=== PATIENT | female | born 1955 | race Caucasian/White ===

== ENCOUNTER → 2016-03-31 | Outpatient (CLI) | payer MEDICAID ==
[~2016-03-31] MED LIST: BISA5TAB81 PO; BUPR1FIL3 SL; CETI10TA17 PO; CLON2TAB3 PO; CLON2TAB45 PO; FLC100T1 PO; FURO20TA PO; LEVO75TA6 PO; LVT.112T PO; LVT.1T PO; METO10TA3 PO; MGCT300B PO; OMEP-10 PO; OMEP40CA36 PO; ONDA8TAB13 PO; PEG4000S9 PO; POLY119P PO; POTA10CA43 PO; PRM25T PO; SULF-222 PO
--- OUTSIDE RECORDS SUMMARY | 2016-03-31 13:29 | XMS REPORT ---
Author Author VINICIO HERNANDEZ [facility] eClinicalWorks Address Unknown Phone Unavailable Care Team Providers Care Technologist Infectious Disease Name Role Phone VINICIO HERNANDEZ CP Unavailable Allergies No Known Allergies Problems Problem Type Condition Code Onset Dates Condition Status Problem Numbness of perineum R20.0 Active Problem Aortoiliac stenosis I70.0 Active Problem Spinal stenosis at L4-L5 level M48.06 Active Problem Acquired hypothyroidism E03.9 Active Problem Primary osteoarthritis of right hip M16.11 Active Problem Anxiety F41.9 Active Problem Renal cysts, acquired, bilateral N28.1 Active Problem Neurogenic bladder N31.9 Active Problem Cervicalgia M54.2 Active Problem Fatty liver K76.0 Active Problem Nausea R11.0 Active Problem Hyperlipidemia E78.5 Active Problem Prediabetes R73.09 Active Problem Diverticulosis of large intestine without hemorrhage K57.30 Active Problem Chronic gastric ulcer K25.7 Active Problem Vitamin D deficiency E55.9 Active Problem Esophagitis K20.9 Active Problem Chronic obstructive pulmonary disease, unspecified COPD type J44.9 Active Problem Chest pain, unspecified R07.9 Active Medications No Known Medications Results No Known Results Summary Purpose eClinicalWorks Submission
--- NOTE | 2016-03-31 18:28 | Diagnostic Imaging Report ---
EXAMINATION: Digital mammogram bilateral screening. INDICATION: Screening. COMPARISON: This study was compared to the prior exam of 12/01/2011. At this time, there are no current complaints. The current study was also evaluated with a Computer Aided Detection (CAD) system. FINDINGS: The fibroglandular tissue in both breasts is heterogeneously dense. This does limit the sensitivity of this exam. Overall, there does not appear to have been any significant change when compared to the prior study. No primary or secondary sign of malignancy is noted. IMPRESSION: 1. There is no evidence of malignancy. 2. The patient should have her annual bilateral screening mammogram on schedule in March 2017. ACR BI-RADS Category 1: Negative. Result letter will be mailed to the patient. Note: At least 10% of breast cancer is not imaged by mammography. Dictated by: Dictated on workstation # [id number]
== END ==
LOC: RAD 10:41
PROVIDERS: ATTEND Family Medicine
DX: Z12.31 Encounter for screening mammogram for malignant neoplasm of breast (principal)
CPT/HCPCS: 77067

== ENCOUNTER → 2016-04-22 | Outpatient (CLI) | payer MEDICAID ==
--- NOTE | 2016-04-22 13:42 | Diagnostic Imaging Report ---
PROCEDURE: MRI pelvis without contrast. TECHNIQUE: Multiplanar, multisequence MRI of the pelvis was performed without contrast. INDICATION: Stage III kidney disease. Renal cysts. History of ovarian tumor removed in 2008. FINDINGS: The urinary bladder is minimally distended without focal lesion. There is no significant wall thickening. Changes of hysterectomy are seen. The patient based on history has had at least one ovary removed. No ovarian tissue is identified on this exam. There is no soft tissue mass identified in the pelvis. No significant free fluid or fluid collection is identified. The bone marrow signal in the pelvis is normal without suspicious mass seen. IMPRESSION: Minimal distention of the urinary bladder; unremarkable exam otherwise. Dictated by: Dictated on workstation # [id number]
--- NOTE | 2016-04-22 13:42 | Diagnostic Imaging Report ---
PROCEDURE: MR imaging abdomen without contrast. TECHNIQUE: Multiplanar, multisequence MR imaging of the abdomen was performed without contrast. INDICATION: Stage III chronic renal disease. Renal cysts. FINDINGS: There are multiple renal lesions with lobulated smooth margins that have T2 hyperintense bright signal in both kidneys. The largest is in the medial aspect of lower pole of the right kidney and measures 2.5 cm. This is larger compared to 2014 exam when the same lesion measured 2.1 cm. There are internal septations seen. This study does not evaluate for solid component based on the lack of intravenous contrast and given the enlargement confirmation with ultrasound of the relatively simple nature of this lesion is recommended. The size of the lesion in the upper pole of the left kidney is 1.4 cm which is not significantly changed from the CT scan in 2014. The gallbladder demonstrates no stones or evidence of cholecystitis. The liver has fairly homogeneous appearance of the parenchyma in its visualized portions and the spleen and the pancreas appear grossly unremarkable. The adrenal glands appear unremarkable. A gastric diverticulum from the posterior aspect of the fundus of the stomach appears to abut the left adrenal gland. The abdominal aorta is normal in caliber. No para-aortic significantly enlarged lymph nodes are seen. IMPRESSION: There is interval enlargement of 2.5 cm lesion in the medial aspect of the lower pole of the right kidney with suggestion of internal septation. There is no definitive solid component; however, the evaluation is limited without intravenous contrast and a right renal ultrasound to confirm lack of a solid component is recommended. Dictated by: Dictated on workstation # [id number]
== END ==
LOC: RAD 10:09
PROVIDERS: ATTEND Nurse Practitioner
DX: N28.9 Disorder of kidney and ureter, unspecified (principal); I13.0 Hypertensive heart and chronic kidney disease with heart failure and stage 1 through stage 4 chronic kidney disease, or unspecified chronic kidney disease; N18.3 Chronic kidney disease, stage 3 (moderate); R80.9 Proteinuria, unspecified; E55.9 Vitamin D deficiency, unspecified; E78.5 Hyperlipidemia, unspecified; K76.0 Fatty (change of) liver, not elsewhere classified; R73.01 Impaired fasting glucose; E87.1 Hypo-osmolality and hyponatremia; E87.2 Acidosis
CPT/HCPCS: 72195; 74181

== ENCOUNTER → 2016-09-08 | Outpatient (CLI) | payer MEDICAID ==
--- NOTE | 2016-09-08 16:36 | Diagnostic Imaging Report ---
PROCEDURE: Lung cancer screening CT chest without contrast. TECHNIQUE: Multiple contiguous axial images were obtained through the chest without the use of intravenous contrast. This is performed with a low-dose protocol. INDICATION: Currently asymptomatic patient with 40 pack years history of smoking. Comparison: None available. FINDINGS: There is no significant pulmonary consolidation or mass. No suspicious nodule is seen. Scattered areas of scarring are noted. There is a 3 mm nonspecific nodule in the left lower lobe, axial image 43 of questionable significance. Mild scarring in the inferior lingula seen. The mediastinum demonstrates no mass or significantly enlarged lymph nodes. The hilar vessels are not opacified with no obvious hilar mass. The axilla demonstrate no lymph node enlargement. The heart size is normal. No pericardial or pleural effusion. The osseous structures demonstrate mild degenerative changes. IMPRESSION: 3 mm nodule in the left lower lobe of questionable clinical significance. No suspicious nodule or mass. Mild scarring in the left lung base. Lung Rads Category 2. Benign findings. Recommendations: Annual screening low-dose CT scan. Dictated by: Dictated on workstation # [id number]
== END ==
LOC: RAD 14:16
PROVIDERS: ATTEND Family Medicine
DX: R91.1 Solitary pulmonary nodule (principal); F17.210 Nicotine dependence, cigarettes, uncomplicated

== ENCOUNTER 2016-10-14 05:36 | Outpatient (CLI) | payer MEDICAID ==
[~2016-10-14] VITALS: Ht 167.6 cm; Wt 56.7 kg
[2016-10-14] MEDS ORDERED: NALO25TA PO (12:19)
[2016-10-14] MEDS ORDERED: RT-ALBUINH IH (12:19)
[2016-10-14] MEDS ORDERED: CLON1TAB3 PO (12:19)
[2016-10-14] MEDS ORDERED: RANI150T90 PO (12:19)
[2016-10-14] MEDS ORDERED: ONDN4T PO (12:19)
[2016-10-14] MEDS ORDERED: MULT-298 PO (12:24)
[2016-10-14] MEDS ORDERED: FENO160T12 PO (12:24)
[2016-10-14] MEDS ORDERED: SUCR1TAB PO (12:24)
== END 2016-10-14 12:27 ==
LOC: PREOP 05:36
PROVIDERS: ATTEND Surgery
DX: Z01.818 Encounter for other preprocedural examination (principal); R11.0 Nausea; R63.4 Abnormal weight loss; K92.0 Hematemesis; K59.00 Constipation, unspecified

== ENCOUNTER 2016-10-19 08:34 | Day surgery (SDC) | payer MEDICAID ==
[~2016-10-19] VITALS: Ht 167.6 cm; Wt 56.7 kg
[~2016-10-19 08:34] MED LIST changes: +CLON1TAB3 PO; +FENO160T12 PO; +MULT-298 PO; +NALO25TA PO; +ONDN4T PO; +RANI150T90 PO; +RT-ALBUINH IH; +SUCR1TAB PO
[2016-10-19] MEDS ORDERED: NS IV 1000 ML 1,000 ML IV STA (08:50)
[2016-10-19] MEDS ORDERED: LACTATED RINGERS 1,000 ML IV PRN (08:59)
[2016-10-19] MEDS ORDERED: RT-ALBUTEROL SULF 2.5 MG/3 ML PRE-MIX VIAL INH ONE (09:00)
[2016-10-19] MEDS ORDERED: FAMOTIDINE 20MG/2ML IV (PEPCID) IV ONE (09:00)
[2016-10-19] MEDS ORDERED: HURRICAINE EXT TUBE (BENZOCAINE) XX PRN (09:00)
[2016-10-19 09:11] VITALS: BP 108/68
--- NOTE | 2016-10-19 09:28 | Conscious Sedation/ASA ---
Conscious Sedation Pre-Proced Time Reviewed: :27 ASA Class: 3 Airway Mallampati Classification: ([place] appropriate class) I. II. III, IV Lungs Heart ASA score ASA 1: a normal healthy patient ASA 2: a patient with a mild systemic disease (mid diabetes, controlled hypertension, obesity ASA 3: a patient with a severe systemic disease that limits activity (angina , COPD, prior Myocardial infarction) ASA 4: a patient with an incapacitating disease that is a constant threat to life (CHF, renal failure) ASA 5: a moribund patient not expected to survive 24 hrs. (ruptured aneurysm) ASA 6: a declared brain patient whose organs are being harvested. For emergent operations, add the letter E after the classification Grade 2 Sedation Plan: Discussed options with patient/fam Note The patient is an appropriate candidate to undergo the planned procedure, sedation, and anesthesia. The patient immediately re-assessed prior to indication. CHANDANA LONGORIA MD Oct 19, 2016 9:28 am
--- NOTE | 2016-10-19 09:28 | History & Physicial ---
History of Present Illness History of Present Illness Reason for visit/HPI This lady presents for screening colonoscopy and EGD. She has a history of weight loss, nausea, constipation, bright red blood in stool, and GERD. She also reports erosions in her stomach for which she takes reglan, carafate, and zantac. She had polyps on a previous colonoscopy. No family history of colon cancer or polyps. Date of Admission Date Seen by Provider: Oct 19, 2016 Time Seen by Provider: 09:33 I consulted on this patient on 10/19/16 09:23 Attending Physician John Driver MD Admitting Physician Nancy Saenz MD Consult Allergies and Home Medications Allergies Coded Allergies: butorphanol (Unverified Allergy, Unknown, 10/01/13) ketorolac (Unverified Allergy, Unknown, 10/01/13) Erythromycin Base (Unverified Adverse Reaction, Intermediate, 03/03/13) Home Medications Albuterol Sulfate 1 Puff Puff, 2 PUFF IH Q4H PRN for WHEEZING, (Reported) 1 PUFF = 90 MCG Buprenorphine Hcl/Naloxone Hcl 1 Each Film, 1 EACH SL DAILY, (Reported) Clonazepam 1 Mg Tablet, 1 MG PO BID, (Reported) Fenofibrate 160 Mg Tablet, 160 MG PO DAILY, (Reported) Levothyroxine Sodium 75 Mcg Tablet, 75 MCG PO DAILY, (Reported) Metoclopramide Hcl 10 Mg Tablet, 10 MG PO QID PRN for NAUSEA, (Reported) Multivitamin/Iron/Folic Acid 1 Each Tablet, 1 EACH PO DAILY, (Reported) Naloxegol Oxalate 25 Mg Tablet, 25 MG PO DAILY, (Reported) Ondansetron HCl 4 Mg Tab, 4 MG PO TID, (Reported) Ranitidine HCl 150 Mg Tablet, 150 MG PO BID, (Reported) Sucralfate 1 Gm Tablet, 1 GM PO DAILY, (Reported) Past Nwntgdj-Cvanpb-Ufxelt Hx Patient Social History Alcohol Use: Past History Recreational Drug Use: No Smoking Status: Current Everyday Smoker Type Used: Cigarettes Recent Foreign Travel: No Contact w/other who traveled: No Recent Hopitalizations: No Immunizations Up To Date Date of Influenza Vaccine: Dec 12, 2012 Seasonal Allergies Seasonal Allergies: Yes Surgeries Hysterectomy, Oophorectomy Cardiovascular Palpitations Reproductive System Hx Reproductive Disorders: No Gastrointestinal Gastroesophageal Reflux, Chronic Constipation, Polyps Musculoskeletal Degenerate Disk Disease, Arthritis Endocrine Endocrine Disorders: Hypothyroidsim Psychosocial Behavioral Health Disorders: Anxiety Family Medical History Family Hx: FH: rheumatoid arthritis 19 MOTHER Pancreatic cancer 19 FATHER Constitutional: no symptoms reported, weight loss EENTM: nose congestion Respiratory: cough Cardiovascular: no symptoms reported Gastrointestinal: constipation, heartburn, loss of appetite, nausea, other ( occasional blood streaks in stool) Genitourinary: no symptoms reported Musculoskeletal: no symptoms reported Skin: no symptoms reported Psychiatric/Neurological: No Symptoms Reported All Other Systems Reviewed Negative Unless Noted: Yes Physical Exam Vital Signs Vital Sign - Last 12Hours 10/19/16 09:11 Temp 98.8 Pulse 88 Resp 18 B/P (MAP) 108/68 Pulse Ox 94 O2 Delivery Room Air Capillary Refill : General Appearance: No Apparent Distress, WD/WN Eyes: Bilateral Eye Normal Inspection, Bilateral Eye PERRL, Bilateral Eye EOMI HEENT: PERRL/EOMI, TMs Normal, Normal ENT Inspection, Pharynx Normal Neck: Full Range of Motion, Normal Inspection, Non Tender, Supple, Carotid Bruit Cardiovascular: Regular Rate, Rhythm, No Edema, No Gallop, No JVD, No Murmur, Normal Peripheral Pulses Gastrointestinal: Normal Bowel Sounds, Non Tender, Soft Rectal: Deferred Back: Normal Inspection Extremity: Normal Inspection Neurologic/Psychiatric: Alert, Oriented x3, Normal Mood/Affect Skin: Normal Color, Warm/Dry Lymphatic: No Adenopathy Assessment/Plan Assessment and Plan This lady is here for a screening colonoscopy and EGD. Problems: SALOMÓN CRABTREE MEDICAL STUDENT Oct 19, 2016 09:28
[2016-10-19] MEDS ORDERED: NS IV 1000 ML 1,000 ML IV SCH (09:45)
[2016-10-19] MEDS ORDERED: MIDAZOLAM 2 MG/2 ML (VERSED) VIAL ONE ×2 (09:51→09:59)
[2016-10-19] MEDS ORDERED: proPOfol 200 MG/20 ML (DIPRIVAN) VIAL IV ONE ×2 (09:51→10:00)
--- NOTE | 2016-10-19 10:31 | Endo Procedure Record ---
Endo Procedure Report Date of Procedure Oct 19, 2016 Surgeon (s) CHANDANA LONGORIA MD Post Procedure/Op Diagnosis EGD: Grade 1 esophagitis and distal gastritis Colonoscopy: Internal hemorrhoids and a few diverticula Procedure Performed EGD with antral biopsy Colonoscopy to cecum Description of Procedure Anesthesia Type: Conscious Sedation Specimen(s) collected/removed antral mucosa for H. pylori Description of the Procedure indication for the procedures: This lady came in for an upper endoscopy to investigate weight loss along with nausea and for concomitant colonoscopy to evaluate rectal bleeding and a change in her bowel habits. Informed consent was obtained after reviewing the procedures in detail. Description of procedures EGD/antral biopsy: She was placed in left lateral decubitus position and her vital signs were monitored. Conscious sedation was achieved using propofol infusion by our [employer] the flexible gastroscope was then introduced down the esophagus, past the stomach, into the proximal duodenum. Findings Esophagus: Grade 1 esophagitis Stomach: Mild distal gastritis. Biopsy for H. pylori was obtained. Duodenum normal She tolerated the procedure well and was turned around in preparation for colonoscopy. Impression: Weight loss and nausea. Mild distal gastritis. H. pylori status pending. Colonoscopy: Examination of the perianal area revealed external hemorrhoids and skin tags. Digital examination was unremarkable. The colonoscope was then introduced into the rectum and advanced to the cecum. The quality of bowel preparation was rather sub-optimal. However, I was able to suction the liquid fecal material and complete the examination. The scope was then withdrawn slowly and the mucosa examined in a systematic fashion Findings: 1. Internal hemorrhoids, source of her bleeding 2. Sigmoid diverticulae She tolerated the procedures well and was taken back to the nursing area in a stable condition. Impression: Rectal bleeding due to internal hemorrhoids. Sigmoid diverticulae Copies To: VINICIO HERNANDEZ MD,CHANDANA Christopher MD Oct 19, 2016 10:31 am
--- NOTE | 2016-10-19 10:34 | Discharge Inst-Simple/Standard ---
Discharge Inst-Standard Discharge Medications New, Converted or Re-Newed RX: Other Patient Instructions/Follow Up Plan of Care/Instructions/FU: F/U with her primary Activity as Tolerated: Yes Discharge Diet: No Restrictions CHANDANA LONGORIA MD Oct 19, 2016 10:34 am
[2016-10-19 10:45] VITALS: BP 103/51
[2016-10-19 11:15] VITALS: BP 106/66
[2016-10-19 11:32] VITALS: BP 106/66
== END 2016-10-19 11:25 | disposition home or self-care (01) ==
LOC: ENDO 08:34
PROVIDERS: ATTEND Surgery
DX: K20.9 Esophagitis, unspecified (principal); K29.70 Gastritis, unspecified, without bleeding; K64.8 Other hemorrhoids; K57.30 Diverticulosis of large intestine without perforation or abscess without bleeding; J44.9 Chronic obstructive pulmonary disease, unspecified; F17.210 Nicotine dependence, cigarettes, uncomplicated; G40.909 Epilepsy, unspecified, not intractable, without status epilepticus; E03.9 Hypothyroidism, unspecified; Z79.899 Other long term (current) drug therapy
CPT/HCPCS: 94640

== ENCOUNTER 2016-12-09 11:44 | Emergency (ER) | payer MEDICAID ==
[~2016-12-09] VITALS: Ht 167.6 cm; Wt 56.7 kg
--- OUTSIDE RECORDS SUMMARY | 2016-12-09 12:06 | XMS REPORT | Continuity of Care Document ---
Author Author [facility] [address] Organization [facility] [address] Address Unknown Phone Unavailable Allergies Medications Problems Procedures Results Encounters ACCT No. Visit Date/Time Discharge Status Pt. Type Provider Facility Loc./Unit Complaint [id number] 05/18/2013 07:17:00 2013 23:59:59 CLS Outpatient
--- NOTE | 2016-12-09 15:00 | Diagnostic Imaging Report ---
EXAMINATION: Upright and supine views of the abdomen. INDICATION: Constipation and bleeding. FINDINGS: There is no pneumoperitoneum. There is a moderate amount of fecal material seen in the colon and rectum. No bowel obstruction. Pelvic calcifications are likely related to phleboliths. IMPRESSION: Moderate amounts of fecal material are seen in the colon. No pneumoperitoneum or evidence of bowel obstruction. Dictated by: Dictated on workstation # [id number]
--- NOTE | 2016-12-09 16:14 | ED Abdominal Pain ---
General Chief Complaint: Abdominal/GI Problems Stated Complaint: CONSTIPATION Nursing Triage Note: Pt c/o constipation x3 weeks and states she has tried "everything" with no results. Pt reports having dark red blood in her underwear this morning upon waking and c/o abd cramping and rectal bleeding at this time. Sepsis Screen: No Definite Risk Source of Information: Patient Exam Limitations: No Limitations History of Present Illness Time Seen By Provider: 14:22 Initial Comments This is a ipy-[id number] woman presents to the emergency room with complaints of constipation for about 3 weeks. She had a colonoscopy performed about 3 weeks ago as well. There were internal hemorrhoids and diverticuli noted but no other significant abnormalities. She had some blood in her stools and on the toilet paper recently. The blood was fairly dark. She is on Suboxone which she believes is the cause of her constipation. She was previously treated with Linzess which she states caused diarrhea. She stopped taking it and then became constipated. Patient also reports a recent laparoscopic he which showed no seen if Abnormalities per her report. Patient has tried prunes, increased water intake, milk of magnesia, magnesium citrate 2, multiple suppositories, fleets enemas, soapsuds enemas, all with no significant improvement. It has been about 3 weeks since she has had a good bowel movement. She has tried Movantic in the past without success. She also tried a couple doses of MiraLAX which was successful. She reports poor rectal sensation due to chronic back problems which may be a contributing factor. Allergies and Home Medications Allergies Coded Allergies: butorphanol (Unverified Allergy, Unknown, 10/01/13) ketorolac (Unverified Allergy, Unknown, 10/01/13) Erythromycin Base (Unverified Adverse Reaction, Intermediate, 03/03/13) Home Medications Albuterol Sulfate 1 Puff Puff, 2 PUFF IH Q4H PRN for WHEEZING, (Reported) 1 PUFF = 90 MCG Buprenorphine Hcl/Naloxone Hcl 1 Each Film, 1 EACH SL DAILY, (Reported) Clonazepam 1 Mg Tablet, 1 MG PO BID, (Reported) Fenofibrate 160 Mg Tablet, 160 MG PO DAILY, (Reported) Levothyroxine Sodium 75 Mcg Tablet, 75 MCG PO DAILY, (Reported) Metoclopramide Hcl 10 Mg Tablet, 10 MG PO QID PRN for NAUSEA, (Reported) Multivitamin/Iron/Folic Acid 1 Each Tablet, 1 EACH PO DAILY, (Reported) Naloxegol Oxalate 25 Mg Tablet, 25 MG PO DAILY, (Reported) Ondansetron HCl 4 Mg Tab, 4 MG PO TID, (Reported) Ranitidine HCl 150 Mg Tablet, 150 MG PO BID, (Reported) Sucralfate 1 Gm Tablet, 1 GM PO DAILY, (Reported) Review of Systems Constitutional: weight loss EENTM: No Symptoms Reported Respiratory: No Symptoms Reported Cardiovascular: No Symptoms Reported Gastrointestinal: See HPI Genitourinary: No Symptoms Reported Musculoskeletal: no symptoms reported Skin: no symptoms reported Psychiatric/Neurological: No Symptoms Reported Endocrine: No Symptoms Reported Hematologic/Lymphatic: No Symptoms Reported Past Mcsaqij-Qwysrb-Ikhdry Hx Patient Social History Alcohol Use: Denies Use Recreational Drug Use: No Smoking Status: Current Someday Smoker Type Used: Cigarettes Recent Foreign Travel: No Contact w/Someone Who Travel: No Recent Infectious Disease Expo: No Recent Hopitalizations: No Immunizations Up To Date Date of Influenza Vaccine: Dec 12, 2012 Seasonal Allergies Seasonal Allergies: Yes Surgeries History of Surgeries: Yes (BILAT OOPHERECTOMY FOR TUMORS, BREAST BXS, TOE SURGERY) Surgeries: Abdominal (Colonoscopy, laparoscopy), Hysterectomy, Oophorectomy Respiratory History of Respiratory Disorde: Yes Respiratory Disorders: COPD Cardiovascular History of Cardiac Disorders: Yes Cardiac Disorders: Palpitations Neurological History of Neurological Disord: Yes (MEDICATION RELATED SEIZURE) Reproductive System Hx Reproductive Disorders: No Genitourinary History of Genitourinary Disor: Yes (urine retention) Gastrointestinal History of Gastrointestinal Di: Yes ("no feeling in rectum") Gastrointestinal Disorders: Gastroesophageal Reflux, Chronic Constipation, Hemorrhoids, Polyps Musculoskeletal History of Musculoskeletal Dis: No Musculoskeletal Disorders: Degenerate Disk Disease, Arthritis, Chronic Back Pain Endocrine History of Endocrine Disorders: Yes Endocrine Disorders: Hypothyroidsim Cancer History of Cancer: No Psychosocial History of Psychiatric Problem: Yes Behavioral Health Disorders: Anxiety Integumentary History of Skin or Integumenta: No Blood Transfusions History of Blood Disorders: Yes (anemia) Family Medical History Family Medial History: FH: rheumatoid arthritis 19 MOTHER Pancreatic cancer 19 FATHER Physical Exam Vital Signs VS - Last 72 Hours, by Label 12/09/16 12/09/16 12:31 16:22 Temp 98.2 98.2 Pulse 65 65 Resp 18 18 B/P (MAP) 105/73 Pulse Ox 98 98 O2 Delivery Room Air Capillary Refill : Less Than 3 Seconds General Appearance: WD/WN, no apparent distress HEENT: normal ENT inspection Respiratory: lungs clear, normal breath sounds, no respiratory distress Cardiovascular: regular rate, rhythm, no edema, no murmur Gastrointestinal: normal bowel sounds, soft, distended (Mildly), tenderness ( Generalized, mild) Rectal: normal exam, normal rectal tone, No hemorrhoids, No tenderness Extremities: normal inspection, no pedal edema Neurologic/Psychiatric: bundle cutter II-XII nml as tested, no motor/sensory deficits, alert, normal mood/affect, oriented x 3 Skin: normal color, warm/dry Progress/Results/Core Measures Results/Orders My Orders Orders - MARY CALERO MD Abdomen, Flat & Upright/Decub (12/09/16 14:21) Methylnaltrexone Injection (Relistor Inj (12/09/16 16:15) Vital Signs/I&O Vital Sign - Last 12Hours 12/09/16 12/09/16 12:31 16:22 Temp 98.2 98.2 Pulse 65 65 Resp 18 18 B/P (MAP) 105/73 Pulse Ox 98 98 O2 Delivery Room Air Blood Pressure Mean: 84 Progress Note : Progress Note Patient appeared to have formed stool in the colon on x-ray suggestive of constipation. History also suggests constipation. I advised her to consume a clear liquid diet with frequent doses of MiraLAX until bowel movements are produced. We also gave her a dose of Relistor in the emergency room in an effort to try stimulating her bowels. She was advised to have her primary care provider check her thyroid studies if her constipation does not improve soon. She was advised to follow-up with Dr. Driver or her primary care provider as soon as possible. Rectal bleeding was felt to be related to her multiple enemas and presence of hemorrhoids noted on colonoscopy. Diagnostic Imaging Diagonstic Imaging: Xray Plain Films/CT/US/NM/MRI: abdomen Comments Abdominal x-rays viewed by me and report reviewed. See report below: NAME: WHITLEY TYLER [facility] REC#: [id number] PT STATUS: REG ER : 1955 PHYSICIAN: MARY CALERO MD ADMIT DATE: 12/09/16/ER Signed Date of Exam: 12/09/16 ABDOMEN, FLAT & UPRIGHT/DECUB EXAMINATION: Upright and supine views of the abdomen. INDICATION: Constipation and bleeding. FINDINGS: There is no pneumoperitoneum. There is a moderate amount of fecal material seen in the colon and rectum. No bowel obstruction. Pelvic calcifications are likely related to phleboliths. IMPRESSION: Moderate amounts of fecal material are seen in the colon. No pneumoperitoneum or evidence of bowel obstruction. Dictated by: Dictated on workstation # [id number] Dict: 12/09/16 1451 Trans: 12/09/16 1614 Interpreted by: MITZY ARROYO MD Electronically signed by: MITZY ARROYO MD 12/09/16 1614 Departure Impression Impression: Primary Impression: Constipation Qualified Codes: K59.00 - Constipation, unspecified Additional Impression: Abdominal pain, generalized Disposition: 01 HOME, SELF-CARE Condition: Improved Departure-Patient Inst. Decision time for Depature: 16:00 Referrals: VINICIO HERNANDEZ MD (PCP/Family) Primary Care Physician Patient Instructions: Acute Abdomen (Belly Pain), Adult (DC), Constipation, Adult (DC) Add. Discharge Instructions: Drink plenty of clear liquids. Consume a primarily clear liquid diet (low caffeine) until a good bowel movement is produced. Use MiraLAX (polyethylene glycol) one capful dissolved in 8-12 ounces of clear liquids every 4 hours until a good bowel movement is produced. You may take Tylenol (acetaminophen) up to 1000 mg every 6 hours as needed for pain. Ibuprofen up to 600 mg every 6 hours may be used for pain not controlled by Tylenol. For nausea, you may use Zofran (ondansetron) up to one dose every 4 hours. You may also use the Reglan (metoclopramide) as much as every 6 hours. This should help with nausea and should encourage bowel motility. Follow-up with your primary care provider or Dr. Driver as soon as possible for further evaluation. If you do not produce a bowel movement within 24 hours of starting the MiraLAX regimen, also consider having your primary care provider check your thyroid function and electrolytes as electrolyte abnormalities or thyroid dysfunction may worsen constipation. All discharge instructions reviewed with patient and/or family. Voiced understanding. Copy Copies To 1: VINICIO HERNANDEZ MD, JOSHUA T MD Dec 09, 2016 16:14
[2016-12-09] MEDS ORDERED: METHYLNALTREXONE 12 MG/0.6 ML (RELISTOR) VIAL SQ ONE (16:15)
[2016-12-09 16:22] VITALS: BP 105/73
== END 2016-12-09 16:22 | disposition home or self-care (01) ==
LOC: EDUNIT# 11:44 → ER 11:45
DX: K59.00 Constipation, unspecified (principal); J44.9 Chronic obstructive pulmonary disease, unspecified; M19.90 Unspecified osteoarthritis, unspecified site; K21.9 Gastro-esophageal reflux disease without esophagitis; E03.9 Hypothyroidism, unspecified; F17.210 Nicotine dependence, cigarettes, uncomplicated; Z90.710 Acquired absence of both cervix and uterus; Z86.010 Personal history of colon polyps; Z80.0 Family history of malignant neoplasm of digestive organs
CPT/HCPCS: 74020; 99284

== ENCOUNTER → 2017-06-24 | Outpatient (CLI) | payer MEDICAID ==
[~2017-06-24] MED LIST changes: +IOHEXOL 350 MG/ML 100 ML (OMNIPAQUE 350) VIAL IV ONE; +NS 250 ML (IVPB) BAG IV ONE
[2017-06-24 12:13] LABS: CREATININE SERUM 1.1 MG/DL (0.60-1.30)
--- NOTE | 2017-06-24 13:29 | Diagnostic Imaging Report ---
PROCEDURE: CT abdomen with and without contrast. TECHNIQUE: Multiple contiguous axial CT images of the abdomen were obtained prior to and after intravenous administration of iodinated contrast. INDICATION: Renal cyst. COMPARISON: Comparison is made with prior MRI of the abdomen performed 04/22/2016. FINDINGS: The lung bases are clear. No discrete liver mass is identified. The gallbladder is unremarkable. The pancreas and spleen are unremarkable. No adrenal mass is detected. There are several small cortical low densities involving the left kidney, too small to accurately characterize. The low-density mass in the medial aspect of the lower pole of the right kidney has increased in size when compared with the MRI from one year earlier. This now measures approximately 3.1 cm AP compared with 2.5 cm on prior exam. Hounsfield units do increase approximately 10-15 units between the precontrast and arterial phase sequence suggestive of minimal enhancement. A cystic neoplasm cannot be excluded. Aorta is nonaneurysmal. No central retroperitoneal or mesenteric lymphadenopathy is seen. The small and large bowel loops are normal in caliber. There is no ascites. IMPRESSION: 1. Mild increase in size of the cystic mass in the lower pole of the right kidney when compared with MRI abdomen study from 04/22/2016. In addition, this lesion does show some mild contrast enhancement, and the possibility of a cystic renal neoplasm cannot be excluded. No abdominal lymphadenopathy is identified. Dictated by: Dictated on workstation # [id number]
== END ==
LOC: RAD 11:36
PROVIDERS: ATTEND Family Medicine
DX: N28.1 Cyst of kidney, acquired (principal); N18.3 Chronic kidney disease, stage 3 (moderate)
CPT/HCPCS: 36415; 74170; 82565; 84520

== ENCOUNTER → 2017-11-09 | Outpatient (CLI) | payer MEDICAID ==
[~2017-11-09] MED LIST changes: +CLON1TAB13 PO; -CLON1TAB3 PO; -IOHEXOL 350 MG/ML 100 ML (OMNIPAQUE 350) VIAL IV ONE; -NS 250 ML (IVPB) BAG IV ONE
--- NOTE | 2017-11-09 10:57 | Diagnostic Imaging Report ---
PROCEDURE: MRI right joint lower extremity without contrast. TECHNIQUE: Multiplanar, multisequence MR imaging of the right knee was performed without contrast. COMPARISON: None available. INDICATION: Knee pain. FINDINGS: MENISCI Medial meniscus: Normal. Lateral meniscus: Truncation of the free edge of the body suggests mild degenerative free edge tearing. LIGAMENTS ACL: Intact. PCL: Intact. MCL: Intact. LCL: The lateral collateral ligamentous complex is intact. EXTENSOR MECHANISM The extensor mechanism is intact. CARTILAGE Medial compartment: Medial compartment articular cartilage is well preserved without focal high-grade chondromalacia. Lateral compartment: Focal high-grade partial-thickness fissuring in the posterior weightbearing aspect of the lateral femoral condyle. No underlying subchondral bone marrow edema. Patellofemoral compartment: The patellofemoral articular cartilage is well preserved without high-grade chondromalacia. BONE No fracture, stress fracture or osteonecrosis. SOFT TISSUE No knee effusion or Nuñez's cyst. IMPRESSION: 1. Minimal degenerative free edge fraying of the body of the lateral meniscus. 2. Focal high-grade partial-thickness chondral fissuring in the lateral femoral condyle. 3. Cruciate and collateral ligaments are normal. Dictated by: Dictated on workstation # [id number]
--- NOTE | 2017-11-09 12:36 | Diagnostic Imaging Report ---
PROCEDURE: MRI left joint lower extremity without contrast. TECHNIQUE: Multiplanar, multisequence non contrast-enhanced MRI of the left lower extremity was accomplished. INDICATION: Knee pain. COMPARISON: There are no prior studies available for comparison. FINDINGS: There is no abnormal signal arising from either meniscus on the sagittal proton-dense series to suggest a significant articular surface tear. There is perhaps minimal fraying of the inferior articular surface of the posterior horns of both the medial and lateral meniscus. The anterior and posterior cruciate ligaments, the quadriceps and the infrapatellar tendons, and the collateral ligaments are intact. The medial collateral ligament, the fibular collateral ligament, the biceps femoris tendon, the iliotibial band, and the medial and lateral retinaculum show no evidence for an acute abnormality. There is only mild degenerative disease involving the knee joint. There is no abnormal signal arising from the osseous structures to indicate bone edema or fracture. There is no sign of a joint effusion. There is no evidence for a Nuñez's cyst either. IMPRESSION: 1. There is minimal irregularity of the inferior articular surface of the posterior horns of both the medial and lateral meniscus. The menisci are otherwise unremarkable. 2. The major ligaments and tendons are intact. 3. There is no sign of an acute bony abnormality. 4. There is only mild degenerative disease of the knee joint. Dictated by: Dictated on workstation # [id number]
== END ==
LOC: RAD 09:37
PROVIDERS: ATTEND Family Medicine
DX: M23.352 Other meniscus derangements, posterior horn of lateral meniscus, left knee (principal); M23.322 Other meniscus derangements, posterior horn of medial meniscus, left knee; M17.12 Unilateral primary osteoarthritis, left knee; M23.300 Other meniscus derangements, unspecified lateral meniscus, right knee; M89.351 Hypertrophy of bone, right femur; M23.92 Unspecified internal derangement of left knee
CPT/HCPCS: 73721

== ENCOUNTER 2017-11-11 16:43 | Emergency (ER) | payer MEDICAID ==
[~2017-11-11] VITALS: Ht 167.6 cm; Wt 54.9 kg
--- NOTE | 2017-11-11 17:18 | ED General ---
General Chief Complaint: General Problems/Pain Stated Complaint: OUT OF MEDICATION Source of Information: Patient Exam Limitations: No Limitations History of Present Illness Date Seen by Provider: Nov 11, 2017 Time Seen by Provider: 17:16 Initial Comments To ER accompanied by her mother with reports of being out of her Klonopin. She states that she just ran out today. She states that she was scheduled to fill them today at [facility] and went to pick them up and was told that she could fill them today but would lose her primary care provider or she could go without them until 11/17/17 and fill them and keep her primary care provider. She denies any symptoms. She states that she has run out of her clonazepam a long time ago and when she did that she "blacked out". Timing/Duration: 1-2 Days Severity: Moderate Associated Systoms: Cough Allergies and Home Medications Allergies Coded Allergies: butorphanol (Unverified Allergy, Unknown, 10/01/13) ketorolac (Unverified Allergy, Unknown, 10/01/13) erythromycin base (Unverified Adverse Reaction, Intermediate, 03/03/13) Home Medications Albuterol Sulfate 1 Puff Puff, 2 PUFF IH Q4H PRN for WHEEZING, (Reported) 1 PUFF = 90 MCG Buprenorphine Hcl/Naloxone Hcl 1 Each Film, 1 EACH SL DAILY, (Reported) Clonazepam 1 Mg Tablet, 1 MG PO BID, (Reported) Fenofibrate 160 Mg Tablet, 160 MG PO DAILY, (Reported) Levothyroxine Sodium 75 Mcg Tablet, 75 MCG PO DAILY, (Reported) Metoclopramide Hcl 10 Mg Tablet, 10 MG PO QID PRN for NAUSEA, (Reported) Multivitamin/Iron/Folic Acid 1 Each Tablet, 1 EACH PO DAILY, (Reported) Naloxegol Oxalate 25 Mg Tablet, 25 MG PO DAILY, (Reported) Ondansetron HCl 4 Mg Tab, 4 MG PO TID, (Reported) Ranitidine HCl 150 Mg Tablet, 150 MG PO BID, (Reported) Sucralfate 1 Gm Tablet, 1 GM PO DAILY, (Reported) Patient Home Medication List Home Medication List Reviewed: Yes Review of Systems Review of Systems Constitutional: see HPI EENTM: see HPI Respiratory: no symptoms reported Cardiovascular: no symptoms reported Genitourinary: no symptoms reported Musculoskeletal: no symptoms reported Skin: no symptoms reported Psychiatric/Neurological: No Symptoms Reported Hematologic/Lymphatic: No Symptoms Reported Past Ftvmfel-Mfkeca-Ondeth Hx Patient Social History Alcohol Use: Denies Use Recreational Drug Use: No Smoking Status: Current Everyday Smoker Type Used: Cigarettes Recent Foreign Travel: No Contact w/Someone Who Travel: No Recent Hopitalizations: No Immunizations Up To Date Date of Influenza Vaccine: Dec 12, 2012 Seasonal Allergies Seasonal Allergies: Yes Past Medical History Surgeries: Yes (BILAT OOPHERECTOMY FOR TUMORS, BREAST BXS, TOE SURGERY) Abdominal, Hysterectomy, Oophorectomy Respiratory: Yes COPD Cardiac: Yes Palpitations Neurological: Yes (MEDICATION RELATED SEIZURE) Reproductive Disorders: No Genitourinary: Yes (urine retention) Gastrointestinal: Yes ("no feeling in rectum") Gastroesophageal Reflux, Chronic Constipation, Hemorrhoids, Polyps Musculoskeletal: No Degenerate Disk Disease, Arthritis, Chronic Back Pain Endocrine: Yes Hypothyroidsim Cancer: No Psychosocial: Yes Anxiety Integumentary: No Blood Disorders: Yes (anemia) Family Medical History FH: rheumatoid arthritis 19 MOTHER Pancreatic cancer 19 FATHER Physical Exam Vital Signs Vital Signs - First Documented 11/11/17 17:05 Temp 97.2 Pulse 95 Resp 18 B/P (MAP) 139/79 (99) Pulse Ox 99 O2 Delivery Room Air Capillary Refill : Height, Weight, BMI Height: 5'6.00" Weight: 125lbs. 0.0oz. [id number]; 20.2 BMI Method:Stated General Appearance: No Apparent Distress, WD/WN, Anxious Eyes: Bilateral Eye Normal Inspection, Bilateral Eye PERRL, Bilateral Eye EOMI Neck: Full Range of Motion, Normal Inspection Respiratory: No Accessory Muscle Use, No Respiratory Distress Cardiovascular: Regular Rate, Rhythm, Normal Peripheral Pulses Gastrointestinal: Non Tender, Soft Extremity: Normal Capillary Refill, Normal Inspection Neurologic/Psychiatric: Alert, Oriented x3 Skin: Normal Color, Warm/Dry Progress/Results/Core Measures Suspected Sepsis SIRS Temperature: Pulse: Respiratory Rate: Blood Pressure / Mean: Results/Orders Vital Signs/I&O 11/11/17 17:05 Temp 97.2 Pulse 95 Resp 18 B/P (MAP) 139/79 (99) Pulse Ox 99 O2 Delivery Room Air Capillary Refill : Departure Impression Primary Impression: OUT OF MEDICATIONS Disposition: 01 HOME, SELF-CARE Condition: Stable Departure-Patient Inst. Decision time for Depature: 17:25 Referrals: VINICIO HERNANDEZ MD (PCP/Family) Primary Care Physician Patient Instructions: Medication Safety, Adult Add. Discharge Instructions: 1. We called [facility] in [place]. I think you should go to the pharmacy and fill your prescription for clonazepam. Call Dr. Schulte tomorrow to make an appointment to be seen to sort out these issues. MARCO ROCA APRN Nov 11, 2017 17:18
[2017-11-11] MEDS ORDERED: CLON1TAB13 PO (17:27)
[2017-11-11 17:38] VITALS: BP 139/79
--- OUTSIDE RECORDS SUMMARY | 2017-11-11 18:12 | XMS REPORT | Continuity of Care Document ---
Author Author [facility] Organization [facility] Address Unknown Phone Unavailable Allergies Active Description Code Type Severity Reaction Onset Reported/Identified Relationship to Patient Clinical Status Yes erythromycin Drug Allergy N/ A N/A 08/13/2009 Yes Stadol Drug Allergy N/A N/A 08/13/2009 Yes erythromycin base [id number] Drug Allergy Moderate N/A 03/03/2013 Yes Toradol Drug Allergy N/A N/A 05/03/2013 Yes butorphanol [id number] Drug Allergy Unknown N/A 10/01/2013 Yes ketorolac [id number] Drug Allergy Unknown N/A 10/01/2013 Medications There is no data. 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, CONTINUOUS 08/13/2009 JUDIE VANG APRN 338.29 OTHER CHRONIC PAIN 08/13/2009 VINICIO HERNANDEZ MD 304.01 OPIOID TYPE DEPENDENCE, CONTINUOUS 08/13/2009 VINICIO HERNANDEZ MD 338.29 OTHER CHRONIC PAIN 08/13/2009 VINICIO HERNANDEZ MD 304.01 OPIOID TYPE DEPENDENCE, CONTINUOUS 08/13/2009 VINICIO HERNANDEZ MD 338.29 OTHER CHRONIC PAIN 08/13/2009 JUDIE VNAG APRN 304.01 OPIOID TYPE DEPENDENCE, CONTINUOUS 08/13/2009 JUDIE VANG APRN 338.29 OTHER CHRONIC PAIN 08/13/2009 VINICIO HERNANDEZ MD 304.01 OPIOID TYPE DEPENDENCE, CONTINUOUS 08/13/2009 VINICIO HERNANDEZ MD 338.29 OTHER CHRONIC PAIN 08/13/2009 VINICIO HERNANDEZ MD 304.01 OPIOID TYPE DEPENDENCE, CONTINUOUS 08/13/2009 VINICIO HERNANDEZ MD 338.29 OTHER CHRONIC PAIN 08/13/2009 TONY UBTTERFIELD MD 304.01 OPIOID TYPE DEPENDENCE, CONTINUOUS 08/13/2009 TONY BUTTERFIELD MD 338.29 OTHER CHRONIC PAIN 08/13/2009 VINICIO HERNANDEZ MD N 304.01 OPIOID TYPE DEPENDENCE, CONTINUOUS 08/13/2009 VINICIO HERNANDEZ MD N 338.29 OTHER CHRONIC PAIN 08/13/2009 VANG TAWERJUDIE R 304.01 OPIOID TYPE DEPENDENCE, CONTINUOUS 08/13/2009 VANG TAWER, JUDIE R 338.29 OTHER CHRONIC PAIN 08/13/2009 MARTINES DO, JAN K 304.01 OPIOID TYPE DEPENDENCE, CONTINUOUS 08/13/2009 MARTINES DO, JAN K 338.29 OTHER CHRONIC PAIN 08/13/2009 TONY BUTTERFIELD MD 304.01 OPIOID TYPE DEPENDENCE, CONTINUOUS 08/13/2009 TONY BUTTERFIELD MD 338.29 OTHER CHRONIC PAIN 08/13/2009 MARTINES DO JAN K 304.01 OPIOID TYPE DEPENDENCE, CONTINUOUS 08/13/2009 MARTINES DO, JAN K 338.29 OTHER CHRONIC PAIN 08/13/2009 VINICIO HERNANDEZ MD N 304.01 OPIOID TYPE DEPENDENCE, CONTINUOUS 08/13/2009 VINICIO HERNANDEZ MD N 338.29 OTHER CHRONIC PAIN 08/13/2009 VINICIO HERNANDEZ MD N 304.01 OPIOID TYPE DEPENDENCE, CONTINUOUS 08/13/2009 VINICIO HERNANDEZ MD N 338.29 OTHER CHRONIC PAIN 08/13/2009 VINICIO HERNANDEZ MD N 304.01 OPIOID TYPE DEPENDENCE, CONTINUOUS 08/13/2009 VINICIO HERNANDEZ MD N 338.29 OTHER CHRONIC PAIN 08/13/2009 VINICIO HERNANDEZ MD N 304.01 OPIOID TYPE DEPENDENCE, CONTINUOUS 08/13/2009 VINICIO HERNANDEZ MD N 338.29 OTHER CHRONIC PAIN 08/13/2009 VINICIO HERNANDEZ MD N 304.01 OPIOID TYPE DEPENDENCE, CONTINUOUS 08/13/2009 VINICIO HERNANDEZ MD N 338.29 OTHER CHRONIC PAIN 08/13/2009 JESUS PECK APRN E 304.01 OPIOID TYPE DEPENDENCE, CONTINUOUS 08/13/2009 JESUS PECK APRN E 338.29 OTHER CHRONIC PAIN 08/13/2009 MARTINES DO, JAN K 304.01 OPIOID TYPE DEPENDENCE, CONTINUOUS 08/13/2009 MARTINES DO, JAN K 338.29 OTHER CHRONIC PAIN 08/13/2009 MARTINES DO, JAN K 304.01 OPIOID TYPE DEPENDENCE, CONTINUOUS 08/13/2009 JAN MARTINES DO 338.29 OTHER CHRONIC PAIN 08/13/2009 VINICIO HERNANDEZ MD N 304.01 OPIOID TYPE DEPENDENCE, CONTINUOUS 08/13/2009 VINICIO HERNANDEZ MD N 338.29 OTHER CHRONIC PAIN 08/13/2009 VINICIO HERNANDEZ MD N 304.01 OPIOID TYPE DEPENDENCE, CONTINUOUS 08/13/2009 VINICIO HERNANDEZ MD N 338.29 OTHER CHRONIC PAIN 08/13/2009 VINICIO HERNANDEZ MD N 304.01 OPIOID TYPE DEPENDENCE, CONTINUOUS 08/13/2009 VINICIO HERNANDEZ MD N 338.29 OTHER CHRONIC PAIN 08/13/2009 VINICIO HERNANDEZ MD N 304.01 OPIOID TYPE DEPENDENCE, CONTINUOUS 08/13/2009 VINICIO HERNANDEZ MD N 338.29 OTHER CHRONIC PAIN 04/17/2010 JUDIE VANG APRN 522.5 PERIAPICAL ABSCESS WITHOUT SINUS 04/17/2010 VINICIO HERNANDEZ MD 522.5 PERIAPICAL ABSCESS WITHOUT SINUS 04/17/2010 VINICIO HERNANDEZ MD 522.5 PERIAPICAL ABSCESS WITHOUT SINUS 04/17/2010 JUDIE VANG APRN 522.5 PERIAPICAL ABSCESS WITHOUT SINUS 04/17/2010 VINICIO HERNANDEZ MD 522.5 PERIAPICAL ABSCESS WITHOUT SINUS 04/17/2010 VINICIO HERNANDEZ MD 522.5 PERIAPICAL ABSCESS WITHOUT SINUS 04/17/2010 TONY BUTTERFIELD MD 522.5 PERIAPICAL ABSCESS WITHOUT SINUS 04/17/2010 VINICIO HERNANDEZ MD 522.5 PERIAPICAL ABSCESS WITHOUT SINUS 04/17/2010 JUDIE VANG APRN 522.5 PERIAPICAL ABSCESS WITHOUT SINUS 04/17/2010 JAN MARTINES DO 522.5 PERIAPICAL ABSCESS WITHOUT SINUS 04/17/2010 TONY BUTTERFIELD MD 522.5 PERIAPICAL ABSCESS WITHOUT SINUS 04/17/2010 JAN MARTINES DO 522.5 PERIAPICAL ABSCESS WITHOUT SINUS 04/17/2010 VINICIO HERNANDEZ MD 522.5 PERIAPICAL ABSCESS WITHOUT SINUS 04/17/2010 VINICIO HERNANDEZ MD 522.5 PERIAPICAL ABSCESS WITHOUT SINUS 04/17/2010 VINICIO HERNANDEZ MD 522.5 PERIAPICAL ABSCESS WITHOUT SINUS 04/17/2010 VINICIO HERNANDEZ MD N 522.5 PERIAPICAL ABSCESS WITHOUT SINUS 04/17/2010 VINICIO HERNANEDZ MD 522.5 PERIAPICAL ABSCESS WITHOUT SINUS 04/17/2010 LIV ROSENTHAL JESUS E 522.5 PERIAPICAL ABSCESS WITHOUT SINUS 04/17/2010 MARTINES DO, JAN K 522.5 PERIAPICAL ABSCESS WITHOUT SINUS 04/17/2010 MARTINES DO, JAN K 522.5 PERIAPICAL ABSCESS WITHOUT SINUS 04/17/2010 VINICIO HERNANDEZ MD 522.5 PERIAPICAL ABSCESS WITHOUT SINUS 04/17/2010 VINICIO HERNANDEZ MD 522.5 PERIAPICAL ABSCESS WITHOUT SINUS 04/17/2010 VINICIO HERNANDEZ MD 522.5 PERIAPICAL ABSCESS WITHOUT SINUS 04/17/2010 VINICIO HERNANDEZ MD 522.5 PERIAPICAL ABSCESS WITHOUT SINUS 05/01/2010 JUDIE VANG APRN R 465.9 UPPER RESPIRATORY INFECTION 05/01/2010 JUDIE VANG APRN R 599.0 URINARY TRACT INFECTION 05/01/2010 VINICIO HERNANDEZ MD N 465.9 UPPER RESPIRATORY INFECTION 05/01/2010 VINICIO HERNANDEZ MD N 599.0 URINARY TRACT INFECTION 05/01/2010 VINICIO HERNANDEZ MD N 465.9 UPPER RESPIRATORY INFECTION 05/01/2010 VINICIO HERNANDEZ MD N 599.0 URINARY TRACT INFECTION 05/01/2010 JUDIE VANG APRN R 465.9 UPPER RESPIRATORY INFECTION 05/01/2010 JUDIE VANG APRN R 599.0 URINARY TRACT INFECTION 05/01/2010 VINICIO HERNANDEZ MD N 465.9 UPPER RESPIRATORY INFECTION 05/01/2010 VINICIO HERNANDEZ MD N 599.0 URINARY TRACT INFECTION 05/01/2010 VINICIO HERNANDEZ MD N 465.9 UPPER RESPIRATORY INFECTION 05/01/2010 VINICIO HERNANDEZ MD N 599.0 URINARY TRACT INFECTION 05/01/2010 TONY BUTTERFIELD MD 465.9 UPPER RESPIRATORY INFECTION 05/01/2010 TONY BUTTERFIELD MD 599.0 URINARY TRACT INFECTION 05/01/2010 VINICIO HERNANDEZ MD N 465.9 UPPER RESPIRATORY INFECTION 05/01/2010 VINICIO HERNANDEZ MD N 599.0 URINARY TRACT INFECTION 05/01/2010 JUDIE VANG APRN R 465.9 UPPER RESPIRATORY INFECTION 05/01/2010 VANG JUDIE ROSENTHAL 599.0 URINARY TRACT INFECTION 05/01/2010 MARTINES DO, JAN K 465.9 UPPER RESPIRATORY INFECTION 05/01/2010 MARTINES DO, JAN K 599.0 URINARY TRACT INFECTION 05/01/2010 TONY BUTTERFIELD MD 465.9 UPPER RESPIRATORY INFECTION 05/01/2010 TONY BUTTERFIELD MD 599.0 URINARY TRACT INFECTION 05/01/2010 MARTINES DO, JAN K 465.9 UPPER RESPIRATORY INFECTION 05/01/2010 MARTINES DO, JAN K 599.0 URINARY TRACT INFECTION 05/01/2010 VINICIO HERNANDEZ MD 465.9 UPPER RESPIRATORY INFECTION 05/01/2010 VINICIO HERNANDEZ MD 599.0 URINARY TRACT INFECTION 05/01/2010 VINICIO HERNANDEZ MD 465.9 UPPER RESPIRATORY INFECTION 05/01/2010 VINICIO HERNANDEZ MD 599.0 URINARY TRACT INFECTION 05/01/2010 VINICIO HERNANDEZ MD N 465.9 UPPER RESPIRATORY INFECTION 05/01/2010 VINICIO HERNANDEZ MD 599.0 URINARY TRACT INFECTION 05/01/2010 VINICIO HERNANDEZ MD 465.9 UPPER RESPIRATORY INFECTION 05/01/2010 VINICIO HERNANDEZ MD N 599.0 URINARY TRACT INFECTION 05/01/2010 VINICIO HERNANDEZ MD N 465.9 UPPER RESPIRATORY INFECTION 05/01/2010 VINICIO HERNANDEZ MD N 599.0 URINARY TRACT INFECTION 05/01/2010 JEREMIELJESUS HOWE APRN E 465.9 UPPER RESPIRATORY INFECTION 05/01/2010 JESUS PECK APRN E 599.0 URINARY TRACT INFECTION 05/01/2010 MARTINES DO, JAN K 465.9 UPPER RESPIRATORY INFECTION 05/01/2010 MARTINES DO, JAN K 599.0 URINARY TRACT INFECTION 05/01/2010 MARTINES DO, JAN K 465.9 UPPER RESPIRATORY INFECTION 05/01/2010 MARTINES DO, JAN K 599.0 URINARY TRACT INFECTION 05/01/2010 VINICIO HERNANDEZ MD N 465.9 UPPER RESPIRATORY INFECTION 05/01/2010 VINICIO HERNANDEZ MD N 599.0 URINARY TRACT INFECTION 05/01/2010 MARY MD, VINICIO N 465.9 UPPER RESPIRATORY INFECTION 05/01/2010 VINICIO HERNANDEZ MD N 599.0 URINARY TRACT INFECTION 05/01/2010 VINICIO HERNANDEZ MD N 465.9 UPPER RESPIRATORY INFECTION 05/01/2010 MARY RONDON, VINICIO N 599.0 URINARY TRACT INFECTION 05/01/2010 VINICIO HERNANDEZ MD N 465.9 UPPER RESPIRATORY INFECTION 05/01/2010 VINICIO HERNANDEZ MD N 599.0 URINARY TRACT INFECTION 10/29/2010 JUDIE VANG APRN 924.11 CONTUSION OF KNEE 10/29/2010 VINICIO HERNANDEZ MD N 924.11 CONTUSION OF KNEE 10/29/2010 VINICIO HERNANDEZ MD N 924.11 CONTUSION OF KNEE 10/29/2010 JUDIE VANG APRN 924.11 CONTUSION OF KNEE 10/29/2010 VINICIO HERNANDEZ MD N 924.11 CONTUSION OF KNEE 10/29/2010 VINICIO HERNANDEZ MD N 924.11 CONTUSION OF KNEE 10/29/2010 TONY BUTTERFIELD MD 924.11 CONTUSION OF KNEE 10/29/2010 VINICIO HERNANDEZ MD N 924.11 CONTUSION OF KNEE 10/29/2010 JUDIE VANG APRN 924.11 CONTUSION OF KNEE 10/29/2010 JAN MARTINES DO 924.11 CONTUSION OF KNEE 10/29/2010 TONY BUTTERFIELD MD 924.11 CONTUSION OF KNEE 10/29/2010 JAN MARTINES DO 924.11 CONTUSION OF KNEE 10/29/2010 VINICIO HERNANDEZ MD N 924.11 CONTUSION OF KNEE 10/29/2010 VINICIO HERNANDEZ MD N 924.11 CONTUSION OF KNEE 10/29/2010 VINICIO HERNANEDZ MD N 924.11 CONTUSION OF KNEE 10/29/2010 VINICIO HERNANDEZ MD N 924.11 CONTUSION OF KNEE 10/29/2010 VINICIO HERNANDEZ MD N 924.11 CONTUSION OF KNEE 10/29/2010 JESUS PECK APRN 924.11 CONTUSION OF KNEE 10/29/2010 JAN MARTINES DO 924.11 CONTUSION OF KNEE 10/29/2010 BOBBI RODRIGUEZ, JAN K 924.11 CONTUSION OF KNEE 10/29/2010 VINICIO HERNANDEZ MD N 924.11 CONTUSION OF KNEE 10/29/2010 VINICIO HERNANDEZ MD N 924.11 CONTUSION OF KNEE 10/29/2010 VINICIO HERNANDEZ MD N 924.11 CONTUSION OF KNEE 10/29/2010 VINICIO HERNANDEZ MD N 924.11 CONTUSION OF KNEE 01/02/2013 JUDIE VANG APRN R 244.9 HYPOTHYROIDISM 01/02/2013 JUDIE VANG APRN R 401.1 HYPERTENSION, BENIGN ESSENTIAL 01/02/2013 VINICIO HERNANDEZ MD N 244.9 HYPOTHYROIDISM 01/02/2013 VINICIO HERNANDEZ MD N 401.1 HYPERTENSION, BENIGN ESSENTIAL 01/02/2013 VINICIO HERNANDEZ MD N 244.9 HYPOTHYROIDISM 01/02/2013 VINICIO HERNANDEZ MD N 401.1 HYPERTENSION, BENIGN ESSENTIAL 01/02/2013 JUDIE VANG APRN R 244.9 HYPOTHYROIDISM 01/02/2013 JUDIE VANG APRN R 401.1 HYPERTENSION, BENIGN ESSENTIAL 01/02/2013 VINICIO HERNANDEZ MD N 244.9 HYPOTHYROIDISM 01/02/2013 VINICIO HERNANDEZ MD N 401.1 HYPERTENSION, BENIGN ESSENTIAL 01/02/2013 VINICIO HERNANDEZ MD N 244.9 HYPOTHYROIDISM 01/02/2013 VINICIO HERNANDEZ MD N 401.1 HYPERTENSION, BENIGN ESSENTIAL 01/02/2013 TONY BUTTERFIELD MD 244.9 HYPOTHYROIDISM 01/02/2013 TONY BUTTERFIELD MD 401.1 HYPERTENSION, BENIGN ESSENTIAL 01/02/2013 VINICIO HERNANDEZ MD N 244.9 HYPOTHYROIDISM 01/02/2013 VINICIO HERNANDEZ MD N 401.1 HYPERTENSION, BENIGN ESSENTIAL 01/02/2013 JUDIE VANG APRN R 244.9 HYPOTHYROIDISM 01/02/2013 JUDIE VANG APRN R 401.1 HYPERTENSION, BENIGN ESSENTIAL 01/02/2013 MARTINES DO, JAN K 244.9 HYPOTHYROIDISM 01/02/2013 BOBBI RODRIGUEZ JAN K 401.1 HYPERTENSION, BENIGN ESSENTIAL 01/02/2013 TONY BUTTERFIELD MD 244.9 HYPOTHYROIDISM 01/02/2013 TONY BUTTERFIELD MD 401.1 HYPERTENSION, BENIGN ESSENTIAL 01/02/2013 MARTINES DO, JAN K 244.9 HYPOTHYROIDISM 01/02/2013 MARTINES DO, JAN K 401.1 HYPERTENSION, BENIGN ESSENTIAL 01/02/2013 VINICIO HENRANDEZ MD N 244.9 HYPOTHYROIDISM 01/02/2013 VINICIO HERNANDEZ MD N 401.1 HYPERTENSION, BENIGN ESSENTIAL 01/02/2013 VINICIO HERNANDEZ MD N 244.9 HYPOTHYROIDISM 01/02/2013 VINICIO HERNANDEZ MD N 401.1 HYPERTENSION, BENIGN ESSENTIAL 01/02/2013 VINICIO HERNANDEZ MD N 244.9 HYPOTHYROIDISM 01/02/2013 VINICIO HERNANDEZ MD N 401.1 HYPERTENSION, BENIGN ESSENTIAL 01/02/2013 VINICIO HERNANDEZ MD N 244.9 HYPOTHYROIDISM 01/02/2013 VINICIO HERNANDEZ MD N 401.1 HYPERTENSION, BENIGN ESSENTIAL 01/02/2013 VINICIO HERNANDEZ MD N 244.9 HYPOTHYROIDISM 01/02/2013 VINICIO HERNANDEZ MD N 401.1 HYPERTENSION, BENIGN ESSENTIAL 01/02/2013 JEREMIELSHYAM ROSENTHAL JESUS E 244.9 HYPOTHYROIDISM 01/02/2013 HELNANCY ROSENTHAL JESUS E 401.1 HYPERTENSION, BENIGN ESSENTIAL 01/02/2013 MARTINES DO, JAN K 244.9 HYPOTHYROIDISM 01/02/2013 MARTINES DO, JAN K 401.1 HYPERTENSION, BENIGN ESSENTIAL 01/02/2013 MARTINES DO, JAN K 244.9 HYPOTHYROIDISM 01/02/2013 MARTINES DO, JAN K 401.1 HYPERTENSION, BENIGN ESSENTIAL 01/02/2013 VINICIO HERNANDEZ MD N 244.9 HYPOTHYROIDISM 01/02/2013 VINICIO HERNANDEZ MD N 401.1 HYPERTENSION, BENIGN ESSENTIAL 01/02/2013 VINICIO HERNANDEZ MD N 244.9 HYPOTHYROIDISM 01/02/2013 VINICIO HERNANDEZ MD N 401.1 HYPERTENSION, BENIGN ESSENTIAL 01/02/2013 VINICIO HERNANDEZ MD N 244.9 HYPOTHYROIDISM 01/02/2013 VINICIO HERNANDEZ MD N 401.1 HYPERTENSION, BENIGN ESSENTIAL 01/02/2013 VINICIO HERNANDEZ MD N 244.9 HYPOTHYROIDISM 01/02/2013 VINICIO HERNANDEZ MD N 401.1 HYPERTENSION, BENIGN ESSENTIAL 05/03/2013 VINICIO HERNANDEZ MD N 211.3 BENIGN NEOPLASM OF COLON 05/03/2013 VINICIO HERNANDEZ MD N 473.9 UNSPECIFIED SINUSITIS (CHRONIC) 05/03/2013 VINICIO HERNANDEZ MD N 530.10 ESOPHAGITIS UNSPECIFIED 05/03/2013 VINICIO HERNANDEZ MD N 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 05/03/2013 VINICIO HERNANDEZ MD N 787.91 DIARRHEA 05/03/2013 VINICIO HERNANDEZ MD N 788.20 RETENTION OF URINE UNSPECIFIED 05/03/2013 VINICIO HERNANDEZ MD N 211.3 BENIGN NEOPLASM OF COLON 05/03/2013 VINICIO HERNANDEZ MD N 473.9 UNSPECIFIED SINUSITIS (CHRONIC) 05/03/2013 VINICIO HERNANDEZ MD N 530.10 ESOPHAGITIS UNSPECIFIED 05/03/2013 VINICIO HERNANDEZ MD N 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 05/03/2013 VINICIO HERNANDEZ MD N 787.91 DIARRHEA 05/03/2013 VINICIO HERNANDEZ MD N 788.20 RETENTION OF URINE UNSPECIFIED 05/03/2013 JUDIE VANG APRN 211.3 BENIGN NEOPLASM OF COLON 05/03/2013 JUDIE VANG APRN 473.9 UNSPECIFIED SINUSITIS (CHRONIC) 05/03/2013 JUDIE VANG APRN R 530.10 ESOPHAGITIS UNSPECIFIED 05/03/2013 JUDIE VANG APRN R 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 05/03/2013 JUDIE VANG APRN 787.91 DIARRHEA 05/03/2013 JUDIE VANG APRN 788.20 RETENTION OF URINE UNSPECIFIED 05/03/2013 VINICIO HERNANDEZ MD N 211.3 BENIGN NEOPLASM OF COLON 05/03/2013 VINICIO HERNANDEZ MD N 473.9 UNSPECIFIED SINUSITIS (CHRONIC) 05/03/2013 VINICIO HERNANDEZ MD N 530.10 ESOPHAGITIS UNSPECIFIED 05/03/2013 VINICIO HERNANDEZ MD N 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 05/03/2013 VINICIO HERNANDEZ MD N 787.91 DIARRHEA 05/03/2013 VINICIO HERNANDEZ MD N 788.20 RETENTION OF URINE UNSPECIFIED 05/03/2013 VINICIO HERNANDEZ MD N 211.3 BENIGN NEOPLASM OF COLON 05/03/2013 VINICIO HERNANDEZ MD N 473.9 UNSPECIFIED SINUSITIS (CHRONIC) 05/03/2013 VINICIO HERNANDEZ MD N 530.10 ESOPHAGITIS UNSPECIFIED 05/03/2013 VINICIO HERNANDEZ MD N 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 05/03/2013 VINICIO HERNANDEZ MD N 787.91 DIARRHEA 05/03/2013 VINICIO HERNANDEZ MD 788.20 RETENTION OF URINE UNSPECIFIED 05/03/2013 TONY BUTTERFIELD MD 211.3 BENIGN NEOPLASM OF COLON 05/03/2013 TONY BUTTERFIELD MD 473.9 UNSPECIFIED SINUSITIS (CHRONIC) 05/03/2013 TONY BUTTERFIELD MD 530.10 ESOPHAGITIS UNSPECIFIED 05/03/2013 TONY BUTTERFIELD MD 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 05/03/2013 TONY BUTTERFIELD MD 787.91 DIARRHEA 05/03/2013 TONY BUTTERFIELD MD 788.20 RETENTION OF URINE UNSPECIFIED 05/03/2013 VINICIO HERNANDEZ MD 211.3 BENIGN NEOPLASM OF COLON 05/03/2013 VINICIO HERNANDEZ MD N 473.9 UNSPECIFIED SINUSITIS (CHRONIC) 05/03/2013 VINICIO HERNANDEZ MD N 530.10 ESOPHAGITIS UNSPECIFIED 05/03/2013 VINICIO HERNANDEZ MD N 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 05/03/2013 VINICIO HERNANDEZ MD N 787.91 DIARRHEA 05/03/2013 VINICIO HERNANDEZ MD 788.20 RETENTION OF URINE UNSPECIFIED 05/03/2013 JUDIE VANG APRN 211.3 BENIGN NEOPLASM OF COLON 05/03/2013 JUDIE VANG APRN 473.9 UNSPECIFIED SINUSITIS (CHRONIC) 05/03/2013 JUDIE VANG APRN R 530.10 ESOPHAGITIS UNSPECIFIED 05/03/2013 JUDIE VANG APRN 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 05/03/2013 JUDIE VANG APRN 787.91 DIARRHEA 05/03/2013 JUDIE VANG APRN 788.20 RETENTION OF URINE UNSPECIFIED 05/03/2013 JAN MARTINES DO 211.3 BENIGN NEOPLASM OF COLON 05/03/2013 BOBBI RODRIGUEZ JAN K 473.9 UNSPECIFIED SINUSITIS (CHRONIC) 05/03/2013 BOBBI RODRIGUEZ JAN K 530.10 ESOPHAGITIS UNSPECIFIED 05/03/2013 BOBBI RODRIGUEZ JAN K 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 05/03/2013 BOBBI RODRIGUEZ JAN K 787.91 DIARRHEA 05/03/2013 MARTINES DO JAN K 788.20 RETENTION OF URINE UNSPECIFIED 05/03/2013 TONY BUTTERFIELD MD 211.3 BENIGN NEOPLASM OF COLON 05/03/2013 TONY BUTTERFIELD MD 473.9 UNSPECIFIED SINUSITIS (CHRONIC) 05/03/2013 TONY BUTTERFIELD MD 530.10 ESOPHAGITIS UNSPECIFIED 05/03/2013 TONY BUTTERFIELD MD 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 05/03/2013 TONY BUTTERFIELD MD 787.91 DIARRHEA 05/03/2013 TONY BUTTERFIELD MD 788.20 RETENTION OF URINE UNSPECIFIED 05/03/2013 ELIZABETH MARTINES DOA K 211.3 BENIGN NEOPLASM OF COLON 05/03/2013 BOBBI RODRIGUEZ JAN K 473.9 UNSPECIFIED SINUSITIS (CHRONIC) 05/03/2013 BOBBI RODRIGUEZ JAN K 530.10 ESOPHAGITIS UNSPECIFIED 05/03/2013 BOBBI RODRIGUEZ JAN K 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 05/03/2013 BOBBI RODRIGUEZ JAN K 787.91 DIARRHEA 05/03/2013 BOBBI RODRIGUEZ JAN K 788.20 RETENTION OF URINE UNSPECIFIED 05/03/2013 VINICIO HERNANDEZ MD 211.3 BENIGN NEOPLASM OF COLON 05/03/2013 VINICIO HERNANDEZ MD 473.9 UNSPECIFIED SINUSITIS (CHRONIC) 05/03/2013 VINICIO HERNANDEZ MD 530.10 ESOPHAGITIS UNSPECIFIED 05/03/2013 VINICIO HERNANDEZ MD 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 05/03/2013 VINICIO HERNANDEZ MD 787.91 DIARRHEA 05/03/2013 VINICIO HERNANDEZ MD 788.20 RETENTION OF URINE UNSPECIFIED 05/03/2013 VINICIO HERNANDEZ MD 211.3 BENIGN NEOPLASM OF COLON 05/03/2013 VINICIO HERNANDEZ MD 473.9 UNSPECIFIED SINUSITIS (CHRONIC) 05/03/2013 VINICIO HERNANDEZ MD N 530.10 ESOPHAGITIS UNSPECIFIED 05/03/2013 VINICIO HRENANDEZ MD N 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 05/03/2013 VINICIO HERNANDEZ MD N 787.91 DIARRHEA 05/03/2013 VINICIO HERNANDEZ MD N 788.20 RETENTION OF URINE UNSPECIFIED 05/03/2013 VINICIO HERNANDEZ MD N 211.3 BENIGN NEOPLASM OF COLON 05/03/2013 VINICIO HERNANDEZ MD N 473.9 UNSPECIFIED SINUSITIS (CHRONIC) 05/03/2013 VINICIO HERNANDEZ MD N 530.10 ESOPHAGITIS UNSPECIFIED 05/03/2013 VINICIO HERNANDEZ MD N 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 05/03/2013 VINICIO HERNANDEZ MD N 787.91 DIARRHEA 05/03/2013 VINICIO HERNANDEZ MD N 788.20 RETENTION OF URINE UNSPECIFIED 05/03/2013 VINICIO HERNANDEZ MD N 211.3 BENIGN NEOPLASM OF COLON 05/03/2013 VINICIO HERNANDEZ MD N 473.9 UNSPECIFIED SINUSITIS (CHRONIC) 05/03/2013 VINICIO HERNANDEZ MD N 530.10 ESOPHAGITIS UNSPECIFIED 05/03/2013 VINICIO HERNANDEZ MD N 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 05/03/2013 VINICIO HERNANDEZ MD N 787.91 DIARRHEA 05/03/2013 VINICIO HERNANDEZ MD N 788.20 RETENTION OF URINE UNSPECIFIED 05/03/2013 VINICIO HERNANDEZ MD N 211.3 BENIGN NEOPLASM OF COLON 05/03/2013 VINICIO HERNANDEZ MD N 473.9 UNSPECIFIED SINUSITIS (CHRONIC) 05/03/2013 VINICIO HERNANDEZ MD N 530.10 ESOPHAGITIS UNSPECIFIED 05/03/2013 VINICIO HERNANDEZ MD N 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 05/03/2013 VINICIO HERNANDEZ MD N 787.91 DIARRHEA 05/03/2013 VINICIO HERNANDEZ MD N 788.20 RETENTION OF URINE UNSPECIFIED 05/03/2013 JESUS PECK APRN E 211.3 BENIGN NEOPLASM OF COLON 05/03/2013 JESUS PECK APRN E 473.9 UNSPECIFIED SINUSITIS (CHRONIC) 05/03/2013 JEREMIEELIZABETH HOWE APRNSIE E 530.10 ESOPHAGITIS UNSPECIFIED 05/03/2013 JEREMIEMOSES HOWE APRNE E 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 05/03/2013 JESUS PECK APRN E 787.91 DIARRHEA 05/03/2013 JEREMIEMOSES HOWE APRNE E 788.20 RETENTION OF URINE UNSPECIFIED 05/03/2013 MARTINES DO, JAN K 211.3 BENIGN NEOPLASM OF COLON 05/03/2013 MARTINES DO, JAN K 473.9 UNSPECIFIED SINUSITIS (CHRONIC) 05/03/2013 MARTINES DO, JAN K 530.10 ESOPHAGITIS UNSPECIFIED 05/03/2013 MARTINES DO, JAN K 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 05/03/2013 MARTINES DO, JAN K 787.91 DIARRHEA 05/03/2013 MARTINES DO, JAN K 788.20 RETENTION OF URINE UNSPECIFIED 05/03/2013 MARTINES DO, JAN K 211.3 BENIGN NEOPLASM OF COLON 05/03/2013 MARTINES DO, JAN K 473.9 UNSPECIFIED SINUSITIS (CHRONIC) 05/03/2013 MARTINES DO, JAN K 530.10 ESOPHAGITIS UNSPECIFIED 05/03/2013 MARTINES DO, JAN K 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 05/03/2013 MARTINES DO, JAN K 787.91 DIARRHEA 05/03/2013 MARTINES DO, JAN K 788.20 RETENTION OF URINE UNSPECIFIED 05/03/2013 VINICIO HERNANDEZ MD 211.3 BENIGN NEOPLASM OF COLON 05/03/2013 VINICIO HERNANDEZ MD 473.9 UNSPECIFIED SINUSITIS (CHRONIC) 05/03/2013 VINICIO HERNANDEZ MD 530.10 ESOPHAGITIS UNSPECIFIED 05/03/2013 VINICIO HERNANDEZ MD 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 05/03/2013 VINICIO HERNANDEZ MD 787.91 DIARRHEA 05/03/2013 VINICIO HERNANDEZ MD 788.20 RETENTION OF URINE UNSPECIFIED 05/03/2013 VNIICIO HERNANDEZ MD 211.3 BENIGN NEOPLASM OF COLON 05/03/2013 MARY MD, VINICIO N 473.9 UNSPECIFIED SINUSITIS (CHRONIC) 05/03/2013 VINICIO HERNANDEZ MD N 530.10 ESOPHAGITIS UNSPECIFIED 05/03/2013 VINICIO HERNANDEZ MD N 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 05/03/2013 VINICIO HERNANDEZ MD N 787.91 DIARRHEA 05/03/2013 VINICIO HERNANDEZ MD N 788.20 RETENTION OF URINE UNSPECIFIED 05/03/2013 VINICIO HERNANDEZ MD N 211.3 BENIGN NEOPLASM OF COLON 05/03/2013 VINICIO HERNANDEZ MD N 473.9 UNSPECIFIED SINUSITIS (CHRONIC) 05/03/2013 VINICIO HERNANDEZ MD N 530.10 ESOPHAGITIS UNSPECIFIED 05/03/2013 VINICIO HERNANDEZ MD N 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 05/03/2013 VINICIO HERNANDEZ MD N 787.91 DIARRHEA 05/03/2013 VINICIO HERNANDEZ MD N 788.20 RETENTION OF URINE UNSPECIFIED 05/03/2013 VINICIO HERNANDEZ MD N 211.3 BENIGN NEOPLASM OF COLON 05/03/2013 VINICIO HERNANDEZ MD N 473.9 UNSPECIFIED SINUSITIS (CHRONIC) 05/03/2013 VINICIO HERNANDEZ MD N 530.10 ESOPHAGITIS UNSPECIFIED 05/03/2013 VINICIO HERNANDEZ MD N 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 05/03/2013 VINICIO HERNANDEZ MD N 787.91 DIARRHEA 05/03/2013 VINICIO HERNANDEZ MD N 788.20 RETENTION OF URINE UNSPECIFIED 05/22/2013 CHANDANA LONGORIA MD Ot 455.3 EXT HEMORRHOID W/O COMPL 05/22/2013 CHANDANA LONGORIA MD Ot 530.11 REFLUX ESOPHAGITIS 05/22/2013 CHANDANA LONGORIA MD Ot 531.90 STOMACH ULCER NOS 05/22/2013 CHANDANA LONGORIA MD Ot V12.72 PERSONAL HISTORY OF COLONIC POLYPS 05/26/2013 VINICIO HERNANDEZ MD N 703.0 INGROWING NAIL 05/26/2013 VINICIO HERNANDEZ MD N 723.1 PAIN NECK 05/26/2013 VINICIO HERNANDEZ MD N 786.50 UNSPECIFIED CHEST PAIN 05/26/2013 TONY BUTTERFIELD MD 703.0 INGROWING NAIL 05/26/2013 TONY BUTTERFIELD MD 723.1 PAIN NECK 05/26/2013 TONY BUTTERFIELD MD 786.50 UNSPECIFIED CHEST PAIN 05/26/2013 VINICIO HERNANDEZ MD N 703.0 INGROWING NAIL 05/26/2013 VINICIO HERNANDEZ MD N 723.1 PAIN NECK 05/26/2013 VINICIO HERNANDEZ MD 786.50 UNSPECIFIED CHEST PAIN 05/26/2013 JUDIE VANG APRN R 703.0 INGROWING NAIL 05/26/2013 JUDIE VANG APRN R 723.1 PAIN NECK 05/26/2013 JUDIE VANG APRN R 786.50 UNSPECIFIED CHEST PAIN 05/26/2013 MARTINES DO, JAN K 703.0 INGROWING NAIL 05/26/2013 MARTINES DO, JAN K 723.1 PAIN NECK 05/26/2013 MARTINES DO, JAN K 786.50 UNSPECIFIED CHEST PAIN 05/26/2013 TONY BUTTERFIELD MD 703.0 INGROWING NAIL 05/26/2013 TONY BUTTERFIELD MD 723.1 PAIN NECK 05/26/2013 TONY BUTTERFIELD MD 786.50 UNSPECIFIED CHEST PAIN 05/26/2013 MARTINES DO, JAN K 703.0 INGROWING NAIL 05/26/2013 MARTINES DO, JAN K 723.1 PAIN NECK 05/26/2013 MARTINES DO, JAN K 786.50 UNSPECIFIED CHEST PAIN 05/26/2013 VINICIO HERNANDEZ MD N 703.0 INGROWING NAIL 05/26/2013 VINICIO HERNANDEZ MD N 723.1 PAIN NECK 05/26/2013 VINICIO HERNANDEZ MD 786.50 UNSPECIFIED CHEST PAIN 05/26/2013 VINICIO HERNANDEZ MD N 703.0 INGROWING NAIL 05/26/2013 VINICIO HERNANDEZ MD N 723.1 PAIN NECK 05/26/2013 VINICIO HERNANDEZ MD N 786.50 UNSPECIFIED CHEST PAIN 05/26/2013 VINICIO HERNANDEZ MD N 703.0 INGROWING NAIL 05/26/2013 VINICIO HERNANDEZ MD 723.1 PAIN NECK 05/26/2013 VINICIO HERNANDEZ MD N 786.50 UNSPECIFIED CHEST PAIN 05/26/2013 VINICIO HERNANDEZ MD N 703.0 INGROWING NAIL 05/26/2013 VINICIO HERNANDEZ MD N 723.1 PAIN NECK 05/26/2013 VINICIO HERNANDEZ MD N 786.50 UNSPECIFIED CHEST PAIN 05/26/2013 VINICIO HERNANDEZ MD N 703.0 INGROWING NAIL 05/26/2013 VINICIO HERNANDEZ MD N 723.1 PAIN NECK 05/26/2013 VINICIO HERNANDEZ MD N 786.50 UNSPECIFIED CHEST PAIN 05/26/2013 HELLSHYAM ROSENTHAL JESUS E 703.0 INGROWING NAIL 05/26/2013 JEREMIESHYAM ROSENTHAL JESUS E 723.1 PAIN NECK 05/26/2013 ELIZABETH PECK APRNSIE E 786.50 UNSPECIFIED CHEST PAIN 05/26/2013 MARTINES DO, JAN K 703.0 INGROWING NAIL 05/26/2013 BOBBI RODRIGUEZ JAN K 723.1 PAIN NECK 05/26/2013 MARTINES DO, JAN K 786.50 UNSPECIFIED CHEST PAIN 05/26/2013 MARTINES DO, JAN K 703.0 INGROWING NAIL 05/26/2013 MARTINES DO, JAN K 723.1 PAIN NECK 05/26/2013 MARTINES DO, JAN K 786.50 UNSPECIFIED CHEST PAIN 05/26/2013 VINICIO HERNANDEZ MD N 703.0 INGROWING NAIL 05/26/2013 VINICIO HERNANDEZ MD N 723.1 PAIN NECK 05/26/2013 VINICIO HERNANDEZ MD N 786.50 UNSPECIFIED CHEST PAIN 05/26/2013 VINICIO HERNANDEZ MD N 703.0 INGROWING NAIL 05/26/2013 VINICIO HERNANDEZ MD N 723.1 PAIN NECK 05/26/2013 VINICIO HERNANDEZ MD N 786.50 UNSPECIFIED CHEST PAIN 05/26/2013 VINICIO HERNANDEZ MD N 703.0 INGROWING NAIL 05/26/2013 VINICIO HERNANDEZ MD N 723.1 PAIN NECK 05/26/2013 VINICIO HERNANDEZ MD N 786.50 UNSPECIFIED CHEST PAIN 05/26/2013 VINICIO HERNANDEZ MD N 703.0 INGROWING NAIL 05/26/2013 VINICIO HERNANDEZ MD N 723.1 PAIN NECK 05/26/2013 VINICIO HERNANDEZ MD N 786.50 UNSPECIFIED CHEST PAIN 06/08/2013 TONY BUTTERFIELD MD 133.0 SCABIES 06/08/2013 TONY BUTTERFIELD MD 459.81 VENOUS (PERIPHERAL) INSUFFICIENCY UNSPECIFIED 06/08/2013 VINICIO HERNANDEZ MD 133.0 SCABIES 06/08/2013 VINICIO HERNANDEZ MD 459.81 VENOUS (PERIPHERAL) INSUFFICIENCY UNSPECIFIED 06/08/2013 JUDIE VANG APRN 133.0 SCABIES 06/08/2013 JUDIE VANG APRN 459.81 VENOUS (PERIPHERAL) INSUFFICIENCY UNSPECIFIED 06/08/2013 JAN MARTINES DO K 133.0 SCABIES 06/08/2013 JAN MARTINES DO K 459.81 VENOUS (PERIPHERAL) INSUFFICIENCY UNSPECIFIED 06/08/2013 TONY BUTTERFIELD MD 133.0 SCABIES 06/08/2013 TONY BUTTERFIELD MD 459.81 VENOUS (PERIPHERAL) INSUFFICIENCY UNSPECIFIED 06/08/2013 JAN MARTINES DO K 133.0 SCABIES 06/08/2013 JAN MARTINES DO K 459.81 VENOUS (PERIPHERAL) INSUFFICIENCY UNSPECIFIED 06/08/2013 VINICIO HERNANDEZ MD N 133.0 SCABIES 06/08/2013 VINICIO HERNANDEZ MD 459.81 VENOUS (PERIPHERAL) INSUFFICIENCY UNSPECIFIED 06/08/2013 VINICIO HERNANDEZ MD 133.0 SCABIES 06/08/2013 VINICIO HERNANDEZ MD 459.81 VENOUS (PERIPHERAL) INSUFFICIENCY UNSPECIFIED 06/08/2013 VINICIO HERNANDEZ MD 133.0 SCABIES 06/08/2013 VINICIO HERNANDEZ MD 459.81 VENOUS (PERIPHERAL) INSUFFICIENCY UNSPECIFIED 06/08/2013 VINICIO HERNANDEZ MD 133.0 SCABIES 06/08/2013 VINICIO HERNANDEZ MD 459.81 VENOUS (PERIPHERAL) INSUFFICIENCY UNSPECIFIED 06/08/2013 VINICIO HERNANDEZ MD 133.0 SCABIES 06/08/2013 VINICIO HERNANDEZ MD 459.81 VENOUS (PERIPHERAL) INSUFFICIENCY UNSPECIFIED 06/08/2013 JESUS PECK APRN E 133.0 SCABIES 06/08/2013 JESUS PECK APRN E 459.81 VENOUS (PERIPHERAL) INSUFFICIENCY UNSPECIFIED 06/08/2013 MARTINES DO, JAN K 133.0 SCABIES 06/08/2013 MARTINES DO, JAN K 459.81 VENOUS (PERIPHERAL) INSUFFICIENCY UNSPECIFIED 06/08/2013 MARTINES DO, JAN K 133.0 SCABIES 06/08/2013 MARTINES DO, JAN K 459.81 VENOUS (PERIPHERAL) INSUFFICIENCY UNSPECIFIED 06/08/2013 VINICIO HERNANDEZ MD 133.0 SCABIES 06/08/2013 VINICIO HERNANDEZ MD 459.81 VENOUS (PERIPHERAL) INSUFFICIENCY UNSPECIFIED 06/08/2013 VINICIO HERNANDEZ MD N 133.0 SCABIES 06/08/2013 VINICIO HERNANDEZ MD 459.81 VENOUS (PERIPHERAL) INSUFFICIENCY UNSPECIFIED 06/08/2013 VINICIO HERNANDEZ MD 133.0 SCABIES 06/08/2013 VINICIO HERNANDEZ MD 459.81 VENOUS (PERIPHERAL) INSUFFICIENCY UNSPECIFIED 06/08/2013 VINICIO HERNANDEZ MD 133.0 SCABIES 06/08/2013 VINICIO HERNANDEZ MD 459.81 VENOUS (PERIPHERAL) INSUFFICIENCY UNSPECIFIED 06/23/2013 VINICIO HERNANDEZ MD V06.1 TDAP DX 06/23/2013 JUDIE VANG APRN V06.1 TDAP DX 06/23/2013 BOBBI RODRIGUEZ JAN Valerio V06.1 TDAP DX 06/23/2013 TONY BUTTERFIELD MD V06.1 TDAP DX 06/23/2013 ELIZABETH MARTINES DOA K V06.1 TDAP DX 06/23/2013 VINICIO HERNANDEZ MD V06.1 TDAP DX 06/23/2013 VINICIO HERNANDEZ MD V06.1 TDAP DX 06/23/2013 VINICIO HERNANDEZ MD V06.1 TDAP DX 06/23/2013 VINICIO HERNANEDZ MD V06.1 TDAP DX 06/23/2013 VINICIO HERNANDEZ MD V06.1 TDAP DX 06/23/2013 LIV ROSENTHALJESUS Jonathan V06.1 TDAP DX 06/23/2013 MARTINES DO JAN K V06.1 TDAP DX 06/23/2013 MARTINES DO, JAN K V06.1 TDAP DX 06/23/2013 VINICIO HERNANDEZ MD V06.1 TDAP DX 06/23/2013 VINICIO HERNANDEZ MD V06.1 TDAP DX 06/23/2013 VINICIO HERNANDEZ MD V06.1 TDAP DX 06/23/2013 VINICIO HERNANDEZ MD V06.1 TDAP DX 07/14/2013 MARTINES DO JAN K 401.9 HYPERTENSION, UNSPECIFIED ESSENTIAL 07/14/2013 MARTINES DO, JAN K 427.9 ARRHYTHMIA, CARDIAC (SINUS) 07/14/2013 MARTINES DO, JAN K 786.09 DYSPNEA 07/14/2013 TONY BUTTERFIELD MD 401.9 HYPERTENSION, UNSPECIFIED ESSENTIAL 07/14/2013 TONY BUTTERFIELD MD 427.9 ARRHYTHMIA, CARDIAC (SINUS) 07/14/2013 TONY BUTTERFIELD MD 786.09 DYSPNEA 07/14/2013 BOBBI RODRIGUEZ JAN K 401.9 HYPERTENSION, UNSPECIFIED ESSENTIAL 07/14/2013 MARTINES , JAN K 427.9 ARRHYTHMIA, CARDIAC (SINUS) 07/14/2013 MARTINES , JAN K 786.09 DYSPNEA 07/14/2013 VINICIO HERNANDEZ MD 401.9 HYPERTENSION, UNSPECIFIED ESSENTIAL 07/14/2013 VINICIO EHRNANDEZ MD 427.9 ARRHYTHMIA, CARDIAC (SINUS) 07/14/2013 VINICIO HERNANDEZ MD 786.09 DYSPNEA 07/14/2013 VINICIO HERNANDEZ MD 401.9 HYPERTENSION, UNSPECIFIED ESSENTIAL 07/14/2013 VINICIO HERNANDEZ MD 427.9 ARRHYTHMIA, CARDIAC (SINUS) 07/14/2013 VINICIO HERNANDEZ MD 786.09 DYSPNEA 07/14/2013 VINICIO HERNANDEZ MD 401.9 HYPERTENSION, UNSPECIFIED ESSENTIAL 07/14/2013 VINICIO HERNANDEZ MD 427.9 ARRHYTHMIA, CARDIAC (SINUS) 07/14/2013 VINICIO HERNANDEZ MD 786.09 DYSPNEA 07/14/2013 VINICIO HERNANDEZ MD 401.9 HYPERTENSION, UNSPECIFIED ESSENTIAL 07/14/2013 VINICIO HERNANDEZ MD N 427.9 ARRHYTHMIA, CARDIAC (SINUS) 07/14/2013 VINICIO HERNANDEZ MD N 786.09 DYSPNEA 07/14/2013 VINICIO HERNANDEZ MD N 401.9 HYPERTENSION, UNSPECIFIED ESSENTIAL 07/14/2013 VINICIO HERNANDEZ MD N 427.9 ARRHYTHMIA, CARDIAC (SINUS) 07/14/2013 VINICIO HERNANDEZ MD N 786.09 DYSPNEA 07/14/2013 HELLSHYAM TAWER, JESUS E 401.9 HYPERTENSION, UNSPECIFIED ESSENTIAL 07/14/2013 HELLWIG TAWER, JESUS E 427.9 ARRHYTHMIA, CARDIAC (SINUS) 07/14/2013 HELLWIG TAWER, JESUS E 786.09 DYSPNEA 07/14/2013 MARTINES DO, JAN K 401.9 HYPERTENSION, UNSPECIFIED ESSENTIAL 07/14/2013 MARTINES DO, JAN K 427.9 ARRHYTHMIA, CARDIAC (SINUS) 07/14/2013 MARTINES DO, JAN K 786.09 DYSPNEA 07/14/2013 MARTINES DO, JAN K 401.9 HYPERTENSION, UNSPECIFIED ESSENTIAL 07/14/2013 MARTINES DO, JAN K 427.9 ARRHYTHMIA, CARDIAC (SINUS) 07/14/2013 MARTINES DO, JAN K 786.09 DYSPNEA 07/14/2013 VINICIO HERNANDEZ MD 401.9 HYPERTENSION, UNSPECIFIED ESSENTIAL 07/14/2013 VINICIO HERNANDEZ MD N 427.9 ARRHYTHMIA, CARDIAC (SINUS) 07/14/2013 VINICIO HERNANDEZ MD N 786.09 DYSPNEA 07/14/2013 VINICIO HERNANDEZ MD 401.9 HYPERTENSION, UNSPECIFIED ESSENTIAL 07/14/2013 VINICIO HERNANDEZ MD 427.9 ARRHYTHMIA, CARDIAC (SINUS) 07/14/2013 VINICIO HERNANDEZ MD N 786.09 DYSPNEA 07/14/2013 VINICIO HERNANDEZ MD 401.9 HYPERTENSION, UNSPECIFIED ESSENTIAL 07/14/2013 VINICIO HERNANDEZ MD N 427.9 ARRHYTHMIA, CARDIAC (SINUS) 07/14/2013 VINICIO HERNANDEZ MD N 786.09 DYSPNEA 07/14/2013 VINICIO HERNANDEZ MD N 401.9 HYPERTENSION, UNSPECIFIED ESSENTIAL 07/14/2013 VINICIO HERNANDEZ MD N 427.9 ARRHYTHMIA, CARDIAC (SINUS) 07/14/2013 VINICIO HERNANDEZ MD N 786.09 DYSPNEA 07/21/2013 TONY BUTTERFIELD MD 477.9 ALLERGIC RHINITIS CAUSE UNSPECIFIED 07/21/2013 TONY BUTTERFIELD MD 698.4 DERMATITIS FACTITIA (ARTEFACTA) 07/21/2013 MARTINES DO, JAN K 477.9 ALLERGIC RHINITIS CAUSE UNSPECIFIED 07/21/2013 MARTINES DO, JAN K 698.4 DERMATITIS FACTITIA (ARTEFACTA) 07/21/2013 VINICIO HERNANDEZ MD 477.9 ALLERGIC RHINITIS CAUSE UNSPECIFIED 07/21/2013 VINICIO HERNANDEZ MD 698.4 DERMATITIS FACTITIA (ARTEFACTA) 07/21/2013 VINICIO HERNANDEZ MD 477.9 ALLERGIC RHINITIS CAUSE UNSPECIFIED 07/21/2013 VINICIO HERNANDEZ MD 698.4 DERMATITIS FACTITIA (ARTEFACTA) 07/21/2013 VINICIO HERNANDEZ MD 477.9 ALLERGIC RHINITIS CAUSE UNSPECIFIED 07/21/2013 VINICIO HERNANDEZ MD 698.4 DERMATITIS FACTITIA (ARTEFACTA) 07/21/2013 VINICIO HERNANDEZ MD 477.9 ALLERGIC RHINITIS CAUSE UNSPECIFIED 07/21/2013 VINICIO HERNANDEZ MD 698.4 DERMATITIS FACTITIA (ARTEFACTA) 07/21/2013 VINICIO HERNANDEZ MD 477.9 ALLERGIC RHINITIS CAUSE UNSPECIFIED 07/21/2013 VINICIO HERNANDEZ MD 698.4 DERMATITIS FACTITIA (ARTEFACTA) 07/21/2013 JESUS PECK APRN 477.9 ALLERGIC RHINITIS CAUSE UNSPECIFIED 07/21/2013 JESUS PECK APRN E 698.4 DERMATITIS FACTITIA (ARTEFACTA) 07/21/2013 MARTINES DO, JAN K 477.9 ALLERGIC RHINITIS CAUSE UNSPECIFIED 07/21/2013 MARTINES DO, JAN K 698.4 DERMATITIS FACTITIA (ARTEFACTA) 07/21/2013 MARTINES DO, JAN K 477.9 ALLERGIC RHINITIS CAUSE UNSPECIFIED 07/21/2013 MARTINES DO, JAN K 698.4 DERMATITIS FACTITIA (ARTEFACTA) 07/21/2013 VINICIO HERNANDEZ MD 477.9 ALLERGIC RHINITIS CAUSE UNSPECIFIED 07/21/2013 VINICIO HERNANDEZ MD N 698.4 DERMATITIS FACTITIA (ARTEFACTA) 07/21/2013 VINICIO HERNANDEZ MD N 477.9 ALLERGIC RHINITIS CAUSE UNSPECIFIED 07/21/2013 VINICIO HERNANDEZ MD N 698.4 DERMATITIS FACTITIA (ARTEFACTA) 07/21/2013 VINICIO HERNANDEZ MD N 477.9 ALLERGIC RHINITIS CAUSE UNSPECIFIED 07/21/2013 VINICIO HERNANDEZ MD N 698.4 DERMATITIS FACTITIA (ARTEFACTA) 07/21/2013 VINICIO HERNANDEZ MD N 477.9 ALLERGIC RHINITIS CAUSE UNSPECIFIED 07/21/2013 VINICIO HERNANDEZ MD N 698.4 DERMATITIS FACTITIA (ARTEFACTA) 07/28/2013 BOBBI DO JAN K 110.1 ONYCHOMYCOSIS 07/28/2013 ELIZABETH MARTINES DOA K 703.8 ONYCHOCRYPTOSIS 07/28/2013 VINICIO HERNANDEZ MD N 110.1 ONYCHOMYCOSIS 07/28/2013 VINICIO HERNANDEZ MD N 703.8 ONYCHOCRYPTOSIS 07/28/2013 VINICIO HERNANDEZ MD N 110.1 ONYCHOMYCOSIS 07/28/2013 VINICIO HERNANDEZ MD N 703.8 ONYCHOCRYPTOSIS 07/28/2013 VINICIO HERNANDEZ MD N 110.1 ONYCHOMYCOSIS 07/28/2013 VINICIO HERNANDEZ MD N 703.8 ONYCHOCRYPTOSIS 07/28/2013 VINICIO HERNANDEZ MD N 110.1 ONYCHOMYCOSIS 07/28/2013 VINICIO HERNANDEZ MD N 703.8 ONYCHOCRYPTOSIS 07/28/2013 VINICIO HERNANDEZ MD N 110.1 ONYCHOMYCOSIS 07/28/2013 VINICIO HERNANDEZ MD N 703.8 ONYCHOCRYPTOSIS 07/28/2013 JESUS PECK APRN E 110.1 ONYCHOMYCOSIS 07/28/2013 JESUS PECK APRN E 703.8 ONYCHOCRYPTOSIS 07/28/2013 MARTINES DO, JAN K 110.1 ONYCHOMYCOSIS 07/28/2013 MARTINES DO JAN K 703.8 ONYCHOCRYPTOSIS 07/28/2013 MARTINES DO, JAN K 110.1 ONYCHOMYCOSIS 07/28/2013 MARTINES DO, JAN K 703.8 ONYCHOCRYPTOSIS 07/28/2013 VINICIO HERNANDEZ MD N 110.1 ONYCHOMYCOSIS 07/28/2013 VINICIO HERNANDEZ MD N 703.8 ONYCHOCRYPTOSIS 07/28/2013 VINICIO HERNANDEZ MD N 110.1 ONYCHOMYCOSIS 07/28/2013 VINICIO HERNANDEZ MD N 703.8 ONYCHOCRYPTOSIS 07/28/2013 VINICIO HERNANDEZ MD N 110.1 ONYCHOMYCOSIS 07/28/2013 VINICIO HERNANDEZ MD N 703.8 ONYCHOCRYPTOSIS 07/28/2013 VINICIO HERNANDEZ MD N 110.1 ONYCHOMYCOSIS 07/28/2013 VINICIO HERNANDEZ MD N 703.8 ONYCHOCRYPTOSIS 08/16/2013 VINICIO HERNANDEZ MD N 782.0 DISTURBANCE OF SKIN SENSATION 08/16/2013 VINICIO HERNANDEZ MD N 786.2 COUGH 08/16/2013 VINICIO HERNANDEZ MD N 788.1 DYSURIA 08/16/2013 VINICIO HERNANDEZ MD N 782.0 DISTURBANCE OF SKIN SENSATION 08/16/2013 VINICIO HERNANDEZ MD N 786.2 COUGH 08/16/2013 VINICIO HERNANDEZ MD N 788.1 DYSURIA 08/16/2013 VINICIO HERNANDEZ MD N 782.0 DISTURBANCE OF SKIN SENSATION 08/16/2013 VINICIO HERNANDEZ MD N 786.2 COUGH 08/16/2013 VINICIO HERNANDEZ MD N 788.1 DYSURIA 08/16/2013 VINICIO HERNANDEZ MD N 782.0 DISTURBANCE OF SKIN SENSATION 08/16/2013 VINICIO HERNANDEZ MD N 786.2 COUGH 08/16/2013 VINICIO HERNANDEZ MD N 788.1 DYSURIA 08/16/2013 VINICIO HERNANDEZ MD N 782.0 DISTURBANCE OF SKIN SENSATION 08/16/2013 VINICIO HERNANDEZ MD N 786.2 COUGH 08/16/2013 VINICIO HERNANDEZ MD N 788.1 DYSURIA 08/16/2013 ELIZABETH PECK APRNSIE E 782.0 DISTURBANCE OF SKIN SENSATION 08/16/2013 JEREMIELSHYAM MOSES ROSENTHALE E 786.2 COUGH 08/16/2013 JEREMIELSHYAM TAWERELIZABETH FrancesSIE E 788.1 DYSURIA 08/16/2013 MARTINES DO, JAN K 782.0 DISTURBANCE OF SKIN SENSATION 08/16/2013 MARTINES DO, JAN K 786.2 COUGH 08/16/2013 MARTINES DO, JAN K 788.1 DYSURIA 08/16/2013 MARTINES DO, JAN K 782.0 DISTURBANCE OF SKIN SENSATION 08/16/2013 MARTINES DO, JAN K 786.2 COUGH 08/16/2013 MARTINES DO, JAN K 788.1 DYSURIA 08/16/2013 VINICIO HERNANDEZ MD N 782.0 DISTURBANCE OF SKIN SENSATION 08/16/2013 VINICIO HERNANDEZ MD N 786.2 COUGH 08/16/2013 VINICIO HERNANDEZ MD N 788.1 DYSURIA 08/16/2013 VINICIO HERNANDEZ MD N 782.0 DISTURBANCE OF SKIN SENSATION 08/16/2013 VINICIO HERNANDEZ MD N 786.2 COUGH 08/16/2013 VINICIO HERNANDEZ MD N 788.1 DYSURIA 08/16/2013 VINICIO HERNANDEZ MD N 782.0 DISTURBANCE OF SKIN SENSATION 08/16/2013 VINICIO HERNANDEZ MD N 786.2 COUGH 08/16/2013 VINICIO HERNANDEZ MD N 788.1 DYSURIA 08/16/2013 VINICIO HERNANDEZ MD N 782.0 DISTURBANCE OF SKIN SENSATION 08/16/2013 VINICIO HERNANDEZ MD N 786.2 COUGH 08/16/2013 VINICIO HERNANDEZ MD N 788.1 DYSURIA 09/08/2013 VINICIO HERNANDEZ MD N 726.19 OTHER SPECIFIED DISORDERS OF BURSAE AND TENDONS IN SHOULDER REGION 09/08/2013 VINICIO HERNANDEZ MD N 787.3 FLATULENCE ERUCTATION AND GAS PAIN 09/08/2013 VINICIO HERNANDEZ MD N 726.19 OTHER SPECIFIED DISORDERS OF BURSAE AND TENDONS IN SHOULDER REGION 09/08/2013 VINICIO HERNANDEZ MD N 787.3 FLATULENCE ERUCTATION AND GAS PAIN 09/08/2013 VINICIO HERNANDEZ MD N 726.19 OTHER SPECIFIED DISORDERS OF BURSAE AND TENDONS IN SHOULDER REGION 09/08/2013 VINICIO HERNANDEZ MD 787.3 FLATULENCE ERUCTATION AND GAS PAIN 09/08/2013 JESUS PECK APRN E 726.19 OTHER SPECIFIED DISORDERS OF BURSAE AND TENDONS IN SHOULDER REGION 09/08/2013 JESUS PECK APRN E 787.3 FLATULENCE ERUCTATION AND GAS PAIN 09/08/2013 BOBBI RODRIGUEZ JAN K 726.19 OTHER SPECIFIED DISORDERS OF BURSAE AND TENDONS IN SHOULDER REGION 09/08/2013 MARTINES DO JAN K 787.3 FLATULENCE ERUCTATION AND GAS PAIN 09/08/2013 MARTINES DO JAN K 726.19 OTHER SPECIFIED DISORDERS OF BURSAE AND TENDONS IN SHOULDER REGION 09/08/2013 BOBBI RODRIGUEZ JAN K 787.3 FLATULENCE ERUCTATION AND GAS PAIN 09/08/2013 VINICIO HERNANDEZ MD N 726.19 OTHER SPECIFIED DISORDERS OF BURSAE AND TENDONS IN SHOULDER REGION 09/08/2013 VINICIO HERNANDEZ MD 787.3 FLATULENCE ERUCTATION AND GAS PAIN 09/08/2013 VINICIO HERNANDEZ MD N 726.19 OTHER SPECIFIED DISORDERS OF BURSAE AND TENDONS IN SHOULDER REGION 09/08/2013 VINICIO HERNANDEZ MD N 787.3 FLATULENCE ERUCTATION AND GAS PAIN 09/08/2013 VINICIO HERNANDEZ MD N 726.19 OTHER SPECIFIED DISORDERS OF BURSAE AND TENDONS IN SHOULDER REGION 09/08/2013 VINICIO HERNANDEZ MD 787.3 FLATULENCE ERUCTATION AND GAS PAIN 09/08/2013 VINICIO HERNANDEZ MD N 726.19 OTHER SPECIFIED DISORDERS OF BURSAE AND TENDONS IN SHOULDER REGION 09/08/2013 VINICIO HERNANDEZ MD N 787.3 FLATULENCE ERUCTATION AND GAS PAIN 09/18/2013 VINICIO HERNANDEZ MD N 793.6 NONSPECIFIC (ABNORMAL) FINDINGS ON RADIOLOGICAL AND OTHER EXAMINATION OF ABDOMINAL AREA INCLUDING RETROPERITONEUM 09/18/2013 VINICIO HERNANDEZ MD N 793.6 NONSPECIFIC (ABNORMAL) FINDINGS ON RADIOLOGICAL AND OTHER EXAMINATION OF ABDOMINAL AREA INCLUDING RETROPERITONEUM 09/18/2013 VINICIO HERNANDEZ MD N 793.6 NONSPECIFIC (ABNORMAL) FINDINGS ON RADIOLOGICAL AND OTHER EXAMINATION OF ABDOMINAL AREA INCLUDING RETROPERITONEUM 09/18/2013 JESUS PECK APRN 793.6 NONSPECIFIC (ABNORMAL) FINDINGS ON RADIOLOGICAL AND OTHER EXAMINATION OF ABDOMINAL AREA INCLUDING RETROPERITONEUM 09/18/2013 JAN MARTINES DO K 793.6 NONSPECIFIC (ABNORMAL) FINDINGS ON RADIOLOGICAL AND OTHER EXAMINATION OF ABDOMINAL AREA INCLUDING RETROPERITONEUM 09/18/2013 JAN MARTINES DO K 793.6 NONSPECIFIC (ABNORMAL) FINDINGS ON RADIOLOGICAL AND OTHER EXAMINATION OF ABDOMINAL AREA INCLUDING RETROPERITONEUM 09/18/2013 VINICIO HERNANDEZ MD 793.6 NONSPECIFIC (ABNORMAL) FINDINGS ON RADIOLOGICAL AND OTHER EXAMINATION OF ABDOMINAL AREA INCLUDING RETROPERITONEUM 09/18/2013 VINICIO HERNANDEZ MD 793.6 NONSPECIFIC (ABNORMAL) FINDINGS ON RADIOLOGICAL AND OTHER EXAMINATION OF ABDOMINAL AREA INCLUDING RETROPERITONEUM 09/18/2013 VINICIO HERNANDEZ MD N 793.6 NONSPECIFIC (ABNORMAL) FINDINGS ON RADIOLOGICAL AND OTHER EXAMINATION OF ABDOMINAL AREA INCLUDING RETROPERITONEUM 09/18/2013 VINICIO HERNANDEZ MD 793.6 NONSPECIFIC (ABNORMAL) FINDINGS ON RADIOLOGICAL AND OTHER EXAMINATION OF ABDOMINAL AREA INCLUDING RETROPERITONEUM 09/19/2013 MARCO ROCA TAWER Ot 564.00 UNSPEC CONSTIPATION 09/19/2013 MARCO ROCA TAWER Ot 599.0 URIN TRACT INFECTION NOS 09/19/2013 MARCO ROCA TAWER Ot 787.3 FLATUL/ERUCTAT/GAS PAIN 10/01/2013 HIRAL PEREZ Ot 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.1 CANDIDAL VULVOVAGINITIS 10/01/2013 HIRAL PEREZ Ot 560.1 PARALYTIC ILEUS 10/01/2013 HIRAL PEREZ Ot 564.09 OTHER CONSTIPATION 10/01/2013 HIRAL PEREZ Ot E935.2 ADV EFF OPIATES 10/03/2013 VINICIO HERNANDEZ MD N 564.00 CONSTIPATION 10/03/2013 VINICIO HERNANDEZ MD 564.00 CONSTIPATION 10/03/2013 JESUS PECK APRN 564.00 CONSTIPATION 10/03/2013 JAN MARTINES DO K 564.00 CONSTIPATION 10/03/2013 JAN MARTINES DO K 564.00 CONSTIPATION 10/03/2013 VINICIO HERNANDEZ MD 564.00 CONSTIPATION 10/03/2013 VINICIO HERNANDEZ MD N 564.00 CONSTIPATION 10/03/2013 VINICIO HERNANDEZ MD N 564.00 CONSTIPATION 10/03/2013 VINICIO HERNANDEZ MD N 564.00 CONSTIPATION 10/03/2013 MARY CALERO MD Ot 564.00 UNSPEC CONSTIPATION 10/03/2013 MARY CALERO MD Ot 789.07 ABDOMINAL PAIN, GENERALIZED 10/25/2013 JESUS PECK APRN 440.8 ATHEROSCLEROSIS OF OTHER SPECIFIED ARTERIES 10/25/2013 JAN MARTINES DO K 440.8 ATHEROSCLEROSIS OF OTHER SPECIFIED ARTERIES 10/25/2013 JAN MARTINES DO K 440.8 ATHEROSCLEROSIS OF OTHER SPECIFIED ARTERIES 10/25/2013 VINICIO HERNANDEZ MD N 440.8 ATHEROSCLEROSIS OF OTHER SPECIFIED ARTERIES 10/25/2013 VINICIO HERNANDEZ MD N 440.8 ATHEROSCLEROSIS OF OTHER SPECIFIED ARTERIES 10/25/2013 VINICIO HERNANDEZ MD N 440.8 ATHEROSCLEROSIS OF OTHER SPECIFIED ARTERIES 10/25/2013 VINICIO HERNANDEZ MD N 440.8 ATHEROSCLEROSIS OF OTHER SPECIFIED ARTERIES 10/31/2013 JAN MARTINES DO K 466.0 BRONCHITIS, ACUTE 10/31/2013 JAN MARTINES DO K 719.47 PAIN IN JOINT INVOLVING ANKLE AND FOOT 10/31/2013 JAN MARTINES DO K 466.0 ACUTE BRONCHITIS 10/31/2013 JAN MARTINES DO K 719.47 PAIN IN JOINT INVOLVING ANKLE AND FOOT 10/31/2013 VINICIO HERNANDEZ MD N 466.0 ACUTE BRONCHITIS 10/31/2013 VINICIO HERNANDEZ MD N 719.47 PAIN IN JOINT INVOLVING ANKLE AND FOOT 10/31/2013 VINICIO HERNANDEZ MD N 466.0 ACUTE BRONCHITIS 10/31/2013 VINICIO HERNANDEZ MD N 719.47 PAIN IN JOINT INVOLVING ANKLE AND FOOT 10/31/2013 VINICIO HERNANDEZ MD N 466.0 ACUTE BRONCHITIS 10/31/2013 VINICIO HERNANDEZ MD N 719.47 PAIN IN JOINT INVOLVING ANKLE AND FOOT 10/31/2013 VINICIO HERNANDEZ MD N 466.0 ACUTE BRONCHITIS 10/31/2013 VINICIO HERNANDEZ MD N 719.47 PAIN IN JOINT INVOLVING ANKLE AND FOOT 12/06/2013 VINICIO HERNANDEZ MD N 272.4 HYPERLIPIDEMIA 12/06/2013 VINICIO HERNANDEZ MD N 780.79 FATIGUE 12/06/2013 VINICIO HERNANDEZ MD N V03.82 PPV23 (PNEUMOVAX) DX 12/06/2013 VINICIO HERNANDEZ MD N 272.4 HYPERLIPIDEMIA 12/06/2013 VINICIO HERNANDEZ MD N 780.79 FATIGUE 12/06/2013 VINICIO HERNANDEZ MD N V03.82 PPV23 (PNEUMOVAX) DX 12/06/2013 VINICIO HERNANDEZ MD N 272.4 HYPERLIPIDEMIA 12/06/2013 VINICIO HERNANDEZ MD N 780.79 FATIGUE 12/06/2013 VINICIO HERNANDEZ MD N V03.82 PPV23 (PNEUMOVAX) DX 12/06/2013 VINICIO HERNANDEZ MD N 272.4 HYPERLIPIDEMIA 12/06/2013 VINICIO HERNANDEZ MD N 780.79 FATIGUE 12/06/2013 VINICIO HERNANDEZ MD N V03.82 PPV23 (PNEUMOVAX) DX 04/06/2014 VINICIO HERNANDEZ MD N V15.82 NICOTINE ABUSE 04/06/2014 VINICIO HERNANDEZ MD N V15.82 NICOTINE ABUSE 04/27/2014 VINICIO HERNANDEZ MD N 719.42 PAIN- ELBOW 04/27/2014 VINICIO HERNANDEZ MD N 719.45 PAIN- HIP 04/27/2014 VINICIO HERNANDEZ MD N 719.42 PAIN- ELBOW 04/27/2014 VINICIO HERNANDEZ MD N 719.45 PAIN- HIP 03/31/2016 Ot V72.84 EXAM PRE- OPERATIVE NOS 03/31/2016 SAMI FAUST Ot 397.0 TRICUSPID VALVE DISEASE 03/31/2016 SAMI FAUST Ot 401.9 HYPERTENSION NOS 03/31/2016 SAMI FAUST Ot 424.0 MITRAL VALVE DISORDER 03/31/2016 SAMI FAUST Ot 427.9 CARDIAC DYSRHYTHMIA NOS 03/31/2016 SAMI FAUST Ot 786.09 RESPIRATORY ABNORM NEC 03/31/2016 SAMI FAUST Ot 786.50 CHEST PAIN NOS 03/31/2016 SAMI FAUST Ot 401.9 HYPERTENSION NOS 03/31/2016 SAMI FASUT Ot 427.9 CARDIAC DYSRHYTHMIA NOS 03/31/2016 SAMI FAUST Ot 786.09 RESPIRATORY ABNORM NEC 03/31/2016 SAMI FAUST Ot 786.50 CHEST PAIN NOS 03/31/2016 SAMI FAUST Ot V64.3 NO PROC FOR REASONS NEC 03/31/2016 SAMI FAUST Ot 401.9 HYPERTENSION NOS 03/31/2016 SAMI FAUST Ot 427.9 CARDIAC DYSRHYTHMIA NOS 03/31/2016 SAMI FAUST Ot 786.09 RESPIRATORY ABNORM NEC 03/31/2016 SAMI FAUST Ot 786.50 CHEST PAIN NOS 03/31/2016 MARY RONDON, VINICIO Frances Ot 726.19 ROTATOR CUFF DIS NEC 03/31/2016 VINICIO HERNANDEZ MD N Ot 787.3 FLATUL/ERUCTAT/GAS PAIN 03/31/2016 VINICIO HERNANDEZ MD Ot 788.1 DYSURIA 03/31/2016 VINICIO HERNANDEZ MD N Ot 789.00 ABDOMINAL PAIN, UNSPECIFIED SITE 03/31/2016 VINICIO HERNANDEZ MD Ot Z12.31 ENCNTR SCREEN MAMMOGRAM FOR MALIGNANT NE 04/01/2016 VINICIO HERNANDEZ MD Ot Z12.31 ENCNTR SCREEN MAMMOGRAM FOR MALIGNANT NE 04/02/2016 Ot V72.84 EXAM PRE- OPERATIVE NOS 04/02/2016 SAMI FAUST Ot 397.0 TRICUSPID VALVE DISEASE 04/02/2016 SAMI FAUST Ot 401.9 HYPERTENSION NOS 04/02/2016 SAMI FAUST Ot 424.0 MITRAL VALVE DISORDER 04/02/2016 SAMI FAUST Ot 427.9 CARDIAC DYSRHYTHMIA NOS 04/02/2016 SAMI FAUST Ot 786.09 RESPIRATORY ABNORM NEC 04/02/2016 SAMI FAUST Ot 786.50 CHEST PAIN NOS 04/02/2016 SAMI FAUST Ot 401.9 HYPERTENSION NOS 04/02/2016 SHANNON DELEON SAMI K Ot 427.9 CARDIAC DYSRHYTHMIA NOS 04/02/2016 SHANNON DELEON SAMI K Ot 786.09 RESPIRATORY ABNORM NEC 04/02/2016 SHANNON DELEON SAMI K Ot 786.50 CHEST PAIN NOS 04/02/2016 SHANNON DELEON SAMI K Ot V64.3 NO PROC FOR REASONS NEC 04/02/2016 SHANNON EDLEON SAMI K Ot 401.9 HYPERTENSION NOS 04/02/2016 SHANNON DELEON SAIM K Ot 427.9 CARDIAC DYSRHYTHMIA NOS 04/02/2016 SHANNON DELEON SAMI K Ot 786.09 RESPIRATORY ABNORM NEC 04/02/2016 SHANNON DELEON SAMI K Ot 786.50 CHEST PAIN NOS 04/02/2016 VINICIO HERNANDEZ MD Ot 726.19 ROTATOR CUFF DIS NEC 04/02/2016 VINICIO HERNANDEZ MD Ot 787.3 FLATUL/ERUCTAT/GAS PAIN 04/02/2016 VINICIO HENRANDEZ MD Ot 788.1 DYSURIA 04/02/2016 VINICIO HERNANDEZ MD Ot 789.00 ABDOMINAL PAIN, UNSPECIFIED SITE 04/02/2016 VINICIO HERNANDEZ MD Ot Z12.31 ENCNTR SCREEN MAMMOGRAM FOR MALIGNANT NE 04/06/2016 VINICIO HERNANDEZ MD Ot Z12.31 ENCNTR SCREEN MAMMOGRAM FOR MALIGNANT NE 04/13/2016 VINICIO HERNANDEZ MD Ot Z12.31 ENCNTR SCREEN MAMMOGRAM FOR MALIGNANT NE 04/23/2016 SHERICE HURLEY NP-C Ot E55.9 VITAMIN D DEFICIENCY, UNSPECIFIED 04/23/2016 SHERICE HURLEY NP-C Ot E78.5 HYPERLIPIDEMIA, UNSPECIFIED 04/23/2016 SHERICE HURLEY NP-C Ot E87.1 HYPO-OSMOLALITY AND HYPONATREMIA 04/23/2016 SHERICE HURLEY NP-C Ot E87.2 ACIDOSIS 04/23/2016 SHERICE HURLEY NP-C Ot 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 AND ST 04/23/2016 SHERICE HURLEY NP-C Ot K76.0 FATTY (CHANGE OF) LIVER, NOT ELSEWHERE C 04/23/2016 NEW, SHERICE Heller NP-C Ot N18.3 CHRONIC KIDNEY DISEASE, STAGE 3 (MODERAT 04/23/2016 NEW, SHERICE Heller NP-C Ot N28.9 DISORDER OF KIDNEY AND URETER, UNSPECIFI 04/23/2016 NEW, SHERICE Heller NP-C Ot R73.01 IMPAIRED FASTING GLUCOSE 04/23/2016 NEW, SHERICE Heller NP-C Ot R80.9 PROTEINURIA, UNSPECIFIED 04/23/2016 NEW, SHERICE Heller FLORIST HELPER-C Ot E55.9 VITAMIN D DEFICIENCY, UNSPECIFIED 04/23/2016 NEW, SHERICE Heller FLORIST HELPER-C Ot E78.5 HYPERLIPIDEMIA, UNSPECIFIED 04/23/2016 NEW, SHERICE Heller FLORIST HELPER-C Ot E87.1 HYPO-OSMOLALITY AND HYPONATREMIA 04/23/2016 NEW, SHERICE Heller FLORIST HELPER-C Ot E87.2 ACIDOSIS 04/23/2016 NEW, SHERICE Heller NP-C Ot 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 AND ST 04/23/2016 NEW, SHERICE Heller NP-C Ot K76.0 FATTY (CHANGE OF) LIVER, NOT ELSEWHERE C 04/23/2016 NEW, SHERICE Heller NP-C Ot N18.3 CHRONIC KIDNEY DISEASE, STAGE 3 (MODERAT 04/23/2016 NEW, SHERICE Heller NP-C Ot N28.9 DISORDER OF KIDNEY AND URETER, UNSPECIFI 04/23/2016 NEW, SHEIRCE Heller NP-C Ot R73.01 IMPAIRED FASTING GLUCOSE 04/23/2016 NEW, SHERICE Heller NP-C Ot R80.9 PROTEINURIA, UNSPECIFIED 05/08/2016 NEW, SHERICE Heller FLORIST HELPER-C Ot E55.9 VITAMIN D DEFICIENCY, UNSPECIFIED 05/08/2016 NEW, SHERICE Heller FLORIST HELPER-C Ot E78.5 HYPERLIPIDEMIA, UNSPECIFIED 05/08/2016 NEW, SHERICE Heller FLORIST HELPER-C Ot E87.1 HYPO-OSMOLALITY AND HYPONATREMIA 05/08/2016 NEW, SHERICE Heller FLORIST HELPER-C Ot E87.2 ACIDOSIS 05/08/2016 NEW, SHERICE Heller FLORIST HELPER-C Ot 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 AND ST 05/08/2016 NEW, SHERICE PattonKaite PABLO-C Ot K76.0 FATTY (CHANGE OF) LIVER, NOT ELSEWHERE C 05/08/2016 XAVI SHERICE PattonKatie FLORIST HELPER-C Ot N18.3 CHRONIC KIDNEY DISEASE, STAGE 3 (MODERAT 05/08/2016 XAVISHERICE FLORIST HELPER-C Ot N28.9 DISORDER OF KIDNEY AND URETER, UNSPECIFI 05/08/2016 XAVI SHERICE PattonKatie PABLO-C Ot R73.01 IMPAIRED FASTING GLUCOSE 05/08/2016 XAVI SHERICE PattonKatie FLORIST HELPER-C Ot R80.9 PROTEINURIA, UNSPECIFIED 09/08/2016 Ot V72.84 EXAM PRE- OPERATIVE NOS 09/08/2016 SAMI FAUST Ot 397.0 TRICUSPID VALVE DISEASE 09/08/2016 SAMI FAUST Ot 401.9 HYPERTENSION NOS 09/08/2016 SAMI FAUST K Ot 424.0 MITRAL VALVE DISORDER 09/08/2016 SAMI FAUST Ot 427.9 CARDIAC DYSRHYTHMIA NOS 09/08/2016 OLGA FAUSTTH K Ot 786.09 RESPIRATORY ABNORM NEC 09/08/2016 OLGA FAUSTTH K Ot 786.50 CHEST PAIN NOS 09/08/2016 SAMI FAUST K Ot 401.9 HYPERTENSION NOS 09/08/2016 OLGA FAUSTTH K Ot 427.9 CARDIAC DYSRHYTHMIA NOS 09/08/2016 SAMI FAUST K Ot 786.09 RESPIRATORY ABNORM NEC 09/08/2016 OLGA FAUSTTH K Ot 786.50 CHEST PAIN NOS 09/08/2016 SAMI FAUST K Ot V64.3 NO PROC FOR REASONS NEC 09/08/2016 OLGA FAUSTTH K Ot 401.9 HYPERTENSION NOS 09/08/2016 SAMI FAUST K Ot 427.9 CARDIAC DYSRHYTHMIA NOS 09/08/2016 SAMI FAUST K Ot 786.09 RESPIRATORY ABNORM NEC 09/08/2016 OLGA FAUSTTH K Ot 786.50 CHEST PAIN NOS 09/08/2016 MARY RONDON, VINICIO Frances Ot 726.19 ROTATOR CUFF DIS NEC 09/08/2016 MARY RONDON, VINICIO Frances Ot 787.3 FLATUL/ERUCTAT/GAS PAIN 09/08/2016 MARY RONDON, VINICIO Frances Ot 788.1 DYSURIA 09/08/2016 MARY RONDON, VINICIO Frances Ot 789.00 ABDOMINAL PAIN, UNSPECIFIED SITE 09/08/2016 MARY RONDON, VINICIO Frances Ot Z12.31 ENCNTR SCREEN MAMMOGRAM FOR MALIGNANT NE 09/08/2016 SHERICE HURLEY AbdiKatie FLORIST HELPER-C Ot E55.9 VITAMIN D DEFICIENCY, UNSPECIFIED 09/08/2016 SHERICE HURLEY AbdiKatie FLORIST HELPER-C Ot E78.5 HYPERLIPIDEMIA, UNSPECIFIED 09/08/2016 SHERICE HURLEY AbdiKatie FLORIST HELPER-C Ot E87.1 HYPO-OSMOLALITY AND HYPONATREMIA 09/08/2016 SHERICE HURLEY AbdiKatie FLORIST HELPER-C Ot E87.2 ACIDOSIS 09/08/2016 SHERICE HURLEY AbdiKatie FLORIST HELPER-C Ot 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 AND ST 09/08/2016 SHERICE HURLEY AbdiKatie FLORIST HELPER-C Ot K76.0 FATTY (CHANGE OF) LIVER, NOT ELSEWHERE C 09/08/2016 SHERICE HURLEY AbdiKatie FLORIST HELPER-C Ot N18.3 CHRONIC KIDNEY DISEASE, STAGE 3 (MODERAT 09/08/2016 SHERICE HURLEY AbdiKatie FLORIST HELPER-C Ot N28.9 DISORDER OF KIDNEY AND URETER, UNSPECIFI 09/08/2016 SHERICE HURLEY AbdiKatie FLORIST HELPER-C Ot R73.01 IMPAIRED FASTING GLUCOSE 09/08/2016 SHERICE HURLEY AbdiKatie FLORIST HELPER-C Ot R80.9 PROTEINURIA, UNSPECIFIED 09/22/2016 MARY RONDON, VINICIO Frances Ot F17.210 NICOTINE DEPENDENCE, CIGARETTES, UNCOMPL 09/22/2016 MARY RONDON, VINICIO Frances Ot R91.1 SOLITARY PULMONARY NODULE 10/14/2016 SWATI RONDON, CHANDANA Christopher Ot K59.00 CONSTIPATION, UNSPECIFIED 10/14/2016 SWATI RONDON, CHANDANA Christopher Ot K92.0 HEMATEMESIS 10/14/2016 SWATI RONDON, CHANDANA Christopher Ot R11.0 NAUSEA 10/14/2016 SWATI RONDON, CHANDANA Christopher Ot R63.4 ABNORMAL WEIGHT LOSS 10/14/2016 SWATI RONDON, CHANDANA Christopher Ot Z01.818 ENCOUNTER FOR OTHER PREPROCEDURAL EXAMIN 10/19/2016 CHANDANA LONGORIA MD Ot E03.9 HYPOTHYROIDISM, UNSPECIFIED 10/19/2016 CHANDANA LONGORIA MD Ot F17.210 NICOTINE DEPENDENCE, CIGARETTES, UNCOMPL 10/19/2016 CHANDANA LONGORIA MD Ot G40.909 EPILEPSY, UNSP, NOT INTRACTABLE, WITHOUT 10/19/2016 CHANDANA LONGORIA MD Ot J44.9 CHRONIC OBSTRUCTIVE PULMONARY DISEASE, U 10/19/2016 CHANDANA LONGORIA MD Ot K20.9 ESOPHAGITIS, UNSPECIFIED 10/19/2016 CHANDANA LONGORIA MD Ot K29.70 GASTRITIS, UNSPECIFIED, WITHOUT BLEEDING 10/19/2016 CHANDANA LONGORIA MD Ot K57.30 DVRTCLOS OF LG INT W/O PERFORATION OR AB 10/19/2016 CHANDANA LONGORIA MD Ot K64.8 OTHER HEMORRHOIDS 10/19/2016 CHANDANA LONGORIA MD Ot Z79.899 OTHER USP (CURRENT) DRUG THERAPY 10/20/2016 CHANDANA LONGORIA MD Ot K59.00 CONSTIPATION, UNSPECIFIED 10/20/2016 CHANDANA LONGORIA MD Ot K92.0 HEMATEMESIS 10/20/2016 CHANDANA LONGORIA MD Ot R11.0 NAUSEA 10/20/2016 CHANDANA LONGORIA MD Ot R63.4 ABNORMAL WEIGHT LOSS 10/20/2016 CHANDANA LONGORIA MD Ot Z01.818 ENCOUNTER FOR OTHER PREPROCEDURAL EXAMIN 10/20/2016 CHANDANA LONGORIA MD Ot E03.9 HYPOTHYROIDISM, UNSPECIFIED 10/20/2016 CHANDANA LONGORIA MD Ot F17.210 NICOTINE DEPENDENCE, CIGARETTES, UNCOMPL 10/20/2016 CHANDANA LONGORIA MD Ot G40.909 EPILEPSY, UNSP, NOT INTRACTABLE, WITHOUT 10/20/2016 CHANDANA LONGORIA MD Ot J44.9 CHRONIC OBSTRUCTIVE PULMONARY DISEASE, U 10/20/2016 CHANDANA LONGORIA MD Ot K20.9 ESOPHAGITIS, UNSPECIFIED 10/20/2016 CHANDANA LONGORIA MD Ot K29.70 GASTRITIS, UNSPECIFIED, WITHOUT BLEEDING 10/20/2016 CHANDANA LONGORIA MD Ot K57.30 DVRTCLOS OF LG INT W/O PERFORATION OR AB 10/20/2016 CHANDANA LONGORIA MD Ot K64.8 OTHER HEMORRHOIDS 10/20/2016 CHANDANA LONGORIA MD Ot Z79.899 OTHER USP (CURRENT) DRUG THERAPY 10/26/2016 CHANDANA LONGORIA MD Ot E03.9 HYPOTHYROIDISM, UNSPECIFIED 10/26/2016 CHANDANA LONGORIA MD Ot F17.210 NICOTINE DEPENDENCE, CIGARETTES, UNCOMPL 10/26/2016 CHANDANA LONGORIA MD Ot G40.909 EPILEPSY, UNSP, NOT INTRACTABLE, WITHOUT 10/26/2016 CHANDANA LONGORIA MD Ot J44.9 CHRONIC OBSTRUCTIVE PULMONARY DISEASE, U 10/26/2016 CHANDANA LONGORIA MD Ot K20.9 ESOPHAGITIS, UNSPECIFIED 10/26/2016 CHANDANA LONGORIA MD Ot K29.70 GASTRITIS, UNSPECIFIED, WITHOUT BLEEDING 10/26/2016 CHANDANA LONGORIA MD Ot K57.30 DVRTCLOS OF LG INT W/O PERFORATION OR AB 10/26/2016 CHANDANA LONGORIA MD Ot K64.8 OTHER HEMORRHOIDS 10/26/2016 CHANDANA LONGORIA MD Ot Z79.899 OTHER USP (CURRENT) DRUG THERAPY 10/31/2016 CHANDANA LONGORIA MD Ot E03.9 HYPOTHYROIDISM, UNSPECIFIED 10/31/2016 CHANDANA LONGORIA MD Ot F17.210 NICOTINE DEPENDENCE, CIGARETTES, UNCOMPL 10/31/2016 CHANDANA LONGORIA MD Ot G40.909 EPILEPSY, UNSP, NOT INTRACTABLE, WITHOUT 10/31/2016 CHANDANA LONGORIA MD Ot J44.9 CHRONIC OBSTRUCTIVE PULMONARY DISEASE, U 10/31/2016 CHANDANA LONGORIA MD Ot K20.9 ESOPHAGITIS, UNSPECIFIED 10/31/2016 CHANDANA LONGORIA MD Ot K29.70 GASTRITIS, UNSPECIFIED, WITHOUT BLEEDING 10/31/2016 CHANDANA LONGORIA MD Ot K57.30 DVRTCLOS OF LG INT W/O PERFORATION OR AB 10/31/2016 CHANDANA LONGORIA MD Ot K64.8 OTHER HEMORRHOIDS 10/31/2016 CHANDANA LONGORIA MD Ot Z79.899 OTHER USP (CURRENT) DRUG THERAPY 12/09/2016 Ot V72.84 EXAM PRE- OPERATIVE NOS 12/09/2016 [facility] PANCHO, SAMI K Ot 397.0 TRICUSPID VALVE DISEASE 12/09/2016 SHANNON PANCHO, SAMI K Ot 401.9 HYPERTENSION NOS 12/09/2016 SHANNON PANCHO, SAMI K Ot 424.0 MITRAL VALVE DISORDER 12/09/2016 SHANNON PANCHO, SAMI K Ot 427.9 CARDIAC DYSRHYTHMIA NOS 12/09/2016 SHANNON PANCHO, SAMI K Ot 786.09 RESPIRATORY ABNORM NEC 12/09/2016 SHANNON PANCHO, SAMI K Ot 786.50 CHEST PAIN NOS 12/09/2016 SHANNON PANCHO, SAMI K Ot 401.9 HYPERTENSION NOS 12/09/2016 SHANNON PANCHO, SAMI K Ot 427.9 CARDIAC DYSRHYTHMIA NOS 12/09/2016 SHANNON PANCHO, SAMI K Ot 786.09 RESPIRATORY ABNORM NEC 12/09/2016 SHANNON PANCHO, SAMI K Ot 786.50 CHEST PAIN NOS 12/09/2016 SHANNON PANCHO, SAMI Valerio Ot V64.3 NO PROC FOR REASONS NEC 12/09/2016 SHANNON PANCHOOLGATH K Ot 401.9 HYPERTENSION NOS 12/09/2016 SHANNON PANCHO, SAMI Valerio Ot 427.9 CARDIAC DYSRHYTHMIA NOS 12/09/2016 SHANNON PANCHO, SAMI K Ot 786.09 RESPIRATORY ABNORM NEC 12/09/2016 SHANNON PANCHO, SAMI K Ot 786.50 CHEST PAIN NOS 12/09/2016 MARY RONDON, VINICIO N Ot 726.19 ROTATOR CUFF DIS NEC 12/09/2016 MARY RONDON, VINICIO N Ot 787.3 FLATUL/ERUCTAT/GAS PAIN 12/09/2016 VINICIO HERNANDEZ MD N Ot 788.1 DYSURIA 12/09/2016 VINICIO HERNANDEZ MD Ot 789.00 ABDOMINAL PAIN, UNSPECIFIED SITE 12/09/2016 VINICIO HERNANDEZ MD Ot Z12.31 ENCNTR SCREEN MAMMOGRAM FOR MALIGNANT NE 12/09/2016 SHERICE HURLEY NP-C Ot E55.9 VITAMIN D DEFICIENCY, UNSPECIFIED 12/09/2016 SHERICE HURLEY NP-C Ot E78.5 HYPERLIPIDEMIA, UNSPECIFIED 12/09/2016 XAVI SHERICE Heller NP-C Ot E87.1 HYPO-OSMOLALITY AND HYPONATREMIA 12/09/2016 XAVI SHERICE Heller FLORIST HELPER-C Ot E87.2 ACIDOSIS 12/09/2016 XAVI SHERICE Heller NP-C Ot 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 AND ST 12/09/2016 XAVI SHERICE Heller NP-C Ot K76.0 FATTY (CHANGE OF) LIVER, NOT ELSEWHERE C 12/09/2016 XAVI SHERICE Heller NP-C Ot N18.3 CHRONIC KIDNEY DISEASE, STAGE 3 (MODERAT 12/09/2016 XAVI SHERICE Heller FLORIST HELPER-C Ot N28.9 DISORDER OF KIDNEY AND URETER, UNSPECIFI 12/09/2016 XAVI SHERICE Heller NP-C Ot R73.01 IMPAIRED FASTING GLUCOSE 12/09/2016 XAVI SHERICE Heller FLORIST HELPER-C Ot R80.9 PROTEINURIA, UNSPECIFIED 12/09/2016 MARY RONDON, VINICIO Frances Ot F17.210 NICOTINE DEPENDENCE, CIGARETTES, UNCOMPL 12/09/2016 MARY RONDON, VINICIO Frances Ot R91.1 SOLITARY PULMONARY NODULE 12/09/2016 MARY CALERO MD Ot E03.9 HYPOTHYROIDISM, UNSPECIFIED 12/09/2016 MARY CALERO MD Ot F17.210 NICOTINE DEPENDENCE, CIGARETTES, UNCOMPL 12/09/2016 MARY CALERO MD Ot J44.9 CHRONIC OBSTRUCTIVE PULMONARY DISEASE, U 12/09/2016 MARY CALERO MD Ot K21.9 GASTRO-ESOPHAGEAL REFLUX DISEASE WITHOUT 12/09/2016 ABDIAS RONDON, MARY Quintanilla Ot K59.00 CONSTIPATION, UNSPECIFIED 12/09/2016 MARY CALERO MD Ot M19.90 UNSPECIFIED OSTEOARTHRITIS, UNSPECIFIED 12/09/2016 MARY CALERO MD Ot Z80.0 FAMILY HISTORY OF MALIGNANT NEOPLASM OF 12/09/2016 MARY CALERO MD Ot Z86.010 PERSONAL HISTORY OF COLONIC POLYPS 12/09/2016 MARY CALERO MD Ot Z90.710 ACQUIRED ABSENCE OF BOTH CERVIX AND UTER 06/15/2017 Ot V72.84 EXAM PRE- OPERATIVE NOS 06/15/2017 SHANNON DELEON, SAMI K Ot 397.0 TRICUSPID VALVE DISEASE 06/15/2017 SHANNON DELEON, SAMI Valerio Ot 401.9 HYPERTENSION NOS 06/15/2017 ANNNathanielCALLUM DELEON, SAMI K Ot 424.0 MITRAL VALVE DISORDER 06/15/2017 SHANNON DELEON, SAMI K Ot 427.9 CARDIAC DYSRHYTHMIA NOS 06/15/2017 ANNJASPAL DELEON, SAMI K Ot 786.09 RESPIRATORY ABNORM NEC 06/15/2017 ANNJASPAL DELEON, SAMI K Ot 786.50 CHEST PAIN NOS 06/15/2017 ANNJASPAL DELEON, SAMI K Ot 401.9 HYPERTENSION NOS 06/15/2017 ANNJASPAL DELEON, SAMI Valerio Ot 427.9 CARDIAC DYSRHYTHMIA NOS 06/15/2017 SHANNON DELEON, SAMI K Ot 786.09 RESPIRATORY ABNORM NEC 06/15/2017 SHANNON DELEON SAMI K Ot 786.50 CHEST PAIN NOS 06/15/2017 SHANNON DELEON, SAMI Valerio Ot V64.3 NO PROC FOR REASONS NEC 06/15/2017 ANNJASPAL DELEON, SAMI Valerio Ot 401.9 HYPERTENSION NOS 06/15/2017 ANNJASPAL DELEON, SAMI Valerio Ot 427.9 CARDIAC DYSRHYTHMIA NOS 06/15/2017 SHANNON DELEON, SAMI K Ot 786.09 RESPIRATORY ABNORM NEC 06/15/2017 SHANNON DELEON, SAMI K Ot 786.50 CHEST PAIN NOS 06/15/2017 VINICIO HERNANDEZ MD N Ot 726.19 ROTATOR CUFF DIS NEC 06/15/2017 VINICIO HERNANDEZ MD N Ot 787.3 FLATUL/ERUCTAT/GAS PAIN 06/15/2017 VINICIO HERNANDEZ MD Ot 788.1 DYSURIA 06/15/2017 VINICIO HERNANDEZ MD Ot 789.00 ABDOMINAL PAIN, UNSPECIFIED SITE 06/15/2017 VINICIO HERNANDEZ MD Ot Z12.31 ENCNTR SCREEN MAMMOGRAM FOR MALIGNANT NE 06/15/2017 SHERICE HURLEY NP-Parul Ot E55.9 VITAMIN D DEFICIENCY, UNSPECIFIED 06/15/2017 NEW, SHERICE G. FLORIST HELPER-C Ot E78.5 HYPERLIPIDEMIA, UNSPECIFIED 06/15/2017 XAVI SHERICE Heller FLORIST HELPER-C Ot E87.1 HYPO-OSMOLALITY AND HYPONATREMIA 06/15/2017 XAVI SHERICE Heller FLORIST HELPER-C Ot E87.2 ACIDOSIS 06/15/2017 XAVI SHERICE Heller FLORIST HELPER-C Ot 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 AND ST 06/15/2017 XAVI SHERICE Heller FLORIST HELPER-C Ot K76.0 FATTY (CHANGE OF) LIVER, NOT ELSEWHERE C 06/15/2017 XAVI SHERICE Heller FLORIST HELPER-C Ot N18.3 CHRONIC KIDNEY DISEASE, STAGE 3 (MODERAT 06/15/2017 XAVI SHERICE Heller FLORIST HELPER-C Ot N28.9 DISORDER OF KIDNEY AND URETER, UNSPECIFI 06/15/2017 XAVI SHERICE Heller FLORIST HELPER-C Ot R73.01 IMPAIRED FASTING GLUCOSE 06/15/2017 XAVI SHERICE Heller FLORIST HELPER-C Ot R80.9 PROTEINURIA, UNSPECIFIED 06/15/2017 MARY RONDON, VINICIO Frances Ot F17.210 NICOTINE DEPENDENCE, CIGARETTES, UNCOMPL 06/15/2017 MARY RONDON, VINICIO Frances Ot R91.1 SOLITARY PULMONARY NODULE 06/25/2017 VINICIO HERNANDEZ MD Ot N18.3 CHRONIC KIDNEY DISEASE, STAGE 3 (MODERAT 06/25/2017 VINICIO HERNANDEZ MD Ot N28.1 CYST OF KIDNEY, ACQUIRED 07/08/2017 VINICIO HERNANDEZ MD Ot N18.3 CHRONIC KIDNEY DISEASE, STAGE 3 (MODERAT 07/08/2017 VINICIO HERNANDEZ MD Ot N28.1 CYST OF KIDNEY, ACQUIRED Procedures Code Description [place] [address] ROUTINE VENIPUNCTURE 05/03/2013 23977 UA W/ CULTURE IF INDICATED 05/03/2013 62512 TSH 05/03/2013 41875 HEP C PCR QUANT W/JACKI 05/03/2013 GENERAL S CHANDANA LONGORIA 05/03/2013 UROLOGY MILA ANSARI 05/03/2013 61581 CBC 05/03/2013 2371617 GFR CALC (RESULT ONLY) 05/03/2013 12207 CMP 05/03/2013 30098 TSH 05/03/2013 49973 HEPATITIS PROFILE 05/04/2013 [id number] HCV INDEX (RESULT ONLY) 05/04/2013 62212 CLOSTRIDIUM (C-DIFF) 05/05/2013 62398 CLOSTRIDIUM (C-DIFF) 05/05/2013 77855 CULTURE STOOL 05/05/2013 [id number] STOOL FOR BACTERIAL PATHOGENS 05/06/2013 5443652 STOOL FOR BACTERIAL PATHOGENS 05/06/2013 25260 CULTURE STOOL 05/15/2013 42437 MRI SPINE (CERVICAL) W/O CONTRAST 05/26/2013 CARDIOLOG VAL RAM 05/26/2013 PODIATRY SHABANA BARAJAS 05/26/2013 81069 EKG, TRACING (IN-HOUSE) 06/23/2013 83268 ROUTINE VENIPUNCTURE 07/11/2013 Orthopedi Sen [place] 07/11/2013 31314 LIPID PANEL 07/11/2013 31563 MAGNESIUM 07/11/2013 35706 TSH 07/11/2013 85380 NUCLEAR STRESS TESTING 07/14/2013 02125 ECHO 2D 07/14/2013 14095 DEBRIDE NAIL 1-5 07/28/2013 14186 XRAY CHEST 2 VIEW 08/16/2013 53625 XRAY CERVICAL SPINE, 2 OR 3 VIEWS 08/16/2013 31085 CULTURE URINE 08/16/2013 NEUROLOGY WINSTON WHITNEY 08/16/2013 ORTHOPEDI LUNA LANCE 08/16/2013 36757 UA W/ CULTURE IF INDICATED 08/16/2013 13217 ROUTINE VENIPUNCTURE 09/08/[address] ABDOMEN W/ CONTRAST 09/08/[address] ABDOMEN W/ CONTRAST 09/08/[address] ABDOMEN W/ AND W/O CONTRAST 09/08/2013 57705 UA W/ CULTURE IF INDICATED 09/08/2013 35558 JOINT INJECTION- LARGE JOINT (SPECIFY MEDCIN DESCRIPTION) 09/08/2013 92794 US ABDOMINAL ULTRASOUND, COMPLETE 09/08/2013 38428 TSH 09/08/2013 GENERAL S SAW MANN 10/13/2013 81098 UA LONG DIP 10/13/2013 63557 UA W/ CULTURE IF INDICATED 10/13/2013 14756 ROUTINE VENIPUNCTURE 12/06/2013 28708 CMP 12/06/2013 96314 LIPID PANEL 12/06/2013 14875 VITAMIN D 25-HYDROXY (D2,D3 , TOTAL) 12/06/2013 15341 VIT B 12 12/06/2013 39433 FOLATE 12/06/2013 54679 T4 FREE 12/06/2013 11458 TSH 12/06/2013 99458 T3 TOTAL 12/06/2013 21096 PULMONARY FUNCTION TEST (IN- HOUSE) 12/06/2013 Results Test Result Range Serum or plasma urea nitrogen measurement (mass/volume) - 06/24/17 11:49 Serum or plasma urea nitrogen measurement (mass/volume) 18 mg/dL 7-18 Serum or plasma creatinine measurement (mass/volume) - 06/24/17 11:49 Serum or plasma creatinine measurement (mass/volume) 1.10 mg/dL 0.60-1.30 Encounters ACCT No. Visit Date/Time Discharge Status Pt. Type Provider Facility Loc./Unit Complaint [id number] 10/15/2017 10:31:00 10/15/2017 23:59:59 CLS Preadmit VINICIO HERNANDEZ MD [facility] RAD INJURY OF RIGHT KNEE, SEQUELA,LOCKING OF RIGHT KNEE [id number] 06/24/2017 11:36:00 06/24/2017 23:59:59 CLS Outpatient VINICIO HERNANDEZ MD [facility] RAD RENAL CYSTS ACQUIRED BILATERAL [id number] 04/29/2017 09:50:00 04/29/2017 23:59:59 CLS Preadmit VINICIO HERNANDEZ MD [facility] RAD Z12.31 SCREENING [id number] 12/09/2016 11:45:00 12/09/2016 16:22:00 DIS Emergency MARY CALERO MD [facility] ER CONSTIPATION [id number] 10/19/2016 08:34:00 10/19/2016 11:25:00 DIS Outpatient CHANDANA LONGORIA MD [facility] ENDO WT LOSS/NAUSEA/ CHANGE IN BOWEL HABITS [id number] 10/14/2016 05:36:00 10/14/2016 12:27:00 DIS Outpatient CHANDANA LONGORIA MD [facility] PREOP COLONOSCOPY/EGD [id number] 09/08/2016 14:16:00 09/08/2016 23:59:59 CLS Outpatient VINICIO HERNANDEZ MD [facility] RAD SCREENING [id number] 04/22/2016 10:09:00 04/22/2016 23:59:59 CLS Outpatient SHERICE HURLEY [facility] RAD CKD STAGE 3 [id number] 03/31/2016 10:41:00 03/31/2016 23:59:59 CLS Outpatient VINICIO HERNANDEZ MD [facility] RAD SCREENING [id number] 10/03/2013 17:29:00 10/03/2013 21:15:00 DIS Emergency MARY CALERO MD [facility] ER CONSTIPATION [id number] 10/01/2013 11:03:00 10/01/2013 12:50:00 DIS Emergency HIRAL PEREZ [facility] ER BLOATED ABD [id number] 09/19/2013 16:43:00 09/19/2013 18:48:00 DIS Emergency MARCO ROCA APRN [facility] ER ABD PAIN [id number] 09/14/2013 07:42:00 09/14/2013 23:59:59 CLS Outpatient VINICIO HERNANDEZ MD [facility] RAD ABD BLOATING [id number] 09/13/2013 07:33:00 09/13/2013 23:59:59 CLS Outpatient SETH-SAMI IZAGUIRRE [facility] CARD CP,NM [id number] 08/17/2013 13:40:00 08/17/2013 23:59:59 CLS Outpatient SAMI FAUST [facility] CARD CP,HTN, DYSPNEA [id number] 08/08/2013 12:29:00 08/08/2013 23:59:59 CLS Outpatient SETH-SAMI IZAGUIRRE [facility] CARD CP, ARRHYTHMIA, DYSPNEA,HTN [id number] 05/22/2013 08:28:00 05/22/2013 11:45:00 DIS [facility]; [facility];ABD PAIN [id number] 03/03/2013 10:47:00 03/03/2013 11:45:00 DIS Emergency [id number] 11/23/2012 09:27:00 11/23/2012 23:59:59 CLS Outpatient [id number] 09/24/2017 10:02:00 Document Registration [id number] 03/31/2016 10:41:00 Document Registration [id number] 03/31/2016 10:40:00 Document Registration [id number] 05/18/2013 07:17:00 Document Registration [id number] 05/18/2013 07:17:00 05/18/2013 23:59:59 CLS Outpatient [id number] 04/27/2014 08:29:00 04/27/2014 23:59:59 CLS Outpatient VINICIO HERNANDEZ MD [id number] 04/27/2014 08:29:00 04/27/2014 23:59:59 CLS Outpatient VINICIO HERNANDEZ MD [id number] 12/06/2013 10:15:00 12/06/2013 23:59:59 CLS Outpatient VINICIO HERNANDEZ MD [id number] 12/06/2013 10:15:00 12/06/2013 23:59:59 CLS Outpatient VINICIO HERNANDEZ MD [id number] 11/02/2013 11:41:00 11/02/2013 23:59:59 CLS Outpatient JAN MARTINES DO [id number] 10/31/2013 13:50:00 10/31/2013 23:59:59 CLS Outpatient JAN MARTINES DO [id number] 10/13/2013 12:16:00 10/13/2013 23:59:59 CLS Outpatient JESUS PECK APRN [id number] 10/06/2013 10:42:00 10/06/2013 23:59:59 CLS Outpatient VINICIO HERNANDEZ MD [id number] 09/08/2013 14:06:00 09/08/2013 23:59:59 CLS Outpatient VINICIO HERNANDEZ MD [id number] 09/08/2013 14:06:00 09/08/2013 23:59:59 CLS Outpatient VINICIO HERNANDEZ MD [id number] 08/16/2013 10:51:00 08/16/2013 23:59:59 CLS Outpatient VINICIO HERNANDEZ MD [id number] 08/16/2013 10:51:00 08/16/2013 23:59:59 CLS Outpatient VINICIO HERNANDEZ MD [id number] 07/28/2013 09:59:00 07/28/2013 23:59:59 CLS Outpatient JAN MARTINES DO [id number] 07/21/2013 09:22:00 07/21/2013 23:59:59 CLS Outpatient TONY BUTTERFIELD MD [id number] 07/14/2013 08:56:00 07/14/2013 23:59:59 CLS Outpatient JAN MARTINES DO [id number] 07/11/2013 08:47:00 07/11/2013 23:59:59 CLS Outpatient JUDIE VANG APRN [id number] 06/23/2013 09:02:00 06/23/2013 23:59:59 CLS Outpatient VINICIO HERNANDEZ MD [id number] 06/08/2013 11:52:00 06/08/2013 23:59:59 CLS Outpatient TONY BUTTERFIELD MD [id number] 05/26/2013 11:02:00 05/26/2013 23:59:59 CLS Outpatient VINICIO HERNANDEZ MD [id number] 05/05/2013 11:05:00 05/05/2013 23:59:59 CLS Outpatient JUDIE VANG APRN [id number] 05/04/2013 10:16:00 05/04/2013 23:59:59 CLS Outpatient VINICIO HERNANDEZ MD [id number] 05/03/2013 10:34:00 05/03/2013 23:59:59 CLS Outpatient VINICIO HERNANDEZ MD [id number] 05/03/2013 10:34:00 05/03/2013 23:59:59 CLS Outpatient VINICIO HERNANDEZ MD [id number] 01/02/2013 11:14:00 01/02/2013 23:59:59 CLS Outpatient JUDIE VANG APRN
== END 2017-11-11 17:38 | disposition home or self-care (01) ==
LOC: ER 16:43 → EDUNIT# 16:43 → ER 17:38
DX: G40.909 Epilepsy, unspecified, not intractable, without status epilepticus (principal); J44.9 Chronic obstructive pulmonary disease, unspecified; F41.9 Anxiety disorder, unspecified; E03.9 Hypothyroidism, unspecified; K21.9 Gastro-esophageal reflux disease without esophagitis; F17.210 Nicotine dependence, cigarettes, uncomplicated; Z87.19 Personal history of other diseases of the digestive system; Z80.0 Family history of malignant neoplasm of digestive organs; Z86.010 Personal history of colon polyps; Z90.710 Acquired absence of both cervix and uterus; Z88.8 Allergy status to other drugs, medicaments and biological substances; Z88.4 Allergy status to anesthetic agent; Z88.0 Allergy status to penicillin; Z79.51 Long term (current) use of inhaled steroids
CPT/HCPCS: 99281

== ENCOUNTER 2018-03-01 05:57 | Outpatient (CLI) | payer MEDICAID ==
[~2018-03-01] VITALS: Ht 167.6 cm; Wt 62.1 kg
[2018-03-01] MEDS ORDERED: PANT40TA3 PO (15:34)
[2018-03-01] MEDS ORDERED: METO10TA3 PO (15:34)
[2018-03-01] MEDS ORDERED: LEVO75TA6 PO (15:34)
[2018-03-01] MEDS ORDERED: BUPR1FIL3 SL (15:34)
[2018-03-01] MEDS ORDERED: ATOR10TA66 PO (15:34)
[2018-03-01] MEDS ORDERED: CYPR4TAB41 PO (15:34)
== END 2018-03-01 15:35 | disposition home or self-care (01) ==
LOC: PREOP 05:57
PROVIDERS: ATTEND Surgery
DX: Z01.818 Encounter for other preprocedural examination (principal)

== ENCOUNTER 2018-03-08 12:43 | Day surgery (SDC) | payer MEDICAID ==
[~2018-03-08] VITALS: Ht 167.6 cm; Wt 62.1 kg
[~2018-03-08 12:43] MED LIST changes: +ATOR10TA66 PO; +CYPR4TAB41 PO; +PANT40TA3 PO
[2018-03-08] MEDS ORDERED: LACTATED RINGERS 1,000 ML IV ONE (12:56)
[2018-03-08] MEDS ORDERED: LACTATED RINGERS 1,000 ML IV STA (13:17)
[2018-03-08 13:26] VITALS: BP 123/81
[2018-03-08] MEDS ORDERED: HURRICAINE EXT TUBE (BENZOCAINE) XX PRN (13:30)
--- NOTE | 2018-03-08 13:58 | Progress Note-Pre Operative ---
Pre-Operative Progress Note H&P Reviewed The H&P was reviewed, patient examined and no changes noted. Date Seen by Provider: Mar 08, 2018 Time Seen by Provider: 13:57 Date H&P Reviewed: Mar 08, 2018 Time H&P Reviewed: 13:57 Pre-Operative Diagnosis: epigastric abdominal pain, blosting, gerd, hx colon polyps, hematochezia VITOR VIDES DO Mar 08, 2018 13:57
[2018-03-08] MEDS ORDERED: PROPOFOL INJECTION 50 ML IV ONE (14:18)
[2018-03-08] MEDS ORDERED: MIDAZOLAM 2 MG/2 ML (VERSED) VIAL ONE (14:18)
[2018-03-08] MEDS ORDERED: HURRICAINE EXT TUBE (BENZOCAINE) ONE (14:40)
--- NOTE | 2018-03-08 15:24 | Progress Note-Post Operative ---
Post-Operative Progess Note Surgeon (s)/Gandy Dancer (s) Surgeon VITOR VIDES DO Gandy Dancer: na Pre-Operative Diagnosis epigastric abdominal pain, blosting, gerd, hx colon polyps, hematochezia Post-Operative Diagnosis slight gastritis, small hiatal hernia, incomplet colonoscopy due to poor prep Procedure & Operative Findings Date of Procedure 03/08/18 Procedure Performed/Findings egd c biopsy, flex sig incomplete colonoscopy Anesthesia Type per chain builder Estimated Blood Loss Estimated blood loss (mL): none Specimens/Packing Specimens Removed antrum VITOR VIDES DO Mar 08, 2018 15:24
--- NOTE | 2018-03-08 15:27 | Discharge Inst-Simple/Standard ---
Discharge Inst-Standard Patient Instructions/Follow Up Plan of Care/Instructions/FU: 1 week Gerri Activity as Tolerated: Yes Discharge Diet: Regular Diet VITOR VIDES DO Mar 08, 2018 15:27
[2018-03-08 15:35] VITALS: BP 137/83
[2018-03-08 16:00] VITALS: BP 130/80
[2018-03-08 16:05] VITALS: BP 130/80
--- NOTE | 2018-03-08 21:38 | OPERATIVE REPORT ---
DATE OF SERVICE: 03/08/2018 PREOPERATIVE DIAGNOSES: Epigastric abdominal pain, bloating, gastroesophageal reflux disease, history of colon polyps and hematochezia. POSTOPERATIVE DIAGNOSIS: Slight gastritis, small hiatal hernia, incomplete colonoscopy due to poor prep. PROCEDURE: EGD with biopsy, flexible sigmoidoscopy incomplete colonoscopy. SURGEON: Vitor Talley DO ANESTHESIA: Per CIRCUITS ENGINEER. ESTIMATED BLOOD LOSS: None. COMPLICATIONS: None. INDICATIONS: The patient is a 62-year-old female who is having epigastric abdominal pain and bloating and GERD with history of colon polyps and hematochezia. She understands risks and benefits of procedure and wished to proceed with procedure. Consent was signed on the chart. DESCRIPTION OF PROCEDURE: The patient was taken to the endoscopy suite, placed in left lateral recumbent position. Timeout was performed. Scope was inserted in the mouth, down the esophagus, stomach and into the duodenum without difficulty. There were no polyps, mass or ulcerations within the duodenum. Scope was slowly retracted back into the stomach where there were some slight erythematous changes consistent with some slight gastritis. No polyps, masses or ulcerations. Scope was retroflexed noting a small hiatal hernia. Scope was then slowly retracted back into the distal esophagus, which had normal appearance. Scope was slowly retracted back to completely remove, noting no other pathology. Digital rectal exam was performed just noting some hemorrhoidal disease. No palpable polyps, masses or ulcerations. Scope was inserted into the rectum and started to be advanced into the sigmoid colon. In the sigmoid colon lots of irrigation and suction was performed, but a large stool burden still present. At this time, it was decided to abort the colonoscopy and will need further prep. Scope was then slowly retracted back. There were no polyps, mass or ulcerations in the sigmoid that was visualized and in the rectum. Scope was then inserted and retracted multiple times, noting some hemorrhoidal disease. Scope was retracted and completely removed. The patient tolerated procedure well without any complications, taken to recovery room in stable condition. RECOMMENDATIONS: The patient will need 2-day prep in order for colonoscopy. We will plan on doing that, scheduling that for her, we will discuss in one week. Continue on Protonix and Carafate and no other medicine changes. Job ID: [id number] DocumentID: [id number] Dictated Date: 03/08/2018 15:30:13 Commissioner Of Conciliation Date: 03/08/2018 21:37:52 Dictated By: VITOR TALLEY DO
== END 2018-03-08 16:05 | disposition home or self-care (01) ==
LOC: ENDO 12:43
PROVIDERS: ATTEND Surgery
DX: K92.1 Melena (principal); K29.70 Gastritis, unspecified, without bleeding; K21.9 Gastro-esophageal reflux disease without esophagitis; K44.9 Diaphragmatic hernia without obstruction or gangrene; Z86.010 Personal history of colon polyps; I10 Essential (primary) hypertension; J44.9 Chronic obstructive pulmonary disease, unspecified; F17.210 Nicotine dependence, cigarettes, uncomplicated; E78.5 Hyperlipidemia, unspecified; Z86.73 Personal history of transient ischemic attack (TIA), and cerebral infarction without residual deficits; Z79.899 Other long term (current) drug therapy

== ENCOUNTER → 2018-03-15 | Outpatient (CLI) | payer MEDICAID ==
--- NOTE | 2018-03-15 12:00 | Diagnostic Imaging Report ---
PROCEDURE: US Gallbladder. TECHNIQUE: Multiple real-time grayscale images were obtained over the right upper quadrant in various projections. INDICATION: Reflux esophagitis. COMPARISON: Study compared with a CT abdomen 06/24/2017. FINDINGS: Liver appears unremarkable. The gallbladder is normal. The biliary ducts are nondilated. Bowel gas overlying the left lobe of the liver limits its visualization. There is no ascites. A heterogeneous exophytic mass off the lower pole of the right kidney measures 5.7 x 4.3 cm increased in size from prior CT where it measured about 3.1 cm transverse x 2.7 cm long. Its echotextures suggests a solid mass, renal cell carcinoma suspected given its sonographic appearance, prior enhancement characteristics, and increasing size. IMPRESSION: 1. Enlarging exophytic mass lower pole right kidney appears solid, vascularized and suspect for carcinoma. 2. No hepatobiliary abnormality or ascites. Dictated by: Dictated on workstation # [id number]
== END ==
LOC: RAD 10:05
PROVIDERS: ATTEND Surgery
DX: K21.9 Gastro-esophageal reflux disease without esophagitis (principal); N28.89 Other specified disorders of kidney and ureter; R10.13 Epigastric pain
CPT/HCPCS: 76705

== ENCOUNTER 2018-03-18 06:24 | Outpatient (CLI) | payer MEDICAID ==
[~2018-03-18] VITALS: Ht 167.6 cm; Wt 62.1 kg
== END 2018-03-18 14:50 | disposition home or self-care (01) ==
LOC: PREOP 06:24
PROVIDERS: ATTEND Surgery
DX: Z01.818 Encounter for other preprocedural examination (principal)

== ENCOUNTER 2018-03-22 13:54 | Day surgery (SDC) | payer MEDICAID ==
[~2018-03-22] VITALS: Ht 167.6 cm; Wt 62.1 kg
--- OUTSIDE RECORDS SUMMARY | 2018-03-22 14:00 | XMS REPORT | Continuity of Care Document ---
Author Author [facility] Organization [facility] Address Unknown Phone Unavailable Allergies Active Description Code Type Severity Reaction Onset Reported/Identified Relationship to Patient Clinical Status Yes erythromycin Drug Allergy N/ A N/A 08/13/2009 Yes Stadol Drug Allergy N/A N/A 08/13/2009 Yes erythromycin base [id number] Drug Allergy Moderate N/A 03/03/2013 Yes Toradol Drug Allergy N/A N/A 05/03/2013 Yes butorphanol [id number] Drug Allergy Unknown N/A 10/01/2013 Yes ketorolac [id number] Drug Allergy Unknown N/A 10/01/2013 Medications There [...] MD 338.29 OTHER CHRONIC PAIN 08/13/2009 JUDIE VANG APRN 304.01 OPIOID TYPE DEPENDENCE, CONTINUOUS 08/13/2009 JUDIE VANG APRN 338.29 OTHER CHRONIC PAIN 08/13/2009 VINICIO HERNANDEZ MD 304.01 OPIOID TYPE DEPENDENCE, CONTINUOUS 08/13/2009 VINICIO HERNANDEZ MD 338.29 OTHER CHRONIC PAIN 08/13/2009 VINICIO HERNANDEZ MD 304.01 OPIOID TYPE DEPENDENCE, CONTINUOUS 08/13/2009 VINICIO HERNANDEZ MD 338.29 OTHER CHRONIC PAIN 08/13/2009 TONY BUTTERFIELD MD 304.01 OPIOID TYPE DEPENDENCE, CONTINUOUS 08/13/2009 TONY BUTTERFIELD MD 338.29 OTHER CHRONIC PAIN 08/13/2009 VINICIO HERNANDEZ MD N 304.01 OPIOID TYPE DEPENDENCE, CONTINUOUS 08/13/2009 VINICIO HERNANDEZ MD N 338.29 OTHER CHRONIC PAIN 08/13/2009 VANG DEWATERER OPERATORJUDIE R 304.01 OPIOID TYPE DEPENDENCE, CONTINUOUS 08/13/2009 VANG DEWATERER OPERATOR, JUDIE R 338.29 OTHER CHRONIC PAIN 08/13/2009 [...] MD N 465.9 UPPER RESPIRATORY INFECTION 05/01/2010 AMRY RONDON, VINICIO N 599.0 URINARY TRACT INFECTION 05/01/2010 VINICIO HERNADNEZ MD N 465.9 UPPER RESPIRATORY INFECTION 05/01/2010 [...] MD N 786.50 UNSPECIFIED CHEST PAIN 05/26/2013 HELLSYHAM ROSENTHAL JESUS E 703.0 INGROWING NAIL 05/26/2013 [...] HERNANDEZ MD N 786.09 DYSPNEA 07/14/2013 HELLSHYAM DEWATERER OPERATOR, JESUS E 401.9 HYPERTENSION, UNSPECIFIED ESSENTIAL 07/14/2013 HELLWIG DEWATERER OPERATOR, JESUS E 427.9 ARRHYTHMIA, CARDIAC (SINUS) 07/14/2013 HELLWIG DEWATERER OPERATOR, JESUS E 786.09 DYSPNEA 07/14/2013 MARTINES DO, [...] MOSES ROSENTHALE E 786.2 COUGH 08/16/2013 JEREMIELSHYAM DEWATERER OPERATORELIZABETH FrancesSIE E 788.1 DYSURIA 08/16/2013 MARTINES DO, [...] ABDOMINAL AREA INCLUDING RETROPERITONEUM 09/19/2013 MARCO ROCA DEWATERER OPERATOR Ot 564.00 UNSPEC CONSTIPATION 09/19/2013 MARCO ROCA DEWATERER OPERATOR Ot 599.0 URIN TRACT INFECTION NOS 09/19/2013 MARCO ROCA DEWATERER OPERATOR Ot 787.3 FLATUL/ERUCTAT/GAS PAIN 10/01/2013 HIRAL PEREZ [...] VINICIO HERNANDEZ MD Ot 788.1 DYSURIA 03/31/2016 VINICOI HERNANDEZ MD N Ot 789.00 ABDOMINAL PAIN, [...] NO PROC FOR REASONS NEC 04/02/2016 SHANNON DELEON SAMI K Ot 401.9 HYPERTENSION NOS 04/02/2016 SHANNON DELEON SAMI K Ot 427.9 CARDIAC DYSRHYTHMIA NOS 04/02/2016 SHANNON DELEON SAMI K Ot 786.09 RESPIRATORY ABNORM NEC 04/02/2016 SHANNON DELEON SAMI K Ot 786.50 CHEST PAIN NOS 04/02/2016 VINICIO HERNANDEZ MD Ot 726.19 ROTATOR CUFF DIS NEC 04/02/2016 VINICIO HERNANDEZ MD Ot 787.3 FLATUL/ERUCTAT/GAS PAIN 04/02/2016 VINICIO HERNANDEZ MD Ot 788.1 DYSURIA 04/02/2016 VINICIO HERNANDEZ [...] R80.9 PROTEINURIA, UNSPECIFIED 04/23/2016 NEW, SHERICE Heller DIRECTOR OF INTERCOLLEGIATE ATHLETICS-C Ot E55.9 VITAMIN D DEFICIENCY, UNSPECIFIED 04/23/2016 NEW, SHERICE Heller DIRECTOR OF INTERCOLLEGIATE ATHLETICS-C Ot E78.5 HYPERLIPIDEMIA, UNSPECIFIED 04/23/2016 NEW, SHERICE Heller DIRECTOR OF INTERCOLLEGIATE ATHLETICS-C Ot E87.1 HYPO-OSMOLALITY AND HYPONATREMIA 04/23/2016 NEW, SHERICE Heller DIRECTOR OF INTERCOLLEGIATE ATHLETICS-C Ot E87.2 ACIDOSIS 04/23/2016 NEW, SHERICE Heller [...] R80.9 PROTEINURIA, UNSPECIFIED 05/08/2016 NEW, SHERICE Heller DIRECTOR OF INTERCOLLEGIATE ATHLETICS-C Ot E55.9 VITAMIN D DEFICIENCY, UNSPECIFIED 05/08/2016 NEW, SHERICE Heller DIRECTOR OF INTERCOLLEGIATE ATHLETICS-C Ot E78.5 HYPERLIPIDEMIA, UNSPECIFIED 05/08/2016 NEW, SHERICE Heller DIRECTOR OF INTERCOLLEGIATE ATHLETICS-C Ot E87.1 HYPO-OSMOLALITY AND HYPONATREMIA 05/08/2016 NEW, SHERICE Heller DIRECTOR OF INTERCOLLEGIATE ATHLETICS-C Ot E87.2 ACIDOSIS 05/08/2016 NEW, SHERICE Heller DIRECTOR OF INTERCOLLEGIATE ATHLETICS-C Ot 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 AND ST 05/08/2016 NEW, SHERICE PattonKatie PABLO-C Ot K76.0 FATTY (CHANGE OF) LIVER, NOT ELSEWHERE C 05/08/2016 XAVI SHERICE PattonKatie DIRECTOR OF INTERCOLLEGIATE ATHLETICS-C Ot N18.3 CHRONIC KIDNEY DISEASE, STAGE 3 (MODERAT 05/08/2016 XAVISHERICE DIRECTOR OF INTERCOLLEGIATE ATHLETICS-C Ot N28.9 DISORDER OF KIDNEY AND URETER, UNSPECIFI 05/08/2016 XAVI SHERICE PattonKatie PABLO-C Ot R73.01 IMPAIRED FASTING GLUCOSE 05/08/2016 XAVI SHERICE PattonKatie DIRECTOR OF INTERCOLLEGIATE ATHLETICS-C Ot R80.9 PROTEINURIA, UNSPECIFIED 09/08/2016 Ot V72.84 [...] FOR MALIGNANT NE 09/08/2016 SHERICE HURLEY AbdiKatie DIRECTOR OF INTERCOLLEGIATE ATHLETICS-C Ot E55.9 VITAMIN D DEFICIENCY, UNSPECIFIED 09/08/2016 SHERICE HURLEY AbdiKatie DIRECTOR OF INTERCOLLEGIATE ATHLETICS-C Ot E78.5 HYPERLIPIDEMIA, UNSPECIFIED 09/08/2016 SHERICE HURLEY AbdiKatie DIRECTOR OF INTERCOLLEGIATE ATHLETICS-C Ot E87.1 HYPO-OSMOLALITY AND HYPONATREMIA 09/08/2016 SHERICE HURLEY AbdiKatie DIRECTOR OF INTERCOLLEGIATE ATHLETICS-C Ot E87.2 ACIDOSIS 09/08/2016 SHERICE HURLEY AbdiKatie DIRECTOR OF INTERCOLLEGIATE ATHLETICS-C Ot 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 AND ST 09/08/2016 SHERICE HURLEY AbdiKatie DIRECTOR OF INTERCOLLEGIATE ATHLETICS-C Ot K76.0 FATTY (CHANGE OF) LIVER, NOT ELSEWHERE C 09/08/2016 SHERICE HURLEY AbdiKatie DIRECTOR OF INTERCOLLEGIATE ATHLETICS-C Ot N18.3 CHRONIC KIDNEY DISEASE, STAGE 3 (MODERAT 09/08/2016 SHERICE HURLEY AbdiKatie DIRECTOR OF INTERCOLLEGIATE ATHLETICS-C Ot N28.9 DISORDER OF KIDNEY AND URETER, UNSPECIFI 09/08/2016 SHERICE HURLEY AbdiKatie DIRECTOR OF INTERCOLLEGIATE ATHLETICS-C Ot R73.01 IMPAIRED FASTING GLUCOSE 09/08/2016 SHERICE HURLEY AbdiKatie DIRECTOR OF INTERCOLLEGIATE ATHLETICS-C Ot R80.9 PROTEINURIA, UNSPECIFIED 09/22/2016 MARY RONDON, [...] 10/19/2016 CHANDANA LONGORIA MD Ot Z79.899 OTHER [facility] (CURRENT) DRUG THERAPY 10/20/2016 CHANDANA LONGORIA MD [...] 10/20/2016 CHANDANA LONGORIA MD Ot Z79.899 OTHER [facility] (CURRENT) DRUG THERAPY 10/26/2016 CHANDANA LONGORIA MD [...] 10/26/2016 CHANDANA LONGORIA MD Ot Z79.899 OTHER [facility] (CURRENT) DRUG THERAPY 10/31/2016 CHANDANA LONGORIA MD [...] 10/31/2016 CHANDANA LONGORIA MD Ot Z79.899 OTHER [facility] (CURRENT) DRUG THERAPY 12/09/2016 Ot V72.84 EXAM PRE- OPERATIVE NOS 12/09/2016 [facility] PANCHO, SAMI K Ot 397.0 TRICUSPID VALVE [...] HYPO-OSMOLALITY AND HYPONATREMIA 12/09/2016 XAVI SHERICE Heller DIRECTOR OF INTERCOLLEGIATE ATHLETICS-C Ot E87.2 ACIDOSIS 12/09/2016 XAVI SHERICE Heller NP-C Ot 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 AND ST 12/09/2016 XAVI SHERICE Heller NP-C Ot K76.0 FATTY (CHANGE OF) LIVER, NOT ELSEWHERE C 12/09/2016 XAVI SHERICE Heller NP-C Ot N18.3 CHRONIC KIDNEY DISEASE, STAGE 3 (MODERAT 12/09/2016 XAVI SHERICE Heller DIRECTOR OF INTERCOLLEGIATE ATHLETICS-C Ot N28.9 DISORDER OF KIDNEY AND URETER, UNSPECIFI 12/09/2016 XAVI SHERICE Heller NP-C Ot R73.01 IMPAIRED FASTING GLUCOSE 12/09/2016 XAVI SHERICE Heller DIRECTOR OF INTERCOLLEGIATE ATHLETICS-C Ot R80.9 PROTEINURIA, UNSPECIFIED 12/09/2016 MARY RONDON, VINICIO Frances Ot F17.210 NICOTINE DEPENDENCE, CIGARETTES, UNCOMPL 12/09/2016 MARY RONDON, VINICIO Frances Ot R91.1 SOLITARY PULMONARY NODULE 12/09/2016 MARY ACLERO MD Ot E03.9 HYPOTHYROIDISM, UNSPECIFIED 12/09/2016 MARY [...] D DEFICIENCY, UNSPECIFIED 06/15/2017 NEW, SHERICE G. DIRECTOR OF INTERCOLLEGIATE ATHLETICS-C Ot E78.5 HYPERLIPIDEMIA, UNSPECIFIED 06/15/2017 XAVI SHERICE Heller DIRECTOR OF INTERCOLLEGIATE ATHLETICS-C Ot E87.1 HYPO-OSMOLALITY AND HYPONATREMIA 06/15/2017 XAVI SHERICE Heller DIRECTOR OF INTERCOLLEGIATE ATHLETICS-C Ot E87.2 ACIDOSIS 06/15/2017 XAVI SHERICE Heller DIRECTOR OF INTERCOLLEGIATE ATHLETICS-C Ot 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 AND ST 06/15/2017 XAVI SHERICE Heller DIRECTOR OF INTERCOLLEGIATE ATHLETICS-C Ot K76.0 FATTY (CHANGE OF) LIVER, NOT ELSEWHERE C 06/15/2017 XAVI SHERICE Heller DIRECTOR OF INTERCOLLEGIATE ATHLETICS-C Ot N18.3 CHRONIC KIDNEY DISEASE, STAGE 3 (MODERAT 06/15/2017 XAVI SHERICE Heller DIRECTOR OF INTERCOLLEGIATE ATHLETICS-C Ot N28.9 DISORDER OF KIDNEY AND URETER, UNSPECIFI 06/15/2017 XAVI SHERICE Heller DIRECTOR OF INTERCOLLEGIATE ATHLETICS-C Ot R73.01 IMPAIRED FASTING GLUCOSE 06/15/2017 XAVI SHERICE Heller DIRECTOR OF INTERCOLLEGIATE ATHLETICS-C Ot R80.9 PROTEINURIA, UNSPECIFIED 06/15/2017 VINICIO HERNANDEZ MD Ot F17.210 NICOTINE DEPENDENCE, CIGARETTES, UNCOMPL 06/15/2017 VINICIO HERNANDEZ MD Ot R91.1 SOLITARY PULMONARY NODULE 06/25/2017 VINICIO HERNANDEZ MD Ot N18.3 CHRONIC KIDNEY DISEASE, STAGE 3 (MODERAT 06/25/2017 IVNICIO HERNANDEZ MD Ot N28.1 CYST OF KIDNEY, ACQUIRED 07/08/2017 VINICIO HERNANDEZ MD Ot N18.3 CHRONIC KIDNEY DISEASE, STAGE 3 (MODERAT 07/08/2017 VINICIO HERNANDEZ MD Ot N28.1 CYST OF KIDNEY, ACQUIRED 11/10/2017 VINICIO HERNANDEZ MD Ot M17.12 UNILATERAL PRIMARY OSTEOARTHRITIS, LEFT 11/10/2017 VINICIO HERNANDEZ MD Ot M23.300 OTH MENISCUS DERANGEMENTS, UNSP LATERAL 11/10/2017 VINICIO HERNANDEZ MD Ot M23.322 OTH MENISCUS DERANG, POST HORN OF MEDIAL 11/10/2017 VINICIO HERNANDEZ MD Ot M23.352 OTH MENISCUS DERANG, POSTERIOR HORN OF L 11/10/2017 VINICIO HERNANDEZ MD Ot M23.92 UNSPECIFIED INTERNAL DERANGEMENT OF LEFT 11/10/2017 VINICIO HERNANDEZ MD Ot M89.351 HYPERTROPHY OF BONE, RIGHT FEMUR 11/11/2017 MARCO ROCA APRN Ot E03.9 HYPOTHYROIDISM, UNSPECIFIED 11/11/2017 MARCO ROCA APRN Ot F17.210 NICOTINE DEPENDENCE, CIGARETTES, UNCOMPL 11/11/2017 MARCO ROCA APRN Ot F41.9 ANXIETY DISORDER, UNSPECIFIED 11/11/2017 MARCO ROCA APRN Ot G40.909 EPILEPSY, UNSP, NOT INTRACTABLE, WITHOUT 11/11/2017 MARCO ROCA APRN Ot J44.9 CHRONIC OBSTRUCTIVE PULMONARY DISEASE, U 11/11/2017 MARCO ROCA APRN Ot K21.9 GASTRO-ESOPHAGEAL REFLUX DISEASE WITHOUT 11/11/2017 MARCO ROCA APRN Ot Z79.51 [facility] (CURRENT) USE OF INHALED STERO 11/11/2017 MARCO ROCA APRN Ot Z80.0 FAMILY HISTORY OF MALIGNANT NEOPLASM OF 11/11/2017 MARCO ROCA APRN Ot Z86.010 PERSONAL HISTORY OF COLONIC POLYPS 11/11/2017 MARCO ROCA APRN Ot Z87.19 PERSONAL HISTORY OF OTHER DISEASES OF 11/11/2017 MARCO ROCA APRN Ot Z88.0 ALLERGY STATUS TO PENICILLIN 11/11/2017 MARCO ROCA APRN Ot Z88.4 ALLERGY STATUS TO ANESTHETIC AGENT STATU 11/11/2017 MARCO ROCA APRN Ot Z88.8 ALLERGY STATUS TO OTH DRUG/MEDS/BIOL SUB 11/11/2017 MARCO ROCA APRN Ot Z90.710 ACQUIRED ABSENCE OF BOTH CERVIX AND UTER 11/15/2017 MARCO ROCA APRN Ot E03.9 HYPOTHYROIDISM, UNSPECIFIED 11/15/2017 MARCO ROCA APRN Ot F17.210 NICOTINE DEPENDENCE, CIGARETTES, UNCOMPL 11/15/2017 MARCO ROCA APRN Ot F41.9 ANXIETY DISORDER, UNSPECIFIED 11/15/2017 MARCO ROCA APRN Ot G40.909 EPILEPSY, UNSP, NOT INTRACTABLE, WITHOUT 11/15/2017 MARCO ROCA APRN Ot J44.9 CHRONIC OBSTRUCTIVE PULMONARY DISEASE, U 11/15/2017 MARCO ROCA APRN Ot K21.9 GASTRO-ESOPHAGEAL REFLUX DISEASE WITHOUT 11/15/2017 MARCO ROCA APRN Ot Z79.51 DISPENSING LEAD (CURRENT) USE OF INHALED STERO 11/15/2017 MARCO ROCA APRN Ot Z80.0 FAMILY HISTORY OF MALIGNANT NEOPLASM OF 11/15/2017 MARCO ROCA APRN Ot Z86.010 PERSONAL HISTORY OF COLONIC POLYPS 11/15/2017 MARCO ROCA APRN Ot Z87.19 PERSONAL HISTORY OF OTHER DISEASES OF TH 11/15/2017 MARCO ROCA APRN Ot Z88.0 ALLERGY STATUS TO PENICILLIN 11/15/2017 MARCO ROCA APRN Ot Z88.4 ALLERGY STATUS TO ANESTHETIC AGENT STATU 11/15/2017 MARCO ROCA APRN Ot Z88.8 ALLERGY STATUS TO OTH DRUG/MEDS/BIOL SUB 11/15/2017 MARCO ROCA APRN Ot Z90.710 ACQUIRED ABSENCE OF BOTH CERVIX AND UTER 11/30/2017 MARY RONDON, VINICIO Frances Ot M17.12 UNILATERAL PRIMARY OSTEOARTHRITIS, LEFT 11/30/2017 MARY RONDON, VINICIO Frances Ot M23.300 OTH MENISCUS DERANGEMENTS, UNSP LATERAL 11/30/2017 MARY RONDON, VINICIO Frances Ot M23.322 OTH MENISCUS DERANG, POST HORN OF MEDIAL 11/30/2017 VINICIO HERNANDEZ MD Ot M23.352 OTH MENISCUS DERANG, POSTERIOR HORN OF L 11/30/2017 MARY RONDON, VINICIO Frances Ot M23.92 UNSPECIFIED INTERNAL DERANGEMENT OF LEFT 11/30/2017 MARY RONDON, VINICIO Frances Ot M89.351 HYPERTROPHY OF BONE, RIGHT FEMUR 03/01/2018 VITOR VIDES DO Ot Z01.818 ENCOUNTER FOR OTHER PREPROCEDURAL EXAMIN 03/09/2018 VITOR VIDES DO Ot E78.5 HYPERLIPIDEMIA, UNSPECIFIED 03/09/2018 VITOR VIDES DO Ot F17.210 NICOTINE DEPENDENCE, CIGARETTES, UNCOMPL 03/09/2018 VITOR VIDES DO Ot I10 ESSENTIAL (PRIMARY) HYPERTENSION 03/09/2018 VITOR VIDES DO Ot J44.9 CHRONIC OBSTRUCTIVE PULMONARY DISEASE, U 03/09/2018 VITOR VIDES DO Ot K21.9 GASTRO-ESOPHAGEAL REFLUX DISEASE WITHOUT 03/09/2018 VITOR VIDES DO Ot K29.70 GASTRITIS, UNSPECIFIED, WITHOUT BLEEDING 03/09/2018 VITOR VIDES DO Ot K44.9 DIAPHRAGMATIC HERNIA WITHOUT OBSTRUCTION 03/09/2018 VITOR VIDES DO Ot K92.1 MELENA 03/09/2018 VIDESVITOR MCCLELLAN DO Ot Z79.899 OTHER DISPENSING LEAD (CURRENT) DRUG THERAPY 03/09/2018 VITOR VIDES DO Ot Z86.010 PERSONAL HISTORY OF COLONIC POLYPS 03/09/2018 VITOR VIDES DO Ot Z86.73 PRSNL HX OF TIA (TIA), AND CEREB INFRC W 03/15/2018 VITOR VIDES DO Ot K21.9 GASTRO-ESOPHAGEAL REFLUX DISEASE WITHOUT 03/15/2018 VITOR VIDES DO Ot N28.89 OTHER SPECIFIED DISORDERS OF KIDNEY AND 03/15/2018 VITOR VIDES DO Ot R10.13 EPIGASTRIC PAIN 03/16/2018 VITOR VIDES DO Ot E78.5 HYPERLIPIDEMIA, UNSPECIFIED 03/16/2018 VITOR VIDES DO Ot F17.210 NICOTINE DEPENDENCE, CIGARETTES, UNCOMPL 03/16/2018 VITOR VIDES DO Ot I10 ESSENTIAL (PRIMARY) HYPERTENSION 03/16/2018 VITOR VIDES DO Ot J44.9 CHRONIC OBSTRUCTIVE PULMONARY DISEASE, U 03/16/2018 VITOR VIDES DO Ot K21.9 GASTRO-ESOPHAGEAL REFLUX DISEASE WITHOUT 03/16/2018 VITOR VIDES DO Ot K29.70 GASTRITIS, UNSPECIFIED, WITHOUT BLEEDING 03/16/2018 VITOR VIDES DO Ot K44.9 DIAPHRAGMATIC HERNIA WITHOUT OBSTRUCTION 03/16/2018 VITOR VIDES DO Ot K92.1 MELENA 03/16/2018 VITOR VIDES DO Ot Z79.899 OTHER [facility] (CURRENT) DRUG THERAPY 03/16/2018 VITOR VIDES DO Ot Z86.010 PERSONAL HISTORY OF COLONIC POLYPS 03/16/2018 VITOR VIDES DO Ot Z86.73 PRSNL HX OF TIA (TIA), AND CEREB INFRC W 03/18/2018 VITOR VIDES DO Ot Z01.818 ENCOUNTER FOR OTHER PREPROCEDURAL EXAMIN 03/21/2018 VITOR VIDES DO Ot K21.9 GASTRO-ESOPHAGEAL REFLUX DISEASE WITHOUT 03/21/2018 VITOR VIDES DO Ot N28.89 OTHER SPECIFIED DISORDERS OF KIDNEY AND 03/21/2018 VITOR VIDES DO Ot R10.13 EPIGASTRIC PAIN Procedures Code Description [place] [address] ROUTINE VENIPUNCTURE 05/03/2013 47239 UA W/ CULTURE IF INDICATED 05/03/2013 34122 TSH 05/03/2013 45284 HEP C PCR QUANT W/JACKI 05/03/2013 GENERAL S CHANDANA LONGORIA 05/03/2013 UROLOGY MILA ANSARI 05/03/2013 93985 CBC 05/03/2013 [id number] GFR CALC (RESULT ONLY) 05/03/2013 86324 CMP 05/03/2013 51987 TSH 05/03/2013 52996 HEPATITIS PROFILE 05/04/2013 [id number] HCV INDEX (RESULT ONLY) 05/04/2013 50425 CLOSTRIDIUM (C-DIFF) 05/05/2013 74523 CLOSTRIDIUM (C-DIFF) 05/05/2013 59510 CULTURE STOOL 05/05/2013 7585845 STOOL FOR BACTERIAL PATHOGENS 05/06/2013 [id number] STOOL FOR BACTERIAL PATHOGENS 05/06/2013 24428 CULTURE STOOL 05/15/2013 00142 MRI SPINE (CERVICAL) W/O CONTRAST 05/26/2013 CARDIOLOG VAL RAM 05/26/2013 PODIATRY SHABANA BARAJAS 05/26/2013 96679 EKG, TRACING (IN-HOUSE) 06/23/2013 62987 ROUTINE VENIPUNCTURE 07/11/2013 Orthopedi Sen [place] 07/11/2013 03169 LIPID PANEL 07/11/2013 40536 MAGNESIUM 07/11/2013 40002 TSH 07/11/2013 19912 NUCLEAR STRESS TESTING 07/14/2013 15745 ECHO 2D 07/14/2013 44462 DEBRIDE NAIL 1-5 07/28/2013 68509 XRAY CHEST 2 VIEW 08/16/2013 68214 XRAY CERVICAL SPINE, 2 OR 3 VIEWS 08/16/2013 69038 CULTURE URINE 08/16/2013 NEUROLOGY WINSTON WHITNEY 08/16/2013 ORTHOPEDI LUNA LANCE 08/16/2013 39474 UA W/ CULTURE IF INDICATED 08/16/2013 70617 ROUTINE VENIPUNCTURE 09/08/[address] ABDOMEN W/ CONTRAST 09/08/[address] ABDOMEN W/ CONTRAST 09/08/[address] ABDOMEN W/ AND W/O CONTRAST 09/08/2013 73717 UA W/ CULTURE IF INDICATED 09/08/2013 53886 JOINT INJECTION- LARGE JOINT (SPECIFY MEDCIN DESCRIPTION) 09/08/2013 67452 US ABDOMINAL ULTRASOUND, COMPLETE 09/08/2013 08200 TSH 09/08/2013 GENERAL Terry SAW MANN 10/13/2013 09513 UA LONG DIP 10/13/2013 85180 UA W/ CULTURE IF INDICATED 10/13/2013 02412 ROUTINE VENIPUNCTURE 12/06/2013 79565 CMP 12/06/2013 29363 LIPID PANEL 12/06/2013 49998 VITAMIN D 25-HYDROXY (D2,D3 , TOTAL) 12/06/2013 59751 VIT B 12 12/06/2013 21047 FOLATE 12/06/2013 50662 T4 FREE 12/06/2013 30593 TSH 12/06/2013 71546 T3 TOTAL 12/06/2013 43899 PULMONARY FUNCTION TEST (IN- HOUSE) 12/06/2013 Results Test Result Range Serum or plasma urea nitrogen measurement (mass/volume) - 06/24/17 11:49 Serum or plasma urea nitrogen measurement (mass/volume) 18 mg/dL 7-18 Serum or plasma creatinine measurement (mass/volume) - 06/24/17 11:49 Serum or plasma creatinine measurement (mass/volume) 1.10 mg/dL 0.60-1.30 Encounters ACCT No. Visit Date/Time Discharge Status Pt. Type Provider Facility Loc./Unit Complaint [id number] 03/18/2018 06:24:00 03/18/2018 14:50:00 DIS Outpatient VITOR VIDES DO [facility] PREOP COLONOSCOPY [id number] 03/15/2018 10:05:00 03/15/2018 23:59:59 CLS Outpatient VITOR VIDES DO [facility] RAD REFLUX ESOPHAGITIS, EPIGASTRIC ABDOMINAL PAIN [id number] 03/08/2018 12:43:00 03/08/2018 16:05:00 DIS Outpatient VITOR VIDES DO [facility] ENDO RECTAL BLEEDING/REFLUX [id number] 03/01/2018 05:57:00 03/01/2018 15:35:00 DIS Outpatient VITOR VIDES DO [facility] PREOP COLONOSCOPY/EGD [id number] 02/24/2018 09:08:00 02/24/2018 23:59:59 CLS Preadmit VITOR VIDES DO [facility] RAD REFLUX ESOPHAGITIS, EPIGASTRIC PAIN [id number] 01/25/2018 07:45:00 01/25/2018 23:59:59 CLS Preadmit VINICIO HERNANDEZ MD [facility] RAD SCREENING [id number] 11/11/2017 16:43:00 11/11/2017 17:38:00 DIS Emergency MARCO ROCA APRN [facility] ER OUT OF MEDICATION [id number] 11/09/2017 09:37:00 11/09/2017 23:59:59 CLS Outpatient VINICIO HERNANDEZ MD [facility] RAD INJURY OF RIGHT KNEE, SEQUELA,LOCKING OF RIGHT KNEE [id number] 06/24/2017 11:36:00 06/24/2017 23:59:59 CLS Outpatient VINICIO HERNANDEZ MD [facility] RAD RENAL CYSTS ACQUIRED BILATERAL [id number] 04/29/2017 09:50:00 04/29/2017 23:59:59 CLS Preadmit VINICIO HERNANDEZ MD [facility] RAD Z12.31 SCREENING [id number] 12/09/2016 11:45:00 12/09/2016 16:22:00 DIS Emergency MARY CALERO MD [facility] ER CONSTIPATION [id number] 10/19/2016 08:34:00 10/19/2016 11:25:00 DIS Outpatient CHANDANA LONGORIA MD [facility] ENDO WT LOSS/NAUSEA/ CHANGE IN BOWEL HABITS [id number] 10/14/2016 05:36:00 10/14/2016 12:27:00 DIS Outpatient CHANDANA LONGORIA MD [facility] PREOP COLONOSCOPY/EGD [id number] 09/08/2016 14:16:00 09/08/2016 23:59:59 CLS Outpatient VINICIO HERNANDEZ MD [facility] RAD SCREENING [id number] 04/22/2016 10:09:00 04/22/2016 23:59:59 CLS Outpatient SHERICE HURLEY [facility] RAD CKD STAGE 3 [id number] 03/31/2016 10:41:00 03/31/2016 23:59:59 CLS Outpatient VINICIO HERNANDEZ MD [facility] RAD SCREENING [id number] 10/03/2013 17:29:00 10/03/2013 21:15:00 DIS Emergency MARY CALERO MD [facility] ER CONSTIPATION [id number] 10/01/2013 11:03:00 10/01/2013 12:50:00 DIS Emergency HIRAL PEREZ [facility] ER BLOATED ABD [id number] 09/19/2013 16:43:00 09/19/2013 18:48:00 DIS Emergency MARCO ROCA APRN [facility] ER ABD PAIN [id number] 09/14/2013 07:42:00 09/14/2013 23:59:59 CLS Outpatient VINICIO HERNANDEZ MD Via [facility] RAD ABD BLOATING [id number] 09/13/2013 07:33:00 09/13/2013 23:59:59 CLS Outpatient SAMI FAUST Via [facility] CARD CP,NM [id number] 08/17/2013 13:40:00 08/17/2013 23:59:59 CLS Outpatient SAMI FAUST Via [facility] CARD CP,HTN, DYSPNEA [id number] 08/08/2013 12:29:00 08/08/2013 23:59:59 CLS Outpatient SAMI FAUST Via [facility] CARD CP, ARRHYTHMIA, DYSPNEA,HTN [id number] 05/22/2013 08:28:00 05/22/2013 11:45:00 DIS [facility]DIARRHEA; GERD;ABD PAIN [id number] 03/03/2013 10:47:00 03/03/2013 11:45:00 DIS Emergency [id number] 11/23/2012 09:27:00 11/23/2012 23:59:59 CLS Outpatient [id number] 03/22/2018 13:54:00 ACT Outpatient VITOR VIDES DO [facility] ENDO RECTAL BLEEDING [id number] 09/24/2017 10:02:00 Document Registration [id number] 03/31/2016 10:41:00 Document Registration [id number] 03/31/2016 10:40:00 Document Registration [id number] 05/18/2013 07:17:00 Document Registration [id number] 05/18/2013 07:17:00 05/18/2013 23:59:59 CLS Outpatient [id number] 04/27/2014 08:29:00 04/27/2014 23:59:59 CLS Outpatient VINICIO HERNANDEZ MD [id number] 04/27/2014 08:29:00 04/27/2014 23:59:59 CLS Outpatient VINICIO HERNANDEZ MD [id number] 12/06/2013 10:15:00 12/06/2013 23:59:59 CLS Outpatient VINICIO HERNANDEZ MD [id number] 12/06/2013 10:15:00 12/06/2013 23:59:59 CLS Outpatient VINICIO HERNANDEZ MD [id number] 11/02/2013 11:41:00 11/02/2013 23:59:59 CLS Outpatient JAN MARTINES DO [id number] 10/31/2013 13:50:00 10/31/2013 23:59:59 CLS Outpatient JAN MARTINES DO [id number] 10/13/2013 12:16:00 10/13/2013 23:59:59 CLS Outpatient JESUS PECK APRN [id number] 10/06/2013 10:42:00 10/06/2013 23:59:59 CLS Outpatient VINICIO HERNANDEZ MD [id number] 09/08/2013 14:06:00 09/08/2013 23:59:59 CLS Outpatient VINICIO HERNANDEZ MD [id number] 09/08/2013 14:06:00 09/08/2013 23:59:59 CLS Outpatient VINICIO HERNANDEZ MD [id number] 08/16/2013 10:51:00 08/16/2013 23:59:59 CLS Outpatient VINICIO HERNANDEZ MD [id number] 08/16/2013 10:51:00 08/16/2013 23:59:59 CLS Outpatient VINICIO HERNANDEZ MD [id number] 07/28/2013 09:59:00 07/28/2013 23:59:59 CLS Outpatient JAN MARTINES DO [id number] 07/21/2013 09:22:00 07/21/2013 23:59:59 CLS Outpatient TONY BUTTERFIELD MD [id number] 07/14/2013 08:56:00 07/14/2013 23:59:59 CLS Outpatient JAN MARTINES DO [id number] 07/11/2013 08:47:00 07/11/2013 23:59:59 CLS Outpatient JUDIE VANG APRN [id number] 06/23/2013 09:02:00 06/23/2013 23:59:59 CLS Outpatient VINICIO HERNANDEZ MD [id number] 06/08/2013 11:52:00 06/08/2013 23:59:59 CLS Outpatient TONY BUTTERFIELD MD [id number] 05/26/2013 11:02:00 05/26/2013 23:59:59 CLS Outpatient VINICIO HERNANDEZ MD [id number] 05/05/2013 11:05:00 05/05/2013 23:59:59 CLS Outpatient JUDIE VANG APRN [id number] 05/04/2013 10:16:00 05/04/2013 23:59:59 CLS Outpatient VINICIO HERNANDEZ MD [id number] 05/03/2013 10:34:00 05/03/2013 23:59:59 CLS Outpatient VINICIO HERNANDEZ MD [id number] 05/03/2013 10:34:00 05/03/2013 23:59:59 CLS Outpatient VINICIO HERNANDEZ MD [id number] 01/02/2013 11:14:00 01/02/2013 23:59:59 CLS Outpatient JUDIE VANG APRN
[2018-03-22] MEDS ORDERED: LACTATED RINGERS 1,000 ML IV ONE (14:05)
[2018-03-22] MEDS ORDERED: MIDAZOLAM 2 MG/2 ML (VERSED) VIAL ONE (14:09)
[2018-03-22] MEDS ORDERED: PROPOFOL INJECTION 50 ML IV ONE (14:10)
--- NOTE | 2018-03-22 14:18 | Progress Note-Pre Operative ---
Pre-Operative Progress Note H&P Reviewed The H&P was reviewed, patient examined and no changes noted. Date Seen by Provider: Mar 22, 2018 Time Seen by Provider: 14:18 Date H&P Reviewed: Mar 22, 2018 Time H&P Reviewed: 14:18 Pre-Operative Diagnosis: chronic constipation, epigastric abdominal pain VITOR VIDES DO Mar 22, 2018 14:18
[2018-03-22] MEDS ORDERED: LACTATED RINGERS 1,000 ML IV STA (14:34)
[2018-03-22 14:38] VITALS: BP 134/75
--- NOTE | 2018-03-22 15:37 | Progress Note-Post Operative ---
Post-Operative Progess Note Surgeon (s)/Sales And Service Officer (s) Surgeon VITOR VIDES DO Sales And Service Officer: na Pre-Operative Diagnosis chronic constipation, epigastric abdominal pain Post-Operative Diagnosis normal colon Procedure & Operative Findings Date of Procedure 03/22/18 Procedure Performed/Findings colonoscopy Anesthesia Type per puff iron operator Estimated Blood Loss Estimated blood loss (mL): none Specimens/Packing Specimens Removed na VITOR VIDES DO Mar 22, 2018 15:37
[2018-03-22 15:40] VITALS: BP 123/59
--- NOTE | 2018-03-22 15:40 | Discharge Inst-Simple/Standard ---
Discharge Inst-Standard Patient Instructions/Follow Up Plan of Care/Instructions/FU: Repeat colonoscopy in 10 years unless family history of colon cancer or personal history of colon polyps which would be 5 years. any issues before then be seen at that time. Activity as Tolerated: Yes Discharge Diet: Regular Diet (high fiber) VITOR VIDES DO Mar 22, 2018 15:40
[2018-03-22 16:10] VITALS: BP 130/60
[2018-03-22 16:20] VITALS: BP 130/60
--- NOTE | 2018-03-22 23:37 | OPERATIVE REPORT ---
DATE OF SERVICE: 03/22/2018 PREOPERATIVE DIAGNOSIS: Chronic constipation, epigastric abdominal pain. POSTOPERATIVE DIAGNOSIS: Normal colon. PROCEDURE: Colonoscopy. ANESTHESIA: Per GUIDANCE DIRECTOR. SURGEON: Vitor Talley DO. ESTIMATED BLOOD LOSS: None. COMPLICATIONS: None. INDICATIONS: The patient is a 62-year-old female with chronic constipation, epigastric abdominal pain. She had incomplete colonoscopy previously. She understands risks and benefits of procedure and wished to proceed with the procedure. Consent was signed in the chart. DESCRIPTION OF PROCEDURE: The patient was taken to the endoscopy suite, placed in left lateral recumbent position. Timeout was performed. Digital rectal exam was performed. No palpable polyps, masses or ulcerations. Scope was inserted in the rectum, advanced all the way to cecum. The patient will be repositioned multiple times in order to get to the cecum. Prep was adequate with irrigation and suction. Scope was then slowly retracted back. There were no polyps, masses or ulcerations in the cecum, ascending, transverse, descending and sigmoid colon. The colon was very floppy and redundant throughout. Scope was continued slowly retracted back into the rectum where it was also retroflexed noting no other pathology. Scope was returned to its normal position, slowly withdrawn until completely removed. The patient tolerated the procedure well without any complications. She was taken to the recovery room in stable condition. RECOMMENDATIONS: The patient will recommend high fiber diet. If she continues to have problems, we would recommend follow up at that time. Otherwise, she will need repeat colonoscopy in 10 years unless she has a family history of colon cancer or she has personal history of colon polyps, she should have repeat colonoscopy in 5 years. If any issues before that, then will be seen at that time. Job ID: [id number] DocumentID: [id number] Dictated Date: 03/22/2018 15:42:56 Edge Bander Hand Date: 03/22/2018 23:36:27 Dictated By: VITOR TALLEY DO
== END 2018-03-22 16:21 | disposition home or self-care (01) ==
LOC: ENDO 13:54
PROVIDERS: ATTEND Surgery
DX: K59.09 Other constipation (principal); K62.5 Hemorrhage of anus and rectum; R10.13 Epigastric pain; I10 Essential (primary) hypertension; J44.9 Chronic obstructive pulmonary disease, unspecified; F17.210 Nicotine dependence, cigarettes, uncomplicated; E78.5 Hyperlipidemia, unspecified; N28.89 Other specified disorders of kidney and ureter; K44.9 Diaphragmatic hernia without obstruction or gangrene; Z86.73 Personal history of transient ischemic attack (TIA), and cerebral infarction without residual deficits; Z79.899 Other long term (current) drug therapy

== ENCOUNTER 2018-06-04 11:08 | Emergency (ER) | payer MEDICAID ==
[~2018-06-04] VITALS: Ht 170.2 cm; Wt 55.8 kg
--- NOTE | 2018-06-04 11:26 | ED General ---
General Chief Complaint: General Problems/Pain Stated Complaint: RAN OUT OF ANXIETY RX History of Present Illness Date Seen by Provider: Jun 04, 2018 Time Seen by Provider: 11:22 Initial Comments 22-year-old female reports running out of her clonazepam. She last refilled on 05/03/18 and received 52 tablets. She states that she has been taking them less frequently to make them last longer. She reports taking the clonazepam approx every other day. She last took it yesterday. She denies any tremors, seizure activity or other withdrawal symptoms. She has been seen in the past year for running out of her medications and they were not refilled at those visits. She attempted to contact her PCP yesterday, a were unable to get her records from the psychiatrist in [place] and no medications were called in for her. She has been on Suboxone and clonazepam for many years. Her last Suboxone prescription was on 05/23/18 for 30 tablets. She reports mild anxiety today. She has been treated for years by Dr. Schulte in [place], [place] for anxiety. She reports the RN there fired her as a patient because she broke the drug contract by calling for a refill 2 days early. She reports the Suboxone Rx took at Prior Approval, so she called early to allow time. Timing/Duration: Intermittent Severity: Mild Associated Systoms: Denies Symptoms Allergies and Home Medications Allergies Coded Allergies: butorphanol (Unverified Allergy, Unknown, 10/01/13) ketorolac (Unverified Allergy, Unknown, 10/01/13) erythromycin base (Unverified Adverse Reaction, Intermediate, 03/03/13) Home Medications Albuterol Sulfate 1 Puff Puff, 2 PUFF IH Q4H PRN for WHEEZING, (Reported) 1 PUFF = 90 MCG Atorvastatin Calcium 10 Mg Tablet, 10 MG PO HS, (Reported) Buprenorphine HCl/Naloxone HCl 1 Each Film, 0.5 EACH SL TID, (Reported) Clonazepam 1 Mg Tablet, 1 MG PO BID, (Reported) Cyproheptadine HCl 4 Mg Tablet, 4 MG PO TID, (Reported) Fenofibrate 160 Mg Tablet, 160 MG PO DAILY, (Reported) Hydroxyzine Pamoate 50 Mg Capsule, 50 MG PO Q6H Prescribed by: JOSE GUADALUPE JUAN on 06/04/18 1153 Hydroxyzine Pamoate 50 Mg Capsule, 50 MG PO Q6H PRN for ANXIETY Prescribed by: JOSE GUADALUPE JUAN on 06/04/18 1202 Levothyroxine Sodium 75 Mcg Tablet, 75 MCG PO DAILY, (Reported) Metoclopramide HCl 10 Mg Tablet, 10 MG PO TIDAC, (Reported) Multivitamin/Iron/Folic Acid 1 Each Tablet, 1 EACH PO DAILY, (Reported) Ondansetron HCl 4 Mg Tab, 4 MG PO TID PRN for NAUSEA/VOMITING, (Reported) Pantoprazole Sodium 40 Mg Tablet.dr, 40 MG PO DAILY, (Reported) Sucralfate 1 Gm Tablet, 1 GM PO QID, (Reported) Patient Home Medication List Home Medication List Reviewed: Yes Review of Systems Review of Systems Constitutional: no symptoms reported, see HPI Psychiatric/Neurological: See HPI, Anxiety; Denies Headache, Denies Seizure, Denies Tingling, Denies Tremors, Denies Weakness Past Ntsteof-Cffhfq-Lnjqos Hx Past Med/Social Hx: Reviewed and Corrections made Patient Social History Alcohol Use: Denies Use Recreational Drug Use: No Type Used: Cigarettes Recent Foreign Travel: No Contact w/Someone Who Travel: No Recent Hopitalizations: No Immunizations Up To Date Date of Influenza Vaccine: Dec 12, 2017 Seasonal Allergies Seasonal Allergies: Yes Past Medical History Surgeries: Yes (BILAT OOPHERECTOMY FOR TUMORS, BREAST BXS, TOE SURGERY) Abdominal, Hysterectomy, Oophorectomy Respiratory: Yes COPD Cardiac: Yes Palpitations Neurological: Yes (MEDICATION RELATED SEIZURE) Reproductive Disorders: No Genitourinary: Yes (urine retention) Gastrointestinal: Yes ("no feeling in rectum") Gastroesophageal Reflux, Chronic Constipation, Hemorrhoids, Polyps Musculoskeletal: No Degenerate Disk Disease, Arthritis, Chronic Back Pain Endocrine: Yes Hypothyroidsim HEENT: No Cancer: No Psychosocial: Yes Anxiety Integumentary: No Blood Disorders: Yes (anemia) Family Medical History FH: rheumatoid arthritis 19 MOTHER Pancreatic cancer 19 FATHER Physical Exam Vital Signs Vital Signs - First Documented 06/04/18 11:15 Temp 97.8 Pulse 71 Resp 20 B/P (MAP) 123/77 (92) Pulse Ox 99 O2 Delivery Room Air Capillary Refill : Height, Weight, BMI Height: 5'6.00" Weight: 137lbs. 0.0oz. 62.607148um; 22.1 BMI Method:Stated General Appearance: No Apparent Distress, WD/WN Eyes: Bilateral Eye Normal Inspection, Bilateral Eye PERRL, Bilateral Eye EOMI HEENT: PERRL/EOMI, TMs Normal, Normal ENT Inspection, Pharynx Normal Neck: Full Range of Motion, Normal Inspection, Non Tender, Supple Respiratory: Chest Non Tender, Lungs Clear, Normal Breath Sounds Cardiovascular: Regular Rate, Rhythm, No Edema, Normal Peripheral Pulses Gastrointestinal: Normal Bowel Sounds, Non Tender, Soft Back: Normal Inspection, No CVA Tenderness, No Vertebral Tenderness Extremity: Normal Capillary Refill, Normal Inspection, Normal Range of Motion, No Pedal Edema Neurologic/Psychiatric: Alert, Oriented x3, No Motor/Sensory Deficits, Normal Mood/Affect Skin: Normal Color, Warm/Dry Progress/Results/Core Measures Suspected Sepsis SIRS Temperature: Pulse: Respiratory Rate: Blood Pressure / Mean: Results/Orders Lab Results Laboratory Tests Test 06/04/18 11:20 Range/Units Urine Opiates Screen POSITIVE H NEGATIVE Urine Oxycodone Screen NEGATIVE NEGATIVE Urine Methadone Screen NEGATIVE NEGATIVE Urine Propoxyphene Screen NEGATIVE NEGATIVE Urine Barbiturates Screen NEGATIVE NEGATIVE Ur Tricyclic Antidepressants Screen NEGATIVE NEGATIVE Urine Phencyclidine Screen NEGATIVE NEGATIVE Urine Amphetamines Screen NEGATIVE NEGATIVE Urine Methamphetamines Screen NEGATIVE NEGATIVE Urine Benzodiazepines Screen NEGATIVE NEGATIVE Urine Cocaine Screen NEGATIVE NEGATIVE Urine Cannabinoids Screen NEGATIVE NEGATIVE My Orders Orders - JOSE GUADALUPE JUAN Drug Screen Stat (Urine) (06/04/18 11:12) Vital Signs/I&O 06/04/18 11:15 Temp 97.8 Pulse 71 Resp 20 B/P (MAP) 123/77 (92) Pulse Ox 99 O2 Delivery Room Air Capillary Refill : Progress Note : Time: 11:22 Progress Note Patient seen and evaluated. Discussed the fact that her urine drug screen is negative for benzodiazepines, if she has been taking these chronically and even taking them every other day her screen should be positive. Discussed with patient the importance of establishing with a primary care provider who can manage her anxiety. Stressed that we will not be refilling her benzodiazepine, we will use Vistaril for anxiety. She is to follow-up with a primary care provider. Discharge instructions and return precautions reviewed. All questions answered. Departure Impression Primary Impression: OUT OF MEDICATIONS Additional Impression: Anxiety Disposition: 01 HOME, SELF-CARE Condition: Improved Departure-Patient Inst. Decision time for Depature: 11:45 Referrals: VINICIO HERNANDEZ MD (PCP/Family) Primary Care Physician Patient Instructions: Anxiety, Adult (DC), Polysubstance Abuse (DC) Add. Discharge Instructions: Establish care at [facility] in [place] for your routine medications. See your primary care provider or Dr. Schulte in [place], 3-5 days prior to running out of your medications. Use the Vistaril for anxiety, until you can see your Primary Care Provider or Psychologist. Your urine was negative for Klonopin, and you report taking your last one yesterday, so we will not refill this medication or any other benzodiazepines. Return to Emergency Dept for acute, urgent health care needs, not for chronic health care problems. Those can be treated more effectively and efficiently by your primary care provider. All discharge instructions reviewed with patient and/or family. Voiced understanding. Scripts Hydroxyzine Pamoate (Vistaril) 50 Mg Capsule 50 MG PO Q6H PRN for ANXIETY, #12 CAP 0 Refills Prov: JOSE GUADALUPE JUAN 06/04/18 Copy Copies To 1: VINICIO HERNANDEZ MD, AMY ARNP Jun 04, 2018 11:26
[2018-06-04 11:43] LABS: AMPHETAMINE SCREEN, URINE NEGATIVE (NEGATIVE); BARBITURATE SCREEN URINE NEGATIVE (NEGATIVE); BENZODIAZEPINES SCREEN URINE NEGATIVE (NEGATIVE); CANNABINOID SCREEN, URINE NEGATIVE (NEGATIVE); COCAINE SCREEN URINE NEGATIVE (NEGATIVE); METHAMPHETAMINE SCREEN URINE S NEGATIVE (NEGATIVE); OPIATE SCREEN URINE POSITIVE (NEGATIVE)
[2018-06-04 11:44] LABS: METHADONE STAT NEGATIVE (NEGATIVE); OXYCODONE STAT NEGATIVE (NEGATIVE); PROPOXYPHENE STAT NEGATIVE (NEGATIVE); TRICYCLIC ANTIDEPRESSANTS SCRE NEGATIVE (NEGATIVE)
[2018-06-04] MEDS ORDERED: HYDR50CA PO ×2 (11:53→12:02)
[2018-06-04 12:02] VITALS: BP 123/77
== END 2018-06-04 12:02 | disposition home or self-care (01) ==
LOC: EDUNIT# 11:08 → ER 11:09
DX: F41.9 Anxiety disorder, unspecified (principal); J44.9 Chronic obstructive pulmonary disease, unspecified; K21.9 Gastro-esophageal reflux disease without esophagitis; E03.9 Hypothyroidism, unspecified; D64.9 Anemia, unspecified; Z86.010 Personal history of colon polyps; Z87.19 Personal history of other diseases of the digestive system; Z88.4 Allergy status to anesthetic agent; Z80.0 Family history of malignant neoplasm of digestive organs; Z91.041 Radiographic dye allergy status; Z88.8 Allergy status to other drugs, medicaments and biological substances; Z90.710 Acquired absence of both cervix and uterus; Z98.890 Other specified postprocedural states
CPT/HCPCS: 80306; 99281

== ENCOUNTER 2018-06-14 11:47 | Emergency (ER) | payer MEDICAID ==
[~2018-06-14] VITALS: Ht 167.6 cm; Wt 52.2 kg
[~2018-06-14 11:47] MED LIST changes: +HYDR50CA PO
[2018-06-14] MEDS ORDERED: ONDANSETRON 4 MG (ZOFRAN) ORAL DISSOLVE TAB PO STA (12:17)
--- NOTE | 2018-06-14 12:25 | NUR ---
PT STATES SHE NEEDS TO STRAIGT CATH HERSELF FOR A URINE SAMPLE. SLIME PLANT OPERATOR HELPER IN WITH PT DURING CATH.
[2018-06-14 12:35] LABS: BILIRUBIN,URINE NEGATIVE (NEGATIVE); COLOR,URINE YELLOW; GLUCOSE, URINE (UA) NEGATIVE (NEGATIVE); KETONES,URINE NEGATIVE (NEGATIVE); LEUKOCYTE ESTERASE ,URINE 2+ (NEGATIVE); NITRITE,URINE POSITIVE (NEGATIVE); PH,URINE 6 (5-9); PROTEIN,URINE 1+ (NEGATIVE); UROBILINOGEN,URINE NORMAL (NORMAL)
--- NOTE | 2018-06-14 12:36 | NUR ---
C-COLLAR REMOVED BY
--- NOTE | 2018-06-14 12:39 | NUR ---
DR IN ROOM WITH PT AT THIS TIME.
[2018-06-14 12:46] LABS: BACTERIA,URINE LARGE /HPF; SQUAMOUS EPITHELIAL CELL,UR 0-2 /HPF
[2018-06-14 12:47] LABS: CLARITY,URINE CLEAR
[2018-06-14 12:51] LABS: AMPHETAMINE SCREEN, URINE NEGATIVE (NEGATIVE); BARBITURATE SCREEN URINE NEGATIVE (NEGATIVE); BENZODIAZEPINES SCREEN URINE NEGATIVE (NEGATIVE); CANNABINOID SCREEN, URINE NEGATIVE (NEGATIVE); COCAINE SCREEN URINE NEGATIVE (NEGATIVE); METHADONE STAT NEGATIVE (NEGATIVE); METHAMPHETAMINE SCREEN URINE S NEGATIVE (NEGATIVE); OPIATE SCREEN URINE POSITIVE (NEGATIVE); OXYCODONE STAT NEGATIVE (NEGATIVE); PROPOXYPHENE STAT NEGATIVE (NEGATIVE); TRICYCLIC ANTIDEPRESSANTS SCRE NEGATIVE (NEGATIVE)
--- NOTE | 2018-06-14 13:18 | ED Psychosocial ---
General Chief Complaint: Detox Stated Complaint: WITHDRAWAL;SHAKING Nursing Triage Note: AMBULATED TO ROOM 05 WITH COMPLAINTS OF BEING TAKEN OFF HER KLONOPIN 10 DAYS AGO AFTER BEING DROPPED FROM HER DR. STATES SHE IS SHAKEY AND WAS SEEN HERE BEFORE WITH IT A COUPLE OF DAYS AGO AND BENADRYL IS NO LONGER HELPING. History of Present Illness Date Seen by Provider: June 14, 2018 Time Seen by Provider: 12:00 Initial Comments 62 year old female presents for withdrawal symptoms from being of Klonopin for 2 -3 weeks. She was evaluated her on June 04 for similar symptoms and started on Vistaril, explained the Klonopin would not be refilled and she needs this managed by her PCP. Her mother reports she has tried to make an appt with Dr. Saenz, but they refuse to see her until her records arrive from provider in [place], [place]. Mild nausea, difficulty concentrating, lack of appetite, and fatigue. She denies tremors, seizures, chest pain, shortness of air or other acute changes. She was taking Zofran which helped with the nausea that she is intact. She reports minimal improvement with the Vistaril but it did take the edge off of her symptoms. Timing/Duration: intermittent Severity: mild Associated Symptoms: anxiety, impaired concentration Allergies and Home Medications Allergies Coded Allergies: butorphanol (Unverified Allergy, Unknown, 10/01/13) ketorolac (Unverified Allergy, Unknown, 10/01/13) erythromycin base (Unverified Adverse Reaction, Intermediate, 03/03/13) Home Medications Albuterol Sulfate 1 Puff Puff, 2 PUFF IH Q4H PRN for WHEEZING, (Reported) 1 PUFF = 90 MCG Atorvastatin Calcium 10 Mg Tablet, 10 MG PO HS, (Reported) Buprenorphine HCl/Naloxone HCl 1 Each Film, 0.5 EACH SL TID, (Reported) Cyproheptadine HCl 4 Mg Tablet, 4 MG PO TID, (Reported) Fenofibrate 160 Mg Tablet, 160 MG PO DAILY, (Reported) Hydroxyzine Pamoate 50 Mg Capsule, 50 MG PO Q6H PRN for ANXIETY Prescribed by: JOSE GUADALUPE JUAN on 06/04/18 1202 Hydroxyzine Pamoate 25 Mg Capsule, 75 MG PO PRN PRN for ANXIETY Prescribed by: JOSE GUADALUPE JUAN on 06/14/18 1332 Levothyroxine Sodium 75 Mcg Tablet, 75 MCG PO DAILY, (Reported) Metoclopramide HCl 10 Mg Tablet, 10 MG PO TIDAC, (Reported) Multivitamin/Iron/Folic Acid 1 Each Tablet, 1 EACH PO DAILY, (Reported) Ondansetron 8 Mg Tab.rapdis, 8 MG PO Q8H PRN for NAUSEA/VOMITING-1ST LINE Prescribed by: JOSE GUADALUPE JUAN on 06/14/18 1332 Ondansetron HCl 4 Mg Tab, 4 MG PO TID PRN for NAUSEA/VOMITING, (Reported) Pantoprazole Sodium 40 Mg Tablet.dr, 40 MG PO DAILY, (Reported) Sucralfate 1 Gm Tablet, 1 GM PO QID, (Reported) Sulfamethoxazole/Trimethoprim 1 Each Tablet, 1 EACH PO BID Prescribed by: JOSE GUADALUPE JUAN on 06/14/18 1332 Patient Home Medication List Home Medication List Reviewed: Yes Review of Systems Constitutional: no symptoms reported, see HPI Psychiatric/Neurological: See HPI, Anxiety, Other (benzodiazepine withdrawal) All Other Systems Reviewed Negative Unless Noted: Yes Past Vajpiho-Vplwys-Znbnoh Hx Past Med/Social Hx: Reviewed Nursing Past Med/Soc Hx Patient Social History Alcohol Use: Denies Use Recreational Drug Use: No Smoking Status: Current Everyday Smoker Type Used: Cigarettes Recent Foreign Travel: No Contact w/Someone Who Travel: No Recent Infectious Disease Expo: No Recent Hopitalizations: No Immunizations Up To Date PED Vaccines UTD: Yes Date of Influenza Vaccine: Dec 12, 2017 Seasonal Allergies Seasonal Allergies: Yes Past Medical History Surgeries: Yes (BILAT OOPHERECTOMY FOR TUMORS, BREAST BXS, TOE SURGERY) Abdominal, Hysterectomy, Oophorectomy Respiratory: Yes COPD Cardiac: Yes Palpitations Neurological: Yes (MEDICATION RELATED SEIZURE) Reproductive Disorders: No Genitourinary: Yes (urine retention) Gastrointestinal: Yes ("no feeling in rectum") Gastroesophageal Reflux, Chronic Constipation, Hemorrhoids, Polyps Musculoskeletal: No Degenerate Disk Disease, Arthritis, Chronic Back Pain Endocrine: Yes Hypothyroidsim HEENT: No Cancer: No Psychosocial: Yes Anxiety Integumentary: No Blood Disorders: Yes (anemia) Family Medical History FH: rheumatoid arthritis 19 MOTHER Pancreatic cancer 19 FATHER Physical Exam Vital Signs - First Documented 06/14/18 11:57 Temp 98.0 Pulse 96 Resp 16 B/P (MAP) 134/80 (98) Pulse Ox 96 O2 Delivery Room Air Capillary Refill : Less Than 3 Seconds Height, Weight, BMI Height: 5'6.00" Weight: 115lbs. 0.0oz. 52.668654ig; 22.1 BMI Method:Stated General Appearance: WD/WN, no apparent distress HEENT: PERRL/EOMI, normal ENT inspection, TMs normal, pharynx normal Neck: non-tender, full range of motion, supple, normal inspection Respiratory: chest non-tender, lungs clear, normal breath sounds, no respiratory distress Cardiovascular: normal peripheral pulses, regular rate, rhythm Gastrointestinal: normal bowel sounds, non tender, soft Neurologic/Psychiatric: no motor/sensory deficits, alert, oriented x 3 Appearance/Memory: appropriate appearance, appropriate insight, neat Behavior/Eye Contact: cooperative, good eye contact, normal speech Thoughts/Hallucinations: normal thought pattern, no apparent hallucination Skin: normal color, warm/dry Progress/Results/Core Measures Results/Orders Lab Results Laboratory Tests Test 06/14/18 11:25 Range/Units Urine Color YELLOW Urine Clarity CLEAR Urine pH 6 5-9 Urine Specific [place] 1.010 L 1.016-1.022 Urine Protein 1+ H NEGATIVE Urine Glucose (UA) NEGATIVE NEGATIVE Urine Ketones NEGATIVE NEGATIVE Urine Nitrite POSITIVE H NEGATIVE Urine Bilirubin NEGATIVE NEGATIVE Urine Urobilinogen NORMAL NORMAL MG/DL Urine Leukocyte Esterase 2+ H NEGATIVE Urine RBC (Auto) 2+ H NEGATIVE Urine RBC NONE /HPF Urine WBC 5-10 H /HPF Urine Squamous Epithelial Cells 0-2 /HPF Urine Crystals NONE /LPF Urine Bacteria LARGE H /HPF Urine Casts NONE /LPF Urine Mucus NEGATIVE /LPF Urine Culture Indicated YES Urine Opiates Screen POSITIVE H NEGATIVE Urine Oxycodone Screen NEGATIVE NEGATIVE Urine Methadone Screen NEGATIVE NEGATIVE Urine Propoxyphene Screen NEGATIVE NEGATIVE Urine Barbiturates Screen NEGATIVE NEGATIVE Ur Tricyclic Antidepressants Screen NEGATIVE NEGATIVE Urine Phencyclidine Screen NEGATIVE NEGATIVE Urine Amphetamines Screen NEGATIVE NEGATIVE Urine Methamphetamines Screen NEGATIVE NEGATIVE Urine Benzodiazepines Screen NEGATIVE NEGATIVE Urine Cocaine Screen NEGATIVE NEGATIVE Urine Cannabinoids Screen NEGATIVE NEGATIVE My Orders Orders - JOSE GUADALUPE JUAN Drug Screen Stat (Urine) (06/14/18 12:10) Ua Culture If Indicated (06/14/18 12:10) Ondansetron Oral Dissolve Tab (Zofran (06/14/18 12:17) Urine Culture (06/14/18 11:25) Hydroxyzine Cap/Tab (Vistaril) (06/14/18 13:45) Medications Given in ED Current Medications Medications Dose Ordered Sig/Tk Route Start Time Stop Time Status Last Admin Dose Admin Hydroxyzine Pamoate 75 mg ONCE ONCE PO 06/14/18 13:45 06/14/18 13:46 DC 06/14/18 13:44 75 MG Vital Signs/I&O 06/14/18 06/14/18 11:57 13:44 Temp 98.0 Pulse 96 109 Resp 16 20 B/P (MAP) 134/80 (98) 128/76 (93) Pulse Ox 96 100 O2 Delivery Room Air Blood Pressure Mean: 98 Progress Progress Note : Time: 12:00 Progress Note Patient seen and evaluated, discussed the need for a UA and urine drug screen. She was cooperative with that. 1315 spoke to [facility], they state that the patient has been offered multiple appointments with Dr. Saenz, however she refuses to make appt unless they will refill her Klonopin. Appt made with Dr. Saenz for June 16 at 9 :30 am. 1330 discussed management with the patient and her mother, they agreed to use Vistaril and Zofran until her appointment with Dr. Saenz. Treatment for UTI provided. Discharge instructions and return precautions reviewed with her. Departure Impression Primary Impression: UTI (urinary tract infection) Qualified Codes: N30.01 - Acute cystitis with hematuria Additional Impression: Benzodiazepine withdrawal Qualified Codes: F13.230 - Sedative, hypnotic or anxiolytic dependence with withdrawal, uncomplicated Disposition: 01 HOME, SELF-CARE Condition: Improved Departure-Patient Inst. Decision time for Depature: 13:15 Referrals: VINICIO SAENZ MD (PCP/Family) Primary Care Physician Patient Instructions: Prescription Drug Abuse (DC), Drug Abuse and Drug Addiction (DC), Urinary Tract Infection, Adult (DC) Add. Discharge Instructions: You have been scheduled with Dr. Saenz for this June 16 at 9:30 am [facility]. Increase her water intake. Drink 1 cup of cranberry juice or eat 1 cup of fresh blueberries daily. Empty Your bladder every 2 hours while awake. Take your antibiotic as prescribed. Use of Vistaril for acute withdrawal symptoms. Return to emergency department for new, urgent health care needs. We will not be refilling your Klonopin. All discharge instructions reviewed with patient and/or family. Voiced understanding. Scripts Sulfamethoxazole/Trimethoprim (Sulfamethoxazole-Tmp Ds Tablet) 1 Each Tablet 1 EACH PO BID, #14 TAB 0 Refills Prov: JOSE GUADALUPE JUAN 06/14/18 Ondansetron (Ondansetron Odt) 8 Mg Tab.rapdis 8 MG PO Q8H PRN for NAUSEA/VOMITING-1ST LINE, #12 TAB 0 Refills Prov: JOSE GUADALUPE JUAN 06/14/18 Hydroxyzine Pamoate (Vistaril) 25 Mg Capsule 75 MG PO PRN PRN for ANXIETY, #30 CAP 0 Refills Prov: JOSE GUADALUPE JUAN 06/14/18 Copy Copies To 1: VINICIO SAENZ MD, AMY ARNP June 14, 2018 13:18
[2018-06-14] MEDS ORDERED: SULF-222 PO (13:32)
[2018-06-14] MEDS ORDERED: ONDA8TAB13 PO (13:32)
[2018-06-14] MEDS ORDERED: HYDR25CA PO (13:32)
[2018-06-14 13:44] VITALS: BP 128/76
[2018-06-14] MEDS ORDERED: hydrOXYzine (VISTARIL) 25 MG capsule/tablet PO ONE (13:45)
== END 2018-06-14 13:44 | disposition home or self-care (01) ==
LOC: EDUNIT# 11:47 → ER 11:49
DX: N39.0 Urinary tract infection, site not specified (principal); F13.230 Sedative, hypnotic or anxiolytic dependence with withdrawal, uncomplicated; F41.9 Anxiety disorder, unspecified; J44.9 Chronic obstructive pulmonary disease, unspecified; E03.9 Hypothyroidism, unspecified; D64.9 Anemia, unspecified; K21.9 Gastro-esophageal reflux disease without esophagitis; F17.210 Nicotine dependence, cigarettes, uncomplicated; Z88.4 Allergy status to anesthetic agent; Z88.8 Allergy status to other drugs, medicaments and biological substances; Z80.0 Family history of malignant neoplasm of digestive organs; Z87.19 Personal history of other diseases of the digestive system; Z86.010 Personal history of colon polyps; Z91.041 Radiographic dye allergy status; Z90.710 Acquired absence of both cervix and uterus
CPT/HCPCS: 51701; 80306; 81000; 87077; 87088; 87186

== ENCOUNTER 2019-07-13 14:55 | Outpatient (RCR) | payer MEDICAID ==
[~2019-07-13 14:55] MED LIST changes: +HYDR25CA PO
== END 2019-10-11 | disposition home or self-care (01) ==
LOC: RAD 14:55
PROVIDERS: ATTEND Internal Medicine Interventional Cardiology
DX: J44.9 Chronic obstructive pulmonary disease, unspecified (principal); E78.01 Familial hypercholesterolemia; I10 Essential (primary) hypertension; M79.89 Other specified soft tissue disorders; I73.9 Peripheral vascular disease, unspecified; R55 Syncope and collapse; Z72.0 Tobacco use
CPT/HCPCS: 93270

== ENCOUNTER → 2019-07-26 | Outpatient (CLI) | payer MEDICAID ==
[~2019-07-26] MED LIST changes: +RT-ALBUTEROL SULF 2.5 MG/3 ML PRE-MIX VIAL INH ONE
== END ==
LOC: RT 12:37
PROVIDERS: ATTEND Nurse Practitioner Family
DX: J44.9 Chronic obstructive pulmonary disease, unspecified (principal); G47.10 Hypersomnia, unspecified; G47.50 Parasomnia, unspecified; Z72.0 Tobacco use
CPT/HCPCS: 94060; 94726; 94729

== ENCOUNTER → 2019-07-27 | Outpatient (CLI) | payer MEDICAID ==
[~2019-07-27] VITALS: Ht 167 cm; Wt 70.0 kg
[~2019-07-27] MED LIST changes: +CATHETER FLUSH 10 ML SYR IV PRN; +REGADENOSON 0.4 MG/5 ML SYR (LEXISCAN) IV ONE; -RT-ALBUTEROL SULF 2.5 MG/3 ML PRE-MIX VIAL INH ONE
[2019-07-27 08:48] VITALS: BP 101/57
[2019-07-27 08:53] VITALS: BP 107/68
--- NOTE | 2019-08-03 15:06 | Cardiology Stress Test Report ---
Stress Test Report Type of NM Stress Test: Test Type: LEXISCAN 0.4MG/5ML Date of Procedure/Referring: Date of Procedure: Jul 27, 2019 PCP Candi Leary MD Admitting Physician Nancy Saenz MD Indications: Chest pain, shortness of breath, syncope Baseline Heart Rate: 77 Baseline Blood Pressure: Blood Pressure Systolic: 107 Blood Pressure Diastolic: 68 Baseline EKG: Baseline EKG: sinus rhythm Summary & Conclusion: Summary: The patient was brought to the stress lab after informed consent was taken. Stress test was performed according to the Lexiscan protocol. 0.4 mg of IV Lexiscan was given. Low-grade exercise was performed. Baseline EKG showed sinus rhythm at 77 BPM, blood pressure 94/58 mmHg. Maximum heart rate of 82 bpm and blood pressure of 110/67 mmHg. Patient did not have any chest pain, arrhythmias or ST segment changes during the stress test. 10.60 mCi of Myoview were given for rest imaging and 29.8 mCi of Myoview given for stress imaging. Transient ischemic dilatation score 1.12, EF 78 percent. Normal wall motion. Normal myocardial perfusion imaging during rest and stress. Conclusion: Pharmacological stress test was negative for ischemia. Normal LV function with no wall motion abnormalities. Normal myocardial perfusion imaging during rest and stress. Candi LEARY MD Aug 03, 2019 15:06
== END ==
LOC: CARD 07-13 10:24
PROVIDERS: ATTEND Internal Medicine Interventional Cardiology
DX: E78.01 Familial hypercholesterolemia (principal); J44.9 Chronic obstructive pulmonary disease, unspecified; I10 Essential (primary) hypertension; I73.9 Peripheral vascular disease, unspecified; M79.89 Other specified soft tissue disorders; R55 Syncope and collapse; Z72.0 Tobacco use; R07.2 Precordial pain
CPT/HCPCS: 78452; 93017; A9502

== ENCOUNTER → 2019-09-28 | Outpatient (CLI) | payer MEDICAID ==
[~2019-09-28] MED LIST changes: -CATHETER FLUSH 10 ML SYR IV PRN; -REGADENOSON 0.4 MG/5 ML SYR (LEXISCAN) IV ONE
== END ==
LOC: CARD 11:40
PROVIDERS: ATTEND Internal Medicine Interventional Cardiology
DX: R55 Syncope and collapse (principal); R06.02 Shortness of breath; R07.2 Precordial pain
CPT/HCPCS: 93306

== ENCOUNTER 2019-09-29 05:36 | Outpatient (RCR) | payer MEDICAID | END 2019-09-29 09:41 | disposition home or self-care (01) | LOC: PREOP 05:36 | PROVIDERS: ATTEND Surgery | DX: Z01.818 Encounter for other preprocedural examination (principal); D64.9 Anemia, unspecified; K21.9 Gastro-esophageal reflux disease without esophagitis; K92.1 Melena; Z20.828 Contact with and (suspected) exposure to other viral communicable diseases | CPT/HCPCS: 87635 ==

== ENCOUNTER 2019-10-03 07:10 | Day surgery (SDC) | payer MEDICAID ==
[~2019-10-03] VITALS: Ht 167.7 cm; Wt 67.0 kg
[2019-10-03] MEDS ORDERED: LACTATED RINGERS 1,000 ML IV ONE (07:24)
[2019-10-03] MEDS ORDERED: MIDAZOLAM 2 MG/2 ML (VERSED) VIAL ONE (07:30)
[2019-10-03] MEDS ORDERED: PROPOFOL INJECTION 50 ML IV ONE (07:30)
[2019-10-03] MEDS ORDERED: LACTATED RINGERS 1,000 ML IV STA (07:34)
[2019-10-03] MEDS ORDERED: HURRICAINE EXT TUBE (BENZOCAINE) XX PRN (07:45)
[2019-10-03 08:06] VITALS: BP 120/72
[2019-10-03] MEDS ORDERED: proPOfol 200 MG/20 ML (DIPRIVAN) VIAL IV ONE (08:24)
[2019-10-03 08:40] VITALS: BP 100/50
[2019-10-03 08:45] VITALS: BP 101/57
[2019-10-03 08:50] VITALS: BP 113/58
[2019-10-03 09:10] VITALS: BP 129/68
--- NOTE | 2019-10-03 09:10 | Progress Note-Post Operative ---
Post-Operative Progess Note Surgeon (s)/Water Fabricator Operator (s) Surgeon VITOR VIDES DO Water Fabricator Operator: na Pre-Operative Diagnosis anemia, gerd, blood in stool Post-Operative Diagnosis gastritis, diverticulosis Procedure & Operative Findings Date of Procedure 10/03/19 Procedure Performed/Findings egd c biopsies, colonoscopy Anesthesia Type per clay burner Estimated Blood Loss Estimated blood loss (mL): none Specimens/Packing Specimens Removed antrum, body, ge VITOR VIDES DO Oct 03, 2019 09:10
[2019-10-03 09:20] VITALS: BP 129/68
--- NOTE | 2019-10-03 13:15 | Anesthesia-General Post-Op ---
MAC Patient Condition Mental Status/LOC: Same as Preop Cardiovascular: Satisfactory Nausea/Vomiting: Absent Respiratory: Satisfactory Pain: Controlled Complications: Absent Post Op Complications Complications None Follow Up Care/Instructions Patient Instructions None needed. Anesthesiology Discharge Order Discharge Order Patient is doing well, no complaints, stable vital signs, no apparent adverse anesthesia problems. No complications reported per nursing. MARTA JOHNSON CRNA Oct 03, 2019 13:15
--- NOTE | 2019-10-03 15:38 | OPERATIVE REPORT ---
DATE OF SERVICE: 10/03/2019 PREOPERATIVE DIAGNOSES: Anemia, GERD and blood in stool. POSTOPERATIVE DIAGNOSES: Gastritis, diverticulosis. PROCEDURES PERFORMED: EGD with biopsies, colonoscopy. SURGEON: Vitor Talley DO. ANESTHESIA: Per [employer]. ESTIMATED BLOOD LOSS: None. COMPLICATIONS: None. INDICATIONS FOR PROCEDURE: The patient is a 64-year-old female with anemia, GERD and blood in stool. She understands risks and benefits of procedure and wished to proceed with procedure. Consent was signed in the chart. DESCRIPTION OF PROCEDURE: The patient was taken to the endoscopy suite and placed in the left lateral recumbent position. Timeout was performed. Scope was inserted in mouth, down the esophagus, stomach and into the duodenum without difficulty. There were no polyps, masses or ulcerations. The scope was then slowly retracted back. There were no polyps, masses or ulcerations in his stomach. Some slight erythematous changes throughout the abdomen. Biopsy of the antrum and body were obtained. Scope was retroflexed noting no other pathology. Scope was returned to its normal position, slowly withdrawn to distal esophagus. Biopsy of the GE junction was obtained. There were no polyps, masses or ulcerations. Scope was then slowly retracted back until completely removed. Digital rectal exam was performed. No palpable polyps, masses or ulcerations. Some slight internal hemorrhoids. Scope was inserted in the rectum and advanced all the way to cecum with minimal difficulty. Prep was adequate with irrigation and suction. Scope was then slowly retracted back. There were no polyps, masses or ulcerations within the cecum, ascending, transverse, descending and sigmoid colon. There was some diverticulosis throughout the colon. Scope was then retroflexed once in the rectum, noting no other pathology. Scope was returned to its normal position, slowly withdrawn until completely removed. RECOMMENDATIONS: The patient will continue on current medications. We will wait for biopsy results. We will consider capsule endoscopy for further evaluation. Job ID: [id number] DocumentID: [id number] Dictated Date: 10/03/2019 09:13:09 Service Learning Coordinator Date: 10/03/2019 15:37:14 Dictated By: VITOR TALLEY DO
== END 2019-10-03 09:20 | disposition home or self-care (01) ==
LOC: ENDO 07:10
PROVIDERS: ATTEND Surgery
DX: K29.70 Gastritis, unspecified, without bleeding (principal); K57.90 Diverticulosis of intestine, part unspecified, without perforation or abscess without bleeding; K21.9 Gastro-esophageal reflux disease without esophagitis; D64.9 Anemia, unspecified; M06.9 Rheumatoid arthritis, unspecified; I11.0 Hypertensive heart disease with heart failure; J44.9 Chronic obstructive pulmonary disease, unspecified; M19.91 Primary osteoarthritis, unspecified site; E78.5 Hyperlipidemia, unspecified; F17.210 Nicotine dependence, cigarettes, uncomplicated; G40.909 Epilepsy, unspecified, not intractable, without status epilepticus; G62.9 Polyneuropathy, unspecified; Z79.890 Hormone replacement therapy; Z79.899 Other long term (current) drug therapy; Z88.1 Allergy status to other antibiotic agents; Z88.8 Allergy status to other drugs, medicaments and biological substances
CPT/HCPCS: 88305

== ENCOUNTER 2020-06-15 10:31 | Emergency (ER) | payer MEDICAID ==
[~2020-06-15] VITALS: Ht 170 cm; Wt 61.0 kg
[~2020-06-15 10:31] MED LIST changes: +MTC10T PO; -PANT40TA3 PO; +PANT40TA52 PO
--- NOTE | 2020-06-15 11:06 | ED General ---
General Chief Complaint: Cardiac/General Problems Stated Complaint: BI LAT LEG SWELLING, HOT TO TOUCH Source of Information: Patient Exam Limitations: No Limitations History of Present Illness Date Seen by Provider: June 15, 2020 Time Seen by Provider: 10:35 Initial Comments Here with report of bilateral leg swelling and erythema. Both legs are tender. She has been taking Lasix and this is helped some. Swelling was worse yesterday than today. She was seen by her provider at [facility] yesterday and was told that there is some concerns for blood clots in her legs. They recommended follow-up for possible ultrasound or D-dimer or both depending on clinical impression. Patient is on Eliquis and reports taking that as directed. No recent illness otherwise. Does admit to toenail on both feet that have been injured recently. Redness has worsened as of recent. Denies fever or chills. Does have emphysema and continues to smoke but is down to a pack a day. Timing/Duration: 1 Week, Changing Over Time Severity: Moderate Associated Systoms: No Chest Pain, No Cough, No Fever/Chills, No Nausea/Vomiting, No Shortness of Air, No Weakness Allergies and Home Medications Allergies Coded Allergies: butorphanol (Unverified Allergy, Unknown, 10/01/13) ketorolac (Unverified Allergy, Unknown, 10/01/13) erythromycin base (Unverified Adverse Reaction, Intermediate, 03/03/13) Patient Home Medication List Home Medication List Reviewed: Yes Review of Systems Review of Systems Constitutional: see HPI; No chills, No fever EENTM: No nose congestion, No throat pain Respiratory: No cough, No short of breath; wheezing Cardiovascular: No chest pain; edema Gastrointestinal: No abdominal pain, No nausea, No vomiting Genitourinary: no symptoms reported Musculoskeletal: No joint pain; muscle pain Skin: change in color, lesions Psychiatric/Neurological: No Symptoms Reported All Other Systems Reviewed Negative Unless Noted: Yes Past Ousdkkl-Frgutz-Pkddeh Hx Past Med/Social Hx: Reviewed Nursing Past Med/Soc Hx Patient Social History Alcohol Use: Denies Use Smoking Status: Current Everyday Smoker Type Used: Cigarettes 2nd Hand Smoke Exposure: No Recent Hopitalizations: No Immunizations Up To Date PED Vaccines UTD: Yes Date of Influenza Vaccine: Dec 12, 2017 Seasonal Allergies Seasonal Allergies: Yes Past Medical History Surgeries: Yes (BILAT OOPHERECTOMY FOR TUMORS, BREAST BXS, TOE SURGERY) Abdominal, Hysterectomy, Oophorectomy Respiratory: Yes COPD Cardiac: Yes Palpitations Neurological: Yes (MEDICATION RELATED SEIZURE) Reproductive Disorders: No Genitourinary: Yes (urine retention) Gastrointestinal: Yes ("no feeling in rectum") Gastroesophageal Reflux, Chronic Constipation, Hemorrhoids, Polyps Musculoskeletal: No Degenerate Disk Disease, Arthritis, Chronic Back Pain Endocrine: Yes Hypothyroidsim HEENT: No Cancer: No Psychosocial: Yes Anxiety Integumentary: No Blood Disorders: Yes (anemia) Family Medical History Reviewed Nursing Family Hx FH: rheumatoid arthritis 19 MOTHER Pancreatic cancer 19 FATHER Physical Exam-Suspected Sepsis Physical Exam Vital Signs Vital Signs - First Documented 06/15/20 10:33 Temp 36.2 Pulse 61 Resp 21 B/P (MAP) 133/60 (84) Pulse Ox 100 Capillary Refill : Greater Than 3 Seconds Height, Weight, BMI Height: 5'6.00" Weight: 115lbs. 0.0oz. [id number]; 23.82 BMI Method:Stated General Appearance: Anxious, Chronically ill HEENT: PERRL/EOMI, Pharynx Normal Neck: Non Tender, Supple Respiratory: No Accessory Muscle Use, No Respiratory Distress, Wheezing (Scattered) Cardiovascular: Regular Rate, Rhythm, No Murmur, Normal Peripheral Pulses Gastrointestinal: Non Tender, Soft Extremity: Normal Range of Motion, Non Tender, Slow Capillary Refill (Bilateral feet at 4 seconds), Other (Right fifth toenail with small healing wound and left second toenail with small healing wound. Bilateral feet and lower legs are erythematous with 2+ pitting edema) Neurologic/Psychiatric: Alert, Oriented x3 Skin: warm/dry Focused Exam Lactate Level 06/15/20 11:00: Lactic Acid Level 1.51 Lactic Acid Level Laboratory Tests Test 06/15/20 11:00 Lactic Acid Level 1.51 MMOL/L (0.50-2.00) Progress/Results/Core Measures Suspected Sepsis SIRS Temperature: Pulse: Respiratory Rate: Laboratory Tests 06/15/20 11:00: White Blood Count 7.6 Blood Pressure / Mean: 06/15/20 11:00: Lactic Acid Level 1.51 Laboratory Tests 06/15/20 11:00: Creatinine 1.38H, INR Comment 1.1, Platelet Count 326, Total Bilirubin 0.3 Results/Orders Lab Results Laboratory Tests Test 06/15/20 11:00 06/15/20 12:07 Range/Units White Blood Count 7.6 4.3-11.0 10^3/uL Red Blood Count 4.10 3.80-5.11 10^6/uL Hemoglobin 12.0 11.5-16.0 g/dL Hematocrit 37 35-52 % Mean Corpuscular Volume 90 80-99 fL Mean Corpuscular Hemoglobin 29 25-34 pg Mean Corpuscular Hemoglobin Concent 33 32-36 g/dL Red Cell Distribution Width 13.9 10.0-14.5 % Platelet Count 326 130-400 10^3/uL Mean Platelet Volume 9.0 9.0-12.2 fL Immature Granulocyte % (Auto) 0 % Neutrophils (%) (Auto) 46 42-75 % Lymphocytes (%) (Auto) 36 12-44 % Monocytes (%) (Auto) 10 0-12 % Eosinophils (%) (Auto) 7 0-10 % Basophils (%) (Auto) 1 0-10 % Neutrophils # (Auto) 3.5 1.8-7.8 10^3/uL Lymphocytes # (Auto) 2.8 1.0-4.0 10^3/uL Monocytes # (Auto) 0.8 0.0-1.0 10^3/uL Eosinophils # (Auto) 0.5 H 0.0-0.3 10^3/uL Basophils # (Auto) 0.1 0.0-0.1 10^3/uL Immature Granulocyte # (Auto) 0.0 0.0-0.1 10^3/uL Prothrombin Time 14.5 12.2-14.7 SEC INR Comment 1.1 0.8-1.4 Activated Partial Thromboplast Time 35 24-35 SEC D-Dimer < 0.27 0.00-0.49 UG/ML Sodium Level 137 135-145 MMOL/L Potassium Level 4.1 3.6-5.0 MMOL/L Chloride Level 93 L 98-107 MMOL/L Carbon Dioxide Level 29 21-32 MMOL/L Anion Gap 15 H 5-14 MMOL/L Blood Urea Nitrogen 25 H 7-18 MG/DL Creatinine 1.38 H 0.60-1.30 MG/DL Estimat Glomerular Filtration Rate 39 BUN/Creatinine Ratio 18 Glucose Level 117 H 70-105 MG/DL Lactic Acid Level 1.51 0.50-2.00 MMOL/L Calcium Level 9.3 8.5-10.1 MG/DL Corrected Calcium 9.0 8.5-10.1 MG/DL Total Bilirubin 0.3 0.1-1.0 MG/DL Aspartate Amino Transf (AST/SGOT) 26 5-34 U/L Alanine Aminotransferase (ALT/SGPT) 20 0-55 U/L Alkaline Phosphatase 109 40-136 U/L C-Reactive Protein High Sensitivity 0.35 0.00-0.50 MG/DL B-Type Natriuretic Peptide 121.4 H <100.0 PG/ML Total Protein 8.2 6.4-8.2 GM/DL Albumin 4.4 3.2-4.5 GM/DL Procalcitonin 0.23 H <0.10 NG/ML Urine Color YELLOW Urine Clarity CLEAR Urine pH 6.0 5-9 Urine Specific Edgar <=1.005 1.016-1.022 Urine Protein NEGATIVE NEGATIVE Urine Glucose (UA) NEGATIVE NEGATIVE Urine Ketones NEGATIVE NEGATIVE Urine Nitrite NEGATIVE NEGATIVE Urine Bilirubin NEGATIVE NEGATIVE Urine Urobilinogen 0.2 < = 1.0 MG/DL Urine Leukocyte Esterase TRACE H NEGATIVE Urine RBC (Auto) TRACE-I NEGATIVE Urine RBC NONE /HPF Urine WBC 2-5 /HPF Urine Squamous Epithelial Cells 0-2 /HPF Urine Crystals NONE /LPF Urine Bacteria FEW H /HPF Urine Casts NONE /LPF Urine Mucus NEGATIVE /LPF Urine Culture Indicated CULTURE PENDING My Orders Orders - LORAINE MOSES MD Cbc With Automated Diff (06/15/20 11:01) Comprehensive Metabolic Panel (06/15/20 11:01) Blood Culture (06/15/20 11:01) Sputum Culture (06/15/20 11:01) Urinalysis (06/15/20 11:01) Urine Culture (06/15/20 11:01) Protime With Inr (06/15/20 11:01) Partial Thromboplastin Time (06/15/20 11:01) Chest 1 View, Ap/Pa Only (06/15/20 11:01) Ed Iv/Invasive Line Start (06/15/20 11:01) Ed Iv/Invasive Line Start (06/15/20 11:01) Ekg Tracing (06/15/20 11:01) Vital Signs Adult Sepsis Patie Q15M (06/15/20 11:01) O2 (06/15/20 11:01) Remove Rings In Anticipation O (06/15/20 11:01) Lactic Acid Analyzer (06/15/20 11:01) BNP (06/15/20 11:01) Hs C Reactive Protein (06/15/20 11:01) Procalcitonin (Pct) (06/15/20 11:01) Fibrin Degradation Products (06/15/20 11:06) Vital Signs/I&O 06/15/20 10:33 Temp 36.2 Pulse 61 Resp 21 B/P (MAP) 133/60 (84) Pulse Ox 100 Capillary Refill : Greater Than 3 Seconds Progress Note : Progress Note Seen and evaluated. Sepsis protocol initiated due to concerns about bilateral lower leg cellulitis. We will also check BNP for elevation. D-dimer added although patient is on Eliquis. 1242: Patient evaluation does not show any significant abnormalities. I do believe she probably has neuropathy and likely pedal edema. She is on Lasix. I did discuss with her and the family regarding elevating legs frequently and also discussion on quitting smoking. She will follow up with her doctor for further evaluation including possible ultrasound studies if indicated. Discharged home with return precautions. Patient and family verbalized understanding of instructions and agreement with plan. ECG Initial ECG Impression Date: June 15, 2020 Initial ECG Impression Time: 11:10 Initial ECG Rate: 53 Initial ECG Rhythm: Normal Sinus Initial ECG Comparisson: No Previous ECG Available Comment Sinus rhythm with PAC and left atrial abnormality. Normal axis. No evidence of ST elevation PA. Does have some global minimal ST elevation with question of pericarditis but asymptomatic. No previous available for comparison. Interp reted by me. Diagnostic Imaging Diagonstic Imaging: Xray Plain Films/CT/US/NM/MRI: chest Comments [facility]. [place], [place] NAME: WHITLEY TYLER [facility] REC#: [id number] PT STATUS: REG ER : 1955 PHYSICIAN: LORAINE MOSES MD ADMIT DATE: 06/15/20/ER Signed Date of Exam:06/15/20 CHEST 1 VIEW, AP/PA ONLY EXAMINATION: Chest 1 view HISTORY: Sepsis. COMPARISON: 09/08/2016. FINDINGS: The lung volumes are normal. No focal consolidation is seen. No large pleural effusion or pneumothorax is seen. The cardiomediastinal silhouette is normal in size and contour. No acute osseous abnormality is seen. IMPRESSION: 1. No acute pleuroparenchymal process. Dictated by: Dictated on workstation # [id number] Dict: 06/15/20 1130 Trans: 06/15/20 1138 CV [id number] Interpreted by: MERE ROMERO DO Electronically signed by: MERE ROMERO DO 06/15/20 1138 Departure Impression Primary Impression: Pedal edema Additional Impression: Peripheral neuropathy Qualified Codes: G62.9 - Polyneuropathy, unspecified Disposition: HOME, SELF-CARE Condition: Stable Departure-Patient Inst. Decision time for Depature: 12:46 Referrals: [facility] (PCP/Family) Primary Care Physician Patient Instructions: Dependent Edema (DC), Peripheral Neuropathy (DC) Add. Discharge Instructions: All discharge instructions reviewed with patient and/or family. Voiced understanding. You need to elevate your feet at night and several times daily as needed to reduce swelling and pain. Follow-up with your doctor for recheck and further evaluation and to discuss the possibility of outpatient ultrasound vascular studies if needed. Continue home medications as previously prescribed. You should reduce or quit smoking. Return for worse pain, fever, vomiting, weakness, breathing problems or other concerns as needed. Copy Copies To 1: JAN MARTINES TIMOTHY D MD June 15, 2020 11:06
[2020-06-15 11:12] LABS: BASOPHILS # (AUTO) 0.1 10^3/uL (0.0-0.1); BASOPHILS % (AUTO) 1 % (0-10); EOSINOPHILS # (AUTO) 0.5 10^3/uL (0.0-0.3); EOSINOPHILS % (AUTO) 7 % (0-10); HEMATOCRIT 37 % (35-52); LYMPHOCYTES # (AUTO) 2.8 10^3/uL (1.0-4.0); LYMPHOCYTES % (AUTO) 36 % (12-44); MEAN CORPUSCULAR HEMOGLOBIN 29 pg (25-34); MEAN CORPUSCULAR HGB CONC 33 g/dL (32-36); MEAN CORPUSCULAR VOLUME 90 fL (80-99); MONOCYTES # (AUTO) 0.8 10^3/uL (0.0-1.0); MONOCYTES % (AUTO) 10 % (0-12); NEUTROPHILS # (AUTO) 3.5 10^3/uL (1.8-7.8); NEUTROPHILS % (AUTO) 46 % (42-75); PLATELET COUNT 326 10^3/uL (130-400); WHITE BLOOD COUNT 7.6 10^3/uL (4.3-11.0)
[2020-06-15] MEDS ORDERED: CLONAZEPAM (11:12)
[2020-06-15] MEDS ORDERED: APIX5TAB (11:12)
[2020-06-15] MEDS ORDERED: MTP25TSR (11:12)
[2020-06-15] MEDS ORDERED: FURO40TA4 (11:12)
[2020-06-15] MEDS ORDERED: OMEP20CA18 (11:12)
[2020-06-15 11:23] LABS: ALBUMIN 4.4 GM/DL (3.2-4.5); POTASSIUM 4.1 MMOL/L (3.6-5.0)
[2020-06-15 11:24] LABS: CALCIUM 9.3 MG/DL (8.5-10.1)
[2020-06-15 11:25] LABS: TOTAL PROTEIN 8.2 GM/DL (6.4-8.2)
[2020-06-15 11:27] LABS: BILIRUBIN,TOTAL 0.3 MG/DL (0.1-1.0)
[2020-06-15 11:29] LABS: CREATININE SERUM 1.38 MG/DL (0.60-1.30)
--- NOTE | 2020-06-15 11:38 | Diagnostic Imaging Report ---
EXAMINATION: Chest 1 view HISTORY: Sepsis. COMPARISON: 09/08/2016. FINDINGS: The lung volumes are normal. No focal consolidation is seen. No large pleural effusion or pneumothorax is seen. The cardiomediastinal silhouette is normal in size and contour. No acute osseous abnormality is seen. IMPRESSION: 1. No acute pleuroparenchymal process. Dictated by: Dictated on workstation # [id number]
[2020-06-15 11:50] LABS: INR 1.1 (0.8-1.4); PARTIAL THROMBOPLASTIN TIME 35 SEC (24-35); PROTHROMBIN TIME PATIENT 14.5 SEC (12.2-14.7)
[2020-06-15 12:15] LABS: FIBRIN DEGRADATION PRODUCTS < 0.27 UG/ML (0.00-0.49)
[2020-06-15 12:15] LABS: BILIRUBIN,URINE NEGATIVE (NEGATIVE); CLARITY,URINE CLEAR; COLOR,URINE YELLOW; GLUCOSE, URINE (UA) NEGATIVE (NEGATIVE); KETONES,URINE NEGATIVE (NEGATIVE); LEUKOCYTE ESTERASE ,URINE TRACE (NEGATIVE); NITRITE,URINE NEGATIVE (NEGATIVE); PROTEIN,URINE NEGATIVE (NEGATIVE)
[2020-06-15 12:22] LABS: BACTERIA,URINE FEW /HPF; SQUAMOUS EPITHELIAL CELL,UR 0-2 /HPF
[2020-06-15 12:53] VITALS: BP 128/61
== END 2020-06-15 12:53 | disposition home or self-care (01) ==
LOC: EDUNIT# 10:31 → ER 10:33
DX: R60.0 Localized edema (principal); G62.9 Polyneuropathy, unspecified; J44.9 Chronic obstructive pulmonary disease, unspecified; F17.210 Nicotine dependence, cigarettes, uncomplicated; Z88.1 Allergy status to other antibiotic agents; Z88.6 Allergy status to analgesic agent; Z88.8 Allergy status to other drugs, medicaments and biological substances
CPT/HCPCS: 36415; 71045; 80053; 81000; 83605; 83880; 84145; 85025; 85379; 85610; 85730; 86141; 87040; 87077; 87088; 87186; 93005

== ENCOUNTER 2020-10-26 15:17 | Emergency (ER) | payer MEDICAID ==
[~2020-10-26] VITALS: Ht 170 cm; Wt 55.0 kg
[~2020-10-26 15:17] MED LIST changes: +APIX5TAB; +CLONAZEPAM; +FURO40TA4; +MTP25TSR; +OMEP20CA18
[2020-10-26] MEDS ORDERED: OLANZapine 5 MG ODT (ZyPREXA ZYDIS) PO ONE (15:45)
[2020-10-26 15:47] VITALS: BP 125/66
[2020-10-26 16:22] LABS: BASOPHILS # (AUTO) 0.1 10^3/uL (0.0-0.1); BASOPHILS % (AUTO) 1 % (0-10); EOSINOPHILS # (AUTO) 0.1 10^3/uL (0.0-0.3); EOSINOPHILS % (AUTO) 1 % (0-10); HEMATOCRIT 34 % (35-52); HEMOGLOBIN 10.9 g/dL (11.5-16.0); LYMPHOCYTES # (AUTO) 2.4 10^3/uL (1.0-4.0); LYMPHOCYTES % (AUTO) 30 % (12-44); MEAN CORPUSCULAR HEMOGLOBIN 30 pg (25-34); MEAN CORPUSCULAR HGB CONC 32 g/dL (32-36); MEAN CORPUSCULAR VOLUME 91 fL (80-99); MEAN PLATELET VOLUME 9.4 fL (9.0-12.2); MONOCYTES # (AUTO) 0.8 10^3/uL (0.0-1.0); MONOCYTES % (AUTO) 10 % (0-12); NEUTROPHILS # (AUTO) 4.7 10^3/uL (1.8-7.8); NEUTROPHILS % (AUTO) 58 % (42-75); PLATELET COUNT 266 10^3/uL (130-400); WHITE BLOOD COUNT 8.1 10^3/uL (4.3-11.0)
[2020-10-26 16:29] LABS: BILIRUBIN,URINE NEGATIVE (NEGATIVE); CLARITY,URINE TURBID; COLOR,URINE YELLOW; GLUCOSE, URINE (UA) NEGATIVE (NEGATIVE); KETONES,URINE NEGATIVE (NEGATIVE); LEUKOCYTE ESTERASE ,URINE 3+ (NEGATIVE); NITRITE,URINE NEGATIVE (NEGATIVE); PROTEIN,URINE TRACE (NEGATIVE)
[2020-10-26 16:30] LABS: ALBUMIN 3.8 GM/DL (3.2-4.5); POTASSIUM 4.1 MMOL/L (3.6-5.0)
[2020-10-26 16:33] LABS: TOTAL PROTEIN 7.5 GM/DL (6.4-8.2)
[2020-10-26 16:35] LABS: BILIRUBIN,TOTAL 0.2 MG/DL (0.1-1.0)
[2020-10-26 16:36] LABS: CREATININE SERUM 1.82 MG/DL (0.60-1.30)
[2020-10-26 16:37] LABS: BACTERIA,URINE MODERATE /HPF; RBC,URINE 0-2 /HPF; SQUAMOUS EPITHELIAL CELL,UR 0-2 /HPF; WBC,URINE TNTC /HPF
[2020-10-26 16:43] LABS: AMPHETAMINE SCREEN, URINE NEGATIVE (NEGATIVE); BARBITURATE SCREEN URINE NEGATIVE (NEGATIVE); BENZODIAZEPINES SCREEN URINE NEGATIVE (NEGATIVE); CANNABINOID SCREEN, URINE NEGATIVE (NEGATIVE); COCAINE SCREEN URINE NEGATIVE (NEGATIVE); METHADONE STAT NEGATIVE (NEGATIVE); METHAMPHETAMINE SCREEN URINE S NEGATIVE (NEGATIVE); OPIATE SCREEN URINE NEGATIVE (NEGATIVE); OXYCODONE STAT NEGATIVE (NEGATIVE); PROPOXYPHENE STAT NEGATIVE (NEGATIVE); TRICYCLIC ANTIDEPRESSANTS SCRE NEGATIVE (NEGATIVE)
--- NOTE | 2020-10-26 16:44 | ED General ---
General Chief Complaint: General Problems/Pain Stated Complaint: FLEA BITES/FALL/HEADACHE/SHAKY Nursing Triage Note: ARRIVED VIA AMB TO ROOM 06 WITH THE COMPLAINTS OF FLEA BITES AND WANTING A ABX. ALSO STATES SHE IS ON A BLOOD THINNER FOR A CLOT IN HER RIGHT LEG AND HAS FELL RECENTLY AND HIT HER HEAD. Source of Information: Patient Exam Limitations: No Limitations History of Present Illness Date Seen by Provider: Oct 26, 2020 Time Seen by Provider: 15:20 Initial Comments To ER with reports of flea bites all over. Brought to ER by family who report that she is crazy. She denies any methamphetamine or drug use. She has sores all over that she has been scratching at and informs me that the fleas have bitten her and then crawled inside of her. Timing/Duration: 1-2 Days Severity: Moderate Associated Systoms: Denies Symptoms Allergies and Home Medications Allergies Coded Allergies: butorphanol (Unverified Allergy, Unknown, 10/01/13) ketorolac (Unverified Allergy, Unknown, 10/01/13) erythromycin base (Unverified Adverse Reaction, Intermediate, 03/03/13) Patient Home Medication List Home Medication List Reviewed: Yes Apixaban (Eliquis) 5 Mg Tablet, (Reported) Entered as Reported by: MARGE VILLARREAL on 06/15/201111 Cefuroxime Axetil (Cefuroxime) 250 Mg Tablet, 250 MG PO BID Prescribed by: MARCO ROCA on 10/26/20 1738 Furosemide (Furosemide) 40 Mg Tablet, (Reported) Entered as Reported by: MARGE VILLARREAL on 06/15/20 111 Metoprolol Succinate (Metoprolol Succinate) 25 Mg Tab.er.24h, (Reported) Entered as Reported by: MARGE VILLARREAL on 06/15/20 111 Omeprazole (Omeprazole) 20 Mg Capsule.dr, (Reported) Entered as Reported by: MARGE VILLARREAL on 06/15/20 111 [Clonazepam] , (Reported) Entered as Reported by: MARGE VILLARREAL on 06/15/201111 Review of Systems Review of Systems Constitutional: see HPI EENTM: see HPI Respiratory: no symptoms reported Cardiovascular: no symptoms reported Genitourinary: no symptoms reported Musculoskeletal: no symptoms reported Skin: see HPI Psychiatric/Neurological: No Symptoms Reported Hematologic/Lymphatic: No Symptoms Reported Past Fmtpceq-Gzqowz-Kyabmb Hx Patient Social History Smoking Status: Current Everyday Smoker Substance use?: No Alcohol Use?: No Immunizations Up To Date PED Vaccines UTD: Yes Seasonal Allergies Seasonal Allergies: Yes Past Medical History Surgeries: Yes (BILAT OOPHERECTOMY FOR TUMORS, BREAST BXS, TOE SURGERY) Abdominal, Hysterectomy, Oophorectomy Respiratory: Yes COPD Cardiac: Yes Palpitations Neurological: Yes (MEDICATION RELATED SEIZURE) Reproductive Disorders: No Genitourinary: Yes (urine retention) Gastrointestinal: Yes ("no feeling in rectum") Gastroesophageal Reflux, Chronic Constipation, Hemorrhoids, Polyps Musculoskeletal: No Degenerate Disk Disease, Arthritis, Chronic Back Pain Endocrine: Yes Hypothyroidsim HEENT: No Cancer: No Psychosocial: Yes Anxiety Integumentary: No Blood Disorders: Yes (anemia) Family Medical History FH: rheumatoid arthritis 19 MOTHER Pancreatic cancer 19 FATHER Physical Exam Vital Signs Vital Signs - First Documented 10/26/20 15:47 Temp 36.3 Pulse 75 Resp 16 B/P (MAP) 125/66 (85) Pulse Ox 98 O2 Delivery Room Air Capillary Refill : Less Than 3 Seconds Height, Weight, BMI Height: 5'6.00" Weight: 115lbs. 0.0oz. 52.896170nr; 19.00 BMI Method:Stated General Appearance: No Apparent Distress, WD/WN Eyes: Bilateral Eye Normal Inspection, Bilateral Eye PERRL Respiratory: No Accessory Muscle Use, No Respiratory Distress Gastrointestinal: Non Tender, Soft Extremity: Normal Capillary Refill, Normal Inspection Neurologic/Psychiatric: Alert, Oriented x3, Other (Hyperactive, fidgety, unable to sit still. Superficial sores and scabs across both arms torso and face consistent with a skin picking behavior.) Skin: Normal Color, Warm/Dry Progress/Results/Core Measures Suspected Sepsis SIRS Temperature: Pulse: 75 Respiratory Rate: 16 Laboratory Tests 10/26/20 16:15: White Blood Count 8.1 Blood Pressure 125 /66 Mean: 85 Laboratory Tests 10/26/20 16:15: Creatinine 1.82H, Platelet Count 266, Total Bilirubin 0.2 Results/Orders Lab Results Laboratory Tests Test 10/26/20 16:15 10/26/20 16:23 Range/Units White Blood Count 8.1 4.3-11.0 10^3/uL Red Blood Count 3.69 L 3.80-5.11 10^6/uL Hemoglobin 10.9 L 11.5-16.0 g/dL Hematocrit 34 L 35-52 % Mean Corpuscular Volume 91 80-99 fL Mean Corpuscular Hemoglobin 30 25-34 pg Mean Corpuscular Hemoglobin Concent 32 32-36 g/dL Red Cell Distribution Width 13.7 10.0-14.5 % Platelet Count 266 130-400 10^3/uL Mean Platelet Volume 9.4 9.0-12.2 fL Immature Granulocyte % (Auto) 0 % Neutrophils (%) (Auto) 58 42-75 % Lymphocytes (%) (Auto) 30 12-44 % Monocytes (%) (Auto) 10 0-12 % Eosinophils (%) (Auto) 1 0-10 % Basophils (%) (Auto) 1 0-10 % Neutrophils # (Auto) 4.7 1.8-7.8 10^3/uL Lymphocytes # (Auto) 2.4 1.0-4.0 10^3/uL Monocytes # (Auto) 0.8 0.0-1.0 10^3/uL Eosinophils # (Auto) 0.1 0.0-0.3 10^3/uL Basophils # (Auto) 0.1 0.0-0.1 10^3/uL Immature Granulocyte # (Auto) 0.0 0.0-0.1 10^3/uL Sodium Level 135 135-145 MMOL/L Potassium Level 4.1 3.6-5.0 MMOL/L Chloride Level 96 L 98-107 MMOL/L Carbon Dioxide Level 25 21-32 MMOL/L Anion Gap 14 5-14 MMOL/L Blood Urea Nitrogen 22 H 7-18 MG/DL Creatinine 1.82 H 0.60-1.30 MG/DL Estimat Glomerular Filtration Rate 28 BUN/Creatinine Ratio 12 Glucose Level 81 70-105 MG/DL Calcium Level 9.0 8.5-10.1 MG/DL Corrected Calcium 9.2 8.5-10.1 MG/DL Total Bilirubin 0.2 0.1-1.0 MG/DL Aspartate Amino Transf (AST/SGOT) 30 5-34 U/L Alanine Aminotransferase (ALT/SGPT) 18 0-55 U/L Alkaline Phosphatase 112 40-136 U/L Total Protein 7.5 6.4-8.2 GM/DL Albumin 3.8 3.2-4.5 GM/DL Salicylates Level 16.8 5.0-20.0 MG/DL Acetaminophen Level < 10 L 10-30 UG/ML Serum Alcohol < 10 <10 MG/DL Urine Color YELLOW Urine Clarity TURBID Urine pH 6.0 5-9 Urine Specific [place] 1.015 L 1.016-1.022 Urine Protein TRACE H NEGATIVE Urine Glucose (UA) NEGATIVE NEGATIVE Urine Ketones NEGATIVE NEGATIVE Urine Nitrite NEGATIVE NEGATIVE Urine Bilirubin NEGATIVE NEGATIVE Urine Urobilinogen 0.2 < = 1.0 MG/DL Urine Leukocyte Esterase 3+ H NEGATIVE Urine RBC (Auto) 2+ H NEGATIVE Urine RBC 0-2 /HPF Urine WBC TNTC H /HPF Urine Squamous Epithelial Cells 0-2 /HPF Urine Crystals NONE /LPF Urine Bacteria MODERATE H /HPF Urine Casts NONE /LPF Urine Mucus NEGATIVE /LPF Urine Culture Indicated YES Urine Opiates Screen NEGATIVE NEGATIVE Urine Oxycodone Screen NEGATIVE NEGATIVE Urine Methadone Screen NEGATIVE NEGATIVE Urine Propoxyphene Screen NEGATIVE NEGATIVE Urine Barbiturates Screen NEGATIVE NEGATIVE Ur Tricyclic Antidepressants Screen NEGATIVE NEGATIVE Urine Phencyclidine Screen NEGATIVE NEGATIVE Urine Amphetamines Screen NEGATIVE NEGATIVE Urine Methamphetamines Screen NEGATIVE NEGATIVE Urine Benzodiazepines Screen NEGATIVE NEGATIVE Urine Cocaine Screen NEGATIVE NEGATIVE Urine Cannabinoids Screen NEGATIVE NEGATIVE My Orders Orders - MARCO ROCA APRN Cbc With Automated Diff (10/26/20 15:42) Comprehensive Metabolic Panel (10/26/20 15:42) Ct Head Wo (10/26/20 15:42) Ua Culture If Indicated (10/26/20 15:42) Drug Screen Stat (Urine) (10/26/20 15:42) Olanzapine Orally Dissolve Tab (Zyprexa (10/26/20 15:45) Urine Culture (10/26/20 16:23) Ceftriaxone (Rocephin) (10/26/20 17:00) Lidocaine 1% Inj 20 Ml (Xylocaine 1% Inj (10/26/20 17:00) Covid 19 Inhouse Test (10/26/20 17:00) Alcohol (10/26/20 17:10) Salicylate (10/26/20 17:10) Acetaminophen (10/26/20 17:10) Medications Given in ED Current Medications Medications Dose Ordered Sig/Tk Route Start Time Stop Time Status Last Admin Dose Admin Ceftriaxone Sodium 1,000 mg ONCE ONCE IM 10/26/20 17:00 10/26/20 17:01 DC 10/26/20 17:24 1,000 MG Lidocaine HCl 2.1 ml ONCE ONCE INJ 10/26/20 17:00 10/26/20 17:01 DC 10/26/20 17:24 2.1 ML Olanzapine 10 mg ONCE ONCE PO 10/26/20 15:45 10/26/20 15:46 DC 10/26/20 15:55 10 MG Vital Signs/I&O 10/26/20 15:47 Temp 36.3 Pulse 75 Resp 16 B/P (MAP) 125/66 (85) Pulse Ox 98 O2 Delivery Room Air Capillary Refill : Less Than 3 Seconds Blood Pressure Mean: 85 Departure Communication (Admissions) Family Conversation I spoke with [facility] after-hours number. Tracking #[id number]. I will fax her information and wait for a call back for a psych screening on her. 1830-Pt signed out AMA, states she has a pet to go home to. Swill awaiting psych screen. Spoke with pts mother and updated her on this. NAME: WHITLEY TYLER [facility] REC#: [id number] PT STATUS: REG ER : 1955 PHYSICIAN: MARCO ROCA APRN ADMIT DATE: 10/26/20/ER Draft Date of Exam:10/26/20 CT HEAD WO PROCEDURE: CT head without contrast. TECHNIQUE: Multiple contiguous axial images were obtained through the brain without the use of intravenous contrast. Auto Exposure Controls were utilized during the CT exam to meet ALARA standards for radiation dose reduction. INDICATION: Fell, anticoagulated. FINDINGS: There is no mass, shift of the midline or hemorrhage to suggest an acute intracranial abnormality. The ventricles are not abnormally dilated and stable in size when compared to the prior exam of 02/10/2012. The bone windows show no evidence for a fracture or for a destructive lesion. The orbits are symmetrical and within normal limits. The sinuses, where visualized, are clear. IMPRESSION: 1. There is no evidence for an acute intracranial abnormality. 2. If clinical concern regarding an underlying abnormality persists, then MRI would be recommended for further study. Dictated on workstation # [id number] Dict: 10/26/20 1637 Trans: 10/26/20 1642 [facility] [id number] Interpreted by: JULITO TONEY MD Electronically signed by: Impression Primary Impression: History of schizophrenia Additional Impressions: Delusions of parasitosis Urinary tract infection Disposition: 01 HOME, SELF-CARE Condition: Stable Departure-Patient Inst. Decision time for Depature: 17:35 Referrals: [facility] (PCP/Family) Primary Care Physician Patient Instructions: Urinary Tract Infection, Adult ED Scripts Cefuroxime Axetil (Cefuroxime) 250 Mg Tablet 250 MG PO BID, #10 TAB Prov: MARCO ROCA APRN 10/26/20 MARCO ROCA APRN Oct 26, 2020 16:44
[2020-10-26] MEDS ORDERED: LIDOCAINE 1% INJ 20 ML 20 ML VIAL INJ ONE (17:00)
[2020-10-26] MEDS ORDERED: cefTRIAXone 1,000 MG VIAL IM ONE (17:00)
[2020-10-26 17:36] LABS: SALICYLATE 16.8 MG/DL (5.0-20.0)
[2020-10-26] MEDS ORDERED: CEFU250T80 PO (17:38)
[2020-10-26 17:39] LABS: ACETAMINOPHEN < 10 UG/ML (10-30)
== END 2020-10-26 18:28 | disposition left against medical advice (07) ==
LOC: EDUNIT# 15:17 → ER 15:23
DX: F22 Delusional disorders (principal); N39.0 Urinary tract infection, site not specified; J44.9 Chronic obstructive pulmonary disease, unspecified; K21.9 Gastro-esophageal reflux disease without esophagitis; K64.9 Unspecified hemorrhoids; F41.9 Anxiety disorder, unspecified; F17.200 Nicotine dependence, unspecified, uncomplicated; Z86.59 Personal history of other mental and behavioral disorders; Z79.899 Other long term (current) drug therapy
CPT/HCPCS: 70450; 80053; 80306; 81000; 85025; 87088; 87186; 99283; G0480 ×3; 36415; 80320; 80329

== ENCOUNTER 2021-01-20 11:02 | Inpatient (IN) | payer MEDICAID ==
[2021-01-20] VITALS (22 sets, daily range): BP systolic 116–178; BP diastolic 51–113
[~2021-01-20] VITALS: Ht 167.7 cm; Wt 49.6 kg
[~2021-01-20 11:02] MED LIST changes: +CEFU250T80 PO; -OMEP20CA18; +OMEP20CA18 PO
--- NOTE | 2021-01-20 13:05 | Diagnostic Imaging Report ---
EXAMINATION: CT head without contrast. TECHNIQUE: Multiple contiguous axial images were obtained through the brain without the use of intravenous contrast. All CT scans use one or more of the following dose optimizing techniques: automated exposure control, MA and/or KvP adjustment based on patient size and exam type or iterative reconstruction. HISTORY: Unresponsive. Acute renal failure. COMPARISON: 10/26/2020. FINDINGS: No large acute territorial ischemia, mass, or hemorrhage. No midline shift or mass effect. Scattered decreased attenuation is seen in the periventricular and subcortical white matter. The ventricles and cortical sulci are mildly prominent. The basilar cisterns are patent and unremarkable. The orbits are normal. Paranasal sinuses are normal. Mastoid air cells are clear. No soft tissue abnormality is seen. No osseus lesions or fractures are seen. IMPRESSION: 1. No large acute territorial ischemia, mass, or hemorrhage. If symptoms persist consider MRI brain to further evaluate. 2. Scattered chronic microvascular disease. 3. Mild parenchymal volume loss. Dictated by: Dictated on workstation # [id number]
[2021-01-20] MEDS ORDERED: NALOXONE 0.4 MG/ML 1 ML (NARCAN) VIAL ONE (13:23)
[2021-01-20 13:28] LABS: ABG BASE EXCESS -3.2 MMOL/L (-2.5-2.5); ABG OXYGEN SATURATION 96 % (94-100); ABG TCO2 23.6 MMOL/L (21.0-31.0)
[2021-01-20] MEDS ORDERED: NALOXONE 0.4 MG/ML 1 ML (NARCAN) VIAL IV ONE (13:30)
[2021-01-20 13:32] LABS: ABG PCO2 44 MMHG (35-45); ABG PO2 80 MMHG (79-93)
[2021-01-20 13:50] LABS: ABG PH 7.32 (7.37-7.43); INSPIRED O2 ROOM AIR; VENTILATOR NO
[2021-01-20 13:52] LABS: BASOPHILS % (AUTO) 1 % (0-10); EOSINOPHILS # (AUTO) 0.1 10^3/uL (0.0-0.3); EOSINOPHILS % (AUTO) 2 % (0-10); HEMATOCRIT 21 % (35-52); LYMPHOCYTES # (AUTO) 1.3 10^3/uL (1.0-4.0); LYMPHOCYTES % (AUTO) 37 % (12-44); MEAN CORPUSCULAR HEMOGLOBIN 30 pg (25-34); MEAN CORPUSCULAR HGB CONC 32 g/dL (32-36); MEAN CORPUSCULAR VOLUME 94 fL (80-99); MEAN PLATELET VOLUME 9.8 fL (9.0-12.2); MONOCYTES # (AUTO) 0.4 10^3/uL (0.0-1.0); MONOCYTES % (AUTO) 10 % (0-12); NEUTROPHILS # (AUTO) 1.9 10^3/uL (1.8-7.8); NEUTROPHILS % (AUTO) 51 % (42-75); PLATELET COUNT 143 10^3/uL (130-400); WHITE BLOOD COUNT 3.7 10^3/uL (4.3-11.0)
[2021-01-20 14:00] LABS: HEMOGLOBIN 6.9 g/dL (11.5-16.0)
[2021-01-20] MEDS ORDERED: FLUMAZENIL (ROMAZICON) 0.1 MG/ML 5 ML VIAL IV ONE (14:00)
[2021-01-20] MEDS: NS IV 1000 ML 1,000 ML IV SCH ×2 (14:03→19:17)
[2021-01-20 14:07] LABS: INR 1.3 (0.8-1.4); PROTHROMBIN TIME PATIENT 16.6 SEC (12.2-14.7)
[2021-01-20] MEDS: FLUMAZENIL (ROMAZICON) 0.1 MG/ML 10 ML VIAL IV ONE ×2 (14:08→14:12)
[2021-01-20] MEDS ORDERED: FLUMAZENIL (ROMAZICON) 0.1 MG/ML 10 ML VIAL IV ONE (14:30)
[2021-01-20 14:38] LABS: BASOPHILS # (AUTO) 0.1 10^3/uL (0.0-0.1); BASOPHILS % (AUTO) 1 % (0-10); EOSINOPHILS # (AUTO) 0.1 10^3/uL (0.0-0.3); EOSINOPHILS % (AUTO) 3 % (0-10); HEMATOCRIT 29 % (35-52); HEMOGLOBIN 9.6 g/dL (11.5-16.0); LYMPHOCYTES # (AUTO) 1.8 10^3/uL (1.0-4.0); LYMPHOCYTES % (AUTO) 35 % (12-44); MEAN CORPUSCULAR HEMOGLOBIN 30 pg (25-34); MEAN CORPUSCULAR HGB CONC 33 g/dL (32-36); MEAN CORPUSCULAR VOLUME 93 fL (80-99); MONOCYTES # (AUTO) 0.5 10^3/uL (0.0-1.0); MONOCYTES % (AUTO) 10 % (0-12); NEUTROPHILS # (AUTO) 2.7 10^3/uL (1.8-7.8); NEUTROPHILS % (AUTO) 51 % (42-75); PLATELET COUNT 211 10^3/uL (130-400); WHITE BLOOD COUNT 5.2 10^3/uL (4.3-11.0)
[2021-01-20 14:51] LABS: ALBUMIN 2.6 GM/DL (3.2-4.5); POTASSIUM 3.8 MMOL/L (3.6-5.0)
[2021-01-20 14:53] LABS: CALCIUM 6.2 MG/DL (8.5-10.1)
[2021-01-20 14:56] LABS: BILIRUBIN,TOTAL 0.1 MG/DL (0.1-1.0)
[2021-01-20 14:57] LABS: CREATININE SERUM 0.81 MG/DL (0.60-1.30)
--- NOTE | 2021-01-20 15:34 | History & Physical ---
HPI History of Present Illness: Pt transferred from [facility] due to somnolence, acute kidney injury. History obtained from patient's mother and [employer]ING CUTTER from [place] [facility]. Per Sarita's mother, she has been very angry and agitated for the last 3 days, and had essentially locked herself in her room, not eating, giving her food to her dog, screaming hateful things at her mother such as she should have never let her be born and she is the devil. She also notes that Sarita talks to herself and seems to respond to herself, worse in the last 3 days than prior. She says she has a history of being angry and depressed but this is worse than it has been. She is not on anti-psychotic medications but her mother does also say she doesn't necessarily know for sure what she does in her room. Mother reports Sarita was on suboxone from a "dirty doctor" and was cut off cold turkey, then weaned off opiates which she believes was completed about 3 months ago. Sarita's mother says that her own caregiver did give Sarita xanax recently when she was agitated and also shaking- she has had episodes of jerking that they aren't sure if are seizures or something else. Her mother says Sarita had an EEG and MRI in [place] and was diagnosed with a subdural hematoma earlier this year and they told her she would have headaches for some time. This morning, Sarita reportedly came out with a bloody nose and said she had one of her jerking episodes and hit her head on the dresser. Her mother tried to calm her down, and then she suddenly laid down and became almost unresponsive, so her mother called EMS. Per ER provider from [place], when she arrived there she was agitated and angry saying she did not want to be there and did not cooperate with neuro exam, but CT head was unremarkable. In the ER, she then became somnolent again. She did not improve with Narcan or flumazenil there, urine was positive for benzo and barbiturate. On arrival to [facility], she was not arousable, did not respond to sternal rub, had no tone in arms and legs, pupils were constricted and non-responsive to light, so she was moved to the ICU, repeat CT was obtained along with labs which showed still negative CT head, normal lactic acid, and ALEC already resolved. She again did not have any response to Narcan or flumazenil. 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 Patients Allergies have been reviewed. Allergies Coded Allergies: butorphanol (Unverified Allergy, Unknown, 10/01/13) ketorolac (Unverified Allergy, Unknown, 10/01/13) erythromycin base (Unverified Adverse Reaction, Intermediate, 03/03/13) [id number] Hx Patient Social History 2nd Hand Smoke Exposure: No Recent Hopitalizations: No Past Medical History PMHx: Unable to obtain due to patient condition Family Medical History Family History: FH: rheumatoid arthritis 19 MOTHER Pancreatic cancer 19 FATHER Review of Systems ([facility]) Constitutional: other (unable to obtain, patient's mother reported weight loss) Physical Exam-([facility]) Physical Exam Vital Signs VS - Last 72 Hours, by Label 01/20/21 01/20/21 01/20/21 01/20/21 13:00 13:00 13:15 13:22 Temp 36.3 Pulse 50 49 49 Resp 12 14 B/P (MAP) 163/73 (111) 142/70 (97) Pulse Ox 98 98 O2 Delivery Room Air Room Air 01/20/21 01/20/21 01/20/21 01/20/21 13:30 13:45 14:00 14:15 Pulse 49 46 45 Resp 11 15 10 B/P (MAP) 138/66 (92) 147/70 (98) 157/76 (97) 156/75 (106) Pulse Ox 100 99 100 O2 Delivery Room Air Room Air Room Air 01/20/21 01/20/21 01/20/21 01/20/21 14:30 14:45 15:00 15:00 Pulse 45 61 57 Resp 14 18 11 B/P (MAP) 159/76 (101) 130/98 (104) 178/94 (115) Pulse Ox 100 100 100 99 O2 Delivery Room Air Room Air Room Air Room Air 01/20/21 01/20/21 01/20/21 01/20/21 15:15 15:30 15:45 16:00 Pulse 52 53 57 50 Resp 13 18 25 27 B/P (MAP) 161/81 (104) 174/92 (104) Pulse Ox 98 98 100 99 O2 Delivery Room Air Room Air Room Air Room Air 01/20/21 01/20/21 01/20/21 01/20/21 16:15 16:21 16:30 16:45 Pulse 50 50 51 52 Resp 17 16 24 23 B/P (MAP) 133/66 (94) Pulse Ox 96 95 96 95 O2 Delivery Room Air Room Air Room Air Room Air 01/20/21 01/20/21 01/20/21 01/20/21 16:50 17:00 17:15 17:30 Pulse 54 50 49 Resp 19 25 26 B/P (MAP) 133/61 (87) 119/51 (77) 119/60 (74) Pulse Ox 97 97 97 O2 Delivery Room Air Room Air Room Air Room Air 01/20/21 01/20/21 01/20/21 17:45 18:00 18:15 Pulse 49 50 49 Resp 28 28 27 B/P (MAP) 126/56 (81) 125/59 (84) 127/61 (82) Pulse Ox 96 97 96 O2 Delivery Room Air Room Air Room Air Capillary Refill : General Appearance: other (non-arousable, pale) HEENT: other (pupils small and nonreactive to light) Respiratory: lungs clear, normal breath sounds Cardiovascular: no murmur, bradycardia Gastrointestinal: normal bowel sounds, soft Extremities: no pedal edema Neurologic/Psychiatric: other (non-arousable to even painful stimuli) Skin: cool, pallor Assessment/Plan Assessment/Plan Admission Status: Inpatient Order (span 2 midnights) Reason for Inpatient Admission: Altered mental status with acute kidney injury and UTI (1) Metabolic acidosis Status: Acute Assessment & Plan: Suspect secondary to poor intake and ALEC. IVF and monitor. (2) Hypothyroidism Status: Chronic Assessment & Plan: TSH 6 at outside hospital, not high enough to suspect myxedema coma, resume home levothyroxine when able Qualifiers: Qualified Codes: E03.9 - Hypothyroidism, unspecified (3) Neurogenic bladder Status: Chronic Assessment & Plan: Intermittent self cath at home historically (4) COPD (chronic obstructive pulmonary disease) Status: Chronic Assessment & Plan: No hypoxia, wheezing or hypercapnea to suggest current exacerbation. CXR at outside hospital unremarkable. (5) Hyperlipidemia Status: Chronic (6) CKD (chronic kidney disease) Status: Chronic Assessment & Plan: Acute kidney injury suspected at ER, however, her clinic chart lists diagnosis of CKD, last lab there was summer 2019 and cr was 1.22 at that time. Currently stable. (7) Hypertension Status: Chronic (8) History of subdural hematoma Status: Chronic Assessment & Plan: Admitted to [facility] in Sep with AMS and frequnet falling and dx with subdural hematoma, admitted for 3 days and per clinic chart notes left AMA. Eliquis stopped at that time. (9) Anxiety Status: Resolved Assessment & Plan: History of using benzodiazepines outside of primary physician prescriptions. Per clinic chart review, she was on escitalopram outpatient, and was started on aripiprazole additionally on 12/12 for her mood d isorders. (10) Acute kidney insufficiency Status: Resolved (11) Urinary tract infection Status: Acute Assessment & Plan: Ceftriaxone. Does not have elevated lactic acid or leukocytosis, fever or tachypnea/tachycardia to suggest sepsis on arrival. Qualifiers: (12) Altered mental status Status: Acute Assessment & Plan: CT head without acute findings x 2 today, history of subdural hematoma but that appears to be resolved. Unclear etiology, failed to improve with flumazenil and naloxone, urine drug screen positive for benzo and barbiturate, home med list does contain butalbital for headaches. Possible psychosis/catatonia. EICU consulted, appreciate recommendations, monitor respiratory status closely, may need intubation for airway protection, but is currently stable and initial ABG without hypoxia or hypercapnia. Qualifiers: Qualified Codes: R40.0 - Somnolence (13) Anemia Status: Acute Assessment & Plan: Check iron studies and peripheral smear, stool occult blood. Has history of esophagitis, chronic gastric ulcer and diverticulosis per clinic chart. PPI. (14) DVT prophylaxis Status: Acute Assessment & Plan: Was on Eliquis in past for uncertain reason, this was stopped in Sep due to subdural hematoma. D dimer on admit normal. SCDs. VINICIO SAENZ MD Jan 20, 2021 15:34
[2021-01-20] MEDS: cefTRIAXone 1 GM PRE-MIX 50 ML IV SCH (16:23)
[2021-01-20] MEDS: inSUlin ASPART (NovoLOG) 1 UNIT/0.01 ML (CHARGE PER UNIT) SC SCH (16:34)
[2021-01-20] MEDS ORDERED: DEXTROSE 50% 50 ML (IMS) SYR ONE (16:39)
[2021-01-20 16:44] LABS: ABG BASE EXCESS -3.5 MMOL/L (-2.5-2.5); ABG OXYGEN SATURATION 92 % (94-100); ABG PCO2 46 MMHG (35-45); ABG PO2 70 MMHG (79-93); ABG TCO2 23.5 MMOL/L (21.0-31.0)
[2021-01-20] MEDS ORDERED: DEXTROSE 50% 50 ML (IMS) SYR IV ONE (16:45)
[2021-01-20 16:50] LABS: ALLENS TEST POS; INSPIRED O2 0; PATIENT TEMP 36.7; VENTILATOR NO
--- NOTE | 2021-01-20 17:04 | Tele-ICU Consult ---
History of Present Illness History of Present Illness Date Seen by Provider: Jan 20, 2021 Time Seen by Provider: 17:03 Date of Admission Allergies and Home Medications Allergies Coded Allergies: butorphanol (Unverified Allergy, Unknown, 10/01/13) ketorolac (Unverified Allergy, Unknown, 10/01/13) erythromycin base (Unverified Adverse Reaction, Intermediate, 03/03/13) Home Medications Cefuroxime Axetil 250 Mg Tablet, 250 MG PO BID Prescribed by: MARCO ROCA on 10/26/20 3058 Past Medical/Social/Family Hx Current Status Primary Language: Tamazight Review of Systems Constitutional: see HPI Sepsis Event Evaluation Height, Weight, BMI Height: 5'6.00" Weight: 115lbs. 0.0oz. [id number]; 18.38 BMI Method:Stated Exam Exam Patient acknowledged, consented, and participated in this virtual visit which was conducted using real time audio/video Vital Signs Date Time Temp Pulse Resp B/P (MAP) Pulse Ox O2 Delivery O2 Flow Rate FiO2 01/20/21 16:00 50 27 99 Room Air 01/20/21 15:45 57 25 100 Room Air 01/20/21 15:30 53 18 174/92 (104) 98 Room Air 01/20/21 15:15 52 13 161/81 (104) 98 Room Air 01/20/21 15:00 57 11 178/94 (115) 99 Room Air 01/20/21 15:00 100 Room Air 01/20/21 14:45 61 18 130/98 (104) 100 Room Air 01/20/21 14:30 45 14 159/76 (101) 100 Room Air 01/20/21 14:15 156/75 (106) 01/20/21 14:00 45 10 157/76 (97) 100 Room Air 01/20/21 13:45 46 15 147/70 (98) 99 Room Air 01/20/21 13:30 49 11 138/66 (92) 100 Room Air 01/20/21 13:22 49 01/20/21 13:15 49 14 142/70 (97) 98 Room Air 01/20/21 13:00 163/73 (111) Height & Weight Height: 5'6.00" Weight: 115lbs. 0.0oz. [id number]; 18.38 BMI Method:Stated General Appearance: No Apparent Distress Results Lab Laboratory Tests 01/20/21 13:35 01/20/21 14:32 Assessment/Plan Assessment/Plan (Tele-ICU Physician , consultation) Available chart/ vitals / labs / Images reviewed H&P is from transfer notes ROS as per chart and RN report Now in ICU, hemodynamically stable Video assessment done using teleICU camera, rest of exam as per RN Discussed with RN. Consultants: Hospital course: (01/20) 65 y/o female admitted for AMS, unresponsive. A/P Mental status change - IMPROVING, more responsive ( but still very lethargic , as per RB , can answers some questions now - CTH 01/20 - no acute findings - minimal respond to flumazenil and narcan - as per rn report = urine tox + for benzo and barbiturates - protecting airways - follow abg - r/o infection - ceftriaxoine started for presumed UTI, cx done UTI, suspected - abx to cont ALEC - cr 1,76 - cont hydration NS 100 -herman in place - good UO Mildly elev trop in face of ALEC - monitor - no ischemic changes on EKG HTN - improving Sinus addie - BP stable Amnemia - stable h/o SDH with fall last year - off AC Lines : periph (Central Line Necessity Reviewed) Herman: 01/20 OG: Nutrition: npo today Analgesia: Anxiety/ delirium VTE Prophylaxis: scd Stress Ulcer Prophylaxis: na Plans in collaboration with bedside consultants and IM MDs. Discussed with RN to reach out if any questions or concerns A total of 32 minutes of critical care time was devoted to this patient today, required to treat and/or prevent further deterioration of critical care condition ( as above ) . ELIZABETH BOWSER MD Jan 20, 2021 17:04
[2021-01-20] MEDS ORDERED: BUTA-235 PO (20:49)
[2021-01-20] MEDS ORDERED: ARIP15TA20 PO (20:49)
[2021-01-20] MEDS ORDERED: DICY20TA PO (20:49)
[2021-01-20] MEDS ORDERED: METO-333 PO (20:49)
[2021-01-20] MEDS ORDERED: BACL10TA PO (20:49)
[2021-01-20] MEDS ORDERED: PRIM50TA33 PO (20:49)
[2021-01-20] MEDS ORDERED: LEVO88TA54 PO (20:49)
[2021-01-20] MEDS ORDERED: ONDA4TAB11 PO (20:49)
[2021-01-20] MEDS ORDERED: ESCI20TA39 PO (20:49)
[2021-01-20] MEDS ORDERED: GABA300C PO (20:49)
[2021-01-20] MEDS ORDERED: ATOR10TA66 PO (20:49)
[2021-01-20] MEDS ORDERED: POTA10TA PO (20:49)
[2021-01-20] MEDS ORDERED: ALBU2.5V4 INH (20:49)
[2021-01-20 21:38] LABS: ABSOLUTE RETIC # 43 10e9/uL (24-90); BASOPHILS # (AUTO) 0.1 10^3/uL (0.0-0.1); BASOPHILS % (AUTO) 1 % (0-10); EOSINOPHILS # (AUTO) 0.3 10^3/uL (0.0-0.3); EOSINOPHILS % (AUTO) 4 % (0-10); HEMATOCRIT 39 % (35-52); HEMOGLOBIN 12.6 g/dL (11.5-16.0); LYMPHOCYTES # (AUTO) 2.9 10^3/uL (1.0-4.0); LYMPHOCYTES % (AUTO) 42 % (12-44); MEAN CORPUSCULAR HEMOGLOBIN 30 pg (25-34); MEAN CORPUSCULAR HGB CONC 32 g/dL (32-36); MEAN CORPUSCULAR VOLUME 92 fL (80-99); MEAN PLATELET VOLUME 9.9 fL (9.0-12.2); MONOCYTES # (AUTO) 0.9 10^3/uL (0.0-1.0); MONOCYTES % (AUTO) 12 % (0-12); NEUTROPHILS # (AUTO) 2.9 10^3/uL (1.8-7.8); NEUTROPHILS % (AUTO) 41 % (42-75); PLATELET COUNT 216 10^3/uL (130-400); RETICULOCYTE % 1.02 % (0.50-2.40)
[2021-01-20 22:21] LABS: EOSINOPHILS % (MANUAL) 5 %; LYMPHOCYTES % (MANUAL) 42 %; MONOCYTES % (MANUAL) 8 %; NEUTROPHILS % (MANUAL) 45 %
[2021-01-20 22:23] LABS: POIKILOCYTOSIS SLIGHT
[2021-01-21] VITALS (16 sets, daily range): BP systolic 98–178; BP diastolic 48–123
[2021-01-21] MEDS: inSUlin ASPART (NovoLOG) 1 UNIT/0.01 ML (CHARGE PER UNIT) SC SCH ×5 (00:09→23:52)
[2021-01-21] MEDS: NS IV 1000 ML 1,000 ML IV SCH ×4 (02:00→22:37)
[2021-01-21 04:37] LABS: BASOPHILS # (AUTO) 0.1 10^3/uL (0.0-0.1); BASOPHILS % (AUTO) 1 % (0-10); EOSINOPHILS # (AUTO) 0.3 10^3/uL (0.0-0.3); EOSINOPHILS % (AUTO) 5 % (0-10); HEMATOCRIT 34 % (35-52); HEMOGLOBIN 11.4 g/dL (11.5-16.0); LYMPHOCYTES # (AUTO) 1.7 10^3/uL (1.0-4.0); LYMPHOCYTES % (AUTO) 27 % (12-44); MEAN CORPUSCULAR HEMOGLOBIN 30 pg (25-34); MEAN CORPUSCULAR HGB CONC 33 g/dL (32-36); MEAN CORPUSCULAR VOLUME 91 fL (80-99); MONOCYTES # (AUTO) 0.6 10^3/uL (0.0-1.0); MONOCYTES % (AUTO) 9 % (0-12); NEUTROPHILS # (AUTO) 3.8 10^3/uL (1.8-7.8); NEUTROPHILS % (AUTO) 58 % (42-75); PLATELET COUNT 231 10^3/uL (130-400); WHITE BLOOD COUNT 6.6 10^3/uL (4.3-11.0)
[2021-01-21 04:49] LABS: ALBUMIN 3.6 GM/DL (3.2-4.5)
[2021-01-21 04:50] LABS: POTASSIUM 4.5 MMOL/L (3.6-5.0)
[2021-01-21 04:51] LABS: CALCIUM 8.5 MG/DL (8.5-10.1)
[2021-01-21 04:52] LABS: TOTAL PROTEIN 6.7 GM/DL (6.4-8.2)
[2021-01-21 04:54] LABS: BILIRUBIN,TOTAL 0.3 MG/DL (0.1-1.0)
[2021-01-21 04:55] LABS: PHOSPHORUS 3.1 MG/DL (2.3-4.7)
[2021-01-21 04:56] LABS: CREATININE SERUM 0.78 MG/DL (0.60-1.30)
[2021-01-21 04:59] LABS: MAGNESIUM 1.7 MG/DL (1.6-2.4)
[2021-01-21] MEDS: MAGNESIUM 1 GM/100 ML IVPB 100 ML IV SCH (05:07)
[2021-01-21] MEDS: KCL 20 MEQ TAB (K-DUR) PO SCH (05:07)
[2021-01-21] MEDS: POTASSIUM CL 10MEQ/50ML IVPB 50 ML IV SCH (05:07)
--- NOTE | 2021-01-21 09:42 | Progress Note ---
Subjective Subjective/Events-last exam Patient alert this morning, but speaking continuously and moving continuously in bed. States she has Eder in her and I have Eder in me, but then immediately moves on to say I must be getting paid enough, how much do I make, I guess it's enough, you know the truth, you are looking at that (when I looked at monitor) because you don't want to have to come back and see me later, and on and on. She is able to state her name, but when asked date and location she is very tangential, she does note she is in a hospital and mentions nurses, but also when I told her she was in [employer], she said no it's [place], [id number]. Focused Exam Lactate Level 01/20/21 13:35: Lactic Acid Level 0.49L Objective Exam Last Set of Vital Signs Vital Signs Date Time Temp Pulse Resp B/P (MAP) Pulse Ox O2 Delivery O2 Flow Rate FiO2 01/21/21 08:00 99 Room Air 01/21/21 07:45 36.2 01/21/21 06:00 68 17 116/77 (90) Capillary Refill : I&O Intake and Output 01/21/21 00:00 Intake Total 0 ml Output Total 2200 ml Balance -2200 ml Intake Oral 0 ml Output Urine Total 2200 ml General: Alert Lungs: Clear to Auscultation, Normal Air Movement Heart: Regular Rate, No Murmurs Abdomen: Normal Bowel Sounds, Soft Neuro: Other (tangential, in constant movement, does not answer questions directly) Results/Procedures Lab Laboratory Tests 01/20/21 13:18: Blood Gas Puncture Site UNKNOWN, Blood Gas Patient Temperature 36.0, Arterial Blood pH 7.32*L, Arterial Blood Partial Pressure CO2 44, Arterial Blood Partial Pressure O2 80, Arterial Blood HCO3 22L, Arterial Blood Total CO2 23.6, Arterial Blood Oxygen Saturation 96, Arterial Blood Base Excess -3.2L, Max Test NA, Blood Gas Ventilator Setting NO, Blood Gas Inspired Oxygen ROOM AIR 01/20/21 13:32: Glucometer 71 01/20/21 13:35: White Blood Count 3.7L, Red Blood Count 2.28L, Hemoglobin 6.9*L, Hematocrit 21L, Mean Corpuscular Volume 94, Mean Corpuscular Hemoglobin 30, Mean Corpuscular Hemoglobin Concent 32, Red Cell Distribution Width 15.9H, Platelet Count 143, Mean Platelet Volume 9.8, Immature Granulocyte % (Auto) 0, Neutrophils (%) (Auto) 51, Lymphocytes (%) (Auto) 37, Monocytes (%) (Auto) 10, Eosinophils (%) (Auto) 2, Basophils (%) (Auto) 1, Neutrophils # (Auto) 1.9, Lymphocytes # (Auto) 1.3, Monocytes # (Auto) 0.4, Eosinophils # (Auto) 0.1, Basophils # (Auto) 0.0, Immature Granulocyte # (Auto) 0.0, Prothrombin Time 16.6H, INR Comment 1.3, D- Dimer 0.29, Lactic Acid Level 0.49L 01/20/21 14:32: White Blood Count 5.2, Red Blood Count 3.18L, Hemoglobin 9.6#L, Hematocrit 29L, Mean Corpuscular Volume 93, Mean Corpuscular Hemoglobin 30, Mean Corpuscular Hemoglobin Concent 33, Red Cell Distribution Width 15.8H, Platelet Count 211, Mean Platelet Volume 10.0, Immature Granulocyte % (Auto) 0, Neutrophils (%) (Auto) 51, Lymphocytes (%) (Auto) 35, Monocytes (%) (Auto) 10, Eosinophils (%) (Auto) 3, Basophils (%) (Auto) 1, Neutrophils # (Auto) 2.7, Lymphocytes # (Auto) 1.8, Monocytes # (Auto) 0.5, Eosinophils # (Auto) 0.1, Basophils # (Auto) 0.1, Immature Granulocyte # (Auto) 0.0, Sodium Level 142, Potassium Level 3.8, Chloride Level 119H, Carbon Dioxide Level 17L, Anion Gap 6, Blood Urea Nitrogen 18, Creatinine 0.81, Estimat Glomerular Filtration Rate 71, BUN/Creatinine Ratio 22, Glucose Level 69L, Calcium Level 6.2L, Corrected Calcium 7.3L, Total Bilirubin 0.1, Aspartate Amino Transf (AST/SGOT) 24, Alanine Aminotransferase (ALT/SGPT) 16, Alkaline Phosphatase 71, Total Protein 5.0L, Albumin 2.6L 01/20/21 16:34: Glucometer 69L 01/20/21 16:38: Blood Gas Puncture Site LFTBRACH, Blood Gas Patient Temperature 36.7, Arterial Blood pH 7.30*L, Arterial Blood Partial Pressure CO2 46H, Arterial Blood Partial Pressure O2 70L, Arterial Blood HCO3 22L, Arterial Blood Total CO2 23.5, Arterial Blood Oxygen Saturation 92L, Arterial Blood Base Excess -3.5L, Max Test POS, Blood Gas Ventilator Setting NO, Blood Gas Inspired Oxygen 0 01/20/21 17:07: Glucometer 191H 01/20/21 21:04: White Blood Count 7.0, Red Blood Count 4.21, Hemoglobin 12.6#, Hematocrit 39, Mean Corpuscular Volume 92, Mean Corpuscular Hemoglobin 30, Mean Corpuscular Hemoglobin Concent 32, Red Cell Distribution Width 15.7H, Platelet Count 216, Mean Platelet Volume 9.9, Immature Granulocyte % (Auto) 0, Neutrophils (%) (Auto) 41L, Lymphocytes (%) (Auto) 42, Monocytes (%) (Auto) 12, Eosinophils (%) (Auto) 4, Basophils (%) (Auto) 1, Neutrophils # (Auto) 2.9, Lymphocytes # (Auto) 2.9, Monocytes # (Auto) 0.9, Eosinophils # (Auto) 0.3, Basophils # (Auto) 0.1, Immature Granulocyte # (Auto) 0.0, Neutrophils % (Manual) 45, Lymphocytes % (Manual) 42, Monocytes % (Manual) 8, Eosinophils % (Manual) 5, Percent Immature Platelet Fraction 2.9, Poikilocytosis SLIGHT, Absolute Reticulocyte Count 43, Percent Reticulocyte Count 1.02 01/21/21 04:12: White Blood Count 6.6, Red Blood Count 3.76L, Hemoglobin 11.4L, Hematocrit 34L, Mean Corpuscular Volume 91, Mean Corpuscular Hemoglobin 30, Mean Corpuscular Hemoglobin Concent 33, Red Cell Distribution Width 15.9H, Platelet Count 231, Mean Platelet Volume 10.0, Immature Granulocyte % (Auto) 0, Neutrophils (%) (Auto) 58, Lymphocytes (%) (Auto) 27, Monocytes (%) (Auto) 9, Eosinophils (%) (Auto) 5, Basophils (%) (Auto) 1, Neutrophils # (Auto) 3.8, Lymphocytes # (Auto) 1.7, Monocytes # (Auto) 0.6, Eosinophils # (Auto) 0.3, Basophils # (Auto) 0.1, Immature Granulocyte # (Auto) 0.0, Sodium Level 144, Potassium Level 4.5, Chloride Level 115H, Carbon Dioxide Level 18L, Anion Gap 11, Blood Urea Nitrogen 15, Creatinine 0.78, Estimat Glomerular Filtration Rate 74, BUN/Creatinine Ratio 19, Glucose Level 93, Calcium Level 8.5, Corrected Calcium 8.8, Phosphorus Level 3.1, Magnesium Level 1.7, Total Bilirubin 0.3, Aspartate Amino Transf (AST/SGOT) 24, Alanine Aminotransferase (ALT/SGPT) 20, Alkaline Phosphatase 92, Total Protein 6.7, Albumin 3.6 Assessment/Plan Assessment/Plan (1) Metabolic acidosis Status: Acute Assessment & Plan: Suspect secondary to poor intake and ALEC. IVF and monitor. (2) Hypothyroidism Status: Chronic Assessment & Plan: TSH 6 at outside hospital, not high enough to suspect myxedema coma, resume home levothyroxine when able Qualifiers: Qualified Codes: E03.9 - Hypothyroidism, unspecified (3) Neurogenic bladder Status: Chronic Assessment & Plan: Intermittent self cath at home historically (4) COPD (chronic obstructive pulmonary disease) Status: Chronic Assessment & Plan: No hypoxia, wheezing or hypercapnea to suggest current exacerbation. CXR at outside hospital unremarkable. (5) Hyperlipidemia Status: Chronic (6) CKD (chronic kidney disease) Status: Chronic Assessment & Plan: Acute kidney injury suspected at ER, however, her clinic chart lists diagnosis of CKD, last lab there was summer 2019 and cr was 1.22 at that time. Currently stable. (7) Hypertension Status: Chronic (8) History of subdural hematoma Status: Chronic Assessment & Plan: Admitted to [facility] in Sep with AMS and frequnet falling and dx with subdural hematoma, admitted for 3 days and per clinic chart notes left AMA. Eliquis stopped at that time. (9) Anxiety Status: Resolved Assessment & Plan: History of using benzodiazepines outside of primary physician prescriptions. Per clinic chart review, she was on escitalopram outpatient, and was started on aripiprazole additionally on 12/12 for her mood disorders. (10) Acute kidney insufficiency Status: Resolved (11) Urinary tract infection Status: Acute Assessment & Plan: Ceftriaxone. Does not have elevated lactic acid or leukocytosis, fever or tachypnea/tachycardia to suggest sepsis on arrival. Qualifiers: (12) Altered mental status Status: Acute Assessment & Plan: 01/20- CT head without acute findings x 2 today, history of subdural hematoma but that appears to be resolved. Unclear etiology, failed to improve with flumazenil and naloxone, urine drug screen positive for benzo and barbiturate, home med list does contain butalbital for headaches. Possible psychosis/catatonia. EICU consulted, appreciate recommendations, monitor respiratory status closely, may need intubation for airway protection, but is currently stable and initial ABG without hypoxia or hypercapnia. 01/21- now awake and alert, but somewhat agitated, in constant movement, cons tantly speaking without meaningful answers, suspect medication versus psychosis, will try small dose of seroquel Qualifiers: Qualified Codes: R40.0 - Somnolence (13) Anemia Status: Acute Assessment & Plan: Check iron studies and peripheral smear, stool occult blood. Has history of esophagitis, chronic gastric ulcer and diverticulosis per clinic chart. PPI. (14) DVT prophylaxis Status: Acute Assessment & Plan: Was on Eliquis in past for uncertain reason, this was stopped in Sep due to subdural hematoma. D dimer on admit normal. SCDs. VINICIO HERNANDEZ MD Jan 21, 2021 09:42
--- NOTE | 2021-01-21 11:52 | Tele-ICU Progress Note ---
Subjective Date Seen by a Provider: Jan 21, 2021 Time Seen by a Provider: 11:52 Sepsis Event Evaluation Height, Weight, BMI Height: 5'6.00" Weight: 115lbs. 0.0oz. 52.737967lu; 18.38 BMI Method:Stated Focused Exam Lactate Level 01/20/21 13:35: Lactic Acid Level 0.49L Exam Exam Patient acknowledged, consented, and participated in this virtual visit which was conducted using real time audio/video Vital Signs Date Time Temp Pulse Resp B/P (MAP) Pulse Ox O2 Delivery O2 Flow Rate FiO2 01/21/21 11:00 178/123 (141) Room Air 01/21/21 10:00 154/75 (101) Room Air 01/21/21 09:00 139/74 (95) Room Air 01/21/21 08:00 150/71 (97) Room Air 01/21/21 08:00 99 Room Air 01/21/21 07:45 36.2 01/21/21 07:00 70 24 127/84 (98) 96 Room Air 01/21/21 07:00 73 01/21/21 06:00 68 17 116/77 (90) 97 Room Air 01/21/21 05:00 65 14 141/59 (86) 97 Room Air 01/21/21 04:00 61 17 113/74 (92) 95 Room Air 01/21/21 04:00 99 Room Air 01/21/21 03:00 66 114/85 (95) 95 Room Air 01/21/21 02:00 67 22 120/96 (108) 97 Room Air 01/21/21 01:00 50 01/21/21 01:00 51 12 115/56 (94) 95 Room Air 01/21/21 00:00 99 Room Air 01/21/21 00:00 52 10 98/48 (65) 92 Room Air 01/21/21 00:00 36.0 01/20/21 22:00 52 16 116/59 (78) 100 Room Air 01/20/21 21:00 68 25 130/113 (119) 100 Room Air 01/20/21 20:00 35.9 01/20/21 20:00 99 Room Air 01/20/21 20:00 46 13 127/60 (82) 100 Room Air 01/20/21 19:00 49 25 125/58 (80) 100 Room Air 01/20/21 19:00 49 01/20/21 18:15 49 27 127/61 (82) 96 Room Air 01/20/21 18:00 50 28 125/59 (84) 97 Room Air 01/20/21 17:45 49 28 126/56 (81) 96 Room Air 01/20/21 17:30 49 26 119/60 (74) 97 Room Air 01/20/21 17:15 50 25 119/51 (77) 97 Room Air 01/20/21 17:00 54 19 133/61 (87) 97 Room Air 01/20/21 16:50 Room Air 01/20/21 16:45 52 23 95 Room Air 01/20/21 16:30 51 24 96 Room Air 01/20/21 16:21 50 16 133/66 (94) 95 Room Air 01/20/21 16:15 50 17 96 Room Air 01/20/21 16:00 50 27 99 Room Air 01/20/21 15:45 57 25 100 Room Air 01/20/21 15:30 53 18 174/92 (104) 98 Room Air 01/20/21 15:15 52 13 161/81 (104) 98 Room Air 01/20/21 15:00 57 11 178/94 (115) 99 Room Air 01/20/21 15:00 100 Room Air 01/20/21 14:45 61 18 130/98 (104) 100 Room Air 01/20/21 14:30 45 14 159/76 (101) 100 Room Air 01/20/21 14:15 156/75 (106) 01/20/21 14:00 45 10 157/76 (97) 100 Room Air 01/20/21 13:45 46 15 147/70 (98) 99 Room Air 01/20/21 13:30 49 11 138/66 (92) 100 Room Air 01/20/21 13:22 49 01/20/21 13:15 49 14 142/70 (97) 98 Room Air 01/20/21 13:00 36.3 50 12 98 Room Air 01/20/21 13:00 163/73 (111) I & O 01/21/21 07:00 Intake Total 0 ml Output Total 2800 ml Balance -2800 ml Height & Weight Height: 5'6.00" Weight: 115lbs. 0.0oz. 52.406249py; 18.38 BMI Method:Stated General Appearance: No Apparent Distress Gastrointestinal: normal bowel sounds, soft Results Lab Laboratory Tests 01/20/21 13:35 01/20/21 14:32 01/20/21 21:04 01/21/21 04:12 Assessment/Plan Assessment/Plan (Tele-ICU Physician , Progress Note ) Available chart/ vitals / labs / Images reviewed Video assessment done using teleICU camera, rest of exam as per RN Discussed with RN , EXAM PER RN Events overnight : Afebrile FiO2 - I/O = + Drips: Pressors: , hemodynamically stable Consultants: Hospital course: (01/20) 65 y/o female admitted for AMS, unresponsive. A/P Mental status change - IMPROVING very reponsive , but belingerent - CTH 01/20 - no acute findings - minimal respond to flumazenil and narcan - as per rn report = urine tox + for benzo and barbiturates - + infection - ceftriaxoine started for presumed UTI, cx done- but not classic TME UTI, suspected - abx to cont ALEC - cr 1,76 - cont hydration NS 100 -herman in place - good UO - improving Mildly elev trop in face of ALEC - monitor - no ischemic changes on EKG HTN - improving Sinus addie - BP stable Amnemia - stable h/o SDH with fall last year - off AC Lines : periph (Central Line Necessity Reviewed) Herman: 01/20 OG: Nutrition: npo today Analgesia: Anxiety/ delirium VTE Prophylaxis: scd Stress Ulcer Prophylaxis: na Plans in collaboration with bedside consultants and IM MDs. Discussed with RN to reach out if any questions or concerns A total of 32 minutes of critical care time was devoted to this patient today, required to treat and/or prevent further deterioration of critical care condition ( as above ) . ELIZABETH BOWSER MD Jan 21, 2021 11:52
[2021-01-21] MEDS: cefTRIAXone 1 GM PRE-MIX 50 ML IV SCH (15:26)
[2021-01-21] MEDS ORDERED: QUEtiapine 25 MG (SEROquel) TAB IMMEDIATE RELEASE PO SCH (16:30)
[2021-01-21] MEDS: HALOPERIDOL 5 MG/ML (HALDOL) VIAL IM PRN ×2 (18:32→22:38)
[2021-01-22] VITALS (8 sets, daily range): BP systolic 155–184; BP diastolic 73–92
[2021-01-22] MEDS: HALOPERIDOL 5 MG/ML (HALDOL) VIAL IM PRN (03:09)
[2021-01-22] MEDS: KCL 20 MEQ TAB (K-DUR) PO SCH (05:31)
[2021-01-22] MEDS: POTASSIUM CL 10MEQ/50ML IVPB 50 ML IV SCH (05:31)
[2021-01-22] MEDS: MAGNESIUM 1 GM/100 ML IVPB 100 ML IV SCH (05:31)
[2021-01-22] MEDS: inSUlin ASPART (NovoLOG) 1 UNIT/0.01 ML (CHARGE PER UNIT) SC SCH ×3 (05:32→18:11)
[2021-01-22] MEDS: NS IV 1000 ML 1,000 ML IV SCH ×4 (05:39→20:08)
[2021-01-22] MEDS ORDERED: QUEtiapine 25 MG (SEROquel) TAB IMMEDIATE RELEASE PO NR (07:45)
--- NOTE | 2021-01-22 08:43 | Progress Note ---
Subjective Subjective/Events-last exam Patient continues to speak continuously without meaningful speech or answers, but is not angry or agitated. Focused Exam Lactate Level 01/20/21 13:35: Lactic Acid Level 0.49L Objective Exam Last Set of Vital Signs Vital Signs Date Time Temp Pulse Resp B/P (MAP) Pulse Ox O2 Delivery O2 Flow Rate FiO2 01/22/21 07:51 36.3 01/22/21 04:00 73 12 95 Room Air 01/21/21 18:00 Capillary Refill : I&O Intake and Output 01/22/21 00:00 Intake Total 850 ml Output Total 1775 ml Balance -925 ml Intake Oral 850 ml Output Urine Total 1775 ml General: Alert Lungs: Clear to Auscultation Heart: Regular Rate, No Murmurs Psych/Mental Status: Other (speaking/mumbling continuously, at times repeating my words back to me) Results/Procedures Lab Laboratory Tests 01/21/21 11:44: Glucometer 88 01/21/21 18:19: Glucometer 73 Microbiology 01/21/21 MRSA Screen - Final, Complete MRSA not isolated Assessment/Plan Assessment/Plan (1) Metabolic acidosis Status: Acute Assessment & Plan: Suspect secondary to poor intake and ALEC. IVF and monitor. (2) Hypothyroidism Status: Chronic Assessment & Plan: TSH 6 at outside hospital, not high enough to suspect myxedema coma, resume home levothyroxine when able Qualifiers: Qualified Codes: E03.9 - Hypothyroidism, unspecified (3) Neurogenic bladder Status: Chronic Assessment & Plan: Intermittent self cath at home historically (4) COPD (chronic obstructive pulmonary disease) Status: Chronic Assessment & Plan: No hypoxia, wheezing or hypercapnea to suggest current exacerbation. CXR at outside hospital unremarkable. (5) Hyperlipidemia Status: Chronic (6) CKD (chronic kidney disease) Status: Chronic Assessment & Plan: Acute kidney injury suspected at ER, however, her clinic chart lists diagnosis of CKD, last lab there was summer 2019 and cr was 1.22 at that time. Currently stable. (7) Hypertension Status: Chronic (8) History of subdural hematoma Status: Chronic Assessment & Plan: Admitted to [place] in Sep with AMS and frequnet falling and dx with subdural hematoma, admitted for 3 days and per clinic chart notes left AMA. Eliquis stopped at that time. (9) Anxiety Status: Resolved Assessment & Plan: History of using benzodiazepines outside of primary physician prescriptions. Per clinic chart review, she was on escitalopram outpatient, and was started on aripiprazole additionally on 12/12 for her mood disorders. (10) Acute kidney insufficiency Status: Resolved (11) Urinary tract infection Status: Acute Assessment & Plan: Ceftriaxone. Does not have elevated lactic acid or leukocytosis, fever or tachypnea/tachycardia to suggest sepsis on arrival. Qualifiers: (12) Altered mental status Status: Acute Assessment & Plan: 01/20- CT head without acute findings x 2 today, history of subdural hematoma but that appears to be resolved. Unclear etiology, failed to improve with flumazenil and naloxone, urine drug screen positive for benzo and barbiturate, home med list does contain butalbital for headaches. Possible psychosis/catatonia. EICU consulted, appreciate recommendations, monitor respiratory status closely, may need intubation for airway protection, but is currently stable and initial ABG without hypoxia or hypercapnia. 01/21- now awake and alert, but somewhat agitated, in constant movement, constantly speaking without meaningful answers, suspect medication versus psy chosis, will try small dose of seroquel 01/22- would not take seroquel yesterday, did receive Haldol a few times, con tinues to be in constant non-meaningful speech, will try seroquel again today, transfer to floor Qualifiers: Qualified Codes: R40.0 - Somnolence (13) Anemia Status: Acute Assessment & Plan: Check iron studies and peripheral smear, stool occult blood. Has history of esophagitis, chronic gastric ulcer and diverticulosis per clinic chart. PPI. Iron studies normal (14) DVT prophylaxis Status: Acute Assessment & Plan: Was on Eliquis in past for uncertain reason, this was stopped in Sep due to subdural hematoma. D dimer on admit normal. SCDs. VINICIO HERNANDEZ MD Jan 22, 2021 08:42
[2021-01-22 09:10] LABS: BASOPHILS # (AUTO) 0.1 10^3/uL (0.0-0.1); BASOPHILS % (AUTO) 1 % (0-10); EOSINOPHILS % (AUTO) 0 % (0-10); HEMATOCRIT 34 % (35-52); HEMOGLOBIN 11.3 g/dL (11.5-16.0); LYMPHOCYTES # (AUTO) 1.3 10^3/uL (1.0-4.0); LYMPHOCYTES % (AUTO) 21 % (12-44); MEAN CORPUSCULAR HEMOGLOBIN 30 pg (25-34); MEAN CORPUSCULAR HGB CONC 33 g/dL (32-36); MEAN CORPUSCULAR VOLUME 91 fL (80-99); MONOCYTES # (AUTO) 0.3 10^3/uL (0.0-1.0); MONOCYTES % (AUTO) 5 % (0-12); NEUTROPHILS # (AUTO) 4.5 10^3/uL (1.8-7.8); NEUTROPHILS % (AUTO) 74 % (42-75); PLATELET COUNT 206 10^3/uL (130-400); WHITE BLOOD COUNT 6.1 10^3/uL (4.3-11.0)
[2021-01-22 09:29] LABS: ALBUMIN 3.7 GM/DL (3.2-4.5); BILIRUBIN,TOTAL 0.3 MG/DL (0.1-1.0); CALCIUM 8.7 MG/DL (8.5-10.1); CREATININE SERUM 0.68 MG/DL (0.60-1.30); MAGNESIUM 1.6 MG/DL (1.6-2.4); PHOSPHORUS 3.3 MG/DL (2.3-4.7); POTASSIUM 3.8 MMOL/L (3.6-5.0); TOTAL PROTEIN 6.7 GM/DL (6.4-8.2)
[2021-01-22] MEDS ORDERED: MTP25TSR PO (10:49)
[2021-01-22] MEDS: cefTRIAXone 1 GM PRE-MIX 50 ML IV SCH (12:39)
[2021-01-22] MEDS: QUEtiapine 25 MG (SEROquel) TAB IMMEDIATE RELEASE PO SCH (20:09)
[2021-01-23] VITALS (7 sets, daily range): BP systolic 143–188; BP diastolic 50–90
[2021-01-23] MEDS: NS IV 1000 ML 1,000 ML IV SCH ×2 (01:24→12:39)
[2021-01-23 03:56] LABS: BASOPHILS # (AUTO) 0.1 10^3/uL (0.0-0.1); BASOPHILS % (AUTO) 1 % (0-10); EOSINOPHILS # (AUTO) 0.1 10^3/uL (0.0-0.3); EOSINOPHILS % (AUTO) 1 % (0-10); HEMATOCRIT 35 % (35-52); HEMOGLOBIN 11.5 g/dL (11.5-16.0); LYMPHOCYTES # (AUTO) 1.2 10^3/uL (1.0-4.0); LYMPHOCYTES % (AUTO) 16 % (12-44); MEAN CORPUSCULAR HEMOGLOBIN 30 pg (25-34); MEAN CORPUSCULAR HGB CONC 33 g/dL (32-36); MEAN CORPUSCULAR VOLUME 91 fL (80-99); MONOCYTES # (AUTO) 0.4 10^3/uL (0.0-1.0); MONOCYTES % (AUTO) 5 % (0-12); NEUTROPHILS # (AUTO) 5.9 10^3/uL (1.8-7.8); NEUTROPHILS % (AUTO) 77 % (42-75); PLATELET COUNT 209 10^3/uL (130-400); WHITE BLOOD COUNT 7.7 10^3/uL (4.3-11.0)
[2021-01-23 04:07] LABS: ALBUMIN 3.7 GM/DL (3.2-4.5); POTASSIUM 3.4 MMOL/L (3.6-5.0)
[2021-01-23 04:09] LABS: CALCIUM 8.5 MG/DL (8.5-10.1)
[2021-01-23 04:10] LABS: TOTAL PROTEIN 6.9 GM/DL (6.4-8.2)
[2021-01-23] MEDS: KCL 20 MEQ TAB (K-DUR) PO SCH (04:10)
[2021-01-23 04:12] LABS: BILIRUBIN,TOTAL 0.4 MG/DL (0.1-1.0)
[2021-01-23 04:13] LABS: PHOSPHORUS 2.9 MG/DL (2.3-4.7)
[2021-01-23 04:14] LABS: CREATININE SERUM 0.68 MG/DL (0.60-1.30)
[2021-01-23 04:16] LABS: MAGNESIUM 1.5 MG/DL (1.6-2.4)
[2021-01-23] MEDS: inSUlin ASPART (NovoLOG) 1 UNIT/0.01 ML (CHARGE PER UNIT) SC SCH ×4 (04:19→18:05)
[2021-01-23] MEDS: MAGNESIUM 1 GM/100 ML IVPB 100 ML IV SCH ×3 (04:28→08:15)
[2021-01-23] MEDS: POTASSIUM CL 10MEQ/50ML IVPB 50 ML IV SCH ×3 (04:28→05:44)
[2021-01-23] MEDS: QUEtiapine 25 MG (SEROquel) TAB IMMEDIATE RELEASE PO SCH ×2 (08:15→20:36)
[2021-01-23] MEDS ORDERED: NON-FORMULARY MEDICATION 1 EA EA (Escitalopram Oxalate 20 MG) PO SCH (09:00)
[2021-01-23] MEDS: LEVOTHYROXINE 88 MCG (LEVOTHORID) TAB PO SCH (09:00)
[2021-01-23] MEDS: GABAPENTIN 300 MG (NEURONTIN) CAP PO SCH ×3 (09:03→20:39)
[2021-01-23] MEDS: AtorvaSTATin TABLET 10 MG TABLET PO SCH (09:03)
[2021-01-23] MEDS: BACLOFEN 10 MG (LIORESAL) TAB PO SCH ×2 (09:03→20:39)
--- NOTE | 2021-01-23 10:20 | Progress Note ---
Subjective Subjective/Events-last exam Afebrile, has intermittently stopped constant speech. This morning when I saw her, she continues to have some writhing movements, and was awake but did not answer questions. Did not follow instructions, but when I try to raise her arms or legs, she resisted with normal strength bilaterally. Focused Exam Lactate Level 01/20/21 13:35: Lactic Acid Level 0.49L Objective Exam Last Set of Vital Signs Vital Signs Date Time Temp Pulse Resp B/P (MAP) Pulse Ox O2 Delivery O2 Flow Rate FiO2 01/23/21 08:03 Room Air 01/23/21 08:00 35.7 79 16 178/86 (116) 97 Capillary Refill : I&O Intake and Output 01/23/21 00:00 Intake Total 2125 ml Output Total 2070 ml Balance 55 ml Intake Oral 75 ml IV Total 2050 ml Output Urine Total 2070 ml General: Alert, No Acute Distress Lungs: Clear to Auscultation, Normal Air Movement Heart: Regular Rate, No Murmurs Abdomen: Normal Bowel Sounds, Soft Neuro: Other (staring, does not answer questions, but has normal muscle strength in all 4 extremities- resists movement) Results/Procedures Lab Laboratory Tests 01/22/21 12:21: Glucometer 98 01/22/21 17:55: Glucometer 81 01/22/21 20:14: Glucometer 85 01/22/21 23:34: Glucometer 82 01/23/21 03:45: White Blood Count 7.7, Red Blood Count 3.81, Hemoglobin 11.5, Hematocrit 35, Mean Corpuscular Volume 91, Mean Corpuscular Hemoglobin 30, Mean Corpuscular Hemoglobin Concent 33, Red Cell Distribution Width 15.9H, Platelet Count 209, Mean Platelet Volume 10.0, Immature Granulocyte % (Auto) 0, Neutrophils (%) (Auto) 77H, Lymphocytes (%) (Auto) 16, Monocytes (%) (Auto) 5, Eosinophils (%) (Auto) 1, Basophils (%) (Auto) 1, Neutrophils # (Auto) 5.9, Lymphocytes # (Auto) 1.2, Monocytes # (Auto) 0.4, Eosinophils # (Auto) 0.1, Basophils # (Auto) 0.1, Immature Granulocyte # (Auto) 0.0, Sodium Level 140, Potassium Level 3.4L, Chloride Level 107, Carbon Dioxide Level 15L, Anion Gap 18H, Blood Urea Nitrogen 9, Creatinine 0.68, Estimat Glomerular Filtration Rate 87, BUN/Creatinine Ratio 13, Glucose Level 94, Calcium Level 8.5, Corrected Calcium 8.7, Phosphorus Level 2.9, Magnesium Level 1.5L, Total Bilirubin 0.4, Aspartate Amino Transf (AST/SGOT) 24, Alanine Aminotransferase (ALT/SGPT) 19, Alkaline Phosphatase 106, Total Protein 6.9, Albumin 3.7 01/23/21 07:22: Glucometer 122H Microbiology 01/21/21 MRSA Screen - Final, Complete MRSA not isolated Assessment/Plan Assessment/Plan (1) Metabolic acidosis Status: Acute Assessment & Plan: Suspect secondary to poor intake and ALEC. IVF and monitor. (2) Hypothyroidism Status: Chronic Assessment & Plan: TSH 6 at outside hospital, not high enough to suspect myxedema coma, resume home levothyroxine when able Qualifiers: Qualified Codes: E03.9 - Hypothyroidism, unspecified (3) Neurogenic bladder Status: Chronic Assessment & Plan: Intermittent self cath at home historically (4) COPD (chronic obstructive pulmonary disease) Status: Chronic Assessment & Plan: No hypoxia, wheezing or hypercapnea to suggest current exacerbation. CXR at outside hospital unremarkable. (5) Hyperlipidemia Status: Chronic (6) CKD (chronic kidney disease) Status: Chronic Assessment & Plan: Acute kidney injury suspected at ER, however, her clinic chart lists diagnosis of CKD, last lab there was summer 2019 and cr was 1.22 at that time. Currently stable. (7) Hypertension Status: Chronic (8) History of subdural hematoma Status: Chronic Assessment & Plan: Admitted to [place] in Sep with AMS and frequnet falling and dx with subdural hematoma, admitted for 3 days and per clinic chart notes left AMA. Eliquis stopped at that time. (9) Anxiety Status: Resolved Assessment & Plan: History of using benzodiazepines outside of primary physician prescriptions. Per clinic chart review, she was on escitalopram outpatient, and was started on aripiprazole additionally on 12/12 for her mood disorders. (10) Acute kidney insufficiency Status: Resolved (11) Urinary tract infection Status: Acute Assessment & Plan: Ceftriaxone. Does not have elevated lactic acid or leukocytosis, fever or tachypnea/tachycardia to suggest sepsis on arrival. Qualifiers: (12) Altered mental status Status: Acute Assessment & Plan: 12/13- CT head without acute findings x 2 today, history of subdural hematoma but that appears to be resolved. Unclear etiology, failed to improve with flumazenil and naloxone, urine drug screen positive for benzo and barbiturate, home med list does contain butalbital for headaches. Possible psychosis/catatonia. EICU consulted, appreciate recommendations, monitor respiratory status closely, may need intubation for airway protection, but is currently stable and initial ABG without hypoxia or hypercapnia. 01/21- now awake and alert, but somewhat agitated, in constant movement, constantly speaking without meaningful answers, suspect medication versus psychosis, will try small dose of seroquel 01/22- would not take seroquel yesterday, did receive Haldol a few times, contin ues to be in constant non-meaningful speech, will try seroquel again today, transfer to floor 01/23- was able to take seroquel with encouragement yesterday, has had some times of more quiet rest since, but is not responding verbally this morning. Continue current medications and monitor. Qualifiers: Qualified Codes: R40.0 - Somnolence (13) Anemia Status: Acute Assessment & Plan: Check iron studies and peripheral smear, stool occult blood. Has history of esophagitis, chronic gastric ulcer and diverticulosis per clinic chart. PPI. Iron studies normal, peripheral smear normal. (14) DVT prophylaxis Status: Acute Assessment & Plan: Was on Eliquis in past for uncertain reason, this was stopped in Sep due to subdural hematoma. D dimer on admit normal. SCDs. VINICIO HERNANDEZ MD Jan 23, 2021 10:20
[2021-01-23] MEDS ORDERED: OMEPRAZOLE 20 MG (PriLOSEC) CAP NON-FORMULARY PO SCH (12:00)
[2021-01-23] MEDS: cefTRIAXone 1 GM PRE-MIX 50 ML IV SCH (12:40)
[2021-01-23] MEDS: PANTOPRAZOLE 20 MG TABLET (PROTONIX) PO SCH (12:42)
[2021-01-24] VITALS (7 sets, daily range): BP systolic 137–180; BP diastolic 68–91
[2021-01-24] MEDS: inSUlin ASPART (NovoLOG) 1 UNIT/0.01 ML (CHARGE PER UNIT) SC SCH ×4 (00:44→18:10)
[2021-01-24] MEDS: NS IV 1000 ML 1,000 ML IV SCH (02:14)
[2021-01-24] MEDS: LEVOTHYROXINE 88 MCG (LEVOTHORID) TAB PO SCH (06:14)
[2021-01-24 06:28] LABS: HEMATOCRIT 41 % (35-52); HEMOGLOBIN 13.8 g/dL (11.5-16.0); MEAN CORPUSCULAR HEMOGLOBIN 30 pg (25-34); MEAN CORPUSCULAR HGB CONC 34 g/dL (32-36); MEAN CORPUSCULAR VOLUME 88 fL (80-99); MEAN PLATELET VOLUME 11.2 fL (9.0-12.2); PLATELET COUNT 203 10^3/uL (130-400)
[2021-01-24 06:44] LABS: POTASSIUM 2.9 MMOL/L (3.6-5.0)
[2021-01-24 06:45] LABS: CALCIUM 8.9 MG/DL (8.5-10.1)
[2021-01-24 06:50] LABS: CREATININE SERUM 0.66 MG/DL (0.60-1.30)
[2021-01-24] MEDS: GABAPENTIN 300 MG (NEURONTIN) CAP PO SCH ×3 (08:36→21:03)
[2021-01-24] MEDS: QUEtiapine 25 MG (SEROquel) TAB IMMEDIATE RELEASE PO SCH ×2 (08:36→21:03)
[2021-01-24] MEDS: AtorvaSTATin TABLET 10 MG TABLET PO SCH (08:37)
[2021-01-24] MEDS: meTOproloL SUCCINATE 50 MG (TOPROL XL) TAB PO SCH (08:37)
[2021-01-24] MEDS: HALOPERIDOL 5 MG/ML (HALDOL) VIAL IM PRN (08:48)
[2021-01-24] MEDS: BACLOFEN 10 MG (LIORESAL) TAB PO SCH ×2 (09:09→21:03)
[2021-01-24] MEDS: PANTOPRAZOLE 20 MG TABLET (PROTONIX) PO SCH (12:22)
[2021-01-24] MEDS: cefTRIAXone 1 GM PRE-MIX 50 ML IV SCH (12:23)
--- NOTE | 2021-01-24 12:29 | Progress Note ---
Subjective Subjective/Events-last exam Pt was agitated and confused this morning, given IM haldol and now pt lying in bed with eyes closed and initially doesn't answer, but when I asked her if she could talk to me today, she replied "She can a little bit". Then she was able to answer questions pretty well, able to state name, location and month and year. However, she also says her legs are disintegrating and don't work, and that she hears her daughter's voice in her head saying "Krystal, Krystal", who she says is her granddaughter. She also is repeating the last word of each sentence. Objective Exam Last Set of Vital Signs Vital Signs Date Time Temp Pulse Resp B/P (MAP) Pulse Ox O2 Delivery O2 Flow Rate FiO2 01/24/21 08:00 36.4 74 16 159/77 (104) 98 Room Air Capillary Refill : I&O Intake and Output 01/24/21 00:00 Intake Total 2350 ml Output Total 5150 ml Balance -2800 ml Intake Oral 0 ml IV Total 2350 ml Output Urine Total 5150 ml General: Alert, Oriented X3, No Acute Distress Lungs: Clear to Auscultation, Normal Air Movement Heart: Regular Rate, No Murmurs Abdomen: Normal Bowel Sounds, Soft Extremities: No Edema Neuro: Other (does not raise legs when asked, and when legs are lifted and let go, they drop down to bed with minimal resistance) Psych/Mental Status: Other (see HPI) Results/Procedures Lab Laboratory Tests 01/23/21 12:30: Glucometer 97 01/23/21 17:38: Glucometer 87 01/23/21 23:29: Glucometer 93 01/24/21 05:55: White Blood Count 10.0, Red Blood Count 4.66, Hemoglobin 13.8, Hematocrit 41, Mean Corpuscular Volume 88, Mean Corpuscular Hemoglobin 30, Mean Corpuscular Hemoglobin Concent 34, Red Cell Distribution Width 15.5H, Platelet Count 203, Mean Platelet Volume 11.2, Sodium Level 139, Potassium Level 2.9L, Chloride Level 102, Carbon Dioxide Level 20L, Anion Gap 17H, Blood Urea Nitrogen 9, Creatinine 0.66, Estimat Glomerular Filtration Rate 90, BUN/Creatinine Ratio 14, Glucose Level 101, Calcium Level 8.9, Magnesium Level 2.0 01/24/21 06:18: Glucometer 109 Microbiology 01/21/21 MRSA Screen - Final, Complete MRSA not isolated Assessment/Plan Assessment/Plan (1) Metabolic acidosis Status: Acute Assessment & Plan: Suspect secondary to poor intake and ALEC. IVF and monitor. (2) Hypothyroidism Status: Chronic Assessment & Plan: TSH 6 at outside hospital, not high enough to suspect myxedema coma, resume home levothyroxine when able Qualifiers: Qualified Codes: E03.9 - Hypothyroidism, unspecified (3) Neurogenic bladder Status: Chronic Assessment & Plan: Intermittent self cath at home historically (4) COPD (chronic obstructive pulmonary disease) Status: Chronic Assessment & Plan: No hypoxia, wheezing or hypercapnea to suggest current exacerbation. CXR at outside hospital unremarkable. (5) Hyperlipidemia Status: Chronic (6) CKD (chronic kidney disease) Status: Chronic Assessment & Plan: Acute kidney injury suspected at ER, however, her clinic chart lists diagnosis of CKD, last lab there was summer 2019 and cr was 1.22 at that time. Currently stable. (7) Hypertension Status: Chronic Assessment & Plan: 01/24 Increase metoprolol to 50 mg daily (8) History of subdural hematoma Status: Chronic Assessment & Plan: Admitted to [place] in Sep with AMS and frequnet falling and dx with subdural hematoma, admitted for 3 days and per clinic chart notes left AMA. Eliquis stopped at that time. (9) Anxiety Status: Resolved Assessment & Plan: History of using benzodiazepines outside of primary physician prescriptions. Per clinic chart review, she was on escitalopram outpatient, and was started on aripiprazole additionally on 12/12 for her mood disorders. (10) Acute kidney insufficiency Status: Resolved (11) Urinary tract infection Status: Acute Assessment & Plan: Ceftriaxone. Does not have elevated lactic acid or leukocytosis, fever or tachypnea/tachycardia to suggest sepsis on arrival. Qualifiers: (12) Altered mental status Status: Acute Assessment & Plan: 01/20- CT head without acute findings x 2 today, history of subdural hematoma but that appears to be resolved. Unclear etiology, failed to improve with flumazenil and naloxone, urine drug screen positive for benzo and barbiturate, home med list does contain butalbital for headaches. Possible psychosis/catatonia. EICU consulted, appreciate recommendations, monitor respiratory status closely, may need intubation for airway protection, but is currently stable and initial ABG without hypoxia or hypercapnia. 01/21- now awake and alert, but somewhat agitated, in constant movement, constantly speaking without meaningful answers, suspect medication versus psychosis, will try small dose of seroquel 01/22- would not take seroquel yesterday, did receive Haldol a few times, nate nues to be in constant non-meaningful speech, will try seroquel again today, transfer to floor 01/23- was able to take seroquel with encouragement yesterday, has had some times of more quiet rest since, but is not responding verbally this morning. Continue current medications and monitor. 01/24 shortly after Haldol, actually is the most clear she has been, but still having hallucinations, will increase seroquel dose. Qualifiers: Qualified Codes: R40.0 - Somnolence (13) Anemia Status: Resolved Assessment & Plan: Check iron studies and peripheral smear, stool occult blood. Has history of esophagitis, chronic gastric ulcer and diverticulosis per clinic chart. PPI. Iron studies normal, peripheral smear normal. (14) DVT prophylaxis Status: Acute Assessment & Plan: Was on Eliquis in past for uncertain reason, this was stopped in Sep due to subdural hematoma. D dimer on admit normal. SCDs. VINICIO HERNANDEZ MD Jan 24, 2021 12:29
[2021-01-24] MEDS: POTASSIUM CL 10MEQ/50ML IVPB 50 ML IV SCH ×6 (12:57→18:37)
[2021-01-24] MEDS ORDERED: amLODIPine 5 MG (NORVASC) TAB PO NR (17:00)
[2021-01-25 00:03] VITALS: BP 163/77
[2021-01-25] MEDS: inSUlin ASPART (NovoLOG) 1 UNIT/0.01 ML (CHARGE PER UNIT) SC SCH ×4 (00:27→18:00)
[2021-01-25] MEDS: NS IV 1000 ML 1,000 ML IV SCH ×2 (00:27→06:13)
[2021-01-25] MEDS: LEVOTHYROXINE 88 MCG (LEVOTHORID) TAB PO SCH (06:07)
[2021-01-25 07:57] VITALS: BP 176/79
[2021-01-25] MEDS: GABAPENTIN 300 MG (NEURONTIN) CAP PO SCH ×3 (08:48→21:43)
[2021-01-25] MEDS: QUEtiapine 25 MG (SEROquel) TAB IMMEDIATE RELEASE PO SCH ×2 (08:48→21:46)
[2021-01-25] MEDS: AtorvaSTATin TABLET 10 MG TABLET PO SCH (08:49)
[2021-01-25] MEDS: amLODIPine 5 MG (NORVASC) TAB PO SCH (08:49)
[2021-01-25] MEDS: BACLOFEN 10 MG (LIORESAL) TAB PO SCH ×2 (08:49→21:43)
[2021-01-25] MEDS: meTOproloL SUCCINATE 50 MG (TOPROL XL) TAB PO SCH (08:49)
[2021-01-25] MEDS: HALOPERIDOL 5 MG/ML (HALDOL) VIAL IM PRN (11:01)
--- NOTE | 2021-01-25 11:32 | Progress Note ---
Subjective Subjective/Events-last exam Sleeping this morning, nurse just had to give her haldol and requested she not be disturbed if possible. She does better after anti-psychotics, but is tending to refuse to take oral medications. Objective Exam Last Set of Vital Signs Vital Signs Date Time Temp Pulse Resp B/P (MAP) Pulse Ox O2 Delivery O2 Flow Rate FiO2 01/25/21 08:00 Room Air 01/25/21 07:57 36.8 65 18 176/79 (111) 96 01/24/21 22:52 2.00 Capillary Refill : I&O Intake and Output 01/25/21 00:00 Intake Total 1540 ml Output Total 2950 ml Balance -1410 ml Intake Oral 440 ml IV Total 1100 ml Output Urine Total 2950 ml # Bowel Movements 1 General: Other (sleeping soundly) Results/Procedures Lab Laboratory Tests 01/24/21 12:45: Glucometer 100 01/24/21 17:16: Glucometer 78 01/25/21 00:07: Glucometer 81 01/25/21 05:30: Glucometer 87 Microbiology 01/21/21 MRSA Screen - Final, Complete MRSA not isolated Assessment/Plan Assessment/Plan (1) Metabolic acidosis Status: Acute Assessment & Plan: Suspect secondary to poor intake and ALEC. IVF and monitor. 01/25 refused labs this morning (2) Hypothyroidism Status: Chronic Assessment & Plan: TSH 6 at outside hospital, not high enough to suspect myxedema coma, resumed home levothyroxine Qualifiers: Qualified Codes: E03.9 - Hypothyroidism, unspecified (3) Neurogenic bladder Status: Chronic Assessment & Plan: Intermittent self cath at home historically (4) COPD (chronic obstructive pulmonary disease) Status: Chronic Assessment & Plan: No hypoxia, wheezing or hypercapnea to suggest current exacerbation. CXR at outside hospital unremarkable. (5) Hyperlipidemia Status: Chronic (6) CKD (chronic kidney disease) Status: Chronic Assessment & Plan: Acute kidney injury suspected at ER, however, her clinic chart lists diagnosis of CKD, last lab there was summer 2019 and cr was 1.22 at that time. Currently stable. (7) Hypertension Status: Chronic Assessment & Plan: 01/25 Increase metoprolol to 50 mg daily, added amlodipine, however she refuses to take medications frequently, may have to use IV if persistently elevated and refusing (8) History of subdural hematoma Status: Chronic Assessment & Plan: Admitted to [facility] in Sep with AMS and frequnet falling and dx with subdural hematoma, admitted for 3 days and per clinic chart notes left AMA. Eliquis stopped at that time. (9) Anxiety Status: Resolved Assessment & Plan: History of using benzodiazepines outside of primary physician prescriptions. Per clinic chart review, she was on escitalopram outpatient, and was started on aripiprazole additionally on 12/12 for her mood disorders. (10) Acute kidney insufficiency Status: Resolved (11) Urinary tract infection Status: Acute Assessment & Plan: Ceftriaxone. Does not have elevated lactic acid or leukocytosis, fever or tachypnea/tachycardia to suggest sepsis on arrival. Qualifiers: (12) Altered mental status Status: Acute Assessment & Plan: 01/20- CT head without acute findings x 2 today, history of subdural hematoma but that appears to be resolved. Unclear etiology, failed to improve with flumazenil and naloxone, urine drug screen positive for benzo and barbiturate, home med list does contain butalbital for headaches. Possible psychosis/catatonia. EICU consulted, appreciate recommendations, monitor respiratory status closely, may need intubation for airway protection, but is currently stable and initial ABG without hypoxia or hypercapnia. 01/21- now awake and alert, but somewhat agitated, in constant movement, constantly speaking without meaningful answers, suspect medication versus psychosis, will try small dose of seroquel 01/22- would not take seroquel yesterday, did receive Haldol a few times, continues to be in constant non-meaningful speech, will try seroquel again today, transfer to floor 01/23- was able to take seroquel with encouragement yesterday, has had some times of more quiet rest since, but is not responding verbally this morning. Continue current medications and monitor. 01/24 shortly after Haldol, actually is the most clear she has been, but still having hallucinations, will increase seroquel dose. 01/25- does better after anti-psychotic but often refuses oral, continue to encourage medication use, has some slight improvements Qualifiers: Qualified Codes: R40.0 - Somnolence (13) Anemia Status: Resolved Assessment & Plan: Check iron studies and peripheral smear, stool occult blood. Has history of esophagitis, chronic gastric ulcer and diverticulosis per clinic chart. PPI. Iron studies normal, peripheral smear normal. (14) DVT prophylaxis Status: Acute Assessment & Plan: Was on Eliquis in past for uncertain reason, this was stopped in Sep due to subdural hematoma. D dimer on admit normal. SCDs. VINICIO HERNANDEZ MD Jan 25, 2021 11:32
[2021-01-25] MEDS: PANTOPRAZOLE 20 MG TABLET (PROTONIX) PO SCH (11:38)
[2021-01-25 12:00] VITALS: BP 128/76
[2021-01-25 16:00] VITALS: BP 171/82
[2021-01-25 19:51] VITALS: BP 162/77
[2021-01-26] VITALS: BP 158/82
[2021-01-26] MEDS: inSUlin ASPART (NovoLOG) 1 UNIT/0.01 ML (CHARGE PER UNIT) SC SCH ×4 (00:07→18:19)
[2021-01-26 04:00] VITALS: BP 168/86
[2021-01-26] MEDS: LEVOTHYROXINE 88 MCG (LEVOTHORID) TAB PO SCH (06:23)
[2021-01-26 06:49] LABS: BASOPHILS # (AUTO) 0.1 10^3/uL (0.0-0.1); BASOPHILS % (AUTO) 1 % (0-10); EOSINOPHILS # (AUTO) 0.4 10^3/uL (0.0-0.3); EOSINOPHILS % (AUTO) 5 % (0-10); HEMATOCRIT 44 % (35-52); LYMPHOCYTES # (AUTO) 1.9 10^3/uL (1.0-4.0); LYMPHOCYTES % (AUTO) 26 % (12-44); MEAN CORPUSCULAR HEMOGLOBIN 30 pg (25-34); MEAN CORPUSCULAR HGB CONC 34 g/dL (32-36); MEAN CORPUSCULAR VOLUME 89 fL (80-99); MEAN PLATELET VOLUME 10.2 fL (9.0-12.2); MONOCYTES # (AUTO) 0.5 10^3/uL (0.0-1.0); MONOCYTES % (AUTO) 7 % (0-12); NEUTROPHILS # (AUTO) 4.4 10^3/uL (1.8-7.8); NEUTROPHILS % (AUTO) 60 % (42-75); PLATELET COUNT 221 10^3/uL (130-400); WHITE BLOOD COUNT 7.3 10^3/uL (4.3-11.0)
[2021-01-26 07:06] LABS: POTASSIUM 3.5 MMOL/L (3.6-5.0)
[2021-01-26 07:07] LABS: CALCIUM 9.2 MG/DL (8.5-10.1)
[2021-01-26 07:11] LABS: CREATININE SERUM 0.64 MG/DL (0.60-1.30)
[2021-01-26 08:00] VITALS: BP 176/94
[2021-01-26] MEDS: BACLOFEN 10 MG (LIORESAL) TAB PO SCH ×2 (08:22→21:00)
[2021-01-26] MEDS: meTOproloL SUCCINATE 50 MG (TOPROL XL) TAB PO SCH (08:22)
[2021-01-26] MEDS: GABAPENTIN 300 MG (NEURONTIN) CAP PO SCH ×3 (08:22→21:00)
[2021-01-26] MEDS: AtorvaSTATin TABLET 10 MG TABLET PO SCH (08:22)
[2021-01-26] MEDS: amLODIPine 5 MG (NORVASC) TAB PO SCH (08:22)
[2021-01-26] MEDS: QUEtiapine 25 MG (SEROquel) TAB IMMEDIATE RELEASE PO SCH (08:26)
--- NOTE | 2021-01-26 09:47 | Progress Note ---
Subjective Subjective/Events-last exam This morning Sarita knows who I am and is speaking in completely normal tones with no extra or abnormal content. She says she hasn't slept well and has some pain in her left abdomen which she gets when she gets stressed. She says she doesn't think she took any extra or nonprescribed medications before admission, but that she has had similar break down type events near [place] before because her mother kicked her son out on Feb 03 a previous year. She says her stress would be better if we would give her some Ativan, and she initially says she just wants it while here, but then says she needs it for a couple of days only outpatient. She also says that her mother is wrong about her just sleeping in her room, she says she is doing things and staying busy like switching out her spring clothes for winter clothes, etc while she is in her room. She thinks her mother is causing trouble for her with her provider, because she started seeing the same provider and then shortly after she feels her provider wanted to change and stop her medications. She denies hearing voices or seeing things today. She say seroquel gives her wavy vision so she won't take it. She says Abilify which was started outpatient doesn't help at all. She says she tried to see Psychiatry but they made her do weekly visits for 4 weeks and talk about substance use which she denies (says she kicked drinking alcohol years ago) before she could see the Psychiatrist over televisit, and then they didn't want to give her any medications. Objective Exam Last Set of Vital Signs Vital Signs Date Time Temp Pulse Resp B/P (MAP) Pulse Ox O2 Delivery O2 Flow Rate FiO2 01/26/21 04:00 36.9 69 18 168/86 (113) 97 Room Air 01/24/21 22:52 2.00 Capillary Refill : I&O Intake and Output 01/26/21 00:00 Intake Total 1240 ml Output Total 2325 ml Balance -1085 ml Intake Oral 1240 ml Output Urine Total 2325 ml General: Alert, Oriented X3, No Acute Distress Lungs: Clear to Auscultation, Normal Air Movement Heart: Regular Rate, No Murmurs Neuro: Normal Speech Psych/Mental Status: Mood NL Results/Procedures Lab Laboratory Tests 12/18/21 17:51: Glucometer 84 01/26/21 00:06: Glucometer 100 01/26/21 06:22: Glucometer 101 01/26/21 06:45: White Blood Count 7.3, Red Blood Count 4.96, Hemoglobin 15.0, Hematocrit 44, Mean Corpuscular Volume 89, Mean Corpuscular Hemoglobin 30, Mean Corpuscular Hemoglobin Concent 34, Red Cell Distribution Width 15.3H, Platelet Count 221, Mean Platelet Volume 10.2, Immature Granulocyte % (Auto) 0, Neutrophils (%) (Auto) 60, Lymphocytes (%) (Auto) 26, Monocytes (%) (Auto) 7, Eosinophils (%) (Auto) 5, Basophils (%) (Auto) 1, Neutrophils # (Auto) 4.4, Lymphocytes # (Auto) 1.9, Monocytes # (Auto) 0.5, Eosinophils # (Auto) 0.4H, Basophils # (Auto) 0.1, Immature Granulocyte # (Auto) 0.0, Sodium Level 139, Potassium Level 3.5L, Chloride Level 104, Carbon Dioxide Level 22, Anion Gap 13, Blood Urea Nitrogen 11, Creatinine 0.64, Estimat Glomerular Filtration Rate 93, BUN/Creatinine Ratio 17, Glucose Level 91, Calcium Level 9.2 Microbiology 01/21/21 MRSA Screen - Final, Complete MRSA not isolated Assessment/Plan Assessment/Plan (1) Metabolic acidosis Status: Resolved Assessment & Plan: Suspect secondary to poor intake and ALEC. IVF and monitor. 01/25 refused labs this morning 01/26 resolved (2) Hypothyroidism Status: Chronic Assessment & Plan: TSH 6 at outside hospital, not high enough to suspect myxedema coma, resumed home levothyroxine Qualifiers: Qualified Codes: E03.9 - Hypothyroidism, unspecified (3) Neurogenic bladder Status: Chronic Assessment & Plan: Intermittent self cath at home historically 01/26 d/c virgil (4) COPD (chronic obstructive pulmonary disease) Status: Chronic Assessment & Plan: No hypoxia, wheezing or hypercapnea to suggest current exacerbation. CXR at outside hospital unremarkable. (5) Hyperlipidemia Status: Chronic (6) CKD (chronic kidney disease) Status: Chronic Assessment & Plan: Acute kidney injury suspected at ER, however, her clinic chart lists diagnosis of CKD, last lab there was summer 2019 and cr was 1.22 at that time. Currently stable. (7) Hypertension Status: Chronic Assessment & Plan: 01/25 Increase metoprolol to 50 mg daily, added amlodipine, however she refuses to take medications frequently, may have to use IV if persistently elevated and refusing (8) History of subdural hematoma Status: Chronic Assessment & Plan: Admitted to [facility] in Sep with AMS and frequnet falling and dx with subdural hematoma, admitted for 3 days and per clinic chart notes left AMA. Eliquis stopped at that time. (9) Anxiety Status: Resolved Assessment & Plan: History of using benzodiazepines outside of primary physician prescriptions. Per clinic chart review, she was on escitalopram outpatient, and was started on aripiprazole additionally on 12/12 for her mood disorders. (10) Acute kidney insufficiency Status: Resolved (11) Urinary tract infection Status: Resolved Assessment & Plan: Completed course of ceftriaxone. Did not have elevated lactic acid or leukocytosis, fever or tachypnea/tachycardia to suggest sepsis on arrival. Qualifiers: (12) Altered mental status Status: Acute Assessment & Plan: 01/20- CT head without acute findings x 2 today, history of subdural hematoma but that appears to be resolved. Unclear etiology, failed to improve with flumazenil and naloxone, urine drug screen positive for benzo and barbiturate, home med list does contain butalbital for headaches. Possible psychosis/catatonia. EICU consulted, appreciate recommendations, monitor respiratory status closely, may need intubation for airway protection, but is currently stable and initial ABG without hypoxia or hypercapnia. 01/21- now awake and alert, but somewhat agitated, in constant movement, constantly speaking without meaningful answers, suspect medication versus psychosis, will try small dose of seroquel 01/22- would not take seroquel yesterday, did receive Haldol a few times, continues to be in constant non-meaningful speech, will try seroquel again today, transfer to floor 01/23- was able to take seroquel with encouragement yesterday, has had some times of more quiet rest since, but is not responding verbally this morning. Continue current medications and monitor. 01/24 shortly after Haldol, actually is the most clear she has been, but still having hallucinations, will increase seroquel dose. 01/25- does better after anti-psychotic but often refuses oral, continue to encourage medication use, has some slight improvements 01/26 appears quite clear on exam today, will d/c herman and encourage ambulation, she does not want to take Seroquel due to side effects, will resume home abilify. Qualifiers: Qualified Codes: R40.0 - Somnolence (13) Anemia Status: Resolved Assessment & Plan: Check iron studies and peripheral smear, stool occult blood. Has history of esophagitis, chronic gastric ulcer and diverticulosis per clinic chart. PPI. Iron studies normal, peripheral smear normal. (14) DVT prophylaxis Status: Acute Assessment & Plan: Was on Eliquis in past for uncertain reason, this was stopped in Sep due to subdural hematoma. D dimer on admit normal. SCDs. VINICIO HERNANDEZ MD Jan 26, 2021 09:47
[2021-01-26] MEDS ORDERED: KCL 20 MEQ TAB (K-DUR) PO ONE (11:30)
[2021-01-26 12:00] VITALS: BP 149/83
[2021-01-26] MEDS: PANTOPRAZOLE 20 MG TABLET (PROTONIX) PO SCH (12:24)
[2021-01-26 16:15] VITALS: BP 140/70
[2021-01-26 20:00] VITALS: BP 193/84
[2021-01-27] VITALS: BP 161/74
[2021-01-27 04:00] VITALS: BP 152/76
[2021-01-27] MEDS: LEVOTHYROXINE 88 MCG (LEVOTHORID) TAB PO SCH (06:51)
[2021-01-27 07:57] VITALS: BP 148/92
[2021-01-27] MEDS: AtorvaSTATin TABLET 10 MG TABLET PO SCH (09:06)
[2021-01-27] MEDS: meTOproloL SUCCINATE 50 MG (TOPROL XL) TAB PO SCH (09:06)
[2021-01-27] MEDS: GABAPENTIN 300 MG (NEURONTIN) CAP PO SCH (09:06)
[2021-01-27] MEDS: amLODIPine 5 MG (NORVASC) TAB PO SCH (09:06)
[2021-01-27] MEDS: BACLOFEN 10 MG (LIORESAL) TAB PO SCH (09:06)
[2021-01-27] MEDS ORDERED: AMLO-250 PO (10:08)
--- NOTE | 2021-01-27 10:10 | Discharge Summary ---
Discharge Summary Hospital Course Was the Problem List Reviewed?: Yes Problems/Dx: (1) Altered mental status Status: Acute Qualifiers: Qualified Codes: R40.0 - Somnolence (2) Urinary tract infection Status: Resolved Qualifiers: (3) Metabolic acidosis Status: Resolved (4) History of schizophrenia Status: Chronic (5) Acute kidney insufficiency Status: Resolved (6) Delusions of parasitosis Status: Acute (7) Peripheral neuropathy Status: Acute (8) GERD (gastroesophageal reflux disease) (9) Anxiety Status: Resolved Hospital Course Date of Admission: Jan 20, 2021 at 12:33 Admission Diagnosis : Family Physician/Provider: [facility] Date of Discharge: 01/27/21 Discharge Diagnosis: Altered mental status, history of schizophrenia UTI, acute kidney injury, dehydration Hospital Course: Hospital course: Pt had an uneventful but lengthy hospital course for eight days when she came in with altered mental status and acute kidney injury. IV fluid and supportive care was initiated and she was originally unresponsive. She is complaining of right arm pain from an injection but no outward signs of any injury. She was very psychotic but now we are restarted her on all home medications and she is ready to go home. Labs and Pending Lab Test: Laboratory Tests 01/26/21 12:30: Glucometer 146H 01/26/21 17:16: Glucometer 116H Microbiology 01/21/21 MRSA Screen - Final, Complete MRSA not isolated Home Meds Active Amlodipine Besylate 5 Mg Tablet 5 Mg PO DAILY Reported Metoprolol Succinate 25 Mg Tab.er.24h 25 Mg PO DAILY Baclofen 10 Mg Tablet 10 Mg PO BID Atorvastatin Calcium 10 Mg Tablet 10 Mg PO DAILY Levothyroxine Sodium 88 Mcg Tablet 88 Mcg PO DAILY Ondansetron Odt (Ondansetron) 4 Mg Tab.rapdis 1 Tab PO Q4H PRN Mysoline (Primidone) 50 Mg Tablet 50 Mg PO BID LAST FILLED 11-28-2020 #60/30 [employer] Afjkhi-Zphawocy-Wjav 50-325-40 (Butalb/Acetaminophen/Caffeine) 1 Each Tablet 1 Tab PO Q12H PRN Escitalopram Oxalate 20 Mg Tablet 20 Mg PO DAILY K-Tab ER (Potassium Chloride) 10 Meq Tablet.er 10 Meq PO DAILY Aripiprazole 15 Mg Tablet 15 Mg PO DAILY Albuterol Sulfate 2.5 Mg/3 Ml Vial.neb 2.5 Mg INH Q4H PRN Neurontin (Gabapentin) 300 Mg Capsule 300 Mg PO TID Omeprazole 20 Mg Capsule.dr 20 Mg PO 1200 Assessment/Pt Instructions PCP in 1 week Discharge Planning: <30 minutes discharge planning Discharge Physical Examination Vital Signs Vital Signs Date Time Temp Pulse Resp B/P (MAP) Pulse Ox O2 Delivery O2 Flow Rate FiO2 01/27/21 07:57 36.3 72 20 148/92 (110) 96 Room Air 01/24/21 22:52 2.00 General Appearance: No Apparent Distress, WD/WN, Chronically ill Allergies: Coded Allergies: butorphanol (Unverified Allergy, Unknown, 10/01/13) ketorolac (Unverified Allergy, Unknown, 10/01/13) erythromycin base (Unverified Adverse Reaction, Intermediate, 03/03/13) Discharge Summary Date of Admission Jan 20, 2021 at 12:33 Date of Discharge TOMASA CERVANTES DO Jan 27, 2021 10:09
[2021-01-27 11:32] VITALS: BP 147/77
[2021-01-27] MEDS: PANTOPRAZOLE 20 MG TABLET (PROTONIX) PO SCH (11:57)
--- NOTE | 2021-01-27 12:25 | Progress Note ---
KETAN TALBERT 01/27/21 1225: Progress Note On 01/20, patient transferred to [facility] from [facility] where she was seen with a chief complaint of somnolence and acute kidney injury. Patient was found to have increased anger and agitation for three days. Found to be talking to herself and with tremors. Patient found to have a history of anger and depression. Patient also has a history of opioid abuse and was placed on suboxone, believed to have finished three months ago. Patient was also found to have a history of a subdural hematoma. At the ER patient's mother stated that the patient reportedly hit her head from an episode of tremors earlier that day. Patient's CT head was unremarkable. Patient did have a urine analysis positive for benzodiazepines and barbiturates. Status did not improve with naloxone or flumazenil. When patient arrived at [facility] she was found to be unresponsive to sternal rub and transferred to the ICU. Patient had a repeat CT head that was again unremarkable. Patient had another dose of both flumazenil and naloxone, which did not improve her status. Patient's urinalysis showed a UTI, she was placed on ceftriaxone. Her labs showed a resolved acute kidney injury, which lead to the discovery that there is a history of chronic kidney disease. 01/21 Patient still had altered mental status. Attempted to start Seroquel, which patient refused. Patient did have a few doses of Haldol 01/22 Patient still had altered mental status, but did have small improvements. Vijaya franco was transferred from the ICU to Med/Surg floor. Seroquel was attempted again 01/23 Patient took Seroquel, showing small signs of improvement 01/24 Patient still having some hallucinations, increased dose of Seroquel 01/25 Patient's status remain similar to 01/24. 01/26 Patient found to have a cleared mental status. Her herman catheter was discontinued. Patient also asked to discontinue Seroquel due to a history of adverse reactions. Started back on home Abilify. 01/27 Patient's status continued to improve, asked to go home, and patient was cleared for discharge. SHANEKA CERVANTES DO 01/28/21 0546: Supervisory-Addendum Brief Verification & Attestation Participated in pt care: history, MDM, physical Personally performed: exam, history, MDM, supervision of care Care discussed with: Medical Student Procedures: n/a Results interpretation: Verified all documentation Verification and Attestation of Medical Student E/M Service A medical student performed and documented this service in my presence. I reviewed and verified all information documented by the medical student and made modifications to such information, when appropriate. I personally performed the physical exam and medical decision making. Shaneka Cervantes, Jan 28, 2021,05:46 KETAN TALBERT Jan 27, 2021 12:25 SHANEKA CERVANTES DO Jan 28, 2021 05:46
== END 2021-01-27 13:30 | disposition home or self-care (01) | DRG 683 ==
LOC: OBSVTOIN 12:33 → 4TH 12:33 → ICU 13:15 → 4TH 01-22 09:47
PROVIDERS: ADMIT Family Medicine; ATTEND Internal Medicine
DX: N17.9 Acute kidney failure, unspecified (principal); N39.0 Urinary tract infection, site not specified; E87.2 Acidosis; R40.0 Somnolence; E86.0 Dehydration; E03.9 Hypothyroidism, unspecified; N31.9 Neuromuscular dysfunction of bladder, unspecified; J44.9 Chronic obstructive pulmonary disease, unspecified; I12.9 Hypertensive chronic kidney disease with stage 1 through stage 4 chronic kidney disease, or unspecified chronic kidney disease; N18.9 Chronic kidney disease, unspecified; F41.9 Anxiety disorder, unspecified; D64.9 Anemia, unspecified; F20.9 Schizophrenia, unspecified; F22 Delusional disorders; Z88.6 Allergy status to analgesic agent; Z88.1 Allergy status to other antibiotic agents; Z88.5 Allergy status to narcotic agent
CPT/HCPCS: 36410; 36415; 36600; 70450; 76937; 80048; 80053; 82728; 82805; 82947; 83540; 83550; 83605; 83735; 84100; 85007; 85025; 85027; 85045; 85055; 85379; 85610; 87081

== ENCOUNTER → 2021-08-05 | Outpatient (CLI) | payer MEDICAID ==
[~2021-08-05] MED LIST changes: +ALBU2.5V4 INH; +AMLO-250 PO; +ARIP15TA20 PO; +BACL10TA PO; +BUTA-235 PO; +DICY20TA PO; +ESCI20TA39 PO; +GABA300C PO; +LEVO88TA54 PO; +METO-333 PO; +MTP25TSR PO; +ONDA4TAB11 PO; +POTA10TA PO; +PRIM50TA33 PO
== END | disposition home or self-care (01) ==
LOC: PREOP 08:41
PROVIDERS: ATTEND Specialist
DX: Z01.818 Encounter for other preprocedural examination (principal)

== ENCOUNTER 2021-08-15 10:13 | Day surgery (SDC) | payer MEDICAID ==
[2021-08-15] VITALS (7 sets, daily range): BP systolic 78–177; BP diastolic 45–93
[~2021-08-15] VITALS: Ht 167.7 cm; Wt 54.0 kg
[2021-08-15] MEDS ORDERED: POVIDONE (BETADINE) OPHTH SOLN 5% 30 ML OP ONE (10:30)
[2021-08-15] MEDS ORDERED: LIDOCAINE PF 1% 2 ML VIAL IR PRN (10:30)
[2021-08-15] MEDS ORDERED: TIMOLOL MALEATE 0.5% 5 ML (TIMOPTIC) BTL OU PRN (10:30)
[2021-08-15] MEDS ORDERED: MOXIFLOXACIN OPHTH SOLN 5 MG/ML 0.3 ML SYRINGE OP ONE (10:30)
[2021-08-15] MEDS: TETRACAINE 0.5% OPHTH SOLN 4 ML BTL (SINGLE DOSE ONLY) OU PRN ×4 (10:35→10:51)
[2021-08-15] MEDS: PHENYLEPHRINE 10% OPHTH (NEO-SYN) 5 ML BTL OU SCH ×3 (10:41→10:51)
[2021-08-15] MEDS: TROPICAMIDE 1% OPH SOLN (MYDRIACYL) 15 ML BTL OP SCH ×3 (10:41→10:51)
[2021-08-15] MEDS ORDERED: MIDAZOLAM 2 MG/2 ML (VERSED) VIAL ONE (10:52)
[2021-08-15] MEDS ORDERED: proPOfol 200 MG/20 ML (DIPRIVAN) VIAL IV ONE (10:52)
--- NOTE | 2021-08-15 11:41 | Ophthalmologist Pre-Op Note ---
Pre-Operative Progress Note H&P Reviewed The H&P was reviewed, patient examined and no changes noted. Date H&P Reviewed: Aug 15, 2021 Time H&P Reviewed: 11:14 Pre-Op Dx Cataract, Right Eye GALDINO KELLY MD Aug 15, 2021 11:40
--- NOTE | 2021-08-15 11:41 | Ophthalmology Operative Report ---
Cataract removal/placement IOL PREOPERATIVE DIAGNOSIS: Cataract Right Eye POSTOPERATIVE DIAGNOSIS: Cataract Right Eye PROCEDURE: Cataract removal and placement of posterior chamber implant, right eye SURGEON: Cristino Kelly ANESTHESIA: General COMPLICATIONS: None ESTIMATED BLOOD LOSS: Minimal DESCRIPTION OF PROCEDURE: After proper informed consent was obtained, the patient, a 66 female, was taken to the Operating Room and the right eye was anesthetized with tetracaine. The right eye was then prepped and draped in the usual manner. A wire lid speculum was placed. A paracentesis was made at the left hand position. Preservative free lidocaine was injected into the anterior chamber followed by viscoelastic. A clear corneal incision was made in the temporal position. A capsulorrhexis was preformed and the central nuclear and cortical material were removed. The posterior capsule was polished and Zacarias 16.0 AU00T0 IOL was placed into the capsular bag. The residual viscoelastic was aspirated and balanced saline solution was injected into the anterior chamber. Moxifloxacin was injected into the anterior chamber. The wound was checked and found to be water tight. The patient tolerated the procedure well without complications. CRISTINO KELLY MD Aug 15, 2021 11:41
[2021-08-15] MEDS ORDERED: acetaZOLAMIDE ER 500 MG CAP (DIAMOX SEQUELS) PO ONE (12:30)
--- NOTE | 2021-08-15 13:49 | Anesthesia-General Post-Op ---
MAC Patient Condition Mental Status/LOC: Same as Preop Cardiovascular: Satisfactory Nausea/Vomiting: Absent Respiratory: Satisfactory Pain: Controlled Complications: Absent Post Op Complications Complications None Follow Up Care/Instructions Patient Instructions None needed. Anesthesiology Discharge Order Discharge Order Patient is doing well, no complaints, stable vital signs, no apparent adverse anesthesia problems. No complications reported per nursing. JOSELYN MCBRIDE CRNA Aug 15, 2021 13:49
== END 2021-08-15 13:22 | disposition home or self-care (01) ==
LOC: SDC 10:13
PROVIDERS: ATTEND Specialist
DX: H25.9 Unspecified age-related cataract (principal); F17.210 Nicotine dependence, cigarettes, uncomplicated
CPT/HCPCS: 66984; V2632

== ENCOUNTER 2021-08-26 06:11 | Outpatient (CLI) | payer MEDICAID | END 2021-08-27 08:47 | disposition home or self-care (01) | LOC: PREOP 06:11 | PROVIDERS: ATTEND Specialist | DX: Z01.818 Encounter for other preprocedural examination (principal) ==

== ENCOUNTER 2021-08-29 10:21 | Day surgery (SDC) | payer MEDICAID ==
[2021-08-29] VITALS (7 sets, daily range): BP systolic 134–159; BP diastolic 73–86
[~2021-08-29] VITALS: Ht 170.2 cm; Wt 54.0 kg
[2021-08-29] MEDS ORDERED: MOXIFLOXACIN OPHTH SOLN 5 MG/ML 0.3 ML SYRINGE OP ONE (10:30)
[2021-08-29] MEDS ORDERED: TIMOLOL MALEATE 0.5% 5 ML (TIMOPTIC) BTL OU PRN (10:30)
[2021-08-29] MEDS ORDERED: POVIDONE (BETADINE) OPHTH SOLN 5% 30 ML OP ONE (10:30)
[2021-08-29] MEDS ORDERED: acetaZOLAMIDE ER 500 MG CAP (DIAMOX SEQUELS) PO ONE (10:30)
[2021-08-29] MEDS: TETRACAINE 0.5% OPHTH SOLN 4 ML BTL (SINGLE DOSE ONLY) OU PRN ×4 (10:33→10:49)
[2021-08-29] MEDS: PHENYLEPHRINE 10% OPHTH (NEO-SYN) 5 ML BTL OU SCH ×3 (10:39→10:49)
[2021-08-29] MEDS: TROPICAMIDE 1% OPH SOLN (MYDRIACYL) 15 ML BTL OP SCH ×3 (10:39→10:49)
--- NOTE | 2021-08-29 11:13 | Ophthalmologist Pre-Op Note ---
Pre-Operative Progress Note H&P Reviewed The H&P was reviewed, patient examined and no changes noted. Date H&P Reviewed: Aug 29, 2021 Time H&P Reviewed: 11:13 Pre-Op Dx Cataract, Left Eye GALDINO KELLY MD Aug 29, 2021 11:13
[2021-08-29] MEDS ORDERED: LIDOCAINE PF 2% 5 ML (XYLOCAINE) VIAL ONE (11:29)
[2021-08-29] MEDS ORDERED: SEVOFLURANE (ULTANE) 15 ML INHAL SOLN ONE (11:29)
[2021-08-29] MEDS ORDERED: proPOfol 200 MG/20 ML (DIPRIVAN) VIAL IV ONE (11:29)
[2021-08-29] MEDS ORDERED: ONDANSETRON 4 MG/2 ML (SDV) Z0FRAN ONE (11:29)
--- NOTE | 2021-08-29 11:44 | Ophthalmology Operative Report ---
Cataract removal/placement IOL PREOPERATIVE DIAGNOSIS: Cataract Left Eye POSTOPERATIVE DIAGNOSIS: Cataract Left Eye PROCEDURE: Cataract removal and placement of posterior chamber implant, left eye SURGEON: Cristino Kelly ANESTHESIA: General COMPLICATIONS: None ESTIMATED BLOOD LOSS: Minimal DESCRIPTION OF PROCEDURE: After proper informed consent was obtained, the patient, a 66 female, was taken to the Operating Room and the left eye was anesthetized with tetracaine. The left eye was then prepped and draped in the usual manner. A wire lid speculum was placed. A paracentesis was made at the left hand position. Preservative free lidocaine was injected into the anterior chamber followed by viscoelastic. A clear corneal incision was made in the temporal position. A capsulorrhexis was preformed and the central nuclear and cortical material were removed. The posterior capsule was polished and an Zacarias 24.5 AU00T0 was placed into the capsular bag. The residual viscoelastic was aspirated and balanced saline solution was injected into the anterior chamber. Moxifloxacin was injected into the anterior chamber. The wound was checked and found to be water tight. The patient tolerated the procedure well without complications. CRISTINO KELLY MD Aug 29, 2021 11:44
--- NOTE | 2021-08-29 11:49 | Anesthesia-General Post-Op ---
General Patient Condition Mental Status/LOC: Same as Preop Cardiovascular: Satisfactory Nausea/Vomiting: Absent Respiratory: Satisfactory Pain: Controlled Complications: Absent Post Op Complications Complications None Follow Up Care/Instructions Patient Instructions None needed. Anesthesia/Patient Condition Patient Condition Patient is doing well, no complaints, stable vital signs, no apparent adverse anesthesia problems. No complications reported per nursing. BRYAN MORTON CRNA Aug 29, 2021 11:49
== END 2021-08-29 12:30 | disposition home or self-care (01) ==
LOC: SDC 10:21
PROVIDERS: ATTEND Specialist
DX: H25.9 Unspecified age-related cataract (principal); F17.290 Nicotine dependence, other tobacco product, uncomplicated; Z88.1 Allergy status to other antibiotic agents; Z88.8 Allergy status to other drugs, medicaments and biological substances
CPT/HCPCS: 66984; V2632

== ENCOUNTER 2022-01-04 13:49 | Emergency (ER) | payer MEDICAID ==
[~2022-01-04] VITALS: Ht 170 cm; Wt 59.0 kg
[~2022-01-04 13:49] MED LIST changes: +ALBU8.5H6 IH; -RT-ALBUINH IH
[2022-01-04 13:58] VITALS: BP 158/78
--- NOTE | 2022-01-04 14:35 | ED Headache ---
General Chief Complaint: Head/Cervical Problems Stated Complaint: PAIN RIGHT SIDE OF HEAD Nursing Triage Note: PT AMB TO [facility], PT STATES HAD BLEED ON R SIDE OF HEAD AFTERFALL APPROX 8 MONTHS AGO. APPROX 3 MONTHS AGO HEAD STARTED HURTING AGAIN. RATES PAIN 11/17 Source: patient, family (mother) Exam Limitations: no limitations History of Present Illness Date Seen by Provider: Jan 04, 2022 Time Seen by Provider: 14:20 Initial Comments Patient is a 66-year-old female who presents to the emergency department with a chief complaint of right temporal headache. Patient states that her headache has been ongoing for 3 months. She is taking Excedrin Migraine daily with intermittent relief symptoms. She states that there are no other symptoms associated with head pain. He states it feels like a "tenpenny nail" going through her head. She relates a history of "bleeding in my brain" several months ago for which she was hospitalized at [facility] in [place]. This was after a fall. No new or recent head trauma. She is not on blood thinners. Her mother states that he was told that she had a seizure while she was getting a scan at [facility] when she was admitted several months ago.. The patient is not on any antiseizure medications. 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 No associated symptoms of numbness, weakness, vision change. No speech difficulties. Last dose of Excedrin was this morning. Timing/Duration: other (3 months) Severity/Quality: severe, sharp Location: temporal (right) Modifying Factors: improves with other (laying down improves the pain) Associated Symptoms: denies symptoms Allergies and Home Medications Allergies Coded Allergies: butorphanol (Unverified Allergy, Unknown, 10/01/13) ketorolac (Unverified Allergy, Unknown, 10/01/13) erythromycin base (Unverified Adverse Reaction, Intermediate, 03/03/13) Patient Home Medication List Home Medication List Reviewed: Yes Albuterol Sulfate (Albuterol Sulfate) 2.5 Mg/3 Ml Vial.neb, 2.5 MG INH Q4H PRN for SHORTNESS OF BREATH, (Reported) Entered as Reported by: VINICIO HERNANDEZ on 01/20/212048 Amlodipine Besylate (Amlodipine Besylate) 5 Mg Tablet, 5 MG PO DAILY Prescribed by: TOMASA CERVANTES on 01/27/21 1008 Aripiprazole (Aripiprazole) 15 Mg Tablet, 15 MG PO DAILY, (Reported) Entered as Reported by: VINICIO HERNANDEZ on 01/20/212048 Atorvastatin Calcium (Atorvastatin Calcium) 10 Mg Tablet, 10 MG PO DAILY, (Reported) Entered as Reported by: VINICIO HERNANDEZ on 01/20/212048 Baclofen (Baclofen) 10 Mg Tablet, 10 MG PO BID, (Reported) Entered as Reported by: VINICIO HERNANDEZ on 01/20/212048 Butalb/Acetaminophen/Caffeine (Isnipu-Ktrmuqsp-Zffv 50-325-40) 1 Each Tablet, 1 TAB PO Q12H PRN for HEADACHE, (Reported) Entered as Reported by: VINICIO HERNANDEZ on 01/20/212048 Escitalopram Oxalate (Escitalopram Oxalate) 20 Mg Tablet, 20 MG PO DAILY, (Reported) Entered as Reported by: VINICIO HERNANDEZ on 01/20/212048 Gabapentin (Neurontin) 300 Mg Capsule, 300 MG PO TID, (Reported) Entered as Reported by: VINICIO HERNANDEZ on 01/20/212048 Levothyroxine Sodium (Levothyroxine Sodium) 88 Mcg Tablet, 88 MCG PO DAILY, (Reported) Entered as Reported by: VINICIO HERNANDEZ on 01/20/212048 Metoprolol Succinate (Metoprolol Succinate) 25 Mg Tab.er.24h, 25 MG PO DAILY, (Reported) Entered as Reported by: LAURA AVILA on 01/22/21 104 Omeprazole (Omeprazole) 20 Mg Capsule.dr, 20 MG PO 1200, (Reported) Entered as Reported by: MARGE VILLARREAL on 06/15/20 1112 Ondansetron (Ondansetron Odt) 4 Mg Tab.rapdis, 1 TAB PO Q4H PRN for NAUSEA/VOMITING-1ST LINE, (Reported) Entered as Reported by: VINICIO HERNANDEZ on 01/20/212048 Potassium Chloride (K-Tab ER) 10 Meq Tablet.er, 10 MEQ PO DAILY, (Reported) Entered as Reported by: VINICIO HERNANDEZ on 01/20/212048 Primidone (Mysoline) 50 Mg Tablet, 50 MG PO BID, (Reported) Entered as Reported by: VINICIO HERNANDEZ on 01/20/212048 Review of Systems Review of Systems Constitutional: see HPI Eyes: No Symptoms Reported Ears, Nose, Mouth, Throat: no symptoms reported Respiratory: no symptoms reported Cardiovascular: no symptoms reported Gastrointestinal: no symptoms reported Genitourinary: no symptoms reported Musculoskeletal: no symptoms reported Skin: no symptoms reported Psychiatric/Neurological: Headache All Other Systems Reviewed Negative Unless Noted: Yes Past Epqlzor-Swjidi-Xipalg Hx Patient Social History Tobacco Use?: Yes Tobacco type used: Cigarettes Smoking Status: Current Everyday Smoker Substance use?: No Alcohol Use?: No Pt feels they are or have been: No Immunizations Up To Date PED Vaccines UTD: Yes Influenza Vaccine Up-to-Date: Yes; Up-to-Date First/Initial COVID19 Vaccinat: MODERNA DOESNT KNOW WHEN Second COVID19 Vaccination Umang: MODERNA DOESNT KNOW WHEN Third COVID19 Vaccination Date: MODERNA DOESNT KNOW WHEN Seasonal Allergies Seasonal Allergies: Yes Past Medical History Surgery/Hospitalization HX: TRAUMATIC HEAD INJURY, CATERACT R EYE Surgeries: Yes (BILAT OOPHERECTOMY FOR TUMORS, BREAST BXS, TOE SURGERY) Abdominal, Hysterectomy, Oophorectomy Respiratory: Yes COPD Currently Using CPAP: No Currently Using BIPAP: No Cardiac: Yes Palpitations Neurological: Yes (MEDICATION RELATED SEIZURE) Reproductive Disorders: No Genitourinary: Yes (urine retention) Gastrointestinal: Yes ("no feeling in rectum") Gastroesophageal Reflux, Chronic Constipation, Hemorrhoids, Polyps Musculoskeletal: No Degenerate Disk Disease, Arthritis, Chronic Back Pain Endocrine: Yes Hypothyroidsim HEENT: No Cancer: No Psychosocial: Yes Anxiety Integumentary: No Blood Disorders: Yes (anemia) Family Medical History FH: rheumatoid arthritis 19 MOTHER Pancreatic cancer 19 FATHER Physical Exam Vital Signs Vital Signs - First Documented 01/04/22 13:58 Temp 35.4 Pulse 63 Resp 18 B/P (MAP) 158/78 (104) Pulse Ox 100 Capillary Refill : Less Than 3 Seconds Height, Weight, BMI Height: 5'6.00" Weight: 115lbs. 0.0oz. [id number]; 20.00 BMI Method:Stated General Appearance: WD/WN, thin HEENT: PERRL/EOMI, normal ENT inspection, TMs normal (left TM occluded by cerumen; right TM normal) Neck: full range of motion Cardiovascular: regular rate, rhythm Respiratory: lungs clear, normal breath sounds, no respiratory distress, no accessory muscle use Extremities: normal range of motion, normal inspection Psychiatric: alert, oriented x 3 Crainal Nerves: normal hearing, normal speech, PERRL; No abnormal eye position, No abnormal pupil position, No abnormal speech, No facial asymmetry, No facial droop, No hearing deficit (R), No hearing deficit (L), No tongue deviation to R, No tongue deviation to L Coordination/Gait: normal finger to nose, normal gait, negative Romberg's sign Motor/Sensory: no motor deficit, no sensory deficit, no pronator drift Skin: normal color, warm/dry Progress/Results/Core Measures Results/Orders Vital Signs/I&O 01/04/22 13:58 Temp 35.4 Pulse 63 Resp 18 B/P (MAP) 158/78 (104) Pulse Ox 100 Blood Pressure Mean: 104 Progress Progress Note : Time: 14:34 Progress Note Patient seen and evaluated, 66-year-old with 3 months of right temporal headache, taking Excedrin. Evaluation today for physical exam and neurologic exam. Patient has no obvious focal neurologic deficits. She has no other symptomatology concerning for meningitis, head bleed, ruptured aneurysm. He is completely nonfocal. Consideration for CT head noncontrast however history and physical exam are not supportive. Advised the patient to try and wean herself off of her Excedrin Migraine. She may be experiencing rebound headaches. Also advised to follow-up with primary care. We will send over a release of information to [facility] in order to further delineate past medical history of head trauma earlier this year. Vital signs are stable. Patient is agreeable to the plan of care and states that she does not want a CAT scan if she does not need 1. All questions were Departure Impression Primary Impression: Temporal headache Disposition: 01 HOME, SELF-CARE Condition: Stable Departure-Patient Inst. Decision time for Depature: 14:36 Referrals: NO,LOCAL PHYSICIAN (PCP/Family) Primary Care Physician Patient Instructions: Headache, Adult Add. Discharge Instructions: ALternate heat and ice packs to the area of pain on your head. Try and space out the doses of excedrin migraine as far apart as you can to try and wean yourself off this medication. Call your primary care doctor's office tomorrow for a follow up appointment next week. Return to the Emergency Department for any new, concerning or emergent complaints. KVNG LENOE MD Jan 04, 2022 14:35
== END 2022-01-04 14:47 | disposition home or self-care (01) ==
LOC: EDUNIT# 13:49 → ER 13:52
DX: G43.009 Migraine without aura, not intractable, without status migrainosus (principal); F17.210 Nicotine dependence, cigarettes, uncomplicated
CPT/HCPCS: 99281

== ENCOUNTER 2022-05-04 19:11 | Inpatient (IN) | payer MEDICAID ==
[~2022-05-04] VITALS: Ht 170.2 cm; Wt 56.6 kg
[2022-05-04] MEDS ORDERED: ONDANSETRON 4 MG/2 ML (SDV) Z0FRAN IVP ONE ×2 (19:30→21:00)
[2022-05-04] MEDS ORDERED: diphenhydrAMINE 50 MG/ML INJ (BENADRYL) IVP ONE (19:30)
[2022-05-04] MEDS ORDERED: LACTATED RINGERS 1,000 ML IV ONE ×2 (19:30→20:00)
[2022-05-04 19:38] LABS: CLARITY,URINE CLOUDY; COLOR,URINE YELLOW; GLUCOSE, URINE (UA) NEGATIVE (NEGATIVE); KETONES,URINE 1+ (NEGATIVE); LEUKOCYTE ESTERASE ,URINE 2+ (NEGATIVE); NITRITE,URINE NEGATIVE (NEGATIVE); PH,URINE 5.5 (5-9); PROTEIN,URINE 2+ (NEGATIVE)
[2022-05-04 19:39] LABS: BASOPHILS # (AUTO) 0.1 10^3/uL (0.0-0.1); BASOPHILS % (AUTO) 0 % (0-10); EOSINOPHILS % (AUTO) 0 % (0-10); HEMATOCRIT 41 % (35-52); HEMOGLOBIN 14.2 g/dL (11.5-16.0); LYMPHOCYTES # (AUTO) 1.4 10^3/uL (1.0-4.0); LYMPHOCYTES % (AUTO) 8 % (12-44); MEAN CORPUSCULAR HEMOGLOBIN 31 pg (25-34); MEAN CORPUSCULAR HGB CONC 35 g/dL (32-36); MEAN CORPUSCULAR VOLUME 90 fL (80-99); MEAN PLATELET VOLUME 8.7 fL (9.0-12.2); MONOCYTES # (AUTO) 0.9 10^3/uL (0.0-1.0); MONOCYTES % (AUTO) 5 % (0-12); NEUTROPHILS # (AUTO) 15.6 10^3/uL (1.8-7.8); NEUTROPHILS % (AUTO) 86 % (42-75); PLATELET COUNT 355 10^3/uL (130-400); WHITE BLOOD COUNT 18.1 10^3/uL (4.3-11.0)
[2022-05-04 19:47] LABS: ALBUMIN 4.8 GM/DL (3.2-4.5); CHLORIDE 96 MMOL/L (98-107); POTASSIUM 4.1 MMOL/L (3.6-5.0); SODIUM 134 MMOL/L (135-145)
[2022-05-04 19:48] LABS: CALCIUM 10.2 MG/DL (8.5-10.1)
[2022-05-04 19:49] LABS: AMYLASE 102 U/L (25-125)
[2022-05-04 19:49] LABS: AMORPHOUS SEDIMENT,UR FEW AMOR URATES /LPF; BACTERIA,URINE LARGE /HPF; WBC,URINE 50-100 /HPF
[2022-05-04 19:50] LABS: BILIRUBIN,URINE 1+ (NEGATIVE)
[2022-05-04 19:50] LABS: GLUCOSE 148 MG/DL (70-105); TOTAL PROTEIN 8.4 GM/DL (6.4-8.2)
[2022-05-04 19:51] LABS: CARBON DIOXIDE 20 MMOL/L (21-32)
[2022-05-04 19:52] LABS: BILIRUBIN,TOTAL 0.3 MG/DL (0.1-1.0)
[2022-05-04 19:53] LABS: ALKALINE PHOSPHATASE 82 U/L (40-136)
--- NOTE | 2022-05-04 19:53 | ED Abdominal Pain ---
General Chief Complaint: Abdominal/GI Problems Stated Complaint: ABDOMINAL PAIN| NAUSEA| VOMITING Nursing Triage Note: PT TO RM 3 W VIA [facility], [facility] W C/O NAUSEA AND ABD PAIN X1 WK. PT REPORTS TONIGHT SHE EXPERIENCED SUDDEN SEVERE ABD PAIN AND VOMITING WHEN SHE STOOD UP. PT RESTLESS IN BED, DIAPHORETIC, A&OX4. Source of Information: Patient (EXTREMELY DIFFICULT AND POOR HISTORIAN. SPEECH IS RAPID, ERRATIC, SOMEWHAT MUMBLED AND TANGENTIAL. PT APPEARS TO BE UNDER SOME SUBSTANCE/S), Old Records History of Present Illness Date Seen by Provider: May 04, 2022 Time Seen by Provider: 19:15 Initial Comments PT ARRIVES VIA [facility] FROM HOME C/O UPPER ABDOMINAL PAIN WITH NAUSEA X 1 WEEK PAIN RADIATES AROUND TO BACK STATES TONIGHT SHE STOOD UP AND HAD SUDDEN SEVERE SHARP PAIN IN EPIGASTRIC AREA AND THEN VOMITED IT IS UNCLEAR HOW MANY TIMES SHE HAS VOMITED OR FOR HOW LONG--INITIALLY STATED SHE VOMITED ONCE TODAY, AND WAS THE ONLY TIME, THEN SHE STATES SHE "CAN'T KEEP ANYTHING DOWN-NOT EVEN WATER" BUT IS UNABLE TO STATE HOW LONG THAT HAS BEEN GOING ON SHE IS UNABLE TO STATE WHEN LAST BM WAS SHE SELF CATH'S FOR CHRONIC URINARY RETENTION SHE IS UNABLE TO STATE IF SHE HAS HAD FEVER OR NOT. SHE HAS NOT TAKEN ANYTHING FOR PAIN SHE LATER STATES SHE HAS BEEN TAKING ASPIRIN LATER, PT STATES THAT SHE HAS BEEN OUT OF HER SUBOXONE AND KLONOPIN FOR A MONTH SHE HAS AN EXTENSIVE HISTORY OF POLYSUBSTANCE ABUSE, INCLUDING + IV HEROIN USE, METHAMPHETAMINE USE, RX DRUG ABUSE, THC USE. SHE STATES SHE HAS BEEN ON METHADONE AND SUBOXONE "FOR YEARS" FOR HER HEROIN ADDICTION SHE STATES SHE DRINKS 4-6 BEERS "BUT NOT EVERY DAY" SHE STATES SHE HAD "HALF A BEER" YESTERDAY. SHE SMOKES 1 1/2 PPD SHE LATER STATES SHE WAS ON MACROBID FOR UTI, BUT CANNOT STATE WHEN THAT WAS. SHE STATES SHE ALWAYS GETS UTI'S BECAUSE SHE HAS CHRONIC URINARY RETENTION AND SELF CATH'S. SHE ALSO LATER STATES SHE WAS HOSPITALIZED IN ICU "8 MONTHS AGO", AFTER SHE FELL AND HIT HER HEAD. SHE HAS NO IDEA WHAT HOSPITAL SHE WAS IN, OR WHAT HER INJURY WAS--SHE DOES NOT KNOW IF SHE HAD BLEEDING IN HER BRAIN, OR FRACTURED HER SKULL OR IF SHE HAD ANY OTHER INJURIES. SHE DOES STATE THAT SHE DID NOT HAVE SURGERY AT THAT TIME. ON REVIEWING PRIOR RECORDS, PT WAS ADMITTED HERE 01/2021 AND IT HAD REPORTED BY PT'S MOTHER AT THAT TIME THAT SHE HAD BEEN ADMITTED AT [facility] IN [place] FOR A SUBDURAL HEMATOMA IN 2020, AND PT LEFT AMA AFTER 3 DAYS. PCP: [facility] Allergies and Home Medications Allergies Coded Allergies: butorphanol (Unverified Allergy, Unknown, 10/01/13) tramadol (Verified Allergy, Unknown, Nausea, 05/05/22) trazodone (Verified Allergy, Unknown, 05/05/22) FEELS LIKE ELECTRIC SHOCK IN LIMBS erythromycin base (Unverified Adverse Reaction, Intermediate, 03/03/13) Patient Home Medication List Home Medication List Reviewed: Yes Atorvastatin Calcium (Atorvastatin Calcium) 10 Mg Tablet, 10 MG PO DAILY, (Reported) Entered as Reported by: VINICIO HERNANDEZ on 01/20/212048 Last Action: Continued Clonazepam (Clonazepam) 1 Mg Tablet, 1 MG PO BID, (Reported) Entered as Reported by: LAURA AVILA on 05/05/221056 Last Action: Held Levothyroxine Sodium (Levothyroxine Sodium) 100 Mcg Tablet, 100 MCG PO DAILY, (Reported) Entered as Reported by: LAURA AVILA on 05/05/221056 Last Action: Continued Metoprolol Succinate (Metoprolol Succinate) 25 Mg Tab.er.24h, 25 MG PO DAILY, (Reported) Entered as Reported by: LAURA AVILA on 01/22/21 104 Last Action: Continued Nitrofurantoin Monohyd/M-Cryst (Nitrofurantoin Angelina-Mcr 100 mg) 100 Mg Capsule, 100 MG PO DAILY, (Reported) Entered as Reported by: LAURA AVILA on 05/05/221056 Last Action: Held Omeprazole (Omeprazole) 40 Mg Capsule.dr, 40 MG PO DAILY, (Reported) Entered as Reported by: LAURA AVILA on 05/05/221056 Last Action: Converted Ondansetron (Ondansetron Odt) 4 Mg Tab.rapdis, 1 TAB PO TID PRN for NAUSEA/VOMITING-1ST LINE, (Reported) Entered as Reported by: VINICIO HERNANDEZ on 01/20/212048 Last Action: Continued Discontinued Medications Albuterol Sulfate (Albuterol Sulfate) 2.5 Mg/3 Ml Vial.neb, 2.5 MG INH Q4H PRN for SHORTNESS OF BREATH, (Reported) Discontinued Reason: No Longer Taking Entered as Reported by: VINICIO HERNANDEZ on 01/20/212048 Last Action: Discontinued Amlodipine Besylate (Amlodipine Besylate) 5 Mg Tablet, 5 MG PO DAILY Discontinued Reason: No Longer Taking Prescribed by: TOMASA CERVANTES on 01/27/21 1008 Last Action: Discontinued Aripiprazole (Aripiprazole) 15 Mg Tablet, 15 MG PO DAILY, (Reported) Discontinued Reason: No Longer Taking Entered as Reported by: VINICIO HERNANDEZ on 01/20/212048 Last Action: Discontinued Baclofen (Baclofen) 10 Mg Tablet, 10 MG PO BID, (Reported) Discontinued Reason: No Longer Taking Entered as Reported by: VINICIO HERNANDEZ on 01/20/212048 Last Action: Discontinued Butalb/Acetaminophen/Caffeine (Gyroes-Tokdiptl-Yhfm 50-325-40) 1 Each Tablet, 1 TAB PO Q12H PRN for HEADACHE, (Reported) Discontinued Reason: No Longer Taking Entered as Reported by: VINICIO HERNANDEZ on 01/20/212048 Last Action: Discontinued Escitalopram Oxalate (Escitalopram Oxalate) 20 Mg Tablet, 20 MG PO DAILY, (Reported) Discontinued Reason: No Longer Taking Entered as Reported by: VINICIO HERNANDEZ on 01/20/212048 Last Action: Discontinued Gabapentin (Neurontin) 300 Mg Capsule, 300 MG PO TID, (Reported) Discontinued Reason: No Longer Taking Entered as Reported by: VINICIO HERNANDEZ on 01/20/212048 Last Action: Discontinued Levothyroxine Sodium (Levothyroxine Sodium) 88 Mcg Tablet, 88 MCG PO DAILY, (Reported) Discontinued Reason: No Longer Taking Entered as Reported by: VINICIO HERNANDEZ on 01/20/212048 Last Action: Discontinued Omeprazole (Omeprazole) 20 Mg Capsule.dr, 20 MG PO 1200, (Reported) Discontinued Reason: No Longer Taking Entered as Reported by: MARGE VILLARREAL on 06/15/20 1112 Last Action: Discontinued Potassium Chloride (K-Tab ER) 10 Meq Tablet.er, 10 MEQ PO DAILY, (Reported) Discontinued Reason: No Longer Taking Entered as Reported by: VINICIO HERNANDEZ on 01/20/212048 Last Action: Discontinued Primidone (Mysoline) 50 Mg Tablet, 50 MG PO BID, (Reported) Discontinued Reason: No Longer Taking Entered as Reported by: VINICIO HERNANDEZ on 01/20/212048 Last Action: Discontinued Review of Systems Review of Systems Constitutional: diaphoresis EENTM: No Symptoms Reported Respiratory: No Symptoms Reported Cardiovascular: No Symptoms Reported Gastrointestinal: See HPI, Abdominal Pain, Nausea, Vomiting Genitourinary: See HPI Musculoskeletal: see HPI, back pain Skin: no symptoms reported Psychiatric/Neurological: Anxiety Endocrine: No Symptoms Reported Hematologic/Lymphatic: No Symptoms Reported Past Fycpmdp-Fvyxwb-Nhmapa Hx Patient Social History Tobacco Use?: Yes Tobacco type used: Cigarettes Smoking Status: Current Everyday Smoker Use of E-Cig and/or Vaping dev: Yes E-Cig or Vaping type used: Marijuana, Synthetic Cannabinoids Use of E-Cig and/or Vaping Sandeep: Current Everyday User Substance use?: Yes Substance type: Methamphetamine, Misuse of prescript meds, Marijuana Additional substance use comme: IV HEROIN Alcohol Use?: Yes Immunizations Up To Date PED Vaccines UTD: Yes Influenza Vaccine Up-to-Date: No; Not Current First/Initial COVID19 Vaccinat: MODERNA DOESNT KNOW WHEN Second COVID19 Vaccination Umang: MODERNA DOESNT KNOW WHEN Third COVID19 Vaccination Date: MODERNA DOESNT KNOW WHEN COVID19 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: 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 Seasonal Allergies Seasonal Allergies: Yes Past Medical History Surgery/Hospitalization HX: TRAUMATIC HEAD INJURY, CATERACT R EYE Surgeries: Yes (BILAT OOPHERECTOMY FOR TUMORS, BREAST BXS, TOE SURGERY) Abdominal, Breast, Eye Surgery, Hysterectomy, Oophorectomy, Orthopedic Respiratory: Yes COPD Currently Using CPAP: No Currently Using BIPAP: No Cardiac: Yes Palpitations Neurological: Yes (MEDICATION RELATED SEIZURE) Concussion Reproductive Disorders: Yes Female Reproductive Disorders: 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, 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 PT STATES SHE HAS BEEN ON METHADONE AND SUBOXONE "FOR YEARS" DUE TO HEROIN ADDICTION. PAST SURGICAL HISTORY: -HYSTERECTOMY/BILATERAL SALPINGO-OOPHORECTOMY -TONSILLECTOMY -BREAST BIOPSY -TOE SURGERY -BILATERAL CATARACT SURGERY 08/2021 STRESS TEST 07/27/[address] REIS: Conclusion: Pharmacological stress test was negative for ischemia. Normal LV function with no wall motion abnormalities. Normal myocardial perfusion imaging during rest and stress. Physical Exam Vital Signs Vital Signs - First Documented 05/04/22 19:13 Temp 35.3 Pulse 125 Resp 22 B/P (MAP) 90/67 (75) Pulse Ox 97 O2 Delivery Room Air Capillary Refill : Less Than 3 Seconds Height/Weight/BMI Height: 5'6.00" Weight: 115lbs. 0.0oz. [id number]; 19.00 BMI Method:Stated General Appearance: WD/WN, thin, other (EXTREMELY DRAMATIC, CONSTANT MOVEMENTS OF ENTIRE BODY, SPEECH RAPID, ERRATIC AND SOMEWHAT MUMBLED. CONSTANT MOUTH AND TONGUE MOVEMENTS AND LIP LICKING) HEENT: PERRL/EOMI, other (EDENTULOUS. ORAL MUCOSA DRY) Neck: normal inspection Respiratory: normal breath sounds, no respiratory distress, no accessory muscle use Cardiovascular: normal peripheral pulses, no edema, no JVD, no murmur, tachycardia Gastrointestinal: normal bowel sounds, soft, no organomegaly, no pulsatile mass, tenderness (EPIGASTRIC TENDERNESS) Extremities: normal range of motion, non-tender, no pedal edema, normal capillary refill, other (EXTENSIVE SCARRING IN AC SPACES) Back: no CVA tenderness, no vertebral tenderness Neurologic/Psychiatric: mill hand II-XII nml as tested, no motor/sensory deficits, alert, oriented x 3 (BUT POOR MEMORY/POOR HISTORIAN) Skin: normal color, warm/dry, other (SORES/SCARS/SCABS TO FACE AND ARMS. ) Focused Exam Sepsis Stage: Severe Sepsis Possible Source: Genitouriary Lactate Level 05/04/22 19:24: Lactic Acid Level 3.91*H 05/04/22 21:35: Lactic Acid Level 2.06*H Time of Focused Exam: 20:15 Respiratory: Normal Breath Sounds, No Accessory Muscle Use, No Respiratory Distress Cardiovascular: No Edema, No JVD, No Murmur, Normal Peripheral Pulses, Tachycardia Capillary Refill: Less Than 3 Seconds Skin: normal color, warm/dry Lactic Acid Level Laboratory Tests Test 05/04/22 19:24 05/04/22 21:35 Lactic Acid Level 3.91 MMOL/L (0.50-2.00) *H 2.06 MMOL/L (0.50-2.00) *H Within 3hrs of presentation: Admin fluids, Admin ABX, Blood cultures prior to ABX's, Focus exam, Lactate level Progress/Results/Core Measures Results/Orders Lab Results Laboratory Tests Test 05/04/22 19:24 05/04/22 19:32 05/04/22 19:48 05/04/22 21:35 Range/Units White Blood Count 18.1 H 4.3-11.0 10^3/uL Red Blood Count 4.57 3.80-5.11 10^6/uL Hemoglobin 14.2 11.5-16.0 g/dL Hematocrit 41 35-52 % Mean Corpuscular Volume 90 80-99 fL Mean Corpuscular Hemoglobin 31 25-34 pg Mean Corpuscular Hemoglobin Concent 35 32-36 g/dL Red Cell Distribution Width 13.9 10.0-14.5 % Platelet Count 355 130-400 10^3/uL Mean Platelet Volume 8.7 L 9.0-12.2 fL Immature Granulocyte % (Auto) 1 % Neutrophils (%) (Auto) 86 H 42-75 % Lymphocytes (%) (Auto) 8 L 12-44 % Monocytes (%) (Auto) 5 0-12 % Eosinophils (%) (Auto) 0 0-10 % Basophils (%) (Auto) 0 0-10 % Neutrophils # (Auto) 15.6 H 1.8-7.8 10^3/uL Lymphocytes # (Auto) 1.4 1.0-4.0 10^3/uL Monocytes # (Auto) 0.9 0.0-1.0 10^3/uL Eosinophils # (Auto) 0.0 0.0-0.3 10^3/uL Basophils # (Auto) 0.1 0.0-0.1 10^3/uL Immature Granulocyte # (Auto) 0.1 0.0-0.1 10^3/uL Neutrophils % (Manual) 86 % Lymphocytes % (Manual) 11 % Monocytes % (Manual) 3 % Blood Morphology Comment NORMAL Erythrocyte Sedimentation Rate 9 0-30 MM/HR Prothrombin Time 12.8 12.2-14.7 SEC INR Comment 0.9 0.8-1.4 Activated Partial Thromboplast Time 27 24-35 SEC D-Dimer <= 0.27 0.00-0.49 UG/ML Sodium Level 134 L 135-145 MMOL/L Potassium Level 4.1 3.6-5.0 MMOL/L Chloride Level 96 L 98-107 MMOL/L Carbon Dioxide Level 20 L 21-32 MMOL/L Anion Gap 18 H 5-14 MMOL/L Blood Urea Nitrogen 24 H 7-18 MG/DL Creatinine 2.03 H 0.60-1.30 MG/DL Estimat Glomerular Filtration Rate 27 BUN/Creatinine Ratio 12 Glucose Level 148 H 70-105 MG/DL Lactic Acid Level 3.91 *H 2.06 *H 0.50-2.00 MMOL/L Calcium Level 10.2 H 8.5-10.1 MG/DL Corrected Calcium 8.5-10.1 MG/DL Magnesium Level 2.2 1.6-2.4 MG/DL Total Bilirubin 0.3 0.1-1.0 MG/DL Aspartate Amino Transf (AST/SGOT) 20 5-34 U/L Alanine Aminotransferase (ALT/SGPT) 24 0-55 U/L Alkaline Phosphatase 82 40-136 U/L Total Creatine Kinase 38 29-168 U/L Creatine Kinase MB 1.5 <6.6 NG/ML Myoglobin 110.3 H 10.0-92.0 NG/ML Troponin I < 0.028 <0.028 NG/ML C-Reactive Protein High Sensitivity 0.04 0.00-0.50 MG/DL B-Type Natriuretic Peptide 25.0 <100.0 PG/ML Total Protein 8.4 H 6.4-8.2 GM/DL Albumin 4.8 H 3.2-4.5 GM/DL Amylase Level 102 25-125 U/L Lipase 51 8-78 U/L Acetaminophen Level < 10 L 10-30 UG/ML Serum Alcohol < 10 <10 MG/DL Urine Color YELLOW Urine Clarity CLOUDY Urine pH 5.5 5-9 Urine Specific [place] >=1.030 1.016-1.022 Urine Protein 2+ H NEGATIVE Urine Glucose (UA) NEGATIVE NEGATIVE Urine Ketones 1+ H NEGATIVE Urine Nitrite NEGATIVE NEGATIVE Urine Bilirubin 1+ H NEGATIVE Urine Urobilinogen 0.2 < = 1.0 MG/DL Urine Leukocyte Esterase 2+ H NEGATIVE Urine RBC (Auto) TRACE-I H NEGATIVE Urine RBC 10-25 H /HPF Urine WBC 50-100 H /HPF Urine Squamous Epithelial Cells 10-25 H /HPF Urine Crystals PRESENT H /LPF Urine Amorphous Sediment FEW YOLIS URATES H /LPF Urine Bacteria LARGE H /HPF Urine Casts NONE /LPF Urine Mucus NEGATIVE /LPF Urine Culture Indicated YES Urine Opiates Screen NEGATIVE NEGATIVE Urine Oxycodone Screen NEGATIVE NEGATIVE Urine Methadone Screen NEGATIVE NEGATIVE Urine Propoxyphene Screen NEGATIVE NEGATIVE Urine Barbiturates Screen NEGATIVE NEGATIVE Ur Tricyclic Antidepressants Screen POSITIVE H NEGATIVE Urine Phencyclidine Screen NEGATIVE NEGATIVE Urine Amphetamines Screen NEGATIVE NEGATIVE Urine Methamphetamines Screen NEGATIVE NEGATIVE Urine Benzodiazepines Screen POSITIVE H NEGATIVE Urine Cocaine Screen NEGATIVE NEGATIVE Urine Cannabinoids Screen POSITIVE H NEGATIVE Influenza Type A (RT-PCR) Not Detected Not Detecte Influenza Type B (RT-PCR) Not Detected Not Detecte SARS-CoV-2 RNA (RT-PCR) Not Detected Not Detecte Micro Results Microbiology 05/04/22 Blood Culture - Preliminary, Resulted No growth 05/04/22 Blood Culture - Preliminary, Resulted No growth 05/04/22 Urine Culture - Preliminary, Resulted Gram Negative Eyal My Orders Orders - SHERICE MARES DO Ed Iv/Invasive Line Start (05/04/22 19:14) Monitor-Rhythm Ecg Trace Only (05/04/22 19:14) Ekg Tracing (05/04/22 19:25) Straight Cath For Spec.-Adult (05/04/22 19:25) Chest 1 View, Ap/Pa Only (05/04/22 19:25) Acetaminophen (05/04/22 19:25) Alcohol (05/04/22 19:25) Amylase (05/04/22 19:25) Bnp [place] (05/04/22 19:25) Cbc With Automated Diff (05/04/22 19:25) Comprehensive Metabolic Panel (05/04/22 19:25) Creatine Kinase (05/04/22 19:25) Creatine Kinase Mb (05/04/22 19:25) Hs C Reactive Protein (05/04/22 19:25) Fibrin Degradation Products (05/04/22:25) Drug Screen Stat (Urine) (05/04/22 19:25) Lactic Acid Analyzer (05/04/22 19:25) Lipase (05/04/22 19:25) Magnesium (05/04/22:25) Protime With Inr (05/04/22:25) Partial Thromboplastin Time (05/04/22 19:25) Ua Culture If Indicated (05/04/22 19:25) Erythrocyte Sedimentation Rate (05/04/22 19:25) Myoglobin Serum (05/04/22:25) Troponin I Miki (05/04/22 19:25) Ed Iv/Invasive Line Start (05/04/22 19:25) Lactated Ringers (Lr 1000 Ml Iv Solution (05/04/22 19:30) Ondansetron Injection (Zofran Injectio (05/04/22 19:30) Diphenhydramine Injection (Benadryl Inje (05/04/22 19:30) Manual Differential (05/04/22 19:24) Covid 19 Inhouse Test (05/04/22 19:48) Blood Culture (05/04/22 19:48) Vital Signs Adult Sepsis Patie Q15M (05/04/22 19:48) Remove Rings In Anticipation O (05/04/22 19:48) Cefepime Injection (Maxipime Injection) (05/04/22 20:00) Influenza A And B By Pcr (05/04/22 19:48) Isolation Central Supply Req (05/04/22 19:48) Urine Culture (05/04/22 19:32) Ct Chest/Abdomen/Pelvis Wo (05/04/22 19:56) Ed Iv/Invasive Line Start (05/04/22 19:57) Lactated Ringers (Lr 1000 Ml Iv Solution (05/04/22 20:00) Ns Iv 1000 Ml (Sodium Chloride 0.9%) (05/04/22 20:00) Ondansetron Injection (Zofran Injectio (05/04/22 21:00) Orphenadrine Inj (Ed Only) (Norflex Inje (05/04/22 20:51) Pantoprazole Injection (Protonix Injecti (05/04/22 21:00) Ekg Tracing (05/04/22 20:59) Ed Admission (Communication) (05/04/22 22:03) Medications Given in ED Vital Signs/I&O 05/04/22 05/04/22 19:13 21:17 Temp 35.3 Pulse 125 92 Resp 22 18 B/P (MAP) 90/67 (75) 116/64 Pulse Ox 97 96 O2 Delivery Room Air Room Air 05/05/22 00:00 Intake Total 1050 ml Balance 1050 ml Blood Pressure Mean: 75 Progress Progress Note : Progress Note PPE WORN COVID AND FLU TESTING DONE SEPSIS PROTOCOL INITIATED PT IS TACHYCARDIC IN THE 120'S, AND BP IN 90'S/60'S. GIVEN: -IV FLUIDS -ANTIBIOTICS -ZOFRAN -NORFLEX FOR BODY CRAMPING -PROTONIX NO DETERIORATION IN PT'S CONDITION DURING ER STAY BP COMING UP AND HR COMING DOWN, WITH IV FLUIDS. VITALS AT TIME OF ADMIT: -HR IN 90'S BP >100 SYSTOLIC O2 SATS 97-98% ON ROOM AIR TEMP PT DOES MEET SEVERE SEPSIS CRITERIA BASED ON LABS WITH LEUKOCYTOSIS AND ELEVATED LACTIC ACID; VITALS--PT HYPOTENSIVE AND TACHYCARDIC AND HYPOTHERMIC; REVIEWED PRIOR RECORDS INCLUDING ER VISITS, ADMITS/H&P'S/CONSULTS/DISCHARGE SUMMARIES, TESTS/PROCEDURES. DISCUSSED ANTICIPATED COURSE, NEED FOR ADMIT AND PT AGREES Initial ECG Impression Date: May 04, 2022 Initial ECG Impression Time: 19:35 Initial ECG Rate: 119 Initial ECG Rhythm: S.Tach Initial ECG Intervals NJ 130 QRS 76 QT/QTC 304/375 Initial ECG Impression: Nonspecific Changes Initial ECG Comparisson: Changed (FROM 06/15/2020-PT IS TACHYCARDIC TODAY WITH NON-SPECIFIC ST SEGMENTS. ) Comment INTERPRETED BY ME EKG : EKG Time: 21:20 Rate: 94 Rhythm: Normal Sinus Intervals NJ 158 QRS 69 QT/QTC 353/405 Comment IMPROVED EKG--HR DOWN, ST SEGMENTS NORMAL THIS EKG IS SIMILAR TO EKG DONE ON PREVIOUS HOSPITAL VISITS INTERPRETED BY ME Diagnostic Imaging Comments CXR--PER RADIOLOGIST REPORT AT 2009 FINDINGS: Heart size and pulmonary vasculature are normal. The lungs are clear without consolidation, pleural effusion, or pneumothorax. The osseous structures are intact. IMPRESSION: 1. No acute radiographic abnormality in the chest. CT CHEST/ABDOMEN/PELVIS--PER RADIOLOGIST REPORT AT 2021 FINDINGS: Thyroid: The thyroid is normal. Mediastinum: Heart size is normal without significant pericardial effusion. Calcifications of the aorta and coronary vessels. Thoracic aorta is normal in caliber. No suspicious lymphadenopathy. Lungs and airways: The lungs are clear without consolidation, pleural effusion, or pneumothorax. A stable left lower lobe pulmonary nodule measuring 0.3 cm. More solid nodule within the left lower lobe measuring 0.4 cm in the area of previously seen groundglass attenuation on 07/26/2019. The airways are normal. Solid organs: The liver is normal. The gallbladder is normal. There is no biliary ductal dilation. Pancreas is normal. Spleen is normal. Adrenal glands are normal. The kidneys are normal without hydronephrosis. Bowel: The stomach and small bowel are normal without obstruction. The colon and appendix are normal. Peritoneum: There is no intraperitoneal free fluid or free air. No suspicious lymphadenopathy. Vasculature: Calcification of the aorta without aneurysm. Musculoskeletal: Degenerative changes of the spine without suspicious osseous lesion or compression fracture. Pelvis: The uterus is surgically absent. No adnexal mass. The urinary bladder is normal. IMPRESSION: 1. No acute abnormality in the chest, abdomen, or pelvis. 2. Left lower lobe pulmonary nodules measuring up to 0.4 cm. Recommend follow-up CT chest in 6-12 months. Reviewed: Reviewed by Me Departure Communication (Admissions) 2027--SPOKE WITH DR. CERVANTES, ACCEPTS PT FOR ADMIT. SHE WILL DO ADMIT ORDERS Impression Primary Impression: Severe sepsis Additional Impressions: Urinary tract infection Acute kidney injury Neurogenic bladder HX OF POLYSUBSTANCE ABUSE Abdominal pain Disposition: ADMITTED INPATIENT Condition: Improved Admissions Decision to Admit Reason: Admit from ER (General) Decision to Admit/Date: May 04, 2022 Time/Decision to Admit Time: 20:30 Departure-Patient Inst. Referrals: NO,LOCAL PHYSICIAN (PCP/Family) Primary Care Physician SHERICE MARES DO May 04, 2022 19:53
[2022-05-04 19:54] LABS: CREATININE SERUM 2.03 MG/DL (0.60-1.30); GFR ESTIMATED 27
[2022-05-04 19:55] LABS: BUN/CREATININE RATIO 12
[2022-05-04 19:56] LABS: ALANINE AMINOTRANSFERASE 24 U/L (0-55)
[2022-05-04 19:57] LABS: MAGNESIUM 2.2 MG/DL (1.6-2.4)
[2022-05-04 19:58] LABS: CREATINE KINASE 38 U/L (29-168); LIPASE 51 U/L (8-78)
[2022-05-04] MEDS ORDERED: NS IV 1000 ML 1,000 ML IV SCH (20:00)
[2022-05-04] MEDS ORDERED: CEFEPIME INJECTION 1,000 MG in NS (IVPB) 50 ML IV ONE (20:00)
[2022-05-04 20:04] LABS: CREATINE KINASE MB 1.5 NG/ML (<6.6)
--- NOTE | 2022-05-04 20:05 | Diagnostic Imaging Report ---
EXAMINATION: Chest 1 view HISTORY: CP COMPARISON: 06/15/2020 FINDINGS: Heart size and pulmonary vasculature are normal. The lungs are clear without consolidation, pleural effusion, or pneumothorax. The osseous structures are intact. IMPRESSION: 1. No acute radiographic abnormality in the chest. Dictated by: Dictated on workstation # [id number]
[2022-05-04 20:06] LABS: AMPHETAMINE SCREEN, URINE NEGATIVE (NEGATIVE); BARBITURATE SCREEN URINE NEGATIVE (NEGATIVE); BENZODIAZEPINES SCREEN URINE POSITIVE (NEGATIVE); CANNABINOID SCREEN, URINE POSITIVE (NEGATIVE); COCAINE SCREEN URINE NEGATIVE (NEGATIVE); METHADONE STAT NEGATIVE (NEGATIVE); OPIATE SCREEN URINE NEGATIVE (NEGATIVE); OXYCODONE STAT NEGATIVE (NEGATIVE); PROPOXYPHENE STAT NEGATIVE (NEGATIVE); TRICYCLIC ANTIDEPRESSANTS SCRE POSITIVE (NEGATIVE)
[2022-05-04 20:07] LABS: FIBRIN DEGRADATION PRODUCTS <= 0.27 UG/ML (0.00-0.49); INR 0.9 (0.8-1.4); PARTIAL THROMBOPLASTIN TIME 27 SEC (24-35); PROTHROMBIN TIME PATIENT 12.8 SEC (12.2-14.7)
[2022-05-04 20:12] LABS: LYMPHOCYTES % (MANUAL) 11 %; MONOCYTES % (MANUAL) 3 %; NEUTROPHILS % (MANUAL) 86 %
[2022-05-04 20:13] LABS: ERYTHROCYTE SEDIMENTATION RATE 9 MM/HR (0-30); RBC MORPH NORMAL
--- NOTE | 2022-05-04 20:20 | Diagnostic Imaging Report ---
EXAMINATION: CT chest, abdomen and pelvis without intravenous contrast. TECHNIQUE: Multiple contiguous axial images were obtained through the chest, abdomen and pelvis without intravenous contrast. All CT scans use one or more of the following dose optimizing techniques: automated exposure control, MA and/or KvP adjustment based on patient size and exam type or iterative reconstruction. HISTORY: PAIN, N/V COMPARISON: 07/26/2019 FINDINGS: Thyroid: The thyroid is normal. Mediastinum: Heart size is normal without significant pericardial effusion. Calcifications of the aorta and coronary vessels. Thoracic aorta is normal in caliber. No suspicious lymphadenopathy. Lungs and airways: The lungs are clear without consolidation, pleural effusion, or pneumothorax. A stable left lower lobe pulmonary nodule measuring 0.3 cm. More solid nodule within the left lower lobe measuring 0.4 cm in the area of previously seen groundglass attenuation on 07/26/2019. The airways are normal. Solid organs: The liver is normal. The gallbladder is normal. There is no biliary ductal dilation. Pancreas is normal. Spleen is normal. Adrenal glands are normal. The kidneys are normal without hydronephrosis. Bowel: The stomach and small bowel are normal without obstruction. The colon and appendix are normal. Peritoneum: There is no intraperitoneal free fluid or free air. No suspicious lymphadenopathy. Vasculature: Calcification of the aorta without aneurysm. Musculoskeletal: Degenerative changes of the spine without suspicious osseous lesion or compression fracture. Pelvis: The uterus is surgically absent. No adnexal mass. The urinary bladder is normal. IMPRESSION: 1. No acute abnormality in the chest, abdomen, or pelvis. 2. Left lower lobe pulmonary nodules measuring up to 0.4 cm. Recommend follow-up CT chest in 6-12 months. Dictated by: Dictated on workstation # [id number]
[2022-05-04] MEDS ORDERED: ORPHENADRINE 60 MG/2 ML (NORFLEX) AMP (ED ONLY) IV STA (20:51)
[2022-05-04] MEDS ORDERED: PANTOPRAZOLE 40 MG (PROTONIX) VIAL IV ONE (21:00)
[2022-05-04] MEDS ORDERED: MILK OF MAGNESIA 400 MG/5 ML 30 ML UDC PO PRN (22:30)
[2022-05-04] MEDS ORDERED: LACTULOSE SYRUP 10GM/15ML (ENULOSE) 30ML UDC PO PRN (22:30)
[2022-05-04] MEDS ORDERED: DexMEDEtomidine 250 ML DRIP 250 ML IV SCH (22:30)
[2022-05-04] MEDS ORDERED: ZIPRASIDONE 20 MG INJ (GEODON) VIAL IM PRN (22:30)
[2022-05-04] MEDS ORDERED: MELATONIN 3 MG TABLET PO PRN (22:30)
[2022-05-04] MEDS ORDERED: BISACODYL 10 MG SUPP (DULCOLAX) PR PRN (22:30)
[2022-05-04] MEDS ORDERED: diphenhydrAMINE 50 MG/ML INJ (BENADRYL) IVP PRN (22:30)
[2022-05-04] MEDS ORDERED: LORazepam INJ 2 MG/ML (ATIVAN) VIAL IVP PRN (22:30)
[2022-05-04] MEDS ORDERED: HYDROmorphone 2 MG/ML VIAL (DILAUDID) IV PRN (22:30)
[2022-05-04] MEDS ORDERED: ONDANSETRON 4 MG/2 ML (SDV) Z0FRAN IV PRN (22:30)
[2022-05-04] MEDS ORDERED: WATER (STERILE) FOR INJ 10 ML BTL INJ SCH (22:30)
[2022-05-04] MEDS ORDERED: polyethylene glycoL POWDER 17 GM (MIRALAX) PACK PO PRN (22:30)
[2022-05-04] MEDS ORDERED: NS IV 500 ML 500 ML IV PRN (22:30)
[2022-05-04] MEDS ORDERED: diphenhydrAMINE 25 MG TAB (BENADRYL) PO PRN (22:30)
[2022-05-04] MEDS ORDERED: ANTACID SUSP 30 ML UDC (MYLANTA) PO PRN (22:30)
[2022-05-04] MEDS ORDERED: VANCOMYCIN INJECTION 0.1 MG in NS (IVPB) 250 ML IV SCH (22:30)
[2022-05-04] MEDS ORDERED: CALCIUM CARBONATE 500 MG (TUMS) TAB.CHEW PO PRN (22:30)
[2022-05-04] MEDS ORDERED: ONDANSETRON 4 MG (ZOFRAN) ORAL DISSOLVE TAB PO PRN (22:30)
[2022-05-04] MEDS ORDERED: HYDROmorphone 2 MG/ML VIAL (DILAUDID) ONE (22:33)
[2022-05-04] MEDS ORDERED: NS IV 1000 ML 1,000 ML ONE (22:34)
[2022-05-04] MEDS: NS IV 1000 ML 1,000 ML IV SCH (22:37)
[2022-05-04] MEDS ORDERED: VANCOMYCIN 1250 MG/NS 250 ML PREMIX IV ONE (22:45)
[2022-05-04] MEDS ORDERED: RT-ALBUTEROL/IPRATROPIUM 3 ML (DUONEB) VIAL INH PRN (23:00)
--- NOTE | 2022-05-04 23:13 | Tele-ICU Consult ---
History of Present Illness History of Present Illness Date Seen by Provider: May 04, 2022 Time Seen by Provider: 23:10 Date of Admission 05/04/22 History of Present Illness (Tele-ICU Physician , Progress Note ) Service provided via interactive audio and video telecommunications E-CARE sy stem to a patient admitted to ICU bed in [facility]. Patient is seen today due to persistent need of ICU care Available chart/ vitals / labs / Images reviewed Video assessment done using teleICU camera, rest of exam as per RN She is a 66-year-old female presented to the emergency room with a complaint of sudden onset of severe abdominal pain associated with vomiting. She upon admission to the ER she is found to be diaphoretic but awake alert and oriented x4. Her blood pressure is very low. Further work-up with the various lab test found that she has a elevated lactic acid, white count and acute kidney injury. Septic shock is suspected and she is given IV fluid boluses and admitted to the intensive care unit. Apparently patient admitted that she has been out of her Suboxone and Klonopin for a month and she has a history of polysubstance abuse including IV heroin, methamphetamine and prescription drug pill abuse. It is not clear whether she is undergoing any withdrawal symptoms at this time. Reportedly she has been on methadone and Suboxone for years for her heroin addiction also drinks about 4-6 beers per day and smokes about 1-1/2 pack of cigarettes per day. Currently she is awake alert and oriented per RN. Impression 1. Possible septic shock 2. Polysubstance abuse and possibility of substance abuse withdrawal not ruled out. 3. Acute kidney injury secondary to septic shock 4. Possible urinary urinary tract infection. Recommendations 1. Continue broad-spectrum antibiotics for now with cefepime and vancomycin 2. Aggressively hydrate the patient 3. Monitor BUN/creatinine and electrolytes 4. Monitor for any withdrawal symptoms and suggest a CIWA scale. 5. DVT prophylaxis and ulcer prophylaxis. Coordination of care with primary care physician and bedside consultants. I am remotely monitoring this patient from Tele icu station in [place]. I am unable to do the bedside exam, and history/physical and pertinent information is taken from other notes in the computer and bedside staff. Certain portions of this document may have been dictated utilizing voice recognition technology such as [email or web address]. Inherent to this technology, typographical and grammatical errors may exist. As much as I am diligent to identify and correct to these mistakes, some errors may remain in the document. Critical care time due to gated to this patient today is approximately 35 minutes Allergies and Home Medications Allergies Coded Allergies: butorphanol (Unverified Allergy, Unknown, 10/01/13) erythromycin base (Unverified Adverse Reaction, Intermediate, 03/03/13) Home Medications Albuterol Sulfate 2.5 Mg/3 Ml Vial.neb, 2.5 MG INH Q4H PRN for SHORTNESS OF BREATH, (Reported) Amlodipine Besylate 5 Mg Tablet, 5 MG PO DAILY Prescribed by: TOMASA CERVANTES on 01/27/21 1008 Aripiprazole 15 Mg Tablet, 15 MG PO DAILY, (Reported) Atorvastatin Calcium 10 Mg Tablet, 10 MG PO DAILY, (Reported) Baclofen 10 Mg Tablet, 10 MG PO BID, (Reported) Butalb/Acetaminophen/Caffeine 1 Each Tablet, 1 TAB PO Q12H PRN for HEADACHE, (Reported) Escitalopram Oxalate 20 Mg Tablet, 20 MG PO DAILY, (Reported) Gabapentin 300 Mg Capsule, 300 MG PO TID, (Reported) Levothyroxine Sodium 88 Mcg Tablet, 88 MCG PO DAILY, (Reported) Metoprolol Succinate 25 Mg Tab.er.24h, 25 MG PO DAILY, (Reported) Omeprazole 20 Mg Capsule.dr, 20 MG PO 1200, (Reported) Ondansetron 4 Mg Tab.rapdis, 1 TAB PO Q4H PRN for NAUSEA/VOMITING-1ST LINE, (Reported) Potassium Chloride 10 Meq Tablet.er, 10 MEQ PO DAILY, (Reported) Primidone 50 Mg Tablet, 50 MG PO BID, (Reported) LAST FILLED 11-28-2020 #60/30 [employer] Past Medical/Social/Family Hx Patient Social History Tobacco Use?: Yes Tobacco type used: Cigars Smoking Status: Current Everyday Smoker Use of E-Cig and/or Vaping dev: No E-Cig or Vaping type used: Marijuana, Synthetic Cannabinoids E-Cig and/or Vaping Freq: Current Everyday User Substance use?: Yes Substance type: Marijuana IV HEROIN Substance frequency: Daily Alcohol Use?: No Pt stated abuse/neglect: No Immunizations Up To Date Influenza Vaccine Up-to-Date: No; Not Current First/Initial COVID19 Vaccinat: AGUSTIN DOESNT KNOW WHEN Second COVID19 Vaccination Umang: AGUSTIN DOESNT KNOW WHEN Hepatitis A: No Hepatitis B: No TB Skin Test: None Current Status status: No status: No Advance Directives: No Communicates: Verbally Primary Language: Irish Preferred Spoken Language: Irish Is interpretation needed?: No Sensory deficits: Vision impairment Implanted or Applied Medical D: None Past Medical History PMHx: Unable to obtain due to patient condition Family Medical History Family Hx: SOCIAL HISTORY: -SMOKES 1 1/2 PPD -ETOH--6 PACK/DAY -DRUGS-- + IV HEROIN USE, METH USE, THC USE, RX DRUGS. PT STATES SHE HAS BEEN ON METHADONE AND SUBOXONE "FOR YEARS" DUE TO HEROIN ADDICTION. PAST SURGICAL HISTORY: -HYSTERECTOMY/BILATERAL SALPINGO-OOPHORECTOMY -TONSILLECTOMY -BREAST BIOPSY -TOE SURGERY -BILATERAL CATARACT SURGERY 08/2021 STRESS TEST 07/27/[address] REIS: Conclusion: Pharmacological stress test was negative for ischemia. Normal LV function with no wall motion abnormalities. Normal myocardial perfusion imaging during rest and stress. Review of Systems Constitutional: see HPI, weakness Focused Exam Lactate Level 05/04/22 19:24: Lactic Acid Level 3.91*H 05/04/22 21:35: Lactic Acid Level 2.06*H Height, Weight, BMI Height: 5'6.00" Weight: 115lbs. 0.0oz. [id number]; 19.12 BMI Method:Stated Time of Focused Exam: 20:15 Lactic Acid Level Laboratory Tests Test 05/04/22 19:24 05/04/22 21:35 Lactic Acid Level 3.91 MMOL/L (0.50-2.00) *H 2.06 MMOL/L (0.50-2.00) *H Exam Exam Patient acknowledged, consented, and participated in this virtual visit which was conducted using real time audio/video Vital Signs Date Time Temp Pulse Resp B/P (MAP) Pulse Ox O2 Delivery O2 Flow Rate FiO2 05/04/22 22:48 35.3 125 97 21 05/04/22 22:45 96 110/66 (81) 98 Room Air 05/04/22 22:30 97 116/66 (94) 99 Room Air 05/04/22 22:15 98 38 118/81 (89) 99 Room Air 05/04/22 22:13 99 05/04/22 22:10 36.4 100 20 127/58 (81) 100 Room Air 05/04/22 22:06 100 Room Air 05/04/22 21:17 92 18 116/64 96 Room Air 05/04/22 19:13 35.3 125 22 90/67 (75) 97 Room Air Height & Weight Height: 5'6.00" Weight: 115lbs. 0.0oz. [id number]; 19.12 BMI Method:Stated General Appearance: Other (RESTLESS AT TIMES) Respiratory: Normal Breath Sounds, No Accessory Muscle Use, No Respiratory Distress Cardiovascular: No Edema, No JVD, No Murmur, Normal Peripheral Pulses, Tachycardia Capillary Refill: Less Than 3 Seconds Gastrointestinal: normal bowel sounds, soft, no organomegaly, no pulsatile mass, tenderness (EPIGASTRIC TENDERNESS) Other comments PE PER RN Results Lab Laboratory Tests 05/04/22 19:24 Assessment/Plan Assessment/Plan ABOVE Critical Care: Critically Ill Patient Time spent with patient (mins): 35 JOSIAH BOWER MD May 04, 2022 23:13
[2022-05-05 05:45] LABS: BASOPHILS % (AUTO) 0 % (0-10); EOSINOPHILS # (AUTO) 0.1 10^3/uL (0.0-0.3); EOSINOPHILS % (AUTO) 1 % (0-10); HEMATOCRIT 31 % (35-52); HEMOGLOBIN 10.5 g/dL (11.5-16.0); LYMPHOCYTES # (AUTO) 2.7 10^3/uL (1.0-4.0); LYMPHOCYTES % (AUTO) 24 % (12-44); MEAN CORPUSCULAR HEMOGLOBIN 31 pg (25-34); MEAN CORPUSCULAR HGB CONC 34 g/dL (32-36); MEAN CORPUSCULAR VOLUME 93 fL (80-99); MEAN PLATELET VOLUME 8.7 fL (9.0-12.2); MONOCYTES % (AUTO) 9 % (0-12); NEUTROPHILS # (AUTO) 7.2 10^3/uL (1.8-7.8); NEUTROPHILS % (AUTO) 65 % (42-75); PLATELET COUNT 242 10^3/uL (130-400)
[2022-05-05 05:52] LABS: ALBUMIN 3.3 GM/DL (3.2-4.5); POTASSIUM 4.4 MMOL/L (3.6-5.0)
[2022-05-05 05:53] LABS: CALCIUM 8.2 MG/DL (8.5-10.1)
[2022-05-05 05:55] LABS: TOTAL PROTEIN 5.6 GM/DL (6.4-8.2)
[2022-05-05 05:56] LABS: BILIRUBIN,TOTAL 0.2 MG/DL (0.1-1.0)
[2022-05-05 05:58] LABS: CREATININE SERUM 1.14 MG/DL (0.60-1.30); PHOSPHORUS 3.7 MG/DL (2.3-4.7)
[2022-05-05] MEDS ORDERED: KCL 20 MEQ TAB (K-DUR) PO SCH (06:00)
[2022-05-05] MEDS ORDERED: MAGNESIUM 1 GM/100 ML IVPB 100 ML IV SCH (06:00)
[2022-05-05] MEDS ORDERED: POTASSIUM CL 10MEQ/50ML IVPB 50 ML IV SCH (06:00)
[2022-05-05 06:02] LABS: MAGNESIUM 1.8 MG/DL (1.6-2.4)
[2022-05-05] MEDS: THIAMINE 100 MG (VITAMIN B-1) TAB PO SCH (06:38)
[2022-05-05] MEDS: LORazepam 0.5 MG (ATIVAN) TABLET PO PRN ×3 (06:38→19:54)
[2022-05-05] MEDS: PANTOPRAZOLE 40 MG (PROTONIX) TAB PO SCH (06:38)
[2022-05-05] MEDS: NS IV 1000 ML 1,000 ML IV SCH ×3 (06:39→23:12)
[2022-05-05] MEDS ORDERED: FLU QUADRIvalent (6 months+) 60 mcg/0.5 ml 2022-23 (Fluzone) IM ONE (07:15)
[2022-05-05] MEDS: MAGNESIUM 1 GM/100 ML IVPB 100 ML IV SCH ×2 (07:25→08:44)
[2022-05-05] MEDS: DOCUSATE SODIUM 100 MG (COLACE) CAP PO SCH ×2 (08:43→19:54)
[2022-05-05] MEDS: CEFEPIME INJECTION 1,000 MG in NS (IVPB) 50 ML IV SCH ×3 (08:43→23:12)
[2022-05-05] MEDS: FOLIC ACID 1 MG TAB PO SCH (08:43)
[2022-05-05] MEDS: SENNOSIDES 8.6 MG (SENOKOT) TAB PO SCH ×2 (08:43→19:54)
--- NOTE | 2022-05-05 08:50 | Diagnostic Imaging Report ---
INDICATION: Sepsis COMPARISON: 05/04/2022 TECHNIQUE: Single radiograph of the chest dated 05/05/2022. FINDINGS: The cardiac silhouette is within normal limits. No significant pulmonary vascular congestion. Decreased lung volumes compared to the prior examination with minimal bibasilar interstitial opacities. No pleural effusion. No pneumothorax. No acute osseous abnormality. IMPRESSION: Decreased lung volumes with minimal left greater than right bibasilar atelectasis and/or pneumonitis. Dictated by: Dictated on workstation # [id number]
--- NOTE | 2022-05-05 09:04 | History & Physical ---
HPI History of Present Illness: Yesterday morning was vomiting all morning, nauseated. Had two different antibiotics, one was Macrobid, can't remember the other, wasn't taking them all the time. She states she has trouble with forgetfulness after she hit her head, and her mom helps her but was busy. She doesn't remember where she got the antibiotics. She endorses fever. States she has none of her medications, they are in the middle of moving toward [place], is in [place]. States she needs to find a doctor again, last she saw was Andry Pascal in [place]. She admits pain with urination and has to cath every time due to urinary retention. She denies diarrhea. Admits a little constipation but not much. She reports she was on Klonopin 1 mg in the morning and at night when Andry was there, when he retired she has now been out and has been jerking since then. States she has never drank alcohol. Admits marijuana use which she says she started due to her nausea and jerking when out of Klonopin. States her mom got her a THC thing in [place] and she "took a hit off that, but it's too raspy". She says her last dose of benzodiazepine was in March. She says she "doesn't mess" with suboxone or methadone anymore, hasn't been on it in a long time. Clinic chart review shows she had a visit on 04/23 where the followignb was rpeorted "was recently hospitalized at [place], [place] for in-patient psych. Diagnosis uknown. Repeatedly states that she wants Ativan again. Won't go back to [facility] [place] because they stopped her Clonazepam". She had also previously been weaned off benzo in 2019 by [facility] Psychiatry, sought another provider in [place] within 2 months of d/c to get another script which led to violation of her controlled substance contract. Also per PA notes, he reviewed [employer] and she received multiple prescriptions from multiple providers in the past few months. She also had a Psychiatry appt on 04/22/22 which she cancelled. Exam Limitations: clinical condition Date seen by provider: May 05, 2022 Time Seen by Provider: 09:01 Attending Physician No,Local Physician PCP Admitting Physician: Shaneka Borjas DO Attending Physician: Vinicio Hernandez MD Consult Date of Admission May 04, 2022 at 22:04 Home Medications Home Medications Reviewed patient Home Medication Reconciliation performed by pharmacy medication reconciliations entry level lab technician and/or nursing. Patients Allergies have been reviewed. Allergies Coded Allergies: butorphanol (Unverified Allergy, Unknown, 10/01/13) tramadol (Verified Allergy, Unknown, Nausea, 05/05/22) trazodone (Verified Allergy, Unknown, 05/05/22) FEELS LIKE ELECTRIC SHOCK IN LIMBS erythromycin base (Unverified Adverse Reaction, Intermediate, 03/03/13) [id number] Hx Patient Social History Smoking Status: Current Everyday Smoker 2nd Hand Smoke Exposure: No Recent Hopitalizations: No Alcohol Use?: No Substance type: Marijuana Tobacco type used: Cigars Have you traveled recently?: No Immunizations Up To Date Influenza Vaccine Up-to-Date: No; Not Current First/Initial COVID19 Vaccinat: MODERNA DOESNT KNOW WHEN Second COVID19 Vaccination Umang: MODERNA DOESNT KNOW WHEN Third COVID19 Vaccination Date: MODERNA DOESNT KNOW WHEN COVID19 Vaccine Gold Blower: MODERNA Past Medical History PMHx: COPD Anxiety Hypothyroidism Hyperlipidemia Past SurgHx: Hysterectomy with bilateral salpingoophorectomy Tonsillectomy Cataract Family Medical History Other Significan Family Hx: SOCIAL HISTORY: -SMOKES 1 1/2 PPD -ETOH--6 PACK/DAY -DRUGS-- + IV HEROIN USE, METH USE, THC USE, RX DRUGS. PT STATES SHE HAS BEEN ON METHADONE AND SUBOXONE "FOR YEARS" DUE TO HEROIN ADDICTION. PAST SURGICAL HISTORY: -HYSTERECTOMY/BILATERAL SALPINGO-OOPHORECTOMY -TONSILLECTOMY -BREAST BIOPSY -TOE SURGERY -BILATERAL CATARACT SURGERY 08/2021 STRESS TEST 07/27/[address] REIS: Conclusion: Pharmacological stress test was negative for ischemia. Normal LV function with no wall motion abnormalities. Normal myocardial perfusion imaging during rest and stress. Family History: FH: rheumatoid arthritis 19 MOTHER Pancreatic cancer 19 FATHER Review of Systems ([facility]) Constitutional: fever EENTM: throat pain; No nose congestion Respiratory: cough, short of breath Cardiovascular: chest pain (yesterday) Gastrointestinal: abdominal pain (epigastric), constipation; No diarrhea; nausea, vomiting Genitourinary: dysuria Musculoskeletal: joint pain, muscle pain Skin: No rash Psychiatric/Neurological: Anxiety Reviewed Test Results Reviewed Test Results Lab Laboratory Tests Test 05/04/22 19:24 05/04/22 19:32 05/04/22 19:48 05/04/22 21:35 Range/Units White Blood Count 18.1 H 4.3-11.0 10^3/uL Red Blood Count 4.57 3.80-5.11 10^6/uL Hemoglobin 14.2 11.5-16.0 g/dL Hematocrit 41 35-52 % Mean Corpuscular Volume 90 80-99 fL Mean Corpuscular Hemoglobin 31 25-34 pg Mean Corpuscular Hemoglobin Concent 35 32-36 g/dL Red Cell Distribution Width 13.9 10.0-14.5 % Platelet Count 355 130-400 10^3/uL Mean Platelet Volume 8.7 L 9.0-12.2 fL Immature Granulocyte % (Auto) 1 % Neutrophils (%) (Auto) 86 H 42-75 % Lymphocytes (%) (Auto) 8 L 12-44 % Monocytes (%) (Auto) 5 0-12 % Eosinophils (%) (Auto) 0 0-10 % Basophils (%) (Auto) 0 0-10 % Neutrophils # (Auto) 15.6 H 1.8-7.8 10^3/uL Lymphocytes # (Auto) 1.4 1.0-4.0 10^3/uL Monocytes # (Auto) 0.9 0.0-1.0 10^3/uL Eosinophils # (Auto) 0.0 0.0-0.3 10^3/uL Basophils # (Auto) 0.1 0.0-0.1 10^3/uL Immature Granulocyte # (Auto) 0.1 0.0-0.1 10^3/uL Neutrophils % (Manual) 86 % Lymphocytes % (Manual) 11 % Monocytes % (Manual) 3 % Blood Morphology Comment NORMAL Erythrocyte Sedimentation Rate 9 0-30 MM/HR Prothrombin Time 12.8 12.2-14.7 SEC INR Comment 0.9 0.8-1.4 Activated Partial Thromboplast Time 27 24-35 SEC D-Dimer <= 0.27 0.00-0.49 UG/ML Sodium Level 134 L 135-145 MMOL/L Potassium Level 4.1 3.6-5.0 MMOL/L Chloride Level 96 L 98-107 MMOL/L Carbon Dioxide Level 20 L 21-32 MMOL/L Anion Gap 18 H 5-14 MMOL/L Blood Urea Nitrogen 24 H 7-18 MG/DL Creatinine 2.03 H 0.60-1.30 MG/DL Estimat Glomerular Filtration Rate 27 BUN/Creatinine Ratio 12 Glucose Level 148 H 70-105 MG/DL Lactic Acid Level 3.91 *H 2.06 *H 0.50-2.00 MMOL/L Calcium Level 10.2 H 8.5-10.1 MG/DL Corrected Calcium 8.5-10.1 MG/DL Magnesium Level 2.2 1.6-2.4 MG/DL Total Bilirubin 0.3 0.1-1.0 MG/DL Aspartate Amino Transf (AST/SGOT) 20 5-34 U/L Alanine Aminotransferase (ALT/SGPT) 24 0-55 U/L Alkaline Phosphatase 82 40-136 U/L Total Creatine Kinase 38 29-168 U/L Creatine Kinase MB 1.5 <6.6 NG/ML Myoglobin 110.3 H 10.0-92.0 NG/ML Troponin I < 0.028 <0.028 NG/ML C-Reactive Protein High Sensitivity 0.04 0.00-0.50 MG/DL B-Type Natriuretic Peptide 25.0 <100.0 PG/ML Total Protein 8.4 H 6.4-8.2 GM/DL Albumin 4.8 H 3.2-4.5 GM/DL Amylase Level 102 25-125 U/L Lipase 51 8-78 U/L Acetaminophen Level < 10 L 10-30 UG/ML Serum Alcohol < 10 <10 MG/DL Urine Color YELLOW Urine Clarity CLOUDY Urine pH 5.5 5-9 Urine Specific [place] >=1.030 1.016-1.022 Urine Protein 2+ H NEGATIVE Urine Glucose (UA) NEGATIVE NEGATIVE Urine Ketones 1+ H NEGATIVE Urine Nitrite NEGATIVE NEGATIVE Urine Bilirubin 1+ H NEGATIVE Urine Urobilinogen 0.2 < = 1.0 MG/DL Urine Leukocyte Esterase 2+ H NEGATIVE Urine RBC (Auto) TRACE-I H NEGATIVE Urine RBC 10-25 H /HPF Urine WBC 50-100 H /HPF Urine Squamous Epithelial Cells 10-25 H /HPF Urine Crystals PRESENT H /LPF Urine Amorphous Sediment FEW YOLIS URATES H /LPF Urine Bacteria LARGE H /HPF Urine Casts NONE /LPF Urine Mucus NEGATIVE /LPF Urine Culture Indicated YES Urine Opiates Screen NEGATIVE NEGATIVE Urine Oxycodone Screen NEGATIVE NEGATIVE Urine Methadone Screen NEGATIVE NEGATIVE Urine Propoxyphene Screen NEGATIVE NEGATIVE Urine Barbiturates Screen NEGATIVE NEGATIVE Ur Tricyclic Antidepressants Screen POSITIVE H NEGATIVE Urine Phencyclidine Screen NEGATIVE NEGATIVE Urine Amphetamines Screen NEGATIVE NEGATIVE Urine Methamphetamines Screen NEGATIVE NEGATIVE Urine Benzodiazepines Screen POSITIVE H NEGATIVE Urine Cocaine Screen NEGATIVE NEGATIVE Urine Cannabinoids Screen POSITIVE H NEGATIVE Influenza Type A (RT-PCR) Not Detected Not Detecte Influenza Type B (RT-PCR) Not Detected Not Detecte SARS-CoV-2 RNA (RT-PCR) Not Detected Not Detecte Test 05/04/22 23:25 05/05/22 04:52 Range/Units Lactic Acid Level 0.77 0.50-2.00 MMOL/L White Blood Count 11.0 4.3-11.0 10^3/uL Red Blood Count 3.34 L 3.80-5.11 10^6/uL Hemoglobin 10.5 #L 11.5-16.0 g/dL Hematocrit 31 L 35-52 % Mean Corpuscular Volume 93 80-99 fL Mean Corpuscular Hemoglobin 31 25-34 pg Mean Corpuscular Hemoglobin Concent 34 32-36 g/dL Red Cell Distribution Width 14.3 10.0-14.5 % Platelet Count 242 130-400 10^3/uL Mean Platelet Volume 8.7 L 9.0-12.2 fL Immature Granulocyte % (Auto) 1 % Neutrophils (%) (Auto) 65 42-75 % Lymphocytes (%) (Auto) 24 12-44 % Monocytes (%) (Auto) 9 0-12 % Eosinophils (%) (Auto) 1 0-10 % Basophils (%) (Auto) 0 0-10 % Neutrophils # (Auto) 7.2 1.8-7.8 10^3/uL Lymphocytes # (Auto) 2.7 1.0-4.0 10^3/uL Monocytes # (Auto) 1.0 0.0-1.0 10^3/uL Eosinophils # (Auto) 0.1 0.0-0.3 10^3/uL Basophils # (Auto) 0.0 0.0-0.1 10^3/uL Immature Granulocyte # (Auto) 0.1 0.0-0.1 10^3/uL Sodium Level 131 L 135-145 MMOL/L Potassium Level 4.4 3.6-5.0 MMOL/L Chloride Level 103 98-107 MMOL/L Carbon Dioxide Level 21 21-32 MMOL/L Anion Gap 7 5-14 MMOL/L Blood Urea Nitrogen 20 H 7-18 MG/DL Creatinine 1.14 0.60-1.30 MG/DL Estimat Glomerular Filtration Rate 53 BUN/Creatinine Ratio 18 Glucose Level 85 70-105 MG/DL Calcium Level 8.2 L 8.5-10.1 MG/DL Corrected Calcium 8.8 8.5-10.1 MG/DL Phosphorus Level 3.7 2.3-4.7 MG/DL Magnesium Level 1.8 1.6-2.4 MG/DL Total Bilirubin 0.2 0.1-1.0 MG/DL Aspartate Amino Transf (AST/SGOT) 17 5-34 U/L Alanine Aminotransferase (ALT/SGPT) 16 0-55 U/L Alkaline Phosphatase 57 40-136 U/L Total Protein 5.6 L 6.4-8.2 GM/DL Albumin 3.3 3.2-4.5 GM/DL Radiology CT chest/abdomen/pelvis 05/04/22: IMPRESSION: 1. No acute abnormality in the chest, abdomen, or pelvis. 2. Left lower lobe pulmonary nodules measuring up to 0.4 cm. Recommend follow-up CT chest in 6-12 months. CXR 05/04/22 unremarkable Physical Exam-([facility]) Physical Exam Vital Signs VS - Last 72 Hours, by Label 05/04/22 05/04/22 05/04/22 05/04/22 19:13 21:17 22:06 22:10 Temp 35.3 36.4 Pulse 125 92 100 Resp 22 18 20 B/P (MAP) 90/67 (75) 116/64 127/58 (81) Pulse Ox 97 96 100 100 O2 Delivery Room Air Room Air Room Air Room Air 05/04/22 05/04/22 05/04/22 05/04/22 22:13 22:15 22:30 22:45 Pulse 99 98 97 96 Resp 38 B/P (MAP) 118/81 (89) 116/66 (94) 110/66 (81) Pulse Ox 99 99 98 O2 Delivery Room Air Room Air Room Air 05/04/22 05/04/22 05/04/22 05/04/22 22:48 23:00 23:15 23:30 Temp 35.3 Pulse 125 97 96 98 Resp 30 16 18 B/P (MAP) 106/78 (87) 101/73 (84) 100/59 (75) Pulse Ox 97 98 98 96 O2 Delivery Room Air Room Air Room Air FiO2 21 05/04/22 05/04/22 05/05/22 05/05/22 23:45 23:45 00:00 00:00 Temp 36.7 Pulse 98 97 Resp 7 8 B/P (MAP) 98/55 (70) 113/62 (79) Pulse Ox 97 94 94 O2 Delivery Room Air Room Air Room Air Room Air 05/05/22 05/05/22 05/05/22 05/05/22 00:15 00:30 00:45 01:00 Pulse 90 90 85 80 Resp 10 26 14 10 B/P (MAP) 109/68 (93) 115/62 (84) 116/68 (78) 113/68 (83) Pulse Ox 96 93 96 97 O2 Delivery Room Air Room Air Room Air Room Air 05/05/22 05/05/22 05/05/22 05/05/22 01:00 02:00 03:00 04:00 Pulse 80 85 86 75 Resp 10 35 8 B/P (MAP) 112/62 (73) 101/63 (76) 115/66 (82) Pulse Ox 96 97 96 O2 Delivery Room Air Room Air Room Air 05/05/22 05/05/22 05/05/22 05/05/22 04:00 04:00 05:00 06:00 Temp 36.4 Pulse 75 77 Resp 11 16 B/P (MAP) 118/62 (80) 105/71 (82) Pulse Ox 99 96 95 O2 Delivery Room Air Room Air Room Air Room Air 05/05/22 05/05/22 05/05/22 05/05/22 07:00 07:18 08:00 08:40 Pulse 73 74 71 Resp 18 12 B/P (MAP) 114/66 (82) 113/71 (85) Pulse Ox 97 96 O2 Delivery Room Air Room Air Room Air 05/05/22 05/05/22 05/05/22 05/05/22 08:46 09:00 10:00 11:00 Temp 36.4 Pulse 79 80 76 Resp 40 40 11 B/P (MAP) 109/72 (84) 98/58 (71) Pulse Ox 96 96 100 O2 Delivery Room Air Room Air Room Air Capillary Refill : Less Than 3 Seconds General Appearance: no apparent distress Cardiovascular: regular rate, rhythm, no murmur Gastrointestinal: normal bowel sounds, soft, tenderness (diffuse, mild) Extremities: no pedal edema Neurologic/Psychiatric: alert, other (moving arms and legs nearly continuously, occasional myoclonic jerking of arms) Skin: warm/dry Assessment/Plan Assessment/Plan Admission Status: Inpatient Order (span 2 midnights) Reason for Inpatient Admission: Severe sepsis (1) Severe sepsis Status: Acute Assessment & Plan: Secondary to UTI. Started cefepime on admit, lactic acid normalized, ALEC resolving. (2) Urinary tract infection Status: Acute Assessment & Plan: With history of recurrent self-cath due to neurogenic bladder. Started on cefepime and vancomycin, will d/c vanc. Culture with gram neg janet. Qualifiers: (3) Acute kidney injury Status: Acute Assessment & Plan: Secondary to sepsis, improved overnight. (4) Fatty liver Status: Chronic (5) Hyperlipidemia Status: Chronic (6) Hypertension Status: Chronic (7) CKD (chronic kidney disease) Status: Chronic (8) COPD (chronic obstructive pulmonary disease) Status: Chronic (9) Hypothyroidism Status: Chronic (10) Neurogenic bladder Status: Chronic (11) Anxiety Status: Chronic Assessment & Plan: History of chronic benzodiazpine use and violations of controlled substance agreements at primary clinic. Per patient, hasn't seen anyone since Andry Pascal retired, however chart review shows she transitioned to another CONTROL OFFICER who tapered her clonazepam and she saw a PA for chronic medication management this month. (12) Chronic prescription opiate use Status: Chronic Assessment & Plan: Pt states she is no longer on suboxone, per clinic chart was reporting receiving from an online clinic. Has declined referrals to [facility] addiction treatment and behavioral health. (13) DVT prophylaxis Status: Acute Assessment & Plan: Enoxaparin VINICIO HERNANDEZ MD May 05, 2022 09:04
[2022-05-05] MEDS ORDERED: ENOXAPARIN 40 MG/0.4 ML (LOVENOX) SYR SQ SCH (10:30)
[2022-05-05] MEDS ORDERED: LEVO100T7 PO (10:57)
[2022-05-05] MEDS ORDERED: NITR100C10 PO (10:57)
[2022-05-05] MEDS ORDERED: CLON1TAB13 PO (10:57)
[2022-05-05] MEDS ORDERED: OMEP40CA6 PO (10:57)
--- NOTE | 2022-05-05 11:19 | Tele-ICU Progress Note ---
Subjective Date Seen by a Provider: May 05, 2022 Time Seen by a Provider: 11:19 Subjective/Events-last exam (Tele-ICU Physician , Progress Note ) Service provided via interactive audio and video telecommunications E-CARE system to a patient admitted to ICU bed in [facility]. Patient is seen today due to persistent need of ICU care Available chart/ vitals / labs / Images reviewed Video assessment done using teleICU camera, rest of exam as per RN Discussed with RN Events overnight : Afebrile hemodynamically stable Respiratory - ra I/O = + Drips: Pressors- no Hospital course: 05/04: 66 y/o female presented to the ED with c/o severe abdominal pain with vomiting. h/o polysubstance abuse with possible substance abuse withdrawal not r/o. Admitted with severe sepsis, UTI, ALEC. A/P Possible septic shock ( NEG PCR COVID-19, influenza A&B - suspected UTI with GNR - cont IVF , decrease dose -cont abg ALEC - resolved with hydration Polysubstance abuse and possibility of substance abuse withdrawal not ruled out. - ont CIWA , monitor UTI - cont Hyponatremia - monitor Lines : , (Central Line Necessity Reviewed) Herman: self cath at home , herman here OG: Nutrition: Analgesia: Anxiety/ delirium VTE Prophylaxis: hep sq Stress Ulcer Prophylaxis: Plans in collaboration with bedside consultants and IM MDs. Discussed with RN to reach out if any questions or concerns Case and care daily discussed on multidisciplinary rounds ( RN, PharmD, Metal Caster , Respiratory Therapy, general production worker ) A total of 25 minutes of critical care time was devoted to this patient today, required to treat and/or prevent further deterioration of critical care con dition ( as above ) . I am remotely monitoring this patient from another state. I am unable to do the bedside exam, and history/physical and pertinent information is taken from other notes in the computer and bedside staff. Sepsis Event Evaluation Height, Weight, BMI Height: 5'6.00" Weight: 115lbs. 0.0oz. 52.025210zq; 19.09 BMI Method:Stated Focused Exam Lactate Level 05/04/22 19:24: Lactic Acid Level 3.91*H 05/04/22 21:35: Lactic Acid Level 2.06*H 05/04/22 23:25: Lactic Acid Level 0.77 Time of Focused Exam: 20:15 Exam Exam Patient acknowledged, consented, and participated in this virtual visit which was conducted using real time audio/video Vital Signs Date Time Temp Pulse Resp B/P (MAP) Pulse Ox O2 Delivery O2 Flow Rate FiO2 05/05/22 10:00 80 40 98/58 (71) 96 Room Air 05/05/22 09:00 79 40 109/72 (84) 96 Room Air 05/05/22 08:46 36.4 05/05/22 08:40 Room Air 05/05/22 08:00 71 12 113/71 (85) 96 Room Air 05/05/22 07:18 74 05/05/22 07:00 73 18 114/66 (82) 97 Room Air 05/05/22 06:00 77 16 105/71 (82) 95 Room Air 05/05/22 05:00 75 11 118/62 (80) 96 Room Air 05/05/22 04:00 99 Room Air 05/05/22 04:00 36.4 Room Air 05/05/22 04:00 75 8 115/66 (82) 96 Room Air 05/05/22 03:00 86 35 101/63 (76) 97 Room Air 05/05/22 02:00 85 10 112/62 (73) 96 Room Air 05/05/22 01:00 80 05/05/22 01:00 80 10 113/68 (83) 97 Room Air 05/05/22 00:45 85 14 116/68 (78) 96 Room Air 05/05/22 00:30 90 26 115/62 (84) 93 Room Air 05/05/22 00:15 90 10 109/68 (93) 96 Room Air 05/05/22 00:00 97 8 113/62 (79) 94 Room Air 05/05/22 00:00 36.7 Room Air 05/04/22 23:45 98 7 98/55 (70) 94 Room Air 05/04/22 23:45 97 Room Air 05/04/22 23:30 98 18 100/59 (75) 96 Room Air 05/04/22 23:15 96 16 101/73 (84) 98 Room Air 05/04/22 23:00 97 30 106/78 (87) 98 Room Air 05/04/22 22:48 35.3 125 97 21 3/27/23 22:45 96 110/66 (81) 98 Room Air 05/04/22 22:30 97 116/66 (94) 99 Room Air 05/04/22 22:15 98 38 118/81 (89) 99 Room Air 05/04/22 22:13 99 05/04/22 22:10 36.4 100 20 127/58 (81) 100 Room Air 05/04/22 22:06 100 Room Air 05/04/22 21:17 92 18 116/64 96 Room Air 05/04/22 19:13 35.3 125 22 90/67 (75) 97 Room Air I & O 05/05/22 06:59 Intake Total 2375 ml Output Total 500 ml Balance 1875 ml Height & Weight Height: 5'6.00" Weight: 115lbs. 0.0oz. 52.045093gu; 19.09 BMI Method:Stated General Appearance: Other (RESTLESS AT TIMES) Respiratory: Normal Breath Sounds, No Accessory Muscle Use, No Respiratory Distress Cardiovascular: No Edema, No JVD, No Murmur, Normal Peripheral Pulses, Tachycardia Capillary Refill: Less Than 3 Seconds Gastrointestinal: normal bowel sounds, soft, no organomegaly, no pulsatile ma ss, tenderness (EPIGASTRIC TENDERNESS) Results Lab Laboratory Tests 05/04/22 19:24 05/05/22 04:52 Assessment/Plan Assessment/Plan 1 ELIZABETH BOWSER MD May 05, 2022 11:19
[2022-05-05 13:19] VITALS: BP 130/65
[2022-05-05 15:27] VITALS: BP 100/61
[2022-05-05] MEDS: ENOXAPARIN 40 MG/0.4 ML (LOVENOX) SYR SQ SCH (16:19)
[2022-05-05 19:24] VITALS: BP 120/69
[2022-05-05] MEDS: ACETAMINOPHEN 500 MG TAB (TYLENOL) PO PRN (19:54)
[2022-05-05] MEDS ORDERED: VANCOMYCIN 750 MG/NS 250 ML IVPB IV SCH ×2 (23:00)
[2022-05-05 23:13] VITALS: BP 116/65
[2022-05-06] VITALS (7 sets, daily range): BP systolic 110–140; BP diastolic 60–90
[2022-05-06] MEDS: THIAMINE 100 MG (VITAMIN B-1) TAB PO SCH (05:40)
[2022-05-06] MEDS: PANTOPRAZOLE 40 MG (PROTONIX) TAB PO SCH (05:40)
[2022-05-06] MEDS: LEVOTHYROXINE 100 MCG (LEVOTHROID) TAB PO SCH (05:40)
[2022-05-06] MEDS: LORazepam 0.5 MG (ATIVAN) TABLET PO PRN (06:09)
[2022-05-06 06:10] LABS: BASOPHILS # (AUTO) 0.1 10^3/uL (0.0-0.1); BASOPHILS % (AUTO) 1 % (0-10); EOSINOPHILS # (AUTO) 0.2 10^3/uL (0.0-0.3); EOSINOPHILS % (AUTO) 2 % (0-10); HEMATOCRIT 30 % (35-52); HEMOGLOBIN 10.1 g/dL (11.5-16.0); LYMPHOCYTES # (AUTO) 2.1 10^3/uL (1.0-4.0); LYMPHOCYTES % (AUTO) 28 % (12-44); MEAN CORPUSCULAR HEMOGLOBIN 31 pg (25-34); MEAN CORPUSCULAR HGB CONC 33 g/dL (32-36); MEAN CORPUSCULAR VOLUME 92 fL (80-99); MEAN PLATELET VOLUME 8.6 fL (9.0-12.2); MONOCYTES # (AUTO) 0.6 10^3/uL (0.0-1.0); MONOCYTES % (AUTO) 8 % (0-12); NEUTROPHILS # (AUTO) 4.6 10^3/uL (1.8-7.8); NEUTROPHILS % (AUTO) 60 % (42-75); PLATELET COUNT 239 10^3/uL (130-400); WHITE BLOOD COUNT 7.6 10^3/uL (4.3-11.0)
[2022-05-06 06:17] LABS: ALBUMIN 3.2 GM/DL (3.2-4.5); POTASSIUM 4.7 MMOL/L (3.6-5.0)
[2022-05-06 06:18] LABS: CALCIUM 8.5 MG/DL (8.5-10.1)
[2022-05-06 06:19] LABS: TOTAL PROTEIN 5.6 GM/DL (6.4-8.2)
[2022-05-06 06:21] LABS: BILIRUBIN,TOTAL 0.2 MG/DL (0.1-1.0)
[2022-05-06 06:23] LABS: CREATININE SERUM 0.75 MG/DL (0.60-1.30); PHOSPHORUS 2.9 MG/DL (2.3-4.7)
[2022-05-06 06:26] LABS: MAGNESIUM 1.8 MG/DL (1.6-2.4)
[2022-05-06] MEDS: CEFEPIME INJECTION 1,000 MG in NS (IVPB) 50 ML IV SCH ×3 (08:59→19:59)
[2022-05-06] MEDS: FOLIC ACID 1 MG TAB PO SCH (09:00)
[2022-05-06] MEDS: AtorvaSTATin TABLET 10 MG TABLET PO SCH (09:00)
[2022-05-06] MEDS ORDERED: NON-FORMULARY MEDICATION 1 EA EA (Omeprazole 40 MG) PO SCH (09:00)
[2022-05-06] MEDS: DOCUSATE SODIUM 100 MG (COLACE) CAP PO SCH ×2 (09:00→19:59)
[2022-05-06] MEDS: SENNOSIDES 8.6 MG (SENOKOT) TAB PO SCH ×2 (09:00→19:59)
--- NOTE | 2022-05-06 09:06 | Progress Note ---
Subjective Subjective/Events-last exam States she feels dizzy and sick if she get up, feels very weak like she'll pass out, has to sit right back down. Asking to restart Ativan, discussed she does have it ordered inpatient, but will not continue outpatient as she has been tapered off more than once per recommendations outpatient. She says she was ta pered off too quickly, however, she has been off for some time based on scripts, and when this was pointed out, she says she was getting alprazolam from someone else. Focused Exam Lactate Level 05/04/22 19:24: Lactic Acid Level 3.91*H 05/04/22 21:35: Lactic Acid Level 2.06*H 05/04/22 23:25: Lactic Acid Level 0.77 Time of Focused Exam: 20:15 Objective Exam Last Set of Vital Signs Vital Signs Date Time Temp Pulse Resp B/P (MAP) Pulse Ox O2 Delivery O2 Flow Rate FiO2 05/06/22 08:07 37.0 65 18 115/70 (85) 97 Room Air 05/06/22 06:12 21 Capillary Refill : Less Than 3 Seconds I&O Intake and Output 05/06/22 00:00 Intake Total 3217 ml Output Total 2055 ml Balance 1162 ml Intake Oral 2067 ml IV Total 1150 ml Output Urine Total 2055 ml General: Alert, No Acute Distress Lungs: Clear to Auscultation Heart: Regular Rate, Other (occasional irregular beat) Abdomen: Normal Bowel Sounds, Soft, Other (diffuse ttp) Extremities: No Edema Neuro: Normal Speech, Other (rolling/writhing movements of legs and arms throughout exam) Results/Procedures Lab Laboratory Tests 05/06/22 06:00: White Blood Count 7.6, Red Blood Count 3.31L, Hemoglobin 10.1L, Hematocrit 30L, Mean Corpuscular Volume 92, Mean Corpuscular Hemoglobin 31, Mean Corpuscular He moglobin Concent 33, Red Cell Distribution Width 14.6H, Platelet Count 239, Mean Platelet Volume 8.6L, Immature Granulocyte % (Auto) 0, Neutrophils (%) (Auto) 60, Lymphocytes (%) (Auto) 28, Monocytes (%) (Auto) 8, Eosinophils (%) (Auto) 2, Basophils (%) (Auto) 1, Neutrophils # (Auto) 4.6, Lymphocytes # (Auto) 2.1, Monocytes # (Auto) 0.6, Eosinophils # (Auto) 0.2, Basophils # (Auto) 0.1, Immature Granulocyte # (Auto) 0.0, Sodium Level 133L, Potassium Level 4.7, Chloride Level 105, Carbon Dioxide Level 22, Anion Gap 6, Blood Urea Nitrogen 15, Creatinine 0.75, Estimat Glomerular Filtration Rate 88, BUN/Creatinine Ratio 20, Glucose Level 83, Calcium Level 8.5, Corrected Calcium 9.1, Phosphorus Level 2.9, Magnesium Level 1.8, Total Bilirubin 0.2, Aspartate Amino Transf (AST/SGOT) 15, Alanine Aminotransferase (ALT/SGPT) 16, Alkaline Phosphatase 68, Total Protein 5.6L, Albumin 3.2 Microbiology 05/04/22 MRSA Screen - Final, Complete MRSA not isolated 05/04/22 Blood Culture - Preliminary, Resulted Staph, Coag Neg (CAN RUNNER) 05/04/22 Urine Culture - Preliminary, Resulted Gram Negative Eyal Radiology CT chest/abdomen/pelvis 05/04/22: IMPRESSION: 1. No acute abnormality in the chest, abdomen, or pelvis. 2. Left lower lobe pulmonary nodules measuring up to 0.4 cm. Recommend follow-up CT chest in 6-12 months. CXR 05/04/22 unremarkable Assessment/Plan Assessment/Plan (1) Severe sepsis Status: Resolved Assessment & Plan: Secondary to UTI. Started cefepime on admit, lactic acid normalized, ALEC resolved. E coli in urine culture sensitivity pending. (2) Urinary tract infection Status: Acute Assessment & Plan: With history of recurrent self-cath due to neurogenic bladder. Started on cefepime and vancomycin, will d/c vanc. Culture with gram neg eyal. E coli, sensitivity pending. Qualifiers: (3) Acute kidney injury Status: Resolved Assessment & Plan: Secondary to sepsis. (4) Fatty liver Status: Chronic (5) Hyperlipidemia Status: Chronic (6) Hypertension Status: Chronic (7) CKD (chronic kidney disease) Status: Chronic (8) COPD (chronic obstructive pulmonary disease) Status: Chronic (9) Hypothyroidism Status: Chronic (10) Neurogenic bladder Status: Chronic (11) Anxiety Status: Chronic Assessment & Plan: History of chronic benzodiazpine use and violations of controlled substance agreements at primary clinic. 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 (12) Chronic prescription opiate use Status: Chronic Assessment & Plan: Pt states she is no longer on suboxone, per clinic chart was reporting receiving from an online clinic. Has declined referrals to [facility] addiction treatment and behavioral health. (13) Irregular heart beat Status: Acute Assessment & Plan: Pt states she has had in past and saw Cardiology, but doesn't recall what they said. Check EKG. (14) DVT prophylaxis Status: Acute Assessment & Plan: Enoxaparin VINICIO HERNANDEZ MD May 06, 2022 09:06
--- NOTE | 2022-05-06 09:50 | Physical Therapy Evaluation ---
PT Evaluation-General Medical Diagnosis Admission Date May 04, 2022 at 22:04 Medical Diagnosis: Nausea, vomiting and abd. pain Onset Date: May 04, 2022 Therapy Diagnosis Therapy Diagnosis: gait deficit, strength deficit Height/Weight Height (Feet): 5 Height (Inches): 6.00 Weight (Pounds): 115 Weight (Ounces): 0.0 Precautions Precautions/Isolations: Fall Prevention, Standard Precautions Weight Bear Status Right Lower Extremity: Right Full Weight Bearing Left Lower Extremity: Left Full Weight Bearing Referral Physician: Dr. Saenz Reason for Referral: Evaluation/Treatment Medical History Reviewed History: Yes Social History Home: Single Level Current Living Status: Entry Into Home: Level Entry Prior Prior Level of Function SCALE: Activities may be completed with or without assistive devices. 1-Latrnscafd-gwtixnq completes the activity by him/herself with no assistance from a helper. 5-Set-up or Clean-up Assistance-helper sets up or cleans up; patient completes activity. [place] assists only prior to or following the activity. 4-Supervision or Touching Assistance-helper provides verbal cues and/or touching/steadying and/or contact guard assistance as patient completes activity. Assistance may be provided throughout the activity or intermittently. 3-Partial/Moderate Assistance-helper does LESS THAN HALF the effort. [place] lifts, holds or supports trunk or limbs, but provides less than half the effort. 2-Substantial/Maximal Assistance-helper does MORE THAN HALF the effort. [place] lifts or holds trunk or limbs and provides more than half the effort. 9-Bhmpeijqu-dfhnrh does ALL the effort. Patient does none of the effort to complete the activity. Or, the assistance of 2 or more helpers is required for the patient to complete the activity. If activity was not attempted, code reason: 7-Patient Refused. 9-Not Applicable-not attempted and the patient did not perform the activity before the current illness, exacerbation or injury. 10-Not Attempted due to Environmental Limitations-(lack of equipment, weather restraints, etc.). 88-Not Attempted due to Medical Conditions or Safety Concerns. Bed Mobility: 6 Transfers (B,C,W/C): 6 Gait: 6 Stairs: 6 Indoor Mobility (Ambulation): Independent Stairs: Independent Prior Devices Use: None PT Evaluation-Current Subjective Patient lying supine in bed upon PT arrival, agreeable to treatment. Patient rates pain at 7-8/10 in abdomen and head. Objective Patient Orientation: Person, Place, Time, Situation Attachments: [place] Catheter, IV ROM/Strength ROM Lower Extremities WFLs BLEs all planes Strength Lower Extremities 3+/5 BLEs all planes via observation, however patient puts forth only minimal effort and unable to perform MMT appropriately. Sensory Vision: Functional Hearing: Functional Sensation Right Lower Extremit: Impaired Sensation Left Lower Extremity: Impaired Transfers Roll Left to Right (QC): 4 Sit to Lying (QC): 4 Lying to Sitting/Side of Bed(Q: 4 Sit to Stand (QC): 4 Chair/Cvd-lt-Pvwmt Xfer(QC): 4 Gait Does the Patient Walk?: Yes Mode of Locomotion: Walk Anticipated Mode of Locomotion: Walk Walk 10 feet (QC): 4 Walk 50 ft with 2 Turns(QC): 3 Distance: 80 feet Gait Assistive Device: FWW Balance Sitting Static: Fair Sitting Dynamic: Fair Standing Static: Fair Standing Dynamic: Poor Assessment/Needs Patient tolerated treatment poorly. She continuously reports her headache and towards the end of treatment reports dizziness. Patient requires SBA for all observed bed mobility and transfers. Patient unsteady on feet with FWW. Patient ambulates 80 feet with FWW, with CGA and verbal cues for safety, progression, conservation of energy. Patient in chair post treatment with all needs met, nursing notified, call light in reach and patient specifically told not to get up without assistance. Rehab Potential: Fair PT Snuff Blender Goals Snuff Blender Goals PT Prison Goals Time Frame: Jun 06, 2022 Roll Left & Right (QC): 6 Sit to Lying (QC): 6 Lying-Sitting on Side/Bed(QC): 6 Sit to Stand (QC): 6 Chair/Eqd-se-Qbdej Xfer(QC): 6 Toilet Transfer (QC): 6 Does the Patient Walk: Yes Walk 10 feet (QC): 6 Walk 50ft with 2 Turns (QC): 6 Walk 150 ft (QC): 6 PT Plan Problem List Problem List: Activity Tolerance, Functional Strength, Safety, Balance, Gait, Transfer, Bed Mobility, ROM Treatment/Plan Treatment Plan: Continue Plan of Care Treatment Plan: Bed Mobility, Education, Functional Activity Nhan, Functional Strength, Group Therapy, Gait, Safety, Therapeutic Exercise, Transfers Treatment Duration: Jun 06, 2022 Frequency: 6 times per week Estimated Hrs Per Day: .25 hour per day Patient and/or Family Agrees t: Yes Safety Risks/Education Patient Education: Gait Training, Transfer Techniques Teaching Recipient: Patient Teaching Methods: Demonstration, Discussion Response to Teaching: Reinforcement Needed Time Time In: 920 Time Out: 935 DATE: May 06, 2022 Total Billed Treatment Time: 15 Total Billed Treatment Visit, MICHELLE HOOVER PT May 06, 2022 09:50
[2022-05-06] MEDS: RT-ALBUTEROL/IPRATROPIUM 3 ML (DUONEB) VIAL INH SCH ×2 (10:44→21:59)
[2022-05-06] MEDS: ACETAMINOPHEN 325 MG TABLET PO PRN (12:07)
[2022-05-06] MEDS: ENOXAPARIN 40 MG/0.4 ML (LOVENOX) SYR SQ SCH (17:23)
[2022-05-06] MEDS: NS IV 1000 ML 1,000 ML IV SCH (20:46)
[2022-05-06] MEDS ORDERED: TROUGH ORDER-PHARMACY XX ONE (22:00)
[2022-05-06] MEDS: ONDANSETRON 4 MG (ZOFRAN) ORAL DISSOLVE TAB PO PRN (23:13)
[2022-05-07] MEDS: CEFEPIME INJECTION 1,000 MG in NS (IVPB) 50 ML IV SCH ×3 (02:22→14:54)
[2022-05-07 03:47] VITALS: BP 139/77
[2022-05-07] MEDS: THIAMINE 100 MG (VITAMIN B-1) TAB PO SCH (05:44)
[2022-05-07] MEDS: ACETAMINOPHEN 325 MG TABLET PO PRN (05:44)
[2022-05-07] MEDS: PANTOPRAZOLE 40 MG (PROTONIX) TAB PO SCH (05:44)
[2022-05-07] MEDS: LEVOTHYROXINE 100 MCG (LEVOTHROID) TAB PO SCH (05:44)
[2022-05-07 05:52] LABS: BASOPHILS % (AUTO) 1 % (0-10); EOSINOPHILS # (AUTO) 0.2 10^3/uL (0.0-0.3); EOSINOPHILS % (AUTO) 2 % (0-10); HEMATOCRIT 31 % (35-52); HEMOGLOBIN 10.8 g/dL (11.5-16.0); LYMPHOCYTES # (AUTO) 1.9 10^3/uL (1.0-4.0); LYMPHOCYTES % (AUTO) 21 % (12-44); MEAN CORPUSCULAR HEMOGLOBIN 32 pg (25-34); MEAN CORPUSCULAR HGB CONC 35 g/dL (32-36); MEAN CORPUSCULAR VOLUME 91 fL (80-99); MEAN PLATELET VOLUME 8.8 fL (9.0-12.2); MONOCYTES # (AUTO) 0.9 10^3/uL (0.0-1.0); MONOCYTES % (AUTO) 10 % (0-12); NEUTROPHILS # (AUTO) 5.7 10^3/uL (1.8-7.8); NEUTROPHILS % (AUTO) 66 % (42-75); PLATELET COUNT 248 10^3/uL (130-400); WHITE BLOOD COUNT 8.7 10^3/uL (4.3-11.0)
[2022-05-07 06:06] LABS: POTASSIUM 4.4 MMOL/L (3.6-5.0)
[2022-05-07] MEDS: ONDANSETRON 4 MG (ZOFRAN) ORAL DISSOLVE TAB PO PRN ×3 (07:20→19:51)
[2022-05-07 07:41] LABS: BILIRUBIN,TOTAL 0.3 MG/DL (0.1-1.0); CREATININE SERUM 0.7 MG/DL (0.60-1.30); PHOSPHORUS 2.8 MG/DL (2.3-4.7)
[2022-05-07 07:43] VITALS: BP 129/80
[2022-05-07 07:45] LABS: MAGNESIUM 1.6 MG/DL (1.6-2.4)
[2022-05-07 08:17] LABS: ALBUMIN 3.4 GM/DL (3.2-4.5)
[2022-05-07] MEDS: AtorvaSTATin TABLET 10 MG TABLET PO SCH (08:59)
[2022-05-07] MEDS: FOLIC ACID 1 MG TAB PO SCH (08:59)
[2022-05-07] MEDS: SENNOSIDES 8.6 MG (SENOKOT) TAB PO SCH (08:59)
[2022-05-07] MEDS: DOCUSATE SODIUM 100 MG (COLACE) CAP PO SCH (08:59)
[2022-05-07] MEDS ORDERED: NICOTINE 14 MG (NICODERM) PATCH TD SCH (09:00)
--- NOTE | 2022-05-07 11:13 | Physical Therapy Progress Note ---
Therapy Progress Note Patient has refused PT x 2 attempts this morning. RN notified. PT will attempt tomorrow a.m. 1 ref x 2 JONATHAN AWAD PT May 07, 2022 11:13
[2022-05-07 11:20] VITALS: BP 138/62
[2022-05-07] MEDS: ACETAMINOPHEN 500 MG TAB (TYLENOL) PO PRN ×2 (11:38→17:10)
[2022-05-07] MEDS: NS IV 1000 ML 1,000 ML IV SCH (11:39)
[2022-05-07] MEDS ORDERED: ATOR10TA66 PO (12:01)
[2022-05-07] MEDS ORDERED: CEPH500T PO (12:01)
[2022-05-07] MEDS ORDERED: SUCR1TAB36 PO (12:01)
[2022-05-07] MEDS ORDERED: MTP25TSR PO (12:01)
--- NOTE | 2022-05-07 12:02 | Discharge Summary ---
Discharge Summary Hospital Course Problems/Diagnosis: (1) Severe sepsis Status: Resolved Resolution Date/Time: 05/06/22 @ 11:20 Assessment & Plan: Secondary to UTI. Started cefepime on admit, lactic acid normalized, ALEC resolved. E coli in urine culture. (2) Urinary tract infection Status: Acute Assessment & Plan: With history of recurrent self-cath due to neurogenic bladder. Started on cefepime and vancomycin, will d/c vanc. Culture with gram neg janet. E coli, resistant only to amp, discharged on cephalexin. Qualifiers: (3) Acute kidney injury Status: Resolved Resolution Date/Time: 05/06/22 @ 11:21 Assessment & Plan: Secondary to sepsis. (4) Fatty liver Status: Chronic (5) Hyperlipidemia Status: Chronic (6) Hypertension Status: Chronic (7) CKD (chronic kidney disease) Status: Chronic (8) COPD (chronic obstructive pulmonary disease) Status: Chronic (9) Hypothyroidism Status: Chronic (10) Neurogenic bladder Status: Chronic (11) Anxiety Status: Chronic Assessment & Plan: History of chronic benzodiazpine use and violations of controlled substance agreements at primary clinic. 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 (12) Chronic prescription opiate use Status: Chronic Assessment & Plan: Pt states she is no longer on suboxone, per clinic chart was reporting receiving from an online clinic. Has declined referrals to [facility] addiction treatment and behavioral health. (13) Irregular heart beat Status: Acute Assessment & Plan: Pt states she has had in past and saw Cardiology, but doesn't recall what they said. EKG sinus rhythm. Hospital Course Date of Admission: May 04, 2022 at 22:04 Admission Diagnosis : Family Physician/Provider: Tayo Otero Physician Date of Discharge: 05/07/22 Discharge Diagnosis: See problem list Hospital Course: See problem list Labs and Pending Lab Test: Laboratory Tests 05/07/22 05:25: White Blood Count 8.7, Red Blood Count 3.40L, Hemoglobin 10.8L, Hematocrit 31L, Mean Corpuscular Volume 91, Mean Corpuscular Hemoglobin 32, Mean Corpuscular Hemoglobin Concent 35, Red Cell Distribution Width 13.9, Platelet Count 248, Mean Platelet Volume 8.8L, Immature Granulocyte % (Auto) 0, Neutrophils (%) (Auto) 66, Lymphocytes (%) (Auto) 21, Monocytes (%) (Auto) 10, Eosinophils (%) (Auto) 2, Basophils (%) (Auto) 1, Neutrophils # (Auto) 5.7, Lymphocytes # (Auto) 1.9, Monocytes # (Auto) 0.9, Eosinophils # (Auto) 0.2, Basophils # (Auto) 0.0, Immature Granulocyte # (Auto) 0.0, Sodium Level 136, Potassium Level 4.4, Chloride Level 103, Carbon Dioxide Level 24, Anion Gap 9, Blood Urea Nitrogen 14, Creatinine 0.70, Estimat Glomerular Filtration Rate 96, BUN/Creatinine Ratio 20, Glucose Level 91, Calcium Level 9.0, Corrected Calcium 9.5, Phosphorus Level 2.8, Magnesium Level 1.6, Total Bilirubin 0.3, Aspartate Amino Transf (AST/SGOT) 14, Alanine Aminotransferase (ALT/SGPT) 14, Alkaline Phosphatase 64, Total Protein 6.0L, Albumin 3.4 Microbiology 05/04/22 MRSA Screen - Final, Complete MRSA not isolated 05/04/22 Blood Culture - Final, Complete Staph, Coag Neg (TRANSFER STATION ATTENDANT) 05/04/22 Urine Culture - Final, Complete Escherichia coli Home Meds Active Cephalexin 500 Mg Tablet 500 Mg PO BID 4 Days Carafate (Sucralfate) 1 Gram Tablet 1 Gm PO QIDACHS Metoprolol Succinate 25 Mg Tab.er.24h 25 Mg PO DAILY LAST FILLED 01-07-2022 #90/90 DAY SUPPLY Atorvastatin Calcium 10 Mg Tablet 10 Mg PO DAILY LAST FILLED 10-16-2021 #90/90 DAY SUPPLY Reported Omeprazole 40 Mg Capsule.dr 40 Mg PO DAILY Clonazepam 1 Mg Tablet 1 Mg PO BID LAST FILLED 02-24-2022 #60/30 DAY SUPPLY Nitrofurantoin [place]-Mcr 100 mg (Nitrofurantoin Monohyd/M-Cryst) 100 Mg Capsule 100 Mg PO DAILY Levothyroxine Sodium 100 Mcg Tablet 100 Mcg PO DAILY Ondansetron Odt (Ondansetron) 4 Mg Tab.rapdis 1 Tab PO TID PRN Assessment/Pt DC Instructions Follow up with primary provider (need to re-establish with a [place] provider as she as moved north from [place]) Discharge Diet: No Restrictions Activity as Tolerated: Yes Discharge Physical Examination Allergies: Coded Allergies: butorphanol (Unverified Allergy, Unknown, 10/01/13) tramadol (Verified Allergy, Unknown, Nausea, 05/05/22) trazodone (Verified Allergy, Unknown, 05/05/22) FEELS LIKE ELECTRIC SHOCK IN LIMBS erythromycin base (Unverified Adverse Reaction, Intermediate, 03/03/13) General Appearance: No Apparent Distress Respiratory: Lungs Clear, Normal Breath Sounds Cardiovascular: Regular Rate, Rhythm, No Murmur Gastrointestinal: Normal Bowel Sounds, Non Tender, Soft Skin: Normal Color, Warm/Dry Neurologic/Psychiatric: Alert, Other (dyskinetic, writhing movements througho ut, irritable mood) VINICIO HERNANDEZ MD May 07, 2022 12:02
[2022-05-07 15:33] VITALS: BP 119/68
[2022-05-07] MEDS: ENOXAPARIN 40 MG/0.4 ML (LOVENOX) SYR SQ SCH (17:04)
[2022-05-07 19:08] VITALS: BP 108/56
[2022-05-08] MEDS ORDERED: NICOTINE PATCH REMOVAL TP SCH (08:59)
== END 2022-05-07 20:00 | disposition home or self-care (01) | DRG 871 ==
LOC: EDUNIT# 19:11 → ER 19:12 → ICU 22:04 → 4TH 05-05 13:14
PROVIDERS: ADMIT Internal Medicine; ATTEND Family Medicine
DX: A41.9 Sepsis, unspecified organism (principal); R65.21 Severe sepsis with septic shock; N39.0 Urinary tract infection, site not specified; N17.9 Acute kidney failure, unspecified; E87.1 Hypo-osmolality and hyponatremia; B96.20 Unspecified Escherichia coli [E. coli] as the cause of diseases classified elsewhere; K76.0 Fatty (change of) liver, not elsewhere classified; E78.5 Hyperlipidemia, unspecified; I12.9 Hypertensive chronic kidney disease with stage 1 through stage 4 chronic kidney disease, or unspecified chronic kidney disease; N18.9 Chronic kidney disease, unspecified; J44.9 Chronic obstructive pulmonary disease, unspecified; E03.9 Hypothyroidism, unspecified; N31.9 Neuromuscular dysfunction of bladder, unspecified; F41.9 Anxiety disorder, unspecified; F11.90 Opioid use, unspecified, uncomplicated; Z20.822 Contact with and (suspected) exposure to COVID-19; F19.10 Other psychoactive substance abuse, uncomplicated; F17.210 Nicotine dependence, cigarettes, uncomplicated; F12.90 Cannabis use, unspecified, uncomplicated
CPT/HCPCS: 36415; 51701; 71045; 71250; 74176; 80053; 80306; 80320; 80329; 81000; 82150; 82550; 82553; 83605; 83690; 83735; 83874; 83880; 84100; 84484; 85007; 85025; 85027; 85379; 85610; 85652; 85730; 86141; 87040; 87081; 87088; 87186; 87636; 93005; 93041; 94760

== ENCOUNTER 2022-05-12 03:55 | Emergency (ER) | payer MEDICAID ==
[~2022-05-12] VITALS: Ht 170 cm; Wt 61.2 kg
[~2022-05-12 03:55] MED LIST changes: +CEPH500T PO; +LEVO100T7 PO; +NITR100C10 PO; +OMEP40CA6 PO; +SUCR1TAB36 PO
[2022-05-12] MEDS ORDERED: LACTATED RINGERS 1,000 ML IV ONE (04:15)
[2022-05-12 04:45] LABS: BILIRUBIN,URINE NEGATIVE (NEGATIVE); CLARITY,URINE CLEAR; COLOR,URINE YELLOW; GLUCOSE, URINE (UA) NEGATIVE (NEGATIVE); KETONES,URINE NEGATIVE (NEGATIVE); LEUKOCYTE ESTERASE ,URINE NEGATIVE (NEGATIVE); NITRITE,URINE NEGATIVE (NEGATIVE); PROTEIN,URINE NEGATIVE (NEGATIVE)
[2022-05-12 05:25] LABS: BASOPHILS # (AUTO) 0.1 10^3/uL (0.0-0.1); BASOPHILS % (AUTO) 1 % (0-10); EOSINOPHILS # (AUTO) 0.2 10^3/uL (0.0-0.3); EOSINOPHILS % (AUTO) 3 % (0-10); HEMATOCRIT 33 % (35-52); HEMOGLOBIN 11.2 g/dL (11.5-16.0); LYMPHOCYTES # (AUTO) 2.6 10^3/uL (1.0-4.0); LYMPHOCYTES % (AUTO) 30 % (12-44); MEAN CORPUSCULAR HEMOGLOBIN 31 pg (25-34); MEAN CORPUSCULAR HGB CONC 34 g/dL (32-36); MEAN CORPUSCULAR VOLUME 91 fL (80-99); MONOCYTES # (AUTO) 0.7 10^3/uL (0.0-1.0); MONOCYTES % (AUTO) 8 % (0-12); NEUTROPHILS # (AUTO) 5.2 10^3/uL (1.8-7.8); NEUTROPHILS % (AUTO) 58 % (42-75); PLATELET COUNT 345 10^3/uL (130-400); WHITE BLOOD COUNT 8.9 10^3/uL (4.3-11.0)
[2022-05-12 05:29] LABS: AMPHETAMINE SCREEN, URINE NEGATIVE (NEGATIVE); BARBITURATE SCREEN URINE NEGATIVE (NEGATIVE); BENZODIAZEPINES SCREEN URINE NEGATIVE (NEGATIVE); CANNABINOID SCREEN, URINE NEGATIVE (NEGATIVE); COCAINE SCREEN URINE NEGATIVE (NEGATIVE); METHADONE STAT NEGATIVE (NEGATIVE); OPIATE SCREEN URINE NEGATIVE (NEGATIVE); OXYCODONE STAT NEGATIVE (NEGATIVE); PROPOXYPHENE STAT NEGATIVE (NEGATIVE); TRICYCLIC ANTIDEPRESSANTS SCRE NEGATIVE (NEGATIVE)
[2022-05-12 05:39] LABS: ALBUMIN 4.3 GM/DL (3.2-4.5); CHLORIDE 100 MMOL/L (98-107); POTASSIUM 4.8 MMOL/L (3.6-5.0); SODIUM 133 MMOL/L (135-145)
[2022-05-12 05:41] LABS: AMYLASE 70 U/L (25-125); CALCIUM 9.9 MG/DL (8.5-10.1)
[2022-05-12 05:42] LABS: GLUCOSE 93 MG/DL (70-105); TOTAL PROTEIN 7.5 GM/DL (6.4-8.2)
[2022-05-12 05:43] LABS: CARBON DIOXIDE 21 MMOL/L (21-32)
[2022-05-12 05:44] LABS: BILIRUBIN,TOTAL 0.2 MG/DL (0.1-1.0)
[2022-05-12 05:45] LABS: ALKALINE PHOSPHATASE 87 U/L (40-136)
[2022-05-12 05:46] LABS: CREATININE SERUM 0.85 MG/DL (0.60-1.30); GFR ESTIMATED 76
[2022-05-12 05:47] LABS: ACETAMINOPHEN < 10 UG/ML (10-30); BUN/CREATININE RATIO 27
[2022-05-12 05:48] LABS: ALANINE AMINOTRANSFERASE 20 U/L (0-55); MAGNESIUM 2.1 MG/DL (1.6-2.4)
[2022-05-12 05:49] LABS: LIPASE 69 U/L (8-78)
[2022-05-12 06:16] LABS: BACTERIA,URINE NEGATIVE /HPF
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
[2022-05-12] MEDS ORDERED: hydrOXYzine (VISTARIL/ATARAX) 25 MG capsule/tablet PO ONE (06:45)
[2022-05-12] MEDS ORDERED: KETOROLAC 30 MG/ML VIAL IVP ONE (06:45)
[2022-05-12 06:50] VITALS: BP 136/95
== END 2022-05-12 06:50 | disposition home or self-care (01) ==
LOC: EDUNIT# 03:55 → ER 03:56
DX: R51.9 Headache, unspecified (principal); F41.9 Anxiety disorder, unspecified; F17.210 Nicotine dependence, cigarettes, uncomplicated; Z88.6 Allergy status to analgesic agent; Z20.822 Contact with and (suspected) exposure to COVID-19
CPT/HCPCS: 80053; 80306; 81000; 82150; 83690; 83735; 85025; 87636; 99284; G0480 ×2; 36415; 80320; 80329

== ENCOUNTER 2022-05-13 00:31 | Emergency (ER) | payer MEDICAID ==
[~2022-05-13] VITALS: Ht 170.2 cm; Wt 61.2 kg
[2022-05-13 01:00] VITALS: BP 141/111
--- NOTE | 2022-05-13 01:27 | ED General ---
General Stated Complaint: MENTAL BREAK DOWN Allergies and Home Medications Allergies Coded Allergies: butorphanol (Unverified Allergy, Unknown, 10/01/13) tramadol (Verified Allergy, Unknown, Nausea, 05/05/22) trazodone (Verified Allergy, Unknown, 05/05/22) FEELS LIKE ELECTRIC SHOCK IN LIMBS erythromycin base (Unverified Adverse Reaction, Intermediate, 03/03/13) Patient Home Medication List Atorvastatin Calcium (Atorvastatin Calcium) 10 Mg Tablet, 10 MG PO DAILY Prescribed by: VINICIO HERNANDEZ on 05/07/22 1201 Cephalexin (Cephalexin) 500 Mg Tablet, 500 MG PO BID Prescribed by: VINICIO HERNANDEZ on 05/07/22 1201 Levothyroxine Sodium (Levothyroxine Sodium) 100 Mcg Tablet, 100 MCG PO DAILY, (Reported) Entered as Reported by: LAURA AVILA on 05/05/22 1057 Metoprolol Succinate (Metoprolol Succinate) 25 Mg Tab.er.24h, 25 MG PO DAILY Prescribed by: VINICIO HERNANDEZ on 05/07/22 1201 Nitrofurantoin Monohyd/M-Cryst (Nitrofurantoin [place]-Mcr 100 mg) 100 Mg Capsule, 100 MG PO DAILY, (Reported) Entered as Reported by: LAURA AVILA on 05/05/22 1057 Omeprazole (Omeprazole) 40 Mg Capsule.dr, 40 MG PO DAILY, (Reported) Entered as Reported by: LAURA AVILA on 05/05/22 1057 Ondansetron (Ondansetron Odt) 4 Mg Tab.rapdis, 1 TAB PO TID PRN for NAUSEA/VOMITING-1ST LINE, (Reported) Entered as Reported by: VINICIO HERNANDEZ on 01/20/212048 Sucralfate (Carafate) 1 Gram Tablet, 1 GM PO QIDACHS Prescribed by: VINICIO HERNANDEZ on 05/07/22 1201 Discontinued Medications Clonazepam (Clonazepam) 1 Mg Tablet, 1 MG PO BID, (Reported) Entered as Reported by: LAURA AVILA on 05/05/22 105 Past Pzouzmd-Gdcugb-Udhrsb Hx Immunizations Up To Date PED Vaccines UTD: Yes First/Initial COVID19 Vaccinat: MODERNA DOESNT KNOW WHEN Second COVID19 Vaccination Umang: MODERNA DOESNT KNOW WHEN Third COVID19 Vaccination Date: MODERNA DOESNT KNOW WHEN Seasonal Allergies Seasonal Allergies: Yes Past Medical History Surgery/Hospitalization HX: TRAUMATIC HEAD INJURY, CATERACT R EYE Surgeries: Yes (BILAT OOPHERECTOMY FOR TUMORS, BREAST BXS, TOE SURGERY) Abdominal, Breast, Eye Surgery, Hysterectomy, Oophorectomy, Orthopedic Respiratory: Yes COPD Currently Using CPAP: No Currently Using BIPAP: No Cardiac: Yes Palpitations Neurological: Yes (MEDICATION RELATED SEIZURE) Concussion Reproductive Disorders: Yes Female Reproductive Disorders: 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, 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 PT STATES SHE HAS BEEN ON METHADONE AND SUBOXONE "FOR YEARS" DUE TO HEROIN ADDICTION. PAST SURGICAL HISTORY: -HYSTERECTOMY/BILATERAL SALPINGO-OOPHORECTOMY -TONSILLECTOMY -BREAST BIOPSY -TOE SURGERY -BILATERAL CATARACT SURGERY 08/2021 STRESS TEST 07/27/[address] REIS: Conclusion: Pharmacological stress test was negative for ischemia. Normal LV function with no wall motion abnormalities. Normal myocardial perfusion imaging during rest and stress. Physical Exam Vital Signs Capillary Refill : Height, Weight, BMI Height: 5'6.00" Weight: 115lbs. 0.0oz. 52.135727nt; 21.00 BMI Method:Stated Progress/Results/Core Measures Suspected Sepsis SIRS Temperature: Pulse: Respiratory Rate: Blood Pressure / Mean: Results/Orders Vital Signs/I&O Capillary Refill : Departure Impression Primary Impression: General medical exam Disposition: HOME, SELF-CARE Condition: Stable Departure-Patient Inst. Decision time for Depature: 01:26 Referrals: NO,LOCAL PHYSICIAN (PCP/Family) Primary Care Physician Patient Instructions: General (DC) Add. Discharge Instructions: FOLLOW UP WITH [facility] THIS WEEK FOR FURTHER CARE SHERICE MARES DO May 13, 2022 01:27
== END 2022-05-13 01:28 | disposition home or self-care (01) ==
LOC: EDUNIT# 00:31 → ER 00:33
DX: Z00.00 Encounter for general adult medical examination without abnormal findings (principal); F17.210 Nicotine dependence, cigarettes, uncomplicated
CPT/HCPCS: 99283

== ENCOUNTER → 2022-10-13 | Emergency (ER) | payer MEDICAID ==
[~2022-10-13] VITALS: Ht 170 cm; Wt 52.0 kg
[~2022-10-13] MED LIST changes: +POTA-185 PO; -POTA10TA PO
[2022-10-13 10:00] VITALS: BP 142/89
== END ==
LOC: EDUNIT# 09:50 → ER 09:54
DX: T14.8XXA Other injury of unspecified body region, initial encounter (principal); W57.XXXA Bitten or stung by nonvenomous insect and other nonvenomous arthropods, initial encounter
CPT/HCPCS: 99281

== ENCOUNTER 2022-10-21 16:23 | Emergency (ER) | payer MEDICAID ==
[2022-11-01] MEDS ORDERED: CEFD300C3 PO (13:29)
[2022-11-01] MEDS ORDERED: CLON0.5T4 PO (13:29)
== END 2022-10-21 16:55 | disposition left against medical advice (07) ==
LOC: EDUNIT# 16:23 → ER 16:26
DX: R06.00 Dyspnea, unspecified (principal); R05.9 Cough, unspecified

== ENCOUNTER 2022-11-17 11:09 | Emergency (ER) | payer MEDICAID ==
[~2022-11-17] VITALS: Ht 169 cm; Wt 48.0 kg
[~2022-11-17 11:09] MED LIST changes: +CEFD300C3 PO; +CLON0.5T4 PO
[2022-11-17] MEDS ORDERED: NS IV 1000 ML 1,000 ML IV STA ×2 (11:27→12:49)
--- NOTE | 2022-11-17 11:32 | ED GU-Female ---
General Chief Complaint: - Reproductive Stated Complaint: BLADDER INFECTION Nursing Triage Note: PT STATES SHE SELF CATHS, HAS NOT BEEN ABLE TO GET ANYTHING OUT, HAS TRIED 23 CATHS, HAS LOST 40 LBS IN 30 DAYS, DID GET SOME URINE OUT YESTERDAY BUT IT WAS A SMALL ORANGE AMOUNT. LOW MID AND RT ABD PAIN Source: patient Exam Limitations: no limitations (RADHA CALHOUN) History of Present Illness Date Seen by Provider: Nov 17, 2022 Time Seen by Provider: 11:29 Initial Comments Patient is a 67-year-old female who presents ED with right-sided lower abdominal pain and low mid abdominal pain. Pain started last night described as sharp intermittent. She states yesterday she was urinated looked slightly orange with a low amount. Today she has self cath 23 times with no urine output. She states she self caths secondary to urinary retention. History of frequent urinary tract infections. Patient reports history of hysterectomy. She denies of any fever, chills, nausea vomit, diarrhea, chest pain or shortness of breath. Denies any drug use or alcohol use. She is concerned that she has had a 40 pound weight loss in 30 days. Denies any body aches weakness fatigue. Patient states she has not been drinking much water. (RADHA CALHOUN) Allergies and Home Medications Allergies Coded Allergies: butorphanol (Unverified Allergy, Unknown, 10/01/13) tramadol (Verified Allergy, Unknown, Nausea, 05/05/22) trazodone (Verified Allergy, Unknown, 05/05/22) FEELS LIKE ELECTRIC SHOCK IN LIMBS erythromycin base (Unverified Adverse Reaction, Intermediate, 03/03/13) Patient Home Medication List Home Medication List Reviewed: Yes (RADHA CALHOUN) Atorvastatin Calcium (Atorvastatin Calcium) 10 Mg Tablet, 10 MG PO DAILY Prescribed by: VINICIO HERNANDEZ on 05/07/22 1201 Cefdinir (Cefdinir) 300 Mg Capsule, 300 MG PO BID Prescribed by: MARY DURHAM on 11/01/22 1329 Cephalexin (Cephalexin) 500 Mg Tablet, 500 MG PO BID Prescribed by: VINICIO HERNANDEZ on 05/07/22 1201 Clonazepam (Clonazepam) 0.5 Mg Tablet, 0.5 MG PO BID Prescribed by: MARY DURHAM on 11/01/22 1333 Levothyroxine Sodium (Levothyroxine Sodium) 100 Mcg Tablet, 100 MCG PO DAILY, (Reported) Entered as Reported by: LAURA AVILA on 05/05/22 1057 Metoprolol Succinate (Metoprolol Succinate) 25 Mg Tab.er.24h, 25 MG PO DAILY Prescribed by: VINICIO HERNANDEZ on 05/07/22 1201 Nitrofurantoin Monohyd/M-Cryst (Nitrofurantoin [place]gard-Mcr 100 mg) 100 Mg Capsule, 100 MG PO DAILY, (Reported) Entered as Reported by: LAURA AVILA on 05/05/22 1057 Omeprazole (Omeprazole) 40 Mg Capsule.dr, 40 MG PO DAILY, (Reported) Entered as Reported by: LAURA AVILA on 05/05/22 105 Omeprazole Magnesium (Prilosec Otc) 20 Mg Tablet.dr, 20 MG PO DAILY Prescribed by: PANCHO MEYERS on 11/17/22 1517 Ondansetron (Ondansetron Odt) 4 Mg Tab.rapdis, 1 TAB PO TID PRN for NAUSEA/VOMITING-1ST LINE, (Reported) Entered as Reported by: VINICIO HERNANDEZ on 01/20/212048 Ondansetron (Ondansetron Odt) 4 Mg Tab.rapdis, 4 MG SL Q4H PRN for JUSTIN SEA/VOMITING Prescribed by: PANCHO MEYERS on 11/17/22 151 Sucralfate (Carafate) 1 Gram Tablet, 1 GM PO QIDACHS Prescribed by: VINICIO HERNANDEZ on 05/07/22 1201 Review of Systems Review of Systems Constitutional: No chills, No diaphoresis, No fever, No malaise, No weakness EENTM: No ear pain, No blurred vision, No double vision Respiratory: No cough, No dyspnea on exertion Cardiovascular: No chest pain Gastrointestinal: abdominal pain; No diarrhea, No nausea, No vomiting Genitourinary: denies burning, denies discharge; other (Decreased urine output) Musculoskeletal: No back pain, No joint pain Skin: No change in color, No change in hair/nails Endocrine: Denies Excessive Sweating, Denies Flushing, Denies Intolerance to Cold, Denies Intolerance to Heat (RADHA CALHOUN) All Other Systemes Reviewed Negative Unless Noted: Yes (RADHA CALHOUN) Past Upjgvlp-Njxpio-Rkiudx Hx Immunizations Up To Date PED Vaccines UTD: Yes First/Initial COVID19 Vaccinat: MODERNA DOESNT KNOW WHEN Second COVID19 Vaccination Umang: MODERNA DOESNT KNOW WHEN Third COVID19 Vaccination Date: MODERNA DOESNT KNOW WHEN (RADHA CALHOUN) Seasonal Allergies Seasonal Allergies: Yes (RADHA CALHOUN) Past Medical History Surgery/Hospitalization HX: TRAUMATIC HEAD INJURY, CATARACT R EYE, TUBAL, HYST, T AND A, THYROID, BILAT CATERACT Surgeries: Yes (BILAT OOPHERECTOMY FOR TUMORS, BREAST BXS, TOE SURGERY) Abdominal, Adenoidectomy, Breast, Eye Surgery, Hysterectomy, Oophorectomy, Orthopedic, Tonsillectomy, Tubal Ligation Respiratory: Yes COPD Currently Using CPAP: No Currently Using BIPAP: No Cardiac: Yes Palpitations Neurological: Yes (MEDICATION RELATED SEIZURE) Concussion Reproductive Disorders: Yes Female Reproductive Disorders: Menstrual Problems [employer] History: Hysterectomy, Menopausal Genitourinary: Yes (URINARY RETENTION-SELF CATH'S) UTI-Chronic Gastrointestinal: Yes ("no feeling in rectum") Gastroesophageal Reflux, Chronic Constipation, Hemorrhoids, Polyps Musculoskeletal: Yes Degenerate Disk Disease, Arthritis, Chronic Back Pain Endocrine: Yes Hypothyroidsim HEENT: No Cancer: No Psychosocial: Yes (POLYSUBSTANCE ABUSE) Anxiety Integumentary: No Blood Disorders: Yes (anemia) (RADHA CALHOUN) Family Medical History FH: rheumatoid arthritis 19 MOTHER Pancreatic cancer 19 FATHER SOCIAL HISTORY: -SMOKES 1 1/2 PPD -ETOH--6 PACK/DAY -DRUGS-- + IV HEROIN USE, METH USE, THC USE, RX DRUGS. PT STATES SHE HAS BEEN ON METHADONE AND SUBOXONE "FOR YEARS" DUE TO HEROIN ADDICTION. PAST SURGICAL HISTORY: -HYSTERECTOMY/BILATERAL SALPINGO-OOPHORECTOMY -TONSILLECTOMY -BREAST BIOPSY -TOE SURGERY -BILATERAL CATARACT SURGERY 08/2021 STRESS TEST 07/27/[address] REIS: Conclusion: Pharmacological stress test was negative for ischemia. Normal LV function with no wall motion abnormalities. Normal myocardial perfusion imaging during rest and stress. (RADHA CALHOUN) Physical Exam Vital Signs Vital Signs - First Documented 11/17/22 11:20 Temp 35.9 Pulse 90 Resp 22 B/P (MAP) 145/106 (119) Pulse Ox 98 O2 Delivery Room Air (MARY CALERO MD) Vital Signs Capillary Refill : Less Than 3 Seconds (RADHA CALHOUN) Height, Weight, BMI Height: 5'6.00" Weight: 115lbs. 0.0oz. 52.976212ei; 16.00 BMI Method:Stated General Appearance: WD/WN, no apparent distress HEENT: PERRL/EOMI, normal ENT inspection, TMs normal, pharynx normal Neck: non-tender, full range of motion, supple, normal inspection Cardiovascular: regular rate, rhythm, no edema, no gallop, no JVD Respiratory: chest non-tender, lungs clear, normal breath sounds, no respiratory distress, no accessory muscle use Gastrointestinal: normal bowel sounds, soft, no organomegaly, no pulsatile mass, tenderness (Right lower quadrant tenderness. Suprapubic tenderness. Normal bowel sounds throughout. No rebound or guarding) Back: normal inspection, no CVA tenderness, no vertebral tenderness Extremities: normal range of motion, non-tender, normal inspection, no pedal edema Neurologic/Psychiatric: order expediter II-XII nml as tested, no motor/sensory deficits, alert, normal mood/affect, oriented x 3 Skin: normal color, warm/dry (RADHA CALHOUN) Progress/Results/Core Measures Suspected Sepsis SIRS Temperature: Pulse: 90 Respiratory Rate: 22 Laboratory Tests 11/17/22 11:33: White Blood Count 10.0 Blood Pressure 145 /106 Mean: 119 Laboratory Tests 11/17/22 11:33: Creatinine 0.88, Platelet Count 308, Total Bilirubin 0.7 11/17/22 14:40: Creatinine 0.70 (RADHA CALHOUN) Results/Orders Lab Results Laboratory Tests Test 11/17/22 11:33 11/17/22 13:55 11/17/22 14:40 Range/Units White Blood Count 10.0 4.3-11.0 10^3/uL Red Blood Count 4.68 3.80-5.11 10^6/uL Hemoglobin 14.1 11.5-16.0 g/dL Hematocrit 40 35-52 % Mean Corpuscular Volume 86 80-99 fL Mean Corpuscular Hemoglobin 30 25-34 pg Mean Corpuscular Hemoglobin Concent 35 32-36 g/dL Red Cell Distribution Width 14.5 10.0-14.5 % Platelet Count 308 130-400 10^3/uL Mean Platelet Volume 8.4 L 9.0-12.2 fL Immature Granulocyte % (Auto) 0 % Neutrophils (%) (Auto) 69 42-75 % Lymphocytes (%) (Auto) 22 12-44 % Monocytes (%) (Auto) 8 0-12 % Eosinophils (%) (Auto) 0 0-10 % Basophils (%) (Auto) 1 0-10 % Neutrophils # (Auto) 6.9 1.8-7.8 10^3/uL Lymphocytes # (Auto) 2.2 1.0-4.0 10^3/uL Monocytes # (Auto) 0.8 0.0-1.0 10^3/uL Eosinophils # (Auto) 0.0 0.0-0.3 10^3/uL Basophils # (Auto) 0.1 0.0-0.1 10^3/uL Immature Granulocyte # (Auto) 0.0 0.0-0.1 10^3/uL Sodium Level 125 *L 131 L 135-145 MMOL/L Potassium Level 4.4 3.8 3.6-5.0 MMOL/L Chloride Level 91 L 104 98-107 MMOL/L Carbon Dioxide Level 23 18 L 21-32 MMOL/L Anion Gap 11 9 5-14 MMOL/L Blood Urea Nitrogen 17 14 7-18 MG/DL Creatinine 0.88 0.70 0.60-1.30 MG/DL Estimat Glomerular Filtration Rate 72 95 BUN/Creatinine Ratio 19 20 Glucose Level 130 H 75 70-105 MG/DL Calcium Level 9.7 8.1 L 8.5-10.1 MG/DL Corrected Calcium 8.5-10.1 MG/DL Total Bilirubin 0.7 0.1-1.0 MG/DL Aspartate Amino Transf (AST/SGOT) 23 5-34 U/L Alanine Aminotransferase (ALT/SGPT) 14 0-55 U/L Alkaline Phosphatase 85 40-136 U/L Total Protein 8.5 H 6.4-8.2 GM/DL Albumin 4.7 H 3.2-4.5 GM/DL Lipase 70 8-78 U/L Urine Color YELLOW Urine Clarity CLEAR Urine pH 6.5 5-9 Urine Specific [place] <=1.005 1.016-1.022 Urine Protein NEGATIVE NEGATIVE Urine Glucose (UA) NEGATIVE NEGATIVE Urine Ketones NEGATIVE NEGATIVE Urine Nitrite NEGATIVE NEGATIVE Urine Bilirubin NEGATIVE NEGATIVE Urine Urobilinogen 0.2 < = 1.0 MG/DL Urine Leukocyte Esterase NEGATIVE NEGATIVE Urine RBC (Auto) TRACE-L H NEGATIVE Urine RBC RARE /HPF Urine WBC NONE /HPF Urine Squamous Epithelial Cells RARE /HPF Urine Crystals NONE /LPF Urine Bacteria NEGATIVE /HPF Urine Casts NONE /LPF Urine Mucus NEGATIVE /LPF Urine Culture Indicated NO Urine Opiates Screen NEGATIVE NEGATIVE Urine Oxycodone Screen NEGATIVE NEGATIVE Urine Methadone Screen NEGATIVE NEGATIVE Urine Propoxyphene Screen NEGATIVE NEGATIVE Urine Barbiturates Screen NEGATIVE NEGATIVE Ur Tricyclic Antidepressants Screen NEGATIVE NEGATIVE Urine Phencyclidine Screen NEGATIVE NEGATIVE Urine Amphetamines Screen NEGATIVE NEGATIVE Urine Methamphetamines Screen NEGATIVE NEGATIVE Urine Benzodiazepines Screen NEGATIVE NEGATIVE Urine Cocaine Screen NEGATIVE NEGATIVE Urine Cannabinoids Screen NEGATIVE NEGATIVE (MARY CALERO MD) Medications Given in ED Current Medications Medications Dose Ordered Sig/Tk Route Start Time Stop Time Status Last Admin Dose Admin Iohexol 100 ml ONCE ONCE IV 11/17/22 11:45 11/17/22 11:46 DC 11/17/22 13:08 49 ML Sodium Chloride 100 ml ONCE ONCE IV 11/17/22 11:45 11/17/22 11:46 DC 11/17/22 13:08 80 ML (MARY CALERO MD) Vital Signs/I&O 11/17/22 11/17/22 11/17/22 11:20 12:54 15:20 Temp 35.9 35.9 35.9 Pulse 90 90 Resp 22 22 B/P (MAP) 145/106 (119) 147/95 Pulse Ox 98 98 O2 Delivery Room Air Room Air (MARY CALERO MD) Vital Signs/I&O Capillary Refill : Less Than 3 Seconds (RADHA CALHOUN) Blood Pressure Mean: 119 Departure Communication (PCP) Reviewed previous H&P's, lab testing. Differential diagnosis, UTI, dehydration, discitis, cholecystitis, obstruction. Patient states over the past month or so she has had decreased weight loss.*Developing lower abdominal pain last night. She has a history of vomiting with a history of GERD. She states when she eats she becomes nauseous and vomits. She has been out of her Prilosec due to financial concerns which seem to help with her symptoms. Patient mildly anxious. She is tender right lower quadrant suprapubic region. Bladder scan did not note any urine. CBC, CMP, urinalysis was obtained. She is started on a liter of fluid. CBC showed normal white blood count. Chemistry showed sodium 125 chloride 91 with normal kidney function liver function. Normal lipase. Urinalysis was obtained with a straight cath as she does have a history of str aight cath secondary to urinary retention. Straight cath over 1000 mls. After the first liter of fluid she received a second liter. She received a dose of fentanyl with improvement of pain. CT abdomen and pelvis shows no acute abnormality in in the abdomen or pelvis. It did note minimal area of fluid distention of the small bowel without focal transition point or pathological dilation to confirm obstruction. Findings are nonspecific but may be early or low-grade obstruction versus ileus. Patient states she has been having bowel movements. At this time since she has tolerating p.o. fluids here without much pain we will treat with clear liquid diet for the next 2 or 3 days. Did recheck her chemistry which showed improvement of sodium 131 and chloride of 104. History of low sodium in the past. She has no neurological deficit. No chest pain or shortness of breath. At this time will discharge with her Prilosec which is recommended to help with her vomiting as she states this does help in t he past. Discharge with Zofran. Suggest recheck with your PCP in 1 to 2 days with lab work and further assessment of the abdominal pain. If any worsening symptoms such as severe belly pain continues vomiting, abdominal distention will need to return back to ED. (RADHA CALHOUN) Impression Primary Impression: Dehydration Disposition: 01 HOME, SELF-CARE Condition: Stable Departure-Patient Inst. Decision time for Depature: 15:16 (RADHA CALHOUN) Referrals: [facility] [place] [facility],LOCAL PHYSICIAN (PCP) Primary Care Physician Patient Instructions: Dehydration, Adult ED Add. Discharge Instructions: Recommend staying hydrated. Recommend taking Protonix or Prilosec. Zofran for nausea. Follow-up with PCP suggest following up with [facility]. All discharge instructions reviewed with patient and/or family. Voiced understanding. Scripts Omeprazole Magnesium (Prilosec Otc) 20 Mg Tablet.dr 20 MG PO DAILY, #20 TAB Prov: RADHA CALHOUN 11/17/22 Ondansetron (Ondansetron Odt) 4 Mg Tab.rapdis 4 MG SL Q4H PRN for NAUSEA/VOMITING, #8 TAB Prov: RADHA CALHOUN 11/17/22 ATTENDING PHYSICIAN NOTE: I was physically present as attending physician in the emergency department during the care of this patient, but I was not directly involved in the decision making or delivery of care for this patient. (MARY CALERO MD) RADHA CALHOUN Nov 17, 2022 11:32 MARY CALERO MD Nov 17, 2022 18:57
[2022-11-17 11:38] LABS: BASOPHILS # (AUTO) 0.1 10^3/uL (0.0-0.1); BASOPHILS % (AUTO) 1 % (0-10); EOSINOPHILS % (AUTO) 0 % (0-10); HEMATOCRIT 40 % (35-52); HEMOGLOBIN 14.1 g/dL (11.5-16.0); LYMPHOCYTES # (AUTO) 2.2 10^3/uL (1.0-4.0); LYMPHOCYTES % (AUTO) 22 % (12-44); MEAN CORPUSCULAR HEMOGLOBIN 30 pg (25-34); MEAN CORPUSCULAR HGB CONC 35 g/dL (32-36); MEAN CORPUSCULAR VOLUME 86 fL (80-99); MEAN PLATELET VOLUME 8.4 fL (9.0-12.2); MONOCYTES # (AUTO) 0.8 10^3/uL (0.0-1.0); MONOCYTES % (AUTO) 8 % (0-12); NEUTROPHILS # (AUTO) 6.9 10^3/uL (1.8-7.8); NEUTROPHILS % (AUTO) 69 % (42-75); PLATELET COUNT 308 10^3/uL (130-400)
[2022-11-17] MEDS ORDERED: IOHEXOL 350 MG/ML 100 ML (OMNIPAQUE 350) VIAL IV ONE (11:45)
[2022-11-17] MEDS ORDERED: HOLD METFORMIN - RECEIVED CONTRAST 20 ML VIAL IV SCH (11:45)
[2022-11-17] MEDS ORDERED: NS 100 ML (IVPB) BAG IV ONE (11:45)
[2022-11-17 11:51] LABS: ALBUMIN 4.7 GM/DL (3.2-4.5); CHLORIDE 91 MMOL/L (98-107); POTASSIUM 4.4 MMOL/L (3.6-5.0)
[2022-11-17 11:52] LABS: CALCIUM 9.7 MG/DL (8.5-10.1)
[2022-11-17 11:53] LABS: GLUCOSE 130 MG/DL (70-105); TOTAL PROTEIN 8.5 GM/DL (6.4-8.2)
[2022-11-17 11:54] LABS: CARBON DIOXIDE 23 MMOL/L (21-32)
[2022-11-17 11:55] LABS: BILIRUBIN,TOTAL 0.7 MG/DL (0.1-1.0)
[2022-11-17 11:57] LABS: ALKALINE PHOSPHATASE 85 U/L (40-136); CREATININE SERUM 0.88 MG/DL (0.60-1.30); GFR ESTIMATED 72
[2022-11-17 11:58] LABS: BUN/CREATININE RATIO 19
[2022-11-17 12:00] LABS: ALANINE AMINOTRANSFERASE 14 U/L (0-55); LIPASE 70 U/L (8-78)
[2022-11-17 12:06] LABS: SODIUM 125 MMOL/L (135-145)
[2022-11-17] MEDS ORDERED: fentaNYL INJECTION 100 MCG/2 ML VIAL IVP STA (12:49)
--- NOTE | 2022-11-17 13:35 | Diagnostic Imaging Report ---
EXAMINATION: CT abdomen and pelvis with intravenous contrast. TECHNIQUE: Multiple contiguous axial images were obtained through the abdomen and pelvis after the uneventful administration of intravenous contrast. All CT scans use one or more of the following dose optimizing techniques: automated exposure control, MA and/or KvP adjustment based on patient size and exam type or iterative reconstruction. HISTORY: Lower abd pain. COMPARISON: 05/04/2022. FINDINGS: Lung bases: The lung bases are clear. Solid organs: The liver is normal without focal lesion. The gallbladder is normal. There is no biliary ductal dilation. Pancreas is normal. Spleen is normal. Adrenal glands are normal. There are bilateral renal cysts which require no followup. No hydronephrosis. Bowel: There are minimally distended small bowel loops containing air and fluid without pathologic distention or obvious transition point. The colon is normal. The appendix is normal. Peritoneum: There is no intraperitoneal free fluid or free air. No suspicious lymphadenopathy. Vasculature: Calcification of the aorta without aneurysm. Musculoskeletal: Degenerative changes of the spine without suspicious osseous lesion or compression fracture. Pelvis: The uterus is surgically absent. No adnexal mass. The urinary bladder is normal. IMPRESSION: 1. No acute abnormality in the abdomen or pelvis. 2. Minimal air and fluid distention of the small bowel without focal transition point or pathologic dilation to confirm obstruction. These findings are nonspecific and may be physiologic but early or low-grade obstruction versus ileus would be within the differential. Dictated by: Dictated on workstation # [id number]
[2022-11-17 14:09] LABS: CLARITY,URINE CLEAR; COLOR,URINE YELLOW; GLUCOSE, URINE (UA) NEGATIVE (NEGATIVE); PH,URINE 6.5 (5-9); PROTEIN,URINE NEGATIVE (NEGATIVE)
[2022-11-17 14:10] LABS: BACTERIA,URINE NEGATIVE /HPF; BILIRUBIN,URINE NEGATIVE (NEGATIVE); KETONES,URINE NEGATIVE (NEGATIVE); LEUKOCYTE ESTERASE ,URINE NEGATIVE (NEGATIVE); NITRITE,URINE NEGATIVE (NEGATIVE); RBC,URINE RARE /HPF; SQUAMOUS EPITHELIAL CELL,UR RARE /HPF
[2022-11-17 14:13] LABS: AMPHETAMINE SCREEN, URINE NEGATIVE (NEGATIVE); CANNABINOID SCREEN, URINE NEGATIVE (NEGATIVE); COCAINE SCREEN URINE NEGATIVE (NEGATIVE); OPIATE SCREEN URINE NEGATIVE (NEGATIVE)
[2022-11-17 14:14] LABS: BARBITURATE SCREEN URINE NEGATIVE (NEGATIVE); METHADONE STAT NEGATIVE (NEGATIVE); OXYCODONE STAT NEGATIVE (NEGATIVE); PROPOXYPHENE STAT NEGATIVE (NEGATIVE); TRICYCLIC ANTIDEPRESSANTS SCRE NEGATIVE (NEGATIVE)
[2022-11-17 14:59] LABS: POTASSIUM 3.8 MMOL/L (3.6-5.0)
[2022-11-17 15:00] LABS: CALCIUM 8.1 MG/DL (8.5-10.1)
[2022-11-17 15:04] LABS: CREATININE SERUM 0.7 MG/DL (0.60-1.30)
[2022-11-17] MEDS ORDERED: OMEP20TA33 PO (15:17)
[2022-11-17] MEDS ORDERED: ONDA4TAB11 SL (15:17)
[2022-11-17 15:20] VITALS: BP 147/95
== END 2022-11-17 15:20 | disposition home or self-care (01) ==
LOC: EDUNIT# 11:09 → ER 11:11
DX: E86.0 Dehydration (principal); R11.2 Nausea with vomiting, unspecified; F17.210 Nicotine dependence, cigarettes, uncomplicated
CPT/HCPCS: 36415; 51701; 74177; 80048; 80053; 80306; 81000; 83690; 85025

== ENCOUNTER 2022-12-13 16:01 | Emergency (ER) | payer MEDICAID ==
[~2022-12-13] VITALS: Ht 167.7 cm; Wt 44.4 kg
[~2022-12-13 16:01] MED LIST changes: +OMEP20TA33 PO; +ONDA4TAB11 SL
[2022-12-13 16:17] VITALS: BP 151/84
--- NOTE | 2022-12-13 17:12 | ED Lower Extremity ---
General Chief Complaint: Lower Extremity Stated Complaint: SWOLLEN LEFT LEG Nursing Triage Note: PATIENT VERBALIZED SINCE LAST WEEK SHE HAS BEEN DEALING WITH SWELLING, REDNESS, AND PAIN IN HER LOWER EXTREMITIES. STATES RIGHT LEG IS WORSE THAN LEFT. PATIENT STATES HX OF LEG SWELLING. PATIENT REPORTS SHE HAS BEEN WITHOUT A PRIMAY PHYSICIAN FOR A WHILE STATES SHE ALSO HAS NOT BEEN ON HER DAILY MEDS FOR THIS LONG. Source: patient Exam Limitations: no limitations (KELSIE PEARSON APRN) History of Present Illness Date Seen by Provider: Dec 13, 2022 Time Seen by Provider: 16:45 Initial Comments 67-year-old female presents to the ER with complaints of swelling to bilateral lower extremities for the last 4 days. She states that the swelling in the left lower extremity is worse than the right lower extremity. Reports that she has had problems with this in the past and had to be placed on Lasix and potassium for short period. She reports redness in her lower extremities that started last night. She reports significant pain, worse in the left lower extremity. She is uncertain of fevers, but states she feels like she has been chilling. She also thinks she has a UTI, patient has to self cath due to urinary retention. She reports cloudy and dark-colored urine, and lower abdominal pain. She reports that her primary used to have her on low-dose antibiotic every day, but she no longer has a primary to prescribe her medications. (KELSIE PEARSON APRN) Allergies and Home Medications Allergies Coded Allergies: butorphanol (Unverified Allergy, Unknown, 10/01/13) tramadol (Verified Allergy, Unknown, Nausea, 05/05/22) trazodone (Verified Allergy, Unknown, 05/05/22) FEELS LIKE ELECTRIC SHOCK IN LIMBS erythromycin base (Unverified Adverse Reaction, Intermediate, 03/03/13) Patient Home Medication List Home Medication List Reviewed: Yes (KELSIE PEARSON APRN) Atorvastatin Calcium (Atorvastatin Calcium) 10 Mg Tablet, 10 MG PO DAILY Prescribed by: VINICIO HERNANDEZ on 05/07/22 1201 Cefdinir (Cefdinir) 300 Mg Capsule, 300 MG PO BID Prescribed by: MARY DURHAM on 11/01/22 1329 Cefuroxime Axetil (Cefuroxime) 500 Mg Tablet, 500 MG PO BID Prescribed by: Kelsie Peres on 12/13/221931 Cephalexin (Cephalexin) 500 Mg Tablet, 500 MG PO BID Prescribed by: VINICIO HERNANDEZ on 05/07/22 120 Clonazepam (Clonazepam) 0.5 Mg Tablet, 0.5 MG PO BID Prescribed by: MARY DURHAM on 11/01/22 1333 Furosemide (Lasix) 20 Mg Tablet, 20 MG PO DAILY Prescribed by: Kelsie Peres on 12/13/221931 Levothyroxine Sodium (Levothyroxine Sodium) 100 Mcg Tablet, 100 MCG PO DAILY, (Reported) Entered as Reported by: LAURA AVILA on 05/05/22 105 Metoprolol Succinate (Metoprolol Succinate) 25 Mg Tab.er.24h, 25 MG PO DAILY Prescribed by: VINICIO HERNANDEZ on 05/07/22 120 Nitrofurantoin Monohyd/M-Cryst (Nitrofurantoin [place]-Mcr 100 mg) 100 Mg Capsule, 100 MG PO DAILY, (Reported) Entered as Reported by: LAURA AVILA on 05/05/22 105 Omeprazole (Omeprazole) 40 Mg Capsule.dr, 40 MG PO DAILY, (Reported) Entered as Reported by: LAURA AVILA on 05/05/22 105 Omeprazole Magnesium (Prilosec Otc) 20 Mg Tablet.dr, 20 MG PO DAILY Prescribed by: PANCHO MEYERS on 11/17/22 151 Ondansetron (Ondansetron Odt) 4 Mg Tab.rapdis, 1 TAB PO TID PRN for NAUSEA/VOMITING-1ST LINE, (Reported) Entered as Reported by: VINICIO HERNANDEZ on 01/20/212048 Ondansetron (Ondansetron Odt) 4 Mg Tab.rapdis, 4 MG SL Q4H PRN for NAUSEA/VOMITING Prescribed by: PANCHO MEYERS on 11/17/22 151 Potassium Chloride (Potassium Chloride) 20 Meq Tablet.er, 20 MEQ PO DAILY Prescribed by: Kelsie Peres on 12/13/221931 Sucralfate (Carafate) 1 Gram Tablet, 1 GM PO QIDACHS Prescribed by: VINICIO HERNANDEZ on 05/07/22 1201 Review of Systems Constitutional: see HPI (KELSIE PEARSON APRN) Past Lrjhwix-Zcfqic-Qhemkf Hx Patient Social History Tobacco Use?: Yes Tobacco type used: Cigarettes Smoking Status: Current Everyday Smoker Use of E-Cig and/or Vaping dev: Yes E-Cig or Vaping type used: Marijuana, Synthetic Cannabinoids Use of E-Cig and/or Vaping Sandeep: Current Everyday User Substance use?: No (KELSIE PEARSON APRN) Immunizations Up To Date PED Vaccines UTD: Yes Influenza Vaccine Up-to-Date: No; Not Current First/Initial COVID19 Vaccinat: MODERNA DOESNT KNOW WHEN Second COVID19 Vaccination Umang: MODERNA DOESNT KNOW WHEN Third COVID19 Vaccination Date: MODERNA DOESNT KNOW WHEN (KELSIE PEARSON APRN) Seasonal Allergies Seasonal Allergies: Yes (KELSIE PEARSON APRN) Past Medical History Surgery/Hospitalization HX: TRAUMATIC HEAD INJURY, CATARACT R EYE, TUBAL, HYST, T AND A, THYROID, BILAT CATERACT, SELF CATHS DUE TO URINARY RETENTION, DEMENTIA Surgeries: Yes (BILAT OOPHERECTOMY FOR TUMORS, BREAST BXS, TOE SURGERY) Abdominal, Adenoidectomy, Breast, Eye Surgery, Hysterectomy, Oophorectomy, Orth opedic, Tonsillectomy, Tubal Ligation Respiratory: Yes COPD Currently Using CPAP: No Currently Using BIPAP: No Cardiac: Yes Palpitations Neurological: Yes (MEDICATION RELATED SEIZURE) Concussion Reproductive Disorders: Yes Female Reproductive Disorders: Menstrual Problems PRINCIPAL EXAMINER History: Hysterectomy, Menopausal Genitourinary: Yes (URINARY RETENTION-SELF CATH'S) UTI-Chronic Gastrointestinal: Yes ("no feeling in rectum") Gastroesophageal Reflux, Chronic Constipation, Hemorrhoids, Polyps Musculoskeletal: Yes Degenerate Disk Disease, Arthritis, Chronic Back Pain Endocrine: Yes Hypothyroidsim HEENT: No Cancer: No Psychosocial: Yes (POLYSUBSTANCE ABUSE) Anxiety Integumentary: No Blood Disorders: Yes (anemia) (KELSIE PEARSON APRN) Family Medical History FH: rheumatoid arthritis 19 MOTHER Pancreatic cancer 19 FATHER SOCIAL HISTORY: -SMOKES 1 1/2 PPD -ETOH--6 PACK/DAY -DRUGS-- + IV HEROIN USE, METH USE, THC USE, RX DRUGS. PT STATES SHE HAS BEEN ON METHADONE AND SUBOXONE "FOR YEARS" DUE TO HEROIN ADDICTION. PAST SURGICAL HISTORY: -HYSTERECTOMY/BILATERAL SALPINGO-OOPHORECTOMY -TONSILLECTOMY -BREAST BIOPSY -TOE SURGERY -BILATERAL CATARACT SURGERY 08/2021 STRESS TEST 07/27/[address] REIS: Conclusion: Pharmacological stress test was negative for ischemia. Normal LV function with no wall motion abnormalities. Normal myocardial perfusion imaging during rest and stress. (KELSIE PEARSON APRN) Physical Exam Vital Signs Vital Signs - First Documented 12/13/22 16:17 Temp 36.9 Pulse 97 Resp 20 B/P (MAP) 151/84 (106) O2 Delivery Room Air (MARY CALERO MD) Vital Signs Capillary Refill : Less Than 3 Seconds (KELSIE PEARSON APRN) Height, Weight, BMI Height: 5'6.00" Weight: 115lbs. 0.0oz. 52.528843rd; 15.00 BMI Method:Stated General Appearance: WD/WN, no apparent distress Neck: supple, normal inspection Cardiovascular: regular rate, rhythm Respiratory: lungs clear, normal breath sounds, no respiratory distress, no accessory muscle use Legs: bilateral leg pain (calf tender to palpation in left leg), bilateral leg swelling, bilateral leg other (Erythema) Ankles: bilateral ankle pain, bilateral ankle swelling, bilateral ankle other (Erythema) Feet: bilateral foot other (Sensation intact distally, cap refill less than 2 seconds, pulses intact) Neurologic/Psychiatric: alert, normal mood/affect Skin: normal color (Erythema to lower extremities), warm/dry (KELSIE PEARSON APRN) Progress/Results/Core Measures Results/Orders Lab Results Laboratory Tests Test 12/13/22 16:03 12/13/22 17:18 12/13/22 17:44 12/13/22 18:55 Range/Units Lab Scanned Report Referred Lab Report [id number] Sodium Level 134 L 135-145 MMOL/L Potassium Level 4.1 3.6-5.0 MMOL/L Chloride Level 99 98-107 MMOL/L Carbon Dioxide Level 24 21-32 MMOL/L Anion Gap 11 5-14 MMOL/L Blood Urea Nitrogen 16 7-18 MG/DL Creatinine 0.80 0.60-1.30 MG/DL Estimat Glomerular Filtration Rate 81 BUN/Creatinine Ratio 20 Glucose Level 95 70-105 MG/DL Calcium Level 9.2 8.5-10.1 MG/DL Corrected Calcium 9.1 8.5-10.1 MG/DL Total Bilirubin < 0.1 L 0.1-1.0 MG/DL Aspartate Amino Transf (AST/SGOT) 27 5-34 U/L Alanine Aminotransferase (ALT/SGPT) 12 0-55 U/L Alkaline Phosphatase 80 40-136 U/L Total Protein 7.6 6.4-8.2 GM/DL Albumin 4.1 3.2-4.5 GM/DL White Blood Count 6.8 4.3-11.0 10^3/uL Red Blood Count 3.68 L 3.80-5.11 10^6/uL Hemoglobin 11.0 L 11.5-16.0 g/dL Hematocrit 34 L 35-52 % Mean Corpuscular Volume 91 80-99 fL Mean Corpuscular Hemoglobin 30 25-34 pg Mean Corpuscular Hemoglobin Concent 33 32-36 g/dL Red Cell Distribution Width 14.8 H 10.0-14.5 % Platelet Count 241 130-400 10^3/uL Mean Platelet Volume 9.9 9.0-12.2 fL Immature Granulocyte % (Auto) 0 % Neutrophils (%) (Auto) 69 42-75 % Lymphocytes (%) (Auto) 15 12-44 % Monocytes (%) (Auto) 12 0-12 % Eosinophils (%) (Auto) 3 0-10 % Basophils (%) (Auto) 1 0-10 % Neutrophils # (Auto) 4.7 1.8-7.8 10^3/uL Lymphocytes # (Auto) 1.0 1.0-4.0 10^3/uL Monocytes # (Auto) 0.8 0.0-1.0 10^3/uL Eosinophils # (Auto) 0.2 0.0-0.3 10^3/uL Basophils # (Auto) 0.1 0.0-0.1 10^3/uL Immature Granulocyte # (Auto) 0.0 0.0-0.1 10^3/uL D-Dimer 0.79 H 0.00-0.49 UG/ML B-Type Natriuretic Peptide 29.4 <100.0 PG/ML Urine Color YELLOW Urine Clarity CLOUDY Urine pH 6.0 5-9 Urine Specific [place] 1.010 L 1.016-1.022 Urine Protein NEGATIVE NEGATIVE Urine Glucose (UA) NEGATIVE NEGATIVE Urine Ketones NEGATIVE NEGATIVE Urine Nitrite POSITIVE H NEGATIVE Urine Bilirubin NEGATIVE NEGATIVE Urine Urobilinogen 0.2 < = 1.0 MG/DL Urine Leukocyte Esterase TRACE H NEGATIVE Urine RBC (Auto) 1+ H NEGATIVE Urine RBC 5-10 H /HPF Urine WBC 10-25 H /HPF Urine Squamous Epithelial Cells RARE /HPF Urine Crystals NONE /LPF Urine Bacteria MODERATE H /HPF Urine Casts NONE /LPF Urine Mucus NEGATIVE /LPF Urine Culture Indicated YES (MARY CALERO MD) Micro Results Microbiology 12/13/22 Urine Culture - Final, Complete Escherichia coli (MARY CALERO MD) Vital Signs/I&O 12/13/22 16:17 Temp 36.9 Pulse 97 Resp 20 B/P (MAP) 151/84 (106) O2 Delivery Room Air (MARY CALERO MD) Blood Pressure Mean: 106 Progress Progress Note : Progress Note Patient seen and evaluated, resting comfortably in bed, no acute distress. Based on exam and symptoms, work-up initiated including CBC, CMP, BNP, D-dimer, UA. Had a stress test in 2019 which showed an EF of 78%. 1924 Labs reviewed. CBC shows slightly decreased hemoglobin 11.0, slightly decreased hematocrit 34. CMP shows slight decreased sodium 134. BNP normal. D-dimer slightly elevated 0.79. Urinalysis positive for nitrates, trace leukocytes, 1+ RBCs, 10-25 WBCs, moderate bacteria. This was a self cath specimen. Results discussed with patient and son. Due to elevated D-dimer, leg swelling, and left calf tenderness, will give a first dose of Xarelto and write an outpatient order for an ultrasound. Patient denies history of any GI bleeding or current bleeding. Patient instructed to return tomorrow for the ultrasound, the certified neurodiagnostic technologist checked the schedule and saw that the best plan for the patient to come would be 11:45 AM. Results will be given to the ER physician because patient does not have a primary care provider. Will treat for cellulitis and will also provide Lasix for swelling and potassium. Patient is stable for discharge. Discharge instructions and return precautions provided. (KELSIE PEARSON APRN) Departure Impression Primary Impression: Bilateral lower extremity edema Additional Impressions: Cellulitis UTI (urinary tract infection) Elevated d-dimer Suspected DVT (deep vein thrombosis) Disposition: HOME, SELF-CARE Condition: Stable Departure-Patient Inst. Decision time for Depature: 19:24 (KELSIE PEARSON APRN) Referrals: NO,LOCAL PHYSICIAN (PCP/Family) Primary Care Physician Patient Instructions: Cellulitis (Skin Infection), Adult (DC) Add. Discharge Instructions: Return tomorrow at 11:45 a.m. to get your ultrasound. You will present to outpatient registration at the front of the hospital. It is important that you get this ultrasound to make sure you do not have a deep vein thrombosis. If you have a deep vein thrombosis, you will be prescribed a blood thinner. Complete full course of antibiotic as prescribed. It will cover both your cellulitis and your urinary tract infection. Make sure you are drinking plenty water. Take the Lasix once a day for the next 7 days. Take potassium with the Lasix once a day for the next 7 days. Return for severe shortness of breath, chest pain, worsening of your swelling or redness, or any other new, concerning, or worsening symptoms. All discharge instructions reviewed with patient and/or family. Voiced understanding. Scripts Cefuroxime Axetil (Cefuroxime) 500 Mg Tablet 500 MG PO BID for 10 Days, #20 TAB 0 Refills Prov: KELSIE PEARSON APRN 12/13/22 Potassium Chloride (Potassium Chloride) 20 Meq Tablet.er 20 MEQ PO DAILY for 7 Days, #7 TAB 0 Refills Prov: KELSIE PEARSON APRN 12/13/22 Furosemide (Lasix) 20 Mg Tablet 20 MG PO DAILY for 7 Days, #7 TAB 0 Refills Prov: KELSIE PEARSON APRN 12/13/22 ATTENDING PHYSICIAN NOTE: I was physically present as attending physician in the emergency department during the care of this patient, but I was not directly involved in the decision making or delivery of care for this patient. (MARY CALERO MD) KELSIE PEARSON APRN Dec 13, 2022 17:12 MARY CALERO MD Dec 16, 2022 16:51
[2022-12-13 17:36] LABS: ALBUMIN 4.1 GM/DL (3.2-4.5)
[2022-12-13 17:37] LABS: CHLORIDE 99 MMOL/L (98-107); SODIUM 134 MMOL/L (135-145)
[2022-12-13 17:38] LABS: CALCIUM 9.2 MG/DL (8.5-10.1)
[2022-12-13 17:39] LABS: GLUCOSE 95 MG/DL (70-105); TOTAL PROTEIN 7.6 GM/DL (6.4-8.2)
[2022-12-13 17:40] LABS: CARBON DIOXIDE 24 MMOL/L (21-32)
[2022-12-13 17:41] LABS: BILIRUBIN,TOTAL < 0.1 MG/DL (0.1-1.0)
[2022-12-13 17:42] LABS: ALKALINE PHOSPHATASE 80 U/L (40-136)
[2022-12-13 17:43] LABS: GFR ESTIMATED 81
[2022-12-13 17:44] LABS: BUN/CREATININE RATIO 20
[2022-12-13 17:46] LABS: ALANINE AMINOTRANSFERASE 12 U/L (0-55)
[2022-12-13 18:09] LABS: BASOPHILS # (AUTO) 0.1 10^3/uL (0.0-0.1); BASOPHILS % (AUTO) 1 % (0-10); EOSINOPHILS # (AUTO) 0.2 10^3/uL (0.0-0.3); EOSINOPHILS % (AUTO) 3 % (0-10); HEMATOCRIT 34 % (35-52); LYMPHOCYTES % (AUTO) 15 % (12-44); MEAN CORPUSCULAR HEMOGLOBIN 30 pg (25-34); MEAN CORPUSCULAR HGB CONC 33 g/dL (32-36); MEAN CORPUSCULAR VOLUME 91 fL (80-99); MEAN PLATELET VOLUME 9.9 fL (9.0-12.2); MONOCYTES # (AUTO) 0.8 10^3/uL (0.0-1.0); MONOCYTES % (AUTO) 12 % (0-12); NEUTROPHILS # (AUTO) 4.7 10^3/uL (1.8-7.8); NEUTROPHILS % (AUTO) 69 % (42-75); PLATELET COUNT 241 10^3/uL (130-400); WHITE BLOOD COUNT 6.8 10^3/uL (4.3-11.0)
[2022-12-13 18:45] LABS: POTASSIUM 4.1 MMOL/L (3.6-5.0)
[2022-12-13 19:10] LABS: BACTERIA,URINE MODERATE /HPF; BILIRUBIN,URINE NEGATIVE (NEGATIVE); CLARITY,URINE CLOUDY; COLOR,URINE YELLOW; GLUCOSE, URINE (UA) NEGATIVE (NEGATIVE); KETONES,URINE NEGATIVE (NEGATIVE); LEUKOCYTE ESTERASE ,URINE TRACE (NEGATIVE); NITRITE,URINE POSITIVE (NEGATIVE); PROTEIN,URINE NEGATIVE (NEGATIVE); SQUAMOUS EPITHELIAL CELL,UR RARE /HPF
[2022-12-13] MEDS ORDERED: RIVAROXABAN 15 MG TABLET PO ONE (19:15)
[2022-12-13] MEDS ORDERED: cefTRIAXone 1,000 MG VIAL IV/IM IM ONE (19:15)
[2022-12-13] MEDS ORDERED: LIDOCAINE 1% INJ 20 ML VIAL INJ ONE (19:15)
[2022-12-13] MEDS ORDERED: FUROSEMIDE 20 MG TABLET PO ONE (19:15)
[2022-12-13] MEDS ORDERED: POTA-330 PO ×2 (19:21→19:32)
[2022-12-13] MEDS ORDERED: FURO-125 PO ×2 (19:21→19:32)
[2022-12-13] MEDS ORDERED: CEFU500T63 PO ×2 (19:21→19:32)
== END 2022-12-13 19:31 | disposition home or self-care (01) ==
LOC: EDUNIT# 16:01 → ER 16:03
DX: L03.116 Cellulitis of left lower limb (principal); L03.115 Cellulitis of right lower limb; N39.0 Urinary tract infection, site not specified; R60.0 Localized edema; R79.1 Abnormal coagulation profile; F17.210 Nicotine dependence, cigarettes, uncomplicated; F17.290 Nicotine dependence, other tobacco product, uncomplicated
CPT/HCPCS: 36415; 80053; 81000; 83880; 85025; 85379; 87077; 87088; 87186; 96372; 99284

== ENCOUNTER → 2022-12-14 | Outpatient (CLI) | payer MEDICAID ==
[~2022-12-14] MED LIST changes: +CEFU500T63 PO; +FURO-125 PO; +POTA-330 PO
--- NOTE | 2022-12-14 14:32 | Diagnostic Imaging Report ---
PROCEDURE: US Venous Lower Ext Patrick. TECHNIQUE: Multiple real-time grayscale images were obtained over the lower extremities in various projections, bilaterally. Additional duplex Doppler and color Doppler images were also obtained. INDICATION: Bilateral lower extremity edema, left greater. There is no evidence of right or left lower extremity DVT. Both lower extremity deep venous systems demonstrate normal compressibility with normal response to augmentation and Valsalva. No fluid collection or mass is detected. IMPRESSION: No evidence of right or left lower extremity DVT. Dictated by: Dictated on workstation # [id number]
== END ==
LOC: RAD 12:15
PROVIDERS: ATTEND Nurse Practitioner
DX: R60.0 Localized edema (principal)
CPT/HCPCS: 93970

== ENCOUNTER 2022-12-25 09:42 | Emergency (ER) | payer MEDICAID ==
[2022-12-25 10:45] LABS: BASOPHILS # (AUTO) 0.1 10^3/uL (0.0-0.1); BASOPHILS % (AUTO) 1 % (0-10); EOSINOPHILS # (AUTO) 0.2 10^3/uL (0.0-0.3); EOSINOPHILS % (AUTO) 3 % (0-10); HEMATOCRIT 32 % (35-52); HEMOGLOBIN 10.5 g/dL (11.5-16.0); LYMPHOCYTES # (AUTO) 1.6 10^3/uL (1.0-4.0); LYMPHOCYTES % (AUTO) 29 % (12-44); MEAN CORPUSCULAR HEMOGLOBIN 30 pg (25-34); MEAN CORPUSCULAR HGB CONC 33 g/dL (32-36); MEAN CORPUSCULAR VOLUME 91 fL (80-99); MONOCYTES # (AUTO) 0.6 10^3/uL (0.0-1.0); MONOCYTES % (AUTO) 12 % (0-12); NEUTROPHILS % (AUTO) 55 % (42-75); PLATELET COUNT 403 10^3/uL (130-400); WHITE BLOOD COUNT 5.4 10^3/uL (4.3-11.0)
[2022-12-25 10:48] LABS: POTASSIUM 5.1 MMOL/L (3.6-5.0)
[2022-12-25 10:49] LABS: CALCIUM 9.4 MG/DL (8.5-10.1)
[2022-12-25 10:54] LABS: CREATININE SERUM 1.06 MG/DL (0.60-1.30)
[2022-12-25] MEDS ORDERED: IBUPROFEN 200 MG TABLET PO ONE (13:30)
[2022-12-25] MEDS ORDERED: ACETAMINOPHEN 325 MG TABLET PO ONE (13:30)
[2022-12-25 13:35] LABS: BILIRUBIN,URINE NEGATIVE (NEGATIVE); CLARITY,URINE CLEAR; COLOR,URINE YELLOW; GLUCOSE, URINE (UA) NEGATIVE (NEGATIVE); KETONES,URINE NEGATIVE (NEGATIVE); LEUKOCYTE ESTERASE ,URINE NEGATIVE (NEGATIVE); NITRITE,URINE NEGATIVE (NEGATIVE); PROTEIN,URINE NEGATIVE (NEGATIVE)
[2022-12-25 13:36] LABS: BACTERIA,URINE NEGATIVE /HPF; RBC,URINE RARE /HPF; SQUAMOUS EPITHELIAL CELL,UR 0-2 /HPF
[2022-12-25 13:42] LABS: AMPHETAMINE SCREEN, URINE POSITIVE (NEGATIVE); BARBITURATE SCREEN URINE NEGATIVE (NEGATIVE); CANNABINOID SCREEN, URINE NEGATIVE (NEGATIVE); COCAINE SCREEN URINE NEGATIVE (NEGATIVE); METHADONE STAT NEGATIVE (NEGATIVE); OPIATE SCREEN URINE POSITIVE (NEGATIVE); OXYCODONE STAT NEGATIVE (NEGATIVE); TRICYCLIC ANTIDEPRESSANTS SCRE NEGATIVE (NEGATIVE)
--- NOTE | 2022-12-25 13:55 | ED General ---
General Chief Complaint: Lower Extremity Stated Complaint: BOTH LEGS SWELLING Nursing Triage Note: PT AMB TO [facility] 4 WITH NEIGHBOR WITH C/O BILAT LEG SWELLING AND PAIN THAT IS MOVING UP INTO HER THIGH AREA. L CALF MORE SWOLLEN THAN R Source of Information: Patient Exam Limitations: No Limitations History of Present Illness Date Seen by Provider: Dec 25, 2022 Time Seen by Provider: 09:50 Initial Comments This 67-year-old woman presents to the emergency room by private vehicle with complaints of lower extremity edema and pain. She had previously been using Lasix diuretics to help with the edema. She has run out of her last prescription provided from the emergency room and has not yet reestablished with a primary care provider. She has not experienced any injury. Legs are affected equally on both sides. Review of her chart reveals an echocardiogram from 2019 with a normal ejection fraction of 55 to 65% with no systolic or diastolic dysfunction. She was here December 13 for a similar visit. She is noted to be agitated and to have dystonic movements consistent with methamphetamine use. She has not taken anything for pain. She also reports a history of needing to self cath and having some difficulty urinating. Allergies and Home Medications Allergies Coded Allergies: butorphanol (Unverified Allergy, Unknown, 10/01/13) tramadol (Verified Allergy, Unknown, Nausea, 05/05/22) trazodone (Verified Allergy, Unknown, 05/05/22) FEELS LIKE ELECTRIC SHOCK IN LIMBS erythromycin base (Unverified Adverse Reaction, Intermediate, 03/03/13) Patient Home Medication List Home Medication List Reviewed: Yes Atorvastatin Calcium (Atorvastatin Calcium) 10 Mg Tablet, 10 MG PO DAILY Prescribed by: VINICIO HERNANDEZ on 05/07/22 1201 Cefdinir (Cefdinir) 300 Mg Capsule, 300 MG PO BID Prescribed by: MARY DURHAM on 11/01/22 1329 Cefuroxime Axetil (Cefuroxime) 500 Mg Tablet, 500 MG PO BID Prescribed by: Kelsie Peres on 12/13/22 193 Cephalexin (Cephalexin) 500 Mg Tablet, 500 MG PO BID Prescribed by: VINICIO HERNANDEZ on 05/07/22 1201 Clonazepam (Clonazepam) 0.5 Mg Tablet, 0.5 MG PO BID Prescribed by: MARY DURHAM on 11/01/22 1333 Furosemide (Lasix) 20 Mg Tablet, 20 MG PO DAILY Prescribed by: Kelsie Peres on 12/13/221931 Furosemide (Lasix) 40 Mg Tablet, 40 MG PO DAILY PRN for edema Prescribed by: MARY DURHAM on 12/25/22 140 Levothyroxine Sodium (Levothyroxine Sodium) 100 Mcg Tablet, 100 MCG PO DAILY, (Reported) Entered as Reported by: LAURA AVILA on 05/05/22 105 Metoprolol Succinate (Metoprolol Succinate) 25 Mg Tab.er.24h, 25 MG PO DAILY Prescribed by: VINICIO HERNANDEZ on 05/07/22 1201 Nitrofurantoin Monohyd/M-Cryst (Nitrofurantoin Hunt-Mcr 100 mg) 100 Mg Capsule, 100 MG PO DAILY, (Reported) Entered as Reported by: LAURA AVILA on 05/05/22 105 Omeprazole (Omeprazole) 40 Mg Capsule.dr, 40 MG PO DAILY, (Reported) Entered as Reported by: LAURA AVILA on 05/05/22 105 Omeprazole Magnesium (Prilosec Otc) 20 Mg Tablet.dr, 20 MG PO DAILY Prescribed by: PANCHO MEYERS on 11/17/22 151 Ondansetron (Ondansetron Odt) 4 Mg Tab.rapdis, 1 TAB PO TID PRN for NAUSEA/VOMITING-1ST LINE, (Reported) Entered as Reported by: VINICIO HERNANDEZ on 01/20/212048 Ondansetron (Ondansetron Odt) 4 Mg Tab.rapdis, 4 MG SL Q4H PRN for NAUSEA/VOMITING Prescribed by: PANCHO MEYERS on 11/17/22 1517 Potassium Chloride (Potassium Chloride) 20 Meq Tablet.er, 20 MEQ PO DAILY Prescribed by: Kelsie Peres on 12/13/221931 Potassium Chloride (Potassium Chloride) 10 Meq Capsule.er, 10 MEQ PO DAILY Prescribed by: MARY DURHAM on 12/25/22 140 Sucralfate (Carafate) 1 Gram Tablet, 1 GM PO QIDACHS Prescribed by: VINICIO HERNANDEZ on 05/07/22 1201 Review of Systems Review of Systems Constitutional: see HPI EENTM: no symptoms reported Respiratory: no symptoms reported Cardiovascular: see HPI Gastrointestinal: no symptoms reported Genitourinary: no symptoms reported Musculoskeletal: no symptoms reported Skin: other (Mild erythema of the feet and ankle goals bilaterally) Psychiatric/Neurological: See HPI Hematologic/Lymphatic: No Symptoms Reported Immunological/Allergic: no symptoms reported Past Qmynibl-Tjqntk-Lwygia Hx Patient Social History Tobacco Use?: Yes Tobacco type used: Cigarettes Substance use?: Yes Substance type: Methamphetamine, Marijuana Alcohol Use?: No Pt feels they are or have been: No Immunizations Up To Date PED Vaccines UTD: Yes Influenza Vaccine Up-to-Date: No; Not Current First/Initial COVID19 Vaccinat: MODERNA DOESNT KNOW WHEN Second COVID19 Vaccination Umang: MODERNA DOESNT KNOW WHEN Third COVID19 Vaccination Date: MODERNA DOESNT KNOW WHEN Seasonal Allergies Seasonal Allergies: Yes Past Medical History Surgery/Hospitalization HX: TRAUMATIC HEAD INJURY, CATARACT R EYE, TUBAL, HYST, T AND A, THYROID, BILAT CATERACT, SELF CATHS DUE TO URINARY RETENTION, DEMENTIA , TONSILS Surgeries: Yes (BILAT OOPHERECTOMY FOR TUMORS, BREAST BXS, TOE SURGERY) Abdominal, Adenoidectomy, Breast, Eye Surgery, Hysterectomy, Oophorectomy, Orthopedic, Tonsillectomy, Tubal Ligation Respiratory: Yes COPD Currently Using CPAP: No Currently Using BIPAP: No Cardiac: Yes Chronic Edema/Swelling, Palpitations Neurological: Yes (MEDICATION RELATED SEIZURE) Concussion Reproductive Disorders: Yes Female Reproductive Disorders: Menstrual Problems 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, 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 PT STATES SHE HAS BEEN ON METHADONE AND SUBOXONE "FOR YEARS" DUE TO HEROIN ADDICTION. PAST SURGICAL HISTORY: -HYSTERECTOMY/BILATERAL SALPINGO-OOPHORECTOMY -TONSILLECTOMY -BREAST BIOPSY -TOE SURGERY -BILATERAL CATARACT SURGERY 08/2021 STRESS TEST 07/27/[address] ERIS: Conclusion: Pharmacological stress test was negative for ischemia. Normal LV function with no wall motion abnormalities. Normal myocardial perfusion imaging during rest and stress. Physical Exam Vital Signs Vital Signs - First Documented 12/25/22 09:54 Temp 36.4 Pulse 92 Resp 20 B/P (MAP) 175/80 (111) Pulse Ox 100 O2 Delivery Room Air Capillary Refill : Height, Weight, BMI Height: 5'6.00" Weight: 115lbs. 0.0oz. [id number]; 15.00 BMI Method:Stated General Appearance: Mild Distress HEENT: PERRL/EOMI, Normal ENT Inspection Neck: Normal Inspection Respiratory: Lungs Clear, Normal Breath Sounds, No Accessory Muscle Use Cardiovascular: Regular Rate, Rhythm, No Murmur, Other (Moderate LE edema) Gastrointestinal: Non Tender, Soft; No Distended; Other (Lower abdomen seems somewhat full) Extremity: Other (Moderate lower extremity edema extending to the mid calf or higher. Equal bilaterally. Tender to palpation. 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 as Tested, Other (agitated) Skin: Normal Color, Warm/Dry Progress/Results/Core Measures Suspected Sepsis SIRS Temperature: Pulse: 92 Respiratory Rate: 20 Laboratory Tests 12/25/22 10:00: White Blood Count 5.4 Blood Pressure 175 /80 Mean: 111 Laboratory Tests 12/25/22 10:00: Creatinine 1.06, Platelet Count 403H Results/Orders Lab Results Laboratory Tests Test 12/25/22 10:00 12/25/22 13:20 Range/Units White Blood Count 5.4 4.3-11.0 10^3/uL Red Blood Count 3.54 L 3.80-5.11 10^6/uL Hemoglobin 10.5 L 11.5-16.0 g/dL Hematocrit 32 L 35-52 % Mean Corpuscular Volume 91 80-99 fL Mean Corpuscular Hemoglobin 30 25-34 pg Mean Corpuscular Hemoglobin Concent 33 32-36 g/dL Red Cell Distribution Width 14.6 H 10.0-14.5 % Platelet Count 403 H 130-400 10^3/uL Mean Platelet Volume 9.0 9.0-12.2 fL Immature Granulocyte % (Auto) 0 % Neutrophils (%) (Auto) 55 42-75 % Lymphocytes (%) (Auto) 29 12-44 % Monocytes (%) (Auto) 12 0-12 % Eosinophils (%) (Auto) 3 0-10 % Basophils (%) (Auto) 1 0-10 % Neutrophils # (Auto) 3.0 1.8-7.8 10^3/uL Lymphocytes # (Auto) 1.6 1.0-4.0 10^3/uL Monocytes # (Auto) 0.6 0.0-1.0 10^3/uL Eosinophils # (Auto) 0.2 0.0-0.3 10^3/uL Basophils # (Auto) 0.1 0.0-0.1 10^3/uL Immature Granulocyte # (Auto) 0.0 0.0-0.1 10^3/uL Sodium Level 136 135-145 MMOL/L Potassium Level 5.1 H 3.6-5.0 MMOL/L Chloride Level 100 98-107 MMOL/L Carbon Dioxide Level 26 21-32 MMOL/L Anion Gap 10 5-14 MMOL/L Blood Urea Nitrogen 19 H 7-18 MG/DL Creatinine 1.06 0.60-1.30 MG/DL Estimat Glomerular Filtration Rate 58 BUN/Creatinine Ratio 18 Glucose Level 81 70-105 MG/DL Calcium Level 9.4 8.5-10.1 MG/DL Magnesium Level 2.0 1.6-2.4 MG/DL Total Creatine Kinase 131 29-168 U/L Urine Color YELLOW Urine Clarity CLEAR Urine pH 6.0 5-9 Urine Specific [place] 1.010 L 1.016-1.022 Urine Protein NEGATIVE NEGATIVE Urine Glucose (UA) NEGATIVE NEGATIVE Urine Ketones NEGATIVE NEGATIVE Urine Nitrite NEGATIVE NEGATIVE Urine Bilirubin NEGATIVE NEGATIVE Urine Urobilinogen 0.2 < = 1.0 MG/DL Urine Leukocyte Esterase NEGATIVE NEGATIVE Urine RBC (Auto) TRACE H NEGATIVE Urine RBC RARE /HPF Urine WBC NONE /HPF Urine Squamous Epithelial Cells 0-2 /HPF Urine Crystals NONE /LPF Urine Bacteria NEGATIVE /HPF Urine Casts NONE /LPF Urine Mucus NEGATIVE /LPF Urine Culture Indicated NO Urine Opiates Screen POSITIVE H NEGATIVE Urine Oxycodone Screen NEGATIVE NEGATIVE Urine Methadone Screen NEGATIVE NEGATIVE Urine Barbiturates Screen NEGATIVE NEGATIVE Ur Tricyclic Antidepressants Screen NEGATIVE NEGATIVE Urine Phencyclidine Screen NEGATIVE NEGATIVE Urine Amphetamines Screen POSITIVE H NEGATIVE Urine Methamphetamines Screen POSITIVE H NEGATIVE Urine Benzodiazepines Screen NEGATIVE NEGATIVE Urine Cocaine Screen NEGATIVE NEGATIVE Urine Cannabinoids Screen NEGATIVE NEGATIVE My Orders Orders - MARY JOHNSON MD Basic Metabolic Panel (12/25/22 10:34) Cbc And Automated Diff (12/25/22 10:34) Creatine Kinase (12/25/22 10:34) Drug Screen Stat (Urine) (12/25/22 10:34) Magnesium (12/25/22 10:34) Ua Culture If Indicated (12/25/22 10:34) Bladder Scan (12/25/22 10:34) Acetaminophen Tablet (Acetaminophen Ta (12/25/22 13:30) Ibuprofen Tablet (Ibuprofen Tablet) (12/25/22 13:30) Furosemide Tablet (Furosemide Tablet) (12/25/22 14:15) Furosemide Tablet (Furosemide Tablet) (12/25/22 14:11) Medications Given in ED Vital Signs/I&O 12/25/22 12/25/22 09:54 14:19 Temp 36.4 Pulse 92 86 Resp 20 17 B/P (MAP) 175/80 (111) 116/95 Pulse Ox 100 100 O2 Delivery Room Air Room Air Capillary Refill : Blood Pressure Mean: 111 Progress Note : Progress Note Labs were obtained and reviewed. They were relatively unremarkable by my interpretation. CBC was notable only for mild anemia with hemoglobin of 10.5. Chemistry was notable only for slight elevation of potassium at 5.1. Urine toxicology screen was positive for amphetamines and methamphetamine. Bladder scan postvoid was less than 200 mL. Urinalysis was otherwise unremarkable. Patient was treated with Tylenol and ibuprofen for pain. I discussed the need for her to have primary care to help manage these problems. Elevation and diuretics can be used in the short-term to help with her edema. See discharge instructions for further discussion. Departure Impression Primary Impression: Bilateral lower extremity edema Additional Impressions: Lower extremity pain Qualified Codes: M79.604 - Pain in right leg; M79.605 - Pain in left leg Methamphetamine abuse History of urinary retention Disposition: 01 HOME, SELF-CARE Condition: Stable Departure-Patient Inst. Decision time for Depature: 13:56 Referrals: NO,LOCAL PHYSICIAN (PCP/Family) Primary Care Physician Patient Instructions: OUTPT SUBSTANCE ABUSE RESOURCE, Swelling Add. Discharge Instructions: You received a dose of Lasix (furosemide) in the emergency room. Because your potassium is slightly high today, do not take a dose of potassium today. You may take Lasix as prescribed, 40 mg each morning as needed for leg swelling. After today, you should always take a dose of potassium whenever you take Lasix. Do not take the potassium if you are not taking Lasix. Follow-up with a primary care provider soon as possible. Please call today to make an appointment. Please seek assistance with your methamphetamine use. Dr. Johnson suggests contacting [facility] at [phone] [facility] at [phone] to establish with a substance abuse treatment program. Your pain and swelling is likely made much worse by the use of methamphetamine. Elevate your feet to the level of your heart as much as possible. When elevating your feet, be sure your feet are higher than more level with your knees. For pain you may take Tylenol (acetaminophen) up to 650 mg every 6 hours as needed and/or ibuprofen up to 400 mg every 6 hours as needed. Return to the emergency room if you have worsening problems despite following these instructions. All discharge instructions reviewed with patient and/or family. Voiced understanding. Scripts Potassium Chloride (Potassium Chloride) 10 Meq Capsule.er 10 MEQ PO DAILY, #7 CAP Take only with lasix (furosamide) Prov: MARY JOHNSON MD 12/25/22 Furosemide (Lasix) 40 Mg Tablet 40 MG PO DAILY PRN for edema, #7 TAB Prov: MARY JOHNSON MD 12/25/22 Copy Copies To 1: [facility]/MARY WETZEL MD Dec 25, 2022 13:55
[2022-12-25] MEDS ORDERED: FUROSEMIDE 40 MG TABLET PO ONE (14:00)
[2022-12-25] MEDS ORDERED: POTA10CA84 PO (14:02)
[2022-12-25] MEDS ORDERED: FURO-124 PO (14:02)
[2022-12-25] MEDS ORDERED: FUROSEMIDE 20 MG TABLET ONE (14:11)
[2022-12-25] MEDS ORDERED: FUROSEMIDE 20 MG TABLET PO ONE (14:15)
[2022-12-25 14:19] VITALS: BP 116/95
== END 2022-12-25 14:20 | disposition home or self-care (01) ==
LOC: EDUNIT# 09:42 → ER 09:46
DX: M79.604 Pain in right leg (principal); M79.605 Pain in left leg; F15.10 Other stimulant abuse, uncomplicated; R60.0 Localized edema; D64.9 Anemia, unspecified; F17.210 Nicotine dependence, cigarettes, uncomplicated; Z87.448 Personal history of other diseases of urinary system
CPT/HCPCS: 36415; 80048; 80306; 81000; 82550; 83735; 85025; 99283

== ENCOUNTER 2023-01-03 20:04 | Emergency (ER) | payer MEDICAID ==
[~2023-01-03] VITALS: Ht 170.2 cm; Wt 43.0 kg
[~2023-01-03 20:04] MED LIST changes: +FURO-124 PO; +POTA10CA84 PO
[2023-01-03 20:10] VITALS: BP 121/95
--- NOTE | 2023-01-03 20:19 | ED General ---
General Stated Complaint: PANIC ATTACK Source of Information: Patient Exam Limitations: No Limitations (RADHA CALHOUN) History of Present Illness Date Seen by Provider: Jan 03, 2023 Time Seen by Provider: 20:18 Initial Comments Patient is a 67-year-old female who presents to the ED with concern of not feeling well. She states her roommate called EMS. Patient states she felt like she was going to pass out. She states she had some mild nausea, weakness fatigue. Denies vomiting, diarrhea, cough chest pain or shortness of breath. Patient with fast speech. Denies any drug use or alcohol use. She states she does feel anxious. She states she cannot urinate and urinated right before. She denies of any visual changes, auditory or visual hallucinations, fever. Denies any suicidal homicidal thoughts. (RADHA CALHOUN) Allergies and Home Medications Allergies Coded Allergies: butorphanol (Unverified Allergy, Unknown, 10/01/13) tramadol (Verified Allergy, Unknown, Nausea, 05/05/22) trazodone (Verified Allergy, Unknown, 05/05/22) FEELS LIKE ELECTRIC SHOCK IN LIMBS erythromycin base (Unverified Adverse Reaction, Intermediate, 03/03/13) Patient Home Medication List Home Medication List Reviewed: Yes (RADHA CALHOUN) Atorvastatin Calcium (Atorvastatin Calcium) 10 Mg Tablet, 10 MG PO DAILY Prescribed by: VINICIO HERNANDEZ on 05/07/22 120 Cefdinir (Cefdinir) 300 Mg Capsule, 300 MG PO BID Prescribed by: MARY DURHAM on 11/01/22 132 Cefuroxime Axetil (Cefuroxime) 500 Mg Tablet, 500 MG PO BID Prescribed by: Kelsie Peres on 12/13/221931 Cephalexin (Cephalexin) 500 Mg Tablet, 500 MG PO BID Prescribed by: VINICIO HERNANDEZ on 05/07/22 120 Clonazepam (Clonazepam) 0.5 Mg Tablet, 0.5 MG PO BID Prescribed by: MARY DURHAM on 11/01/22 1333 Furosemide (Lasix) 20 Mg Tablet, 20 MG PO DAILY Prescribed by: Kelsie Peres on 12/13/221931 Furosemide (Lasix) 40 Mg Tablet, 40 MG PO DAILY PRN for edema Prescribed by: MARY DURHAM on 12/25/22 1402 Levothyroxine Sodium (Levothyroxine Sodium) 100 Mcg Tablet, 100 MCG PO DAILY, (Reported) Entered as Reported by: LAURA AVILA on 05/05/22 105 Metoprolol Succinate (Metoprolol Succinate) 25 Mg Tab.er.24h, 25 MG PO DAILY Prescribed by: VINICIO HERNANDEZ on 05/07/22 1201 Nitrofurantoin Monohyd/M-Cryst (Nitrofurantoin [place]-Mcr 100 mg) 100 Mg Capsule, 100 MG PO DAILY, (Reported) Entered as Reported by: LAURA AVILA on 05/05/22 105 Omeprazole (Omeprazole) 40 Mg Capsule.dr, 40 MG PO DAILY, (Reported) Entered as Reported by: LAURA AVILA on 05/05/22 105 Omeprazole Magnesium (Prilosec Otc) 20 Mg Tablet.dr, 20 MG PO DAILY Prescribed by: PANCHO MEYERS on 11/17/22 1517 Ondansetron (Ondansetron Odt) 4 Mg Tab.rapdis, 1 TAB PO TID PRN for NAUSEA/VOMITING-1ST LINE, (Reported) Entered as Reported by: VINICIO HERNANDEZ on 01/20/212048 Ondansetron (Ondansetron Odt) 4 Mg Tab.rapdis, 4 MG SL Q4H PRN for NAUSEA/VOMITING Prescribed by: PANCHO MEYERS on 11/17/22 1517 Potassium Chloride (Potassium Chloride) 20 Meq Tablet.er, 20 MEQ PO DAILY Prescribed by: Kelsie Peres on 12/13/22 193 Potassium Chloride (Potassium Chloride) 10 Meq Capsule.er, 10 MEQ PO DAILY Prescribed by: MARY DURHAM on 12/25/22 1402 Sucralfate (Carafate) 1 Gram Tablet, 1 GM PO QIDACHS Prescribed by: VINICIO HERNANDEZ on 05/07/22 1201 Review of Systems Review of Systems Constitutional: No chills, No diaphoresis; malaise, weakness EENTM: No ear pain, No blurred vision, No double vision Respiratory: No cough, No dyspnea on exertion Cardiovascular: No chest pain Gastrointestinal: No abdominal pain, No nausea Musculoskeletal: No back pain, No joint pain Skin: No change in color, No change in hair/nails Psychiatric/Neurological: Anxiety (RADHA CALHOUN) All Other Systems Reviewed Negative Unless Noted: Yes (RADHA CALHOUN) Past Trhuggx-Dcwdah-Zukeul Hx Immunizations Up To Date PED Vaccines UTD: Yes First/Initial COVID19 Vaccinat: MODERNA DOESNT KNOW WHEN Second COVID19 Vaccination Umang: MODERNA DOESNT KNOW WHEN Third COVID19 Vaccination Date: MODERNA DOESNT KNOW WHEN (RADHA CALHOUN) Seasonal Allergies Seasonal Allergies: Yes (RADHA CALHOUN) Past Medical History Surgery/Hospitalization HX: TRAUMATIC HEAD INJURY, CATARACT R EYE, TUBAL, HYST, T AND A, THYROID, BILAT CATERACT, SELF CATHS DUE TO URINARY RETENTION, DEMENTIA , TONSILS Surgeries: Yes (BILAT OOPHERECTOMY FOR TUMORS, BREAST BXS, TOE SURGERY) Abdominal, Adenoidectomy, Breast, Eye Surgery, Hysterectomy, Oophorectomy, Orthopedic, Tonsillectomy, Tubal Ligation Respiratory: Yes COPD Currently Using CPAP: No Currently Using BIPAP: No Cardiac: Yes Chronic Edema/Swelling, Palpitations Neurological: Yes (MEDICATION RELATED SEIZURE) Concussion Reproductive Disorders: Yes Female Reproductive Disorders: 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, Menopausal Genitourinary: Yes (URINARY RETENTION-SELF CATH'S) UTI-Chronic Gastrointestinal: Yes ("no feeling in rectum") Gastroesophageal Reflux, Chronic Constipation, Hemorrhoids, Polyps Musculoskeletal: Yes Degenerate Disk Disease, Arthritis, Chronic Back Pain Endocrine: Yes Hypothyroidsim HEENT: No Cancer: No Psychosocial: Yes (POLYSUBSTANCE ABUSE) Anxiety Integumentary: No Blood Disorders: Yes (anemia) (RADHA CALHOUN) Family Medical History FH: rheumatoid arthritis 19 MOTHER Pancreatic cancer 19 FATHER SOCIAL HISTORY: -SMOKES 1 1/2 PPD -ETOH--6 PACK/DAY -DRUGS-- + IV HEROIN USE, METH USE, THC USE, RX DRUGS. PT STATES SHE HAS BEEN ON METHADONE AND SUBOXONE "FOR YEARS" DUE TO HEROIN ADDICTION. PAST SURGICAL HISTORY: -HYSTERECTOMY/BILATERAL SALPINGO-OOPHORECTOMY -TONSILLECTOMY -BREAST BIOPSY -TOE SURGERY -BILATERAL CATARACT SURGERY 08/2021 STRESS TEST 07/27/[address] REIS: Conclusion: Pharmacological stress test was negative for ischemia. Normal LV function with no wall motion abnormalities. Normal myocardial perfusion imaging during rest and stress. (RADHA CALHOUN) Physical Exam Vital Signs Vital Signs - First Documented 01/03/23 20:10 Temp 36.9 Pulse 83 Resp 24 B/P (MAP) 121/95 (104) Pulse Ox 100 (VISHNU,SHERICE K DO) Vital Signs Capillary Refill : (RADHA CALHOUN) Height, Weight, BMI Height: 5'6.00" Weight: 115lbs. 0.0oz. 52.917006ov; 15.00 BMI Method:Stated General Appearance: No Apparent Distress, WD/WN Eyes: Bilateral Eye Normal Inspection, Bilateral Eye PERRL, Bilateral Eye EOMI HEENT: PERRL/EOMI, TMs Normal, Normal ENT Inspection, Pharynx Normal Neck: Full Range of Motion, Normal Inspection, Non Tender, Supple Respiratory: Chest Non Tender, Lungs Clear, Normal Breath Sounds, No Accessory Muscle Use, No Respiratory Distress Cardiovascular: Regular Rate, Rhythm, No Edema, No Gallop, No JVD, No Murmur Gastrointestinal: Normal Bowel Sounds, No Organomegaly, No Pulsatile Mass, Non Tender Back: Normal Inspection, No CVA Tenderness Extremity: Normal Capillary Refill, Normal Inspection, Normal Range of Motion, Non Tender Neurologic/Psychiatric: Alert, Oriented x3, No Motor/Sensory Deficits, Normal Mood/Affect Skin: Normal Color, Warm/Dry (RADHA CALHOUN) Progress/Results/Core Measures Suspected Sepsis SIRS Temperature: Pulse: Respiratory Rate: Laboratory Tests 01/03/23 20:28: White Blood Count 11.0 Blood Pressure / Mean: Laboratory Tests 01/03/23 20:28: Creatinine 1.32H, Platelet Count 404H, Total Bilirubin 0.3 (RADHA CALHOUN) Results/Orders Lab Results Laboratory Tests Test 01/03/23 20:28 Range/Units White Blood Count 11.0 4.3-11.0 10^3/uL Red Blood Count 4.24 3.80-5.11 10^6/uL Hemoglobin 12.5 11.5-16.0 g/dL Hematocrit 37 35-52 % Mean Corpuscular Volume 88 80-99 fL Mean Corpuscular Hemoglobin 30 25-34 pg Mean Corpuscular Hemoglobin Concent 34 32-36 g/dL Red Cell Distribution Width 14.7 H 10.0-14.5 % Platelet Count 404 H 130-400 10^3/uL Mean Platelet Volume 8.9 L 9.0-12.2 fL Immature Granulocyte % (Auto) 0 % Neutrophils (%) (Auto) 74 42-75 % Lymphocytes (%) (Auto) 17 12-44 % Monocytes (%) (Auto) 7 0-12 % Eosinophils (%) (Auto) 1 0-10 % Basophils (%) (Auto) 1 0-10 % Neutrophils # (Auto) 8.2 H 1.8-7.8 10^3/uL Lymphocytes # (Auto) 1.9 1.0-4.0 10^3/uL Monocytes # (Auto) 0.7 0.0-1.0 10^3/uL Eosinophils # (Auto) 0.1 0.0-0.3 10^3/uL Basophils # (Auto) 0.1 0.0-0.1 10^3/uL Immature Granulocyte # (Auto) 0.0 0.0-0.1 10^3/uL Sodium Level 132 L 135-145 MMOL/L Potassium Level 3.7 3.6-5.0 MMOL/L Chloride Level 95 L 98-107 MMOL/L Carbon Dioxide Level 23 21-32 MMOL/L Anion Gap 14 5-14 MMOL/L Blood Urea Nitrogen 26 H 7-18 MG/DL Creatinine 1.32 H 0.60-1.30 MG/DL Estimat Glomerular Filtration Rate 45 BUN/Creatinine Ratio 20 Glucose Level 88 70-105 MG/DL Calcium Level 9.7 8.5-10.1 MG/DL Corrected Calcium 8.5-10.1 MG/DL Total Bilirubin 0.3 0.1-1.0 MG/DL Aspartate Amino Transf (AST/SGOT) 21 5-34 U/L Alanine Aminotransferase (ALT/SGPT) 8 0-55 U/L Alkaline Phosphatase 84 40-136 U/L Total Protein 8.6 H 6.4-8.2 GM/DL Albumin 4.6 H 3.2-4.5 GM/DL Salicylates Level < 5.0 L 5.0-20.0 MG/DL Acetaminophen Level < 10 L 10-30 UG/ML Serum Alcohol < 10 <10 MG/DL (SHERICE MARES DO) Vital Signs/I&O 01/03/23 20:10 Temp 36.9 Pulse 83 Resp 24 B/P (MAP) 121/95 (104) Pulse Ox 100 (SHERICE MARES DO) Vital Signs/I&O Capillary Refill : (RADHA CALHOUN) Departure Communication (PCP) Patient with fast speech, racing thoughts, difficult to understand. She did states she has not been feeling well today. Blessing like she was going to pass out at home. Denies of any current chest pain or shortness of breath. Denies headache, dizziness, visual changes, unilateral muscle weakness or sensory changes. Has not been taking her medication. Appears to have a psych history. History of substance use. Denies any drug use or alcohol use. She denies of any hallucinations. Concerning for substance use. Denies of any suicidal homicidal thoughts. She refused urinalysis on arrival. Recommended generalized lab work, EKG. Obtain lab work. She did not provide a urine sample. She lives at home with a roommate. She did not want to stay any longer and was wanting to leave AMA. She understands the risk and not able to make a clear diagnosis. Patient is coherent and able to make her own medical decisions. She states she will return back to ED if symptoms worsen. She states she does not want to miss her ride. She was brought to ED by EMS. Roommate came to pick her up. (RADHA CALHOUN) Impression Primary Impression: Anxiety Disposition: 07 AGAINST MEDICAL ADVICE Condition: Stable/Unchanged Departure-Patient Inst. Decision time for Depature: 21:26 (RADHA CALHOUN) Referrals: NO,LOCAL PHYSICIAN (PCP/Family) Primary Care Physician ATTENDING PHYSICIAN NOTE: I WAS PHYSICALLY PRESENT ER PHYSICIAN, BUT I WAS NOT INVOLVED IN ANY DECISION MAKING OR ANY CARE OF THIS PATIENT, AND I AM NOT COLLABORATING PHYSICIAN. (SHERICE MARES DO) RADHA CALHOUN Jan 03, 2023 20:19 SHERICE MARES DO Jan 04, 2023 00:12
[2023-01-03 20:57] LABS: BASOPHILS # (AUTO) 0.1 10^3/uL (0.0-0.1); BASOPHILS % (AUTO) 1 % (0-10); EOSINOPHILS # (AUTO) 0.1 10^3/uL (0.0-0.3); EOSINOPHILS % (AUTO) 1 % (0-10); HEMATOCRIT 37 % (35-52); HEMOGLOBIN 12.5 g/dL (11.5-16.0); LYMPHOCYTES # (AUTO) 1.9 10^3/uL (1.0-4.0); LYMPHOCYTES % (AUTO) 17 % (12-44); MEAN CORPUSCULAR HEMOGLOBIN 30 pg (25-34); MEAN CORPUSCULAR HGB CONC 34 g/dL (32-36); MEAN CORPUSCULAR VOLUME 88 fL (80-99); MEAN PLATELET VOLUME 8.9 fL (9.0-12.2); MONOCYTES # (AUTO) 0.7 10^3/uL (0.0-1.0); MONOCYTES % (AUTO) 7 % (0-12); NEUTROPHILS # (AUTO) 8.2 10^3/uL (1.8-7.8); NEUTROPHILS % (AUTO) 74 % (42-75); PLATELET COUNT 404 10^3/uL (130-400)
[2023-01-03 20:59] LABS: ALBUMIN 4.6 GM/DL (3.2-4.5); CHLORIDE 95 MMOL/L (98-107); POTASSIUM 3.7 MMOL/L (3.6-5.0); SODIUM 132 MMOL/L (135-145)
[2023-01-03 21:01] LABS: CALCIUM 9.7 MG/DL (8.5-10.1)
[2023-01-03 21:02] LABS: GLUCOSE 88 MG/DL (70-105); TOTAL PROTEIN 8.6 GM/DL (6.4-8.2)
[2023-01-03 21:03] LABS: CARBON DIOXIDE 23 MMOL/L (21-32)
[2023-01-03 21:04] LABS: BILIRUBIN,TOTAL 0.3 MG/DL (0.1-1.0)
[2023-01-03 21:06] LABS: ALKALINE PHOSPHATASE 84 U/L (40-136); CREATININE SERUM 1.32 MG/DL (0.60-1.30); GFR ESTIMATED 45
[2023-01-03 21:07] LABS: ACETAMINOPHEN < 10 UG/ML (10-30); BUN/CREATININE RATIO 20
[2023-01-03 21:08] LABS: SALICYLATE < 5.0 MG/DL (5.0-20.0)
[2023-01-03 21:09] LABS: ALANINE AMINOTRANSFERASE 8 U/L (0-55)
== END 2023-01-03 20:43 | disposition left against medical advice (07) ==
LOC: EDUNIT# 20:04 → ER 20:06
DX: F41.9 Anxiety disorder, unspecified (principal); F17.210 Nicotine dependence, cigarettes, uncomplicated
CPT/HCPCS: 80053; 85025; 99283; G0480 ×3; 36415; 80320; 80329